=== PATIENT | male | born 1950 | race Caucasian/White ===

== ENCOUNTER 2017-02-11 23:33 | Inpatient (IN) ==
[2017-02-12] MEDS ORDERED: ACETAMINOPHEN 500 MG TABLET PO STA (00:12)
[2017-02-12] MEDS ORDERED: SODIUM CHLORIDE 0.9% 1,000 ML IV STA (00:12)
[2017-02-12] MEDS ORDERED: ACETAMINOPHEN 500 MG TABLET ONE (00:12)
[2017-02-12 00:38] LABS: Basophils % 0.1 % (0.0-0.8); Hematocrit 31.1 VOL% (42.0-52.0); Hemoglobin 10.6 GM/DL (14.0-18.0); Immature Granulocytes % 0.7 %; Immature Granulocytes Absolute 0.12 #; Mean Corpuscular HGB Conc 34.1 GM/DL (32-36); Mean Corpuscular Hemoglobin 30 PG (27-34); Mean Corpuscular Volume 88.4 FL (87-102); Mean Platelet Volume 11.1 FL (9.6-12.0); Monocytes % 12.1 % (1.7-12.7); Neutrophils # 13.3 10*3/uL (1.4-7.4); Neutrophils % 81.1 % (38.7-73.9); Platelet Count 202 T/CUMM (130-400); Red Blood Count 3.52 MC/CUMM (3.8-5.5); Red Cell Distribution Width 15.3 % (9.3-17.3); White Blood Count 16.4 T/CUMM (4-12)
[2017-02-12 01:05] LABS: Lactic Acid 1.4 MMOL/L (0.4-2.0)
[2017-02-12 01:07] LABS: Alanine Aminotransferase 26 U/L (16-61); Albumin 3.2 G/DL (3.4-5.0); Alkaline Phosphatase 102 U/L (45-117); Amylase 37 U/L (25-115); Aspartate Amino Transferase 23 U/L (0-37); Bilirubin,Total < 0.39 MG/DL (0.2-1.0); Blood Urea Nitrogen 24 MG/DL (7-18); Calcium 8.8 MG/DL (8.5-10.1); Glucose 137 MG/DL (74-106); Osmolality,Calculated 273.2 MOS/KG (273-304); Potassium 4.4 MMOL/L (3.5-5.1); Sodium 134 MMOL/L (136-145); Total Protein 6.7 G/DL (6.4-8.3)
[2017-02-12 01:13] LABS: Apearance,Urine CLOUDY (Clear); Bacteria,Urine Occasional /HPF (Few); Bilirubin,Urine Negative (Negative); Blood, Urine Small mg/dL (Negative); Glucose,Urine (UA) Negative (Negative); Ketones,Urine Negative (Negative); Mucus,Urine Occasional /LPF (Occasional); Nitrite,Urine Negative (Negative); Protein,Urine 100 MG/DL; RBC,Urine 14 /HPF (0-4); Urine Color Yellow (Yellow); Urine Urobilinogen < 2.0 EU/DL (0.2-1.0); WBC,Urine 126 /HPF (0-6)
--- NOTE | 2017-02-12 01:26 | Emergency Department Note ---
IAle Emily, am scribing for, and in the presence of, Mateus Burger MD 00: 36. Tao Reese Charles R, MD, personally performed the services described in this documentation, ascribed by Fernanda Aguilera in my presence, and it is both accurate and complete . Arrival - Arrival Chief Complaint: Altered Mental Status Stated Complaint: confusion ED Nursing Triage Note: Patient to room via ems. Patient to the room complaining of AMS and fever. At time of triage patients temp is 104.5. Patient has a history of UTI's. Patient is a quadriplegic and self caths every 4 hours. Mode of Arrival: Stretcher Limitations: No Limitations Source: Patient, Significant other Time Seen by Provider: 02/11/17 23:52 - History of Present Illness HPI Narrative: Pt is a 67 y/o male who came to ED by EMS for further evaluation of fever and AMS that worsened today. 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 Spouse notes he has been in hospital since 2015, and only home for 4 weeks just recently. Spouse states he was vomiting this morning, fever of 104, riggors and "talks out of his head," in which usually gets this way when sepsis starts. Pt was given one Tylenol that dropped his fever to 96 in 30 minutes. Pt's alex cath was taken out yesterday that has been in for one month (originally in [place] on January 04) and spouse reports she started cathing him every 4 hrs. Spouse states she has pressed on abdomen to help empty bladder fully. Pt's urine yesterday was clear until later last night was thick and creamy. Spouse reports pt's plan of action next is possible botex injection into bladder, with appointment on February 25. Spouse notes last round of abx given to pt was for 3 days and given at [facility]. Pt's PCP is Dr. Farfan, in which spouse notes calling him directly to inform of fever. Spouse also reports "spot" on buttocks since [place]'s visit, and is taking miralax during day and another laxative at night. Onset (ago): hour(s) Consistency: constant Severity: moderate, severe Severity scale (1-10): 9 Quality: other (altered) Allergies/Adverse Reactions: Allergies Allergy/AdvReac Type Severity Reaction Status Date / Time ciprofloxacin [From Cipro] Allergy Unknown/Unable Verified 02/11/17 23:39 to obtain rofecoxib [From Vioxx] Allergy Unknown/Unable Verified 02/11/17 23:39 to obtain zinc oxide AdvReac Redness of Verified 02/11/17 23:39 [From Boudreauxs Butt Paste] Skin Home Medications: Home Medications Medication Instructions Recorded Confirmed Type ALPRAZolam [Alprazolam] 0.5 mg PO BID PRN 10/05/16 12/18/16 History Baclofen 20 mg PO TID 10/05/16 12/18/16 History Gabapentin 300 mg PO TID 10/05/16 12/18/16 History Losartan [Cozaar] 50 mg PO BID 10/05/16 12/18/16 History Metoprolol Succinate Xl [Toprol Xl] 100 mg PO BEDTIME 10/05/16 12/18/16 History Multivitamin [Multivitamins] 1 tablet PO DAILY 10/05/16 12/18/16 History metFORMIN [Glucophage] 1,000 mg PO TID W/MEALS 10/05/16 12/18/16 History tiZANidine [Zanaflex] 4 mg PO BID PRN 10/05/16 12/18/16 History DULoxetine [Cymbalta] 20 mg PO BID 10/25/16 12/18/16 History Metoclopramide Tab [Reglan Tab] 10 mg PO ACHS 10/25/16 12/18/16 History Omeprazole 20 mg PO DAILY 10/25/16 12/18/16 History Rosuvastatin [Crestor] 20 mg PO BEDTIME 10/25/16 12/18/16 History Sennosides [Senna Laxative] 25 mg PO QID 10/25/16 12/18/16 History amLODIPine [Norvasc] 5 mg PO DAILY 10/25/16 12/18/16 History Aspirin EC Tab 81 mg PO DAILY tablet 11/03/16 12/18/16 Rx Nitrofurantoin Macro/[place] 100 mg PO BEDTIME 12/18/16 12/18/16 History [Macrobid] Polyethylene Glycol Powder 17 gm PO DAILY 12/18/16 12/18/16 History [Miralax] Piperacillin/Tazobactam [Zosyn] 3,375 mg IV Q8H #0 vial 12/23/16 Rx Review of System - Review of System ROS unobtainable: due to mental status Medical,Surgical,& Family Hx - Medical History Cardio: History of: Hypertension HEENT: History of: Eye Problem (dry eyes) Endocrine: History of: Diabetes Mellitus (IDDM), Diabetes Mellitus (NIDDM), Dyslipidemia Respiratory: History of: Asthma (childhood problem.) Genitourinary: History of: Bladder Problem (recent benign bladder biopsy), Kidney Stones, Recurring Urinary Tract Infections Musculoskeletal: History of: Musculoskeletal Problems (Paraplegic 07/2015) - Surgical History Cardiac Surgeries: Sugical HX of: Cardiac Catheterization (stents placed) Thoracic Surgeries: Patient denies;: Organ Transplant HEENT Surgeries: Patient denies: Thyroid Surgery, Tonsilectomy & Adenoidectomy Comment Only: Eye Surgery (cateract surgery on right eye) Orthopedic Surgeries: Surgical HX of;: Orthopedic Surgery - Family History Family History: Reports;: Family Diabetes - Social History Smoking Status: Never smoker Frequency of Alcohol Use: None Type of Drug Use: None Exam Vital Signs: Vital Signs Temperature 104.5 F H 02/11/17 23:33 Pulse Rate 111 H 02/12/17 00:18 Respiratory Rate 20 02/12/17 00:18 Blood Pressure 91/53 02/12/17 00:18 O2 Sat by Pulse Oximetry 96 02/12/17 00:18 - General General appearance: alert, in distress (mild), other (quadriplegic; ill appearance) - Head Head exam: Present: atraumatic, normocephalic - ENT ENT exam: Present: mucous membranes dry. Absent: mucous membranes moist - Chest Chest inspection: Present: symmetric chest wall rise - Respiratory Respiratory exam: Present: normal lung sounds bilaterally. Absent: respiratory distress - Cardiovascular Cardiovascular exam: Present: tachycardia, normal heart sounds - Neurological Exam Neurological exam: Present: other (slightly altered; sleepy). Absent: alert, oriented X3 - Skin Skin exam: Present: warm, diaphoresis, erythema (in the face), other ( emancipated) Course - Consultations Consultation #1: Hospitalist will admit patient Time: 01:23 Results - Labs CBC & BMP: 02/12/17 00:21 02/12/17 00:21 Disposition Clinical Impression: Fever, Leukocytosis, Altered mental status, Dysautonomia, UTI (urinary tract infection), Sepsis Case discussed with: patient, patient's family Condition: Critical Time of Disposition: 01:26
[2017-02-12] MEDS ORDERED: DEXTROSE 50% 25 GM/50 ML VIAL IV PRN ×3 (01:41→12:28)
[2017-02-12] MEDS ORDERED: GLUCAGON 1 MG VIAL IM PRN ×3 (01:41→12:28)
[2017-02-12] MEDS ORDERED: ALBUTEROL 2.5 MG/3 ML NEB RESP TX PRN (01:41)
[2017-02-12 01:52] LABS: Sedimentation Rate-Westergren 99 MM/HR (0-20)
--- NOTE | 2017-02-12 02:05 | Hospitalist History & Physical ---
Assessment and Plan (1) Altered mental status Problem details: likely 2/2 UTI. Improving Status: Acute Current Visit: Yes (2) UTI (urinary tract infection) Problem details: Pseudomonas UTI Status: Acute Current Visit: Yes Qualifiers: Urinary tract infection type: catheter-associated UTI (3) History of paraplegia Status: Chronic Current Visit: No (4) Infectious encephalopathy Status: Resolved Current Visit: No (5) Leukocytosis Problem details: trending down Status: Acute Current Visit: No (6) Sepsis Status: Acute Assessment and plan: Per review patient's vital signs physical exam patient is found to be septic from urinary tract infection. We reviewed his old cultures and he is always grown Pseudomonas out of his urine. It has been the same microorganism in all 3 cultures identified. Going to put him on Fortaz and Zosyn. Treat his nausea and vomiting. Provide him with hydration and observe him at least overnight in the unit. If he does okay with his blood pressure he might be able to be transferred. out later today. We need to get his home meds confirmed and continue those as needed. Current Visit: No History of Present Illness Chief complaint: Nausea and vomiting fever confusion History of present illness: Mr. Yo is a 67 year old male who is a quadriplegic secondary from minor spinal cord injury who presents to our hospital the year EMS tonight. Patient' s reports that he has not been able to keep anything down. She has been throwing up all day. He spiked a temperature and started talking out of his head. She called Dr. Farfan and he recommended that she be sent to the emergency room. Patient was found to have a elevated white count and urinary tract infection. I was consulted for admission to the ER Home Medications Medication Instructions Recorded Confirmed Type ALPRAZolam [Alprazolam] 0.5 mg PO BID PRN 10/05/16 12/18/16 History Baclofen 20 mg PO TID 10/05/16 12/18/16 History Gabapentin 300 mg PO TID 10/05/16 12/18/16 History Losartan [Cozaar] 50 mg PO BID 10/05/16 12/18/16 History Metoprolol Succinate Xl [Toprol Xl] 100 mg PO BEDTIME 10/05/16 12/18/16 History Multivitamin [Multivitamins] 1 tablet PO DAILY 10/05/16 12/18/16 History metFORMIN [Glucophage] 1,000 mg PO TID W/MEALS 10/05/16 12/18/16 History tiZANidine [Zanaflex] 4 mg PO BID PRN 10/05/16 12/18/16 History DULoxetine [Cymbalta] 20 mg PO BID 10/25/16 12/18/16 History Metoclopramide Tab [Reglan Tab] 10 mg PO ACHS 10/25/16 12/18/16 History Omeprazole 20 mg PO DAILY 10/25/16 12/18/16 History Rosuvastatin [Crestor] 20 mg PO BEDTIME 10/25/16 12/18/16 History Sennosides [Senna Laxative] 25 mg PO QID 10/25/16 12/18/16 History amLODIPine [Norvasc] 5 mg PO DAILY 10/25/16 12/18/16 History Aspirin EC Tab 81 mg PO DAILY tablet 11/03/16 12/18/16 Rx Nitrofurantoin Macro/[place] 100 mg PO BEDTIME 12/18/16 12/18/16 History [Macrobid] Polyethylene Glycol Powder 17 gm PO DAILY 12/18/16 12/18/16 History [Miralax] Piperacillin/Tazobactam [Zosyn] 3,375 mg IV Q8H #0 vial 12/23/16 Rx Allergies Allergy/AdvReac Type Severity Reaction Status Date / Time ciprofloxacin [From Cipro] Allergy Unknown/Unable Verified 02/11/17 23:39 to obtain rofecoxib [From Vioxx] Allergy Unknown/Unable Verified 02/11/17 23:39 to obtain zinc oxide AdvReac Redness of Verified 02/11/17 23:39 [From Boudreauxs Butt Paste] Skin Medical,Surgical,& Family Hx - Medical History Cardio: History of: Hypertension HEENT: History of: Eye Problem (dry eyes) Endocrine: History of: Diabetes Mellitus (IDDM), Diabetes Mellitus (NIDDM), Dyslipidemia Respiratory: History of: Asthma (childhood problem.) Genitourinary: History of: Bladder Problem (recent benign bladder biopsy), Kidney Stones, Recurring Urinary Tract Infections Musculoskeletal: History of: Musculoskeletal Problems (Paraplegic 07/2015) - Surgical History Cardiac Surgeries: Sugical HX of: Cardiac Catheterization (stents placed) Thoracic Surgeries: Patient denies;: Organ Transplant HEENT Surgeries: Patient denies: Thyroid Surgery, Tonsilectomy & Adenoidectomy Comment Only: Eye Surgery (cateract surgery on right eye) Orthopedic Surgeries: Surgical HX of;: Orthopedic Surgery - Family History Family History: Reports;: Family Diabetes - Social History Smoking Status: Never smoker Frequency of Alcohol Use: None Type of Drug Use: None ROS unobtainable: due to delirium Exam - Constitutional Vitals: Period Temp Pulse Resp BP Sys/Barr Pulse Ox Last 24 Hr 99.2 F-104.5 F 111-129 20-20 91-100/53-63 94-96 General appearance: normal weight - Head Head exam: Present: normal inspection - Eye Eye exam: Present: EOMI Pupils: Present: JLUIS - ENT ENT exam: Present: normal exam - Neck Neck exam: Present: normal inspection - Respiratory Respiratory exam: Present: clear to auscultation bilaterally - Cardiovascular Cardiovascular exam: Present: regular rate and rhythm - GI/Abdominal GI/Abdominal exam: Present: normal bowel sounds - Extremities Exam Extremities exam: Present: normal inspection - Back Exam Back exam: Present: normal inspection - Neurological Exam Neurological exam: Present: other (Patient is currently asleep) - Psychiatric Psychiatric exam: Present: other (Patient is currently asleep) - Skin Skin exam: Present: normal color Results - Labs CBC & BMP: 02/12/17 00:21 02/12/17 00:21
[2017-02-12] MEDS ORDERED: ONDANSETRON 4 MG/2 ML VIAL IV PRN (02:11)
[2017-02-12] MEDS ORDERED: PANTOPRAZOLE 40 MG VIAL IV SCH (03:00)
[2017-02-12] MEDS: SODIUM CHLORIDE 0.9% 1,000 ML IV SCH ×3 (03:24→17:01)
[2017-02-12] MEDS: PIPERACILLIN/TAZOBACTAM 3,375 MG in SODIUM CHLORIDE 0.9% 100 ML IV SCH ×3 (03:30→18:18)
[2017-02-12] MEDS ORDERED: SODIUM CHLORIDE 0.9% 500 ML IV ONE ×2 (04:00→04:45)
[2017-02-12] MEDS ORDERED: NOREPINEPHRINE 8 MG in SODIUM CHLORIDE 0.9% 242 ML IV SCH (06:30)
[2017-02-12 07:34] LABS: Basophils % 0.2 % (0.0-0.8); Eosinophils % 0.1 % (0.00-10.9); Hematocrit 27.7 VOL% (42.0-52.0); Hemoglobin 9.4 GM/DL (14.0-18.0); Immature Granulocytes % 1.5 %; Immature Granulocytes Absolute 0.22 #; Lymphocytes # 2.1 10*3/uL (1.4-4.0); Lymphocytes % 14.5 % (21.2-54.2); Mean Corpuscular HGB Conc 33.9 GM/DL (32-36); Mean Corpuscular Hemoglobin 30 PG (27-34); Mean Corpuscular Volume 89.6 FL (87-102); Mean Platelet Volume 11.1 FL (9.6-12.0); Monocytes # 1.4 10*3/uL (0.11-0.8); Monocytes % 10.1 % (1.7-12.7); Neutrophils # 10.5 10*3/uL (1.4-7.4); Neutrophils % 73.6 % (38.7-73.9); Platelet Count 168 T/CUMM (130-400); Red Blood Count 3.09 MC/CUMM (3.8-5.5); Red Cell Distribution Width 15.3 % (9.3-17.3); White Blood Count 14.3 T/CUMM (4-12)
--- NOTE | 2017-02-12 08:02 | XRay Report ---
XR chest 1V portable Indication: SOB/fever Comparison: Chest x-ray dated December 20, 2016 Technique: Single frontal view of the chest Findings: Cardiomediastinal silhouette is stable in configuration. Subtle bilateral infrahilar opacities may reflect atelectasis or early consolidative process such as pneumonia. Osseous and surrounding soft tissue structures appear grossly unchanged. IMPRESSION: As above. PROCEDURE INTERPRETED AT [facility] DEPARTMENT OF RADIOLOGY Final Report Signed by: Dr Zachary Jason
[2017-02-12 08:05] LABS: Band Neutrophils 4 % (0-10); Hypochromasia 1+; Lymphocytes 13 % (20-55); Platelet Estimate Adequate; Segmented Neutrophils 72 % (50-85); Total Cells Counted 100
[2017-02-12 08:06] LABS: Albumin 2.7 G/DL (3.4-5.0); Bilirubin,Total 0.6 MG/DL (0.2-1.0); Calcium 8.4 MG/DL (8.5-10.1); Osmolality,Calculated 280.5 MOS/KG (273-304); Total Protein 5.9 G/DL (6.4-8.3)
[2017-02-12] MEDS ORDERED: ALPRAZolam 0.5 MG TABLET PO PRN (08:27)
--- NOTE | 2017-02-12 08:38 | Event Note ---
Subjective Patient seen and examined. No acute events overnight. Case discussed with nursing staff. Labs reviewed. Patient's blood pressure has been stable. Tachycardia has resolved. He is making good urine output. His mental status has improved. His sitter is at the bedside. The patient will be transferred to the general medical floor for continued IV antibiotics. Urine cultures were reviewed. He has previously grown Pseudomonas R generosa sensitive to Fortaz and Zosyn. I agree with the current antibiotic selection and will continue it upon transfer. Physical exam: Constitutional System: No distress. No tremulousness. Head: Normocephalic, atraumatic. Ears, Nose and Throat System: No pain or tenderness. No epistaxis or discharge Eyes System: Pupils equal, round, and reactive. Extraocular muscles intact. Neck: Supple, without adenopathy, No jugular venous distention. Respiratory System: Chest clear to auscultation. Cardiovascular System: Heart with regular rate and rhythm. No murmur. GI System: Abdomen soft, nontender. Normo active bowel sounds present. Musculoskeletal System: limbs with no pedal edema. Full distal pulses. Contractures noted. Neurological System: Chronic quadriplegia secondary to spinal cord injury. Psychiatric System: Conversation is rational Diagnosis: Sepsis Urinary tract infection Previous Pseudomonas UTIs Acute metabolic encephalopathy related to infection secondary to UTI and sepsis. Chronic quadriplegia secondary to spinal cord injury Sacral decubitus wound Plan: Continue Fortaz and Zosyn Continue IV fluids Follow-up a.m. labs Lactic acid was 1.4 on admission Home medications reviewed and reconciled.
[2017-02-12] MEDS: INSULIN REGULAR 100 UNIT/ML SUBCUT SCH ×4 (09:01→19:46)
[2017-02-12] MEDS: BACLOFEN 10 MG TABLET PO SCH ×3 (09:08→22:02)
[2017-02-12] MEDS: ASPIRIN EC 81 MG TABLET PO SCH (09:08)
[2017-02-12] MEDS: GABAPENTIN 300 MG CAPSULE PO SCH ×2 (09:09→14:33)
[2017-02-12] MEDS: ENOXAPARIN 40 MG/0.4 ML SYRINGE SUBCUT SCH (09:09)
[2017-02-12] MEDS: DULoxetine 20 MG CAPSULE PO SCH ×2 (09:11→22:02)
--- NOTE | 2017-02-12 13:07 | Sleep Medicine Consult ---
Assessment and Plan (1) Obstructive sleep apnea Status: Acute Assessment and plan: This patient does have a history of obstructive sleep apnea. He has lost a significant amount of weight compared to his baseline in 2008. However he does remain symptomatic. We will try to reevaluate him with home sleep apnea testing while hospitalized and see if we can better equip him with therapy. Thank you for this consult and the opportunity to participate in his care. Current Visit: Yes (2) Insulin dependent diabetes mellitus Status: Acute Assessment and plan: The prevalence rate for obstructive sleep apnea in patients with type 2 diabetes can be as high as 86%. Those patients with moderate to severe obstructive sleep apnea are at a greater risk for diabetic nephropathy and neuropathy. Compliance with CPAP therapy for these patients can lead to improvement in glycemic control and improvement in insulin sensitivity. Current Visit: No (3) Hypertension Status: Acute Assessment and plan: The prevalence rate for obstructive sleep apnea patients with hypertension is 35 %. That rate can be as high as 80% in patients who require 4 or more medications for blood pressure control. Current Visit: No History of Present Illness Chief complaint: Obstructive sleep apnea History of present illness: Mr. Yo is a 67 year old male known to me from previous sleep evaluation in 2008. He had severe obstructive sleep apnea with a diagnostic AHI of 49. He returned for CPAP titration and had good results at 9 cm. He poorly tolerated CPAP and quit using it soon thereafter. He was lost to follow-up with me. 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 He lives at home and has [id number] caretakers. He has lost a significant amount of weight since his injury. In 2008, he weighed 250 pounds. He does continue to snore and his civil draftsman state that he sleeps all the time. He does awaken from sleep short of breath. He is admitted to the ICU for urosepsis and sleep medicine was consulted for reevaluation of his sleep apnea. Nurses and caretakers have noticed episodes of apneas during his sleep. Home Medications Medication Instructions Recorded Confirmed Type ALPRAZolam [Alprazolam] 0.5 mg PO BID PRN 10/05/16 02/12/17 History Baclofen 20 mg PO TID 10/05/16 02/12/17 History Gabapentin 100 mg PO TID 10/05/16 02/12/17 History Metoprolol Succinate Xl [Toprol Xl] 100 mg PO BID 10/05/16 02/12/17 History Multivitamin [Multivitamins] 1 tablet PO DAILY 10/05/16 02/12/17 History metFORMIN [Glucophage] 100 mg PO TID W/MEALS 10/05/16 02/12/17 History tiZANidine [Zanaflex] 4 mg PO DAILY PRN 10/05/16 02/12/17 History DULoxetine [Cymbalta] 20 mg PO DAILY 10/25/16 02/12/17 History Metoclopramide Tab [Reglan Tab] 10 mg PO TID 10/25/16 02/12/17 History Omeprazole 20 mg PO DAILY 10/25/16 02/12/17 History Rosuvastatin [Crestor] 20 mg PO BEDTIME 10/25/16 02/12/17 History Sennosides [Senna Laxative] 25 mg PO BEDTIME 10/25/16 02/12/17 History Aspirin EC Tab 81 mg PO DAILY tablet 11/03/16 02/12/17 Rx Polyethylene Glycol Powder 17 gm PO DAILY 12/18/16 02/12/17 History [Miralax] HYDROcodone/ACETAMIN 7.5-325 1 tablet PO Q6H PRN 02/12/17 02/12/17 History [[place] 7.5-325] Oxybutynin [Ditropan] 10 mg PO BID 02/12/17 02/12/17 History Trimethoprim [Proloprim] 100 mg PO DAILY 02/12/17 02/12/17 History Allergies Allergy/AdvReac Type Severity Reaction Status Date / Time ciprofloxacin [From Cipro] Allergy Unknown/Unable Verified 02/11/17 23:39 to obtain rofecoxib [From Vioxx] Allergy Unknown/Unable Verified 02/11/17 23:39 to obtain zinc oxide AdvReac Redness of Verified 02/11/17 23:39 [From Boudreauxs Butt Paste] Skin Review of systems: He states that he has had some difficulty swallowing recently. Otherwise review of systems unremarkable from a sleep standpoint. Exam (Pulmonay) H&P - Constitutional Vitals: Period Temp Pulse Resp BP Sys/Barr Pulse Ox Last 24 Hr 98.0 F-98.9 F 54-105 9-20 63-129/40-74 95-100 Exam: He is alert and responsive and answers questions appropriately. Pupils equal round reactive to light and accommodation. Extraocular movements intact. Oropharynx with a class III Mallampati exam. Neck supple without adenopathy or thyromegaly no supraclavicular adenopathy. Chest with symmetrical breath sounds without significant wheeze rhonchi. Cardiac exam reveals a regular rhythm without murmur or gallop. Abdomen soft nontender without palpable hepatosplenomegaly or mass. Extremities are without clubbing, cyanosis, or edema. Neurologically, he answers questions appropriately but he is quadriplegic. Medical,Surgical,& Family Hx - Medical History Cardio: History of: Hypertension, Cardiovascular Problems (stent placed around 2007) Neurology: No history of: Cerebral Hemorrhage, Cerebrovascular Accident, Cerebral Palsy HEENT: History of: Eye Problem (dry eyes) Endocrine: History of: Diabetes Mellitus (IDDM), Diabetes Mellitus (NIDDM), Dyslipidemia Respiratory: History of: Asthma (childhood problem.), Obstructive Sleep Apnea Genitourinary: History of: Bladder Problem (recent benign bladder biopsy), Kidney Stones, Recurring Urinary Tract Infections Gastrointestinal: History of: GERD Musculoskeletal: History of: Musculoskeletal Problems (Paraplegic 07/2015) - Surgical History Cardiac Surgeries: Sugical HX of: Cardiac Catheterization (stents placed) Thoracic Surgeries: Patient denies;: Organ Transplant Neurologic Surgeries: Patient denies: Cerebral Hemorrhage HEENT Surgeries: Patient denies: Thyroid Surgery, Tonsilectomy & Adenoidectomy Comment Only: Eye Surgery (cateract surgery on right eye) Orthopedic Surgeries: Surgical HX of;: Orthopedic Surgery - Family History Family History: Reports;: Family Diabetes - Social History Smoking Status: Never smoker Frequency of Alcohol Use: None Type of Drug Use: None Results - Labs CBC & BMP: 02/12/17 07:22 02/12/17 07:22 Lab Results: I have reviewed the past 24 hour labs
[2017-02-12] MEDS: DESITIN 4OZ/NYSTATIN 15 GRAM MIXTURE PASTE TOP SCH ×2 (14:18→21:00)
[2017-02-12] MEDS: METOCLOPRAMIDE 10 MG TABLET PO SCH ×3 (14:33→22:03)
[2017-02-12] MEDS: OXYBUTYNIN 5 MG TABLET PO SCH (22:02)
[2017-02-12] MEDS: ROSUVASTATIN 20 MG TABLET PO SCH (22:02)
[2017-02-12] MEDS: GABAPENTIN 100 MG CAPSULE PO SCH (22:03)
[2017-02-13] MEDS: SODIUM CHLORIDE 0.9% 1,000 ML IV SCH (03:37)
[2017-02-13] MEDS: PIPERACILLIN/TAZOBACTAM 3,375 MG in SODIUM CHLORIDE 0.9% 100 ML IV SCH ×3 (03:37→18:45)
[2017-02-13 06:22] LABS: Basophils % 0.4 % (0.0-0.8); Eosinophils # 0.3 10*3/uL (0.0-0.87); Hematocrit 27.3 VOL% (42.0-52.0); Hemoglobin 8.9 GM/DL (14.0-18.0); Immature Granulocytes % 0.5 %; Immature Granulocytes Absolute 0.05 #; Lymphocytes # 2.2 10*3/uL (1.4-4.0); Lymphocytes % 21.5 % (21.2-54.2); Mean Corpuscular HGB Conc 32.6 GM/DL (32-36); Mean Corpuscular Hemoglobin 30 PG (27-34); Mean Platelet Volume 11.3 FL (9.6-12.0); Monocytes # 1.1 10*3/uL (0.11-0.8); Monocytes % 10.4 % (1.7-12.7); Neutrophils # 6.6 10*3/uL (1.4-7.4); Neutrophils % 64.2 % (38.7-73.9); Platelet Count 162 T/CUMM (130-400); Red Cell Distribution Width 15.5 % (9.3-17.3); White Blood Count 10.3 T/CUMM (4-12)
[2017-02-13 06:51] LABS: Calcium 8.3 MG/DL (8.5-10.1); Magnesium 1.7 MG/DL (1.8-2.4); Osmolality,Calculated 282.1 MOS/KG (273-304); Potassium 4.1 MMOL/L (3.5-5.1)
[2017-02-13] MEDS: INSULIN REGULAR 100 UNIT/ML SUBCUT SCH ×4 (09:05→20:40)
[2017-02-13] MEDS: OXYBUTYNIN 5 MG TABLET PO SCH ×2 (09:07→20:25)
[2017-02-13] MEDS: ASPIRIN EC 81 MG TABLET PO SCH (09:07)
[2017-02-13] MEDS: DULoxetine 20 MG CAPSULE PO SCH ×2 (09:07→20:25)
[2017-02-13] MEDS: BACLOFEN 10 MG TABLET PO SCH ×3 (09:08→20:25)
[2017-02-13] MEDS: ENOXAPARIN 40 MG/0.4 ML SYRINGE SUBCUT SCH (09:08)
[2017-02-13] MEDS: GABAPENTIN 100 MG CAPSULE PO SCH ×3 (09:08→20:25)
[2017-02-13] MEDS: PANTOPRAZOLE 40 MG TABLET PO SCH (09:08)
[2017-02-13] MEDS: METOCLOPRAMIDE 10 MG TABLET PO SCH ×3 (09:09→20:25)
[2017-02-13] MEDS: DESITIN 4OZ/NYSTATIN 15 GRAM MIXTURE PASTE TOP SCH ×2 (09:09→20:41)
--- NOTE | 2017-02-13 11:56 | Sleep Medicine Progress Note ---
Assessment and Plan (1) Obstructive sleep apnea Status: Acute Assessment and plan: We are unable to technically get a good enough reading to reassess his obstructive sleep apnea by HST. We will go ahead and initiate auto titration BiPAP on him. He has had intolerance to CPAP in the past and has severe obstructive sleep apnea. Current Visit: Yes (2) Insulin dependent diabetes mellitus Status: Acute Current Visit: No (3) Hypertension Status: Acute Current Visit: No Sleep Medicine Subjective Interval history: Patient was moved to the floor. Overnight, we were unable to get a good technical assessment on HST evaluation. We will go ahead and place him on empiric auto titration BiPAP for sleep apnea given his combination of quadriplegia and history of severe obstructive sleep apnea and intolerance to CPAP. Family members note abnormal breathing during sleep With witnessed apneas. Exam (Progress Note) - Constitutional Vitals: Period Temp Pulse Resp BP Sys/Barr Pulse Ox Last 24 Hr 98.3 F-99.7 F 63-106 10-20 91-131/53-71 93-99 Exam: He is sleeping but easily arousable. Oropharynx with a class IV Mallampati exam. Neck supple without adenopathy or thyromegaly. Chest with symmetrical breath sounds without focal wheeze or rhonchi. Cardiac exam reveals a regular rhythm without murmur or gallop. Abdomen soft nontender extremities without increased edema. Results - Labs CBC & BMP: 02/13/17 05:56 02/13/17 05:56 Lab Results: I have reviewed the past 24 hour labs
--- NOTE | 2017-02-13 13:08 | Hospitalist Progress Note ---
Assessment and Plan - Time spent with patient Time spent with patient: Greater than 30 minutes (1) UTI (urinary tract infection) Status: Acute Assessment and plan: Patient is tolerating this well. Continue current management. Current Visit: Yes Qualifiers: Urinary tract infection type: catheter-associated UTI (2) History of paraplegia Status: Chronic Assessment and plan: Continue supportive care. Current Visit: No (3) Insulin dependent diabetes mellitus Status: Acute Assessment and plan: Continue current management. Current Visit: No Hospitalist: Subjective Interval history: No complaints, no overnight events. Exam - Constitutional Vitals: Period Temp Pulse Resp BP Sys/Barr Pulse Ox Last 24 Hr 97.5 F-99.7 F 63-106 18-20 91-131/53-71 93-99 General appearance: no acute distress - Head Head exam: Present: normocephalic, atraumatic - Eye Eye exam: Present: EOMI Pupils: Present: JLUIS - ENT ENT exam: Present: normal exam - Neck Neck exam: Present: normal inspection - Respiratory Respiratory exam: Present: clear to auscultation bilaterally. Absent: rhonchi, wheezes - Cardiovascular Cardiovascular exam: Present: regular rate and rhythm. Absent: gallop, rubs, systolic murmur - GI/Abdominal GI/Abdominal exam: Present: normal bowel sounds, soft. Absent: distended, firm , guarding, tenderness, rebound - Extremities Exam Extremities exam: Present: normal inspection. Absent: calf tenderness, edema Results - Labs CBC & BMP: 02/13/17 05:56 02/13/17 05:56 Lab Results: I have reviewed the past 24 hour labs
[2017-02-13] MEDS: ROSUVASTATIN 20 MG TABLET PO SCH (20:25)
[2017-02-14] MEDS: SODIUM CHLORIDE 0.9% 1,000 ML IV SCH ×4 (00:56→13:45)
[2017-02-14] MEDS: PIPERACILLIN/TAZOBACTAM 3,375 MG in SODIUM CHLORIDE 0.9% 100 ML IV SCH ×3 (04:01→18:46)
[2017-02-14] MEDS ORDERED: ENALAPRIL 5 MG TABLET PO SCH (09:00)
[2017-02-14] MEDS: ENOXAPARIN 40 MG/0.4 ML SYRINGE SUBCUT SCH (09:04)
[2017-02-14] MEDS: METOPROLOL TARTRATE 50 MG TABLET PO SCH ×2 (09:04→21:15)
[2017-02-14] MEDS: ASPIRIN EC 81 MG TABLET PO SCH (09:05)
[2017-02-14] MEDS: OXYBUTYNIN 5 MG TABLET PO SCH ×2 (09:05→21:14)
[2017-02-14] MEDS: GABAPENTIN 100 MG CAPSULE PO SCH ×3 (09:05→21:56)
[2017-02-14] MEDS: BACLOFEN 10 MG TABLET PO SCH ×3 (09:05→21:14)
[2017-02-14] MEDS: METOCLOPRAMIDE 10 MG TABLET PO SCH ×3 (09:05→21:15)
[2017-02-14] MEDS: PANTOPRAZOLE 40 MG TABLET PO SCH (09:06)
[2017-02-14] MEDS: DULoxetine 20 MG CAPSULE PO SCH ×2 (09:06→21:14)
[2017-02-14] MEDS: ENALAPRIL 2.5 MG TABLET PO SCH (10:24)
--- NOTE | 2017-02-14 10:45 | Hospitalist Progress Note ---
Assessment and Plan - Time spent with patient Time spent with patient: Greater than 30 minutes (1) UTI (urinary tract infection) Status: Acute Assessment and plan: Patient is tolerating this well. Continue current management. Current Visit: Yes Qualifiers: Urinary tract infection type: catheter-associated UTI (2) History of paraplegia Status: Chronic Assessment and plan: Continue supportive care. Current Visit: No (3) Insulin dependent diabetes mellitus Status: Acute Assessment and plan: Continue current management. Current Visit: No Hospitalist: Subjective Interval history: No overnight events. No complaints. Exam - Constitutional Vitals: Period Temp Pulse Resp BP Sys/Barr Pulse Ox Last 24 Hr 97.3 F-98.9 F 65-82 18-20 128-189/69-105 98-99 General appearance: normal weight, no acute distress - Head Head exam: Present: normocephalic, atraumatic - Eye Eye exam: Present: EOMI Pupils: Present: JLUIS - ENT ENT exam: Present: normal exam - Neck Neck exam: Present: normal inspection - Respiratory Respiratory exam: Present: clear to auscultation bilaterally. Absent: rhonchi, wheezes - Cardiovascular Cardiovascular exam: Present: regular rate and rhythm. Absent: gallop, rubs, systolic murmur - GI/Abdominal GI/Abdominal exam: Present: normal bowel sounds, soft. Absent: distended, firm , guarding, tenderness, rebound - Extremities Exam Extremities exam: Present: normal inspection. Absent: calf tenderness, edema Results - Labs CBC & BMP: 02/13/17 05:56 02/13/17 05:56 Lab Results: I have reviewed the past 24 hour labs
[2017-02-14] MEDS: DESITIN 4OZ/NYSTATIN 15 GRAM MIXTURE PASTE TOP SCH (12:43)
[2017-02-14] MEDS: INSULIN REGULAR 100 UNIT/ML SUBCUT SCH ×4 (12:43→21:56)
[2017-02-14] MEDS: ROSUVASTATIN 20 MG TABLET PO SCH (21:14)
[2017-02-15] MEDS: DESITIN 4OZ/NYSTATIN 15 GRAM MIXTURE PASTE TOP SCH ×3 (02:06→20:05)
[2017-02-15] MEDS: PIPERACILLIN/TAZOBACTAM 3,375 MG in SODIUM CHLORIDE 0.9% 100 ML IV SCH (03:45)
[2017-02-15 05:27] LABS: Basophils % 0.3 % (0.0-0.8); Eosinophils # 0.2 10*3/uL (0.0-0.87); Eosinophils % 2.9 % (0.00-10.9); Hematocrit 26.9 VOL% (42.0-52.0); Immature Granulocytes % 0.3 %; Immature Granulocytes Absolute 0.02 #; Lymphocytes # 1.5 10*3/uL (1.4-4.0); Lymphocytes % 22.8 % (21.2-54.2); Mean Corpuscular HGB Conc 33.5 GM/DL (32-36); Mean Corpuscular Hemoglobin 30 PG (27-34); Mean Corpuscular Volume 89.4 FL (87-102); Monocytes # 0.7 10*3/uL (0.11-0.8); Monocytes % 10.6 % (1.7-12.7); Neutrophils # 4.2 10*3/uL (1.4-7.4); Neutrophils % 63.1 % (38.7-73.9); Platelet Count 156 T/CUMM (130-400); Red Blood Count 3.01 MC/CUMM (3.8-5.5); Red Cell Distribution Width 15.4 % (9.3-17.3); White Blood Count 6.6 T/CUMM (4-12)
[2017-02-15 05:39] LABS: Calcium 7.9 MG/DL (8.5-10.1); Osmolality,Calculated 281.3 MOS/KG (273-304); Potassium 3.6 MMOL/L (3.5-5.1)
[2017-02-15] MEDS: INSULIN REGULAR 100 UNIT/ML SUBCUT SCH ×4 (07:33→20:05)
[2017-02-15] MEDS: ENOXAPARIN 40 MG/0.4 ML SYRINGE SUBCUT SCH (08:58)
[2017-02-15] MEDS: GABAPENTIN 100 MG CAPSULE PO SCH ×3 (08:59→20:01)
[2017-02-15] MEDS: DULoxetine 20 MG CAPSULE PO SCH ×2 (08:59→20:01)
[2017-02-15] MEDS: BACLOFEN 10 MG TABLET PO SCH ×3 (08:59→20:00)
[2017-02-15] MEDS: ASPIRIN EC 81 MG TABLET PO SCH (08:59)
[2017-02-15] MEDS: PANTOPRAZOLE 40 MG TABLET PO SCH (08:59)
[2017-02-15] MEDS: OXYBUTYNIN 5 MG TABLET PO SCH ×2 (08:59→20:01)
[2017-02-15] MEDS: METOCLOPRAMIDE 10 MG TABLET PO SCH ×3 (08:59→20:02)
[2017-02-15] MEDS: ENALAPRIL 2.5 MG TABLET PO SCH (09:36)
--- NOTE | 2017-02-15 10:50 | Hospitalist Progress Note ---
Assessment and Plan - Time spent with patient Time spent with patient: Greater than 30 minutes (1) UTI (urinary tract infection) Status: Acute Assessment and plan: Patient is tolerating this well. Continue current management. Consult social work for LTAC placement for IV antibiotics. Current Visit: Yes Qualifiers: Urinary tract infection type: catheter-associated UTI (2) History of paraplegia Status: Chronic Assessment and plan: Continue supportive care. Current Visit: No (3) Insulin dependent diabetes mellitus Status: Acute Assessment and plan: Continue current management. Current Visit: No Hospitalist: Subjective Interval history: No complaints or overnight events. Exam - Constitutional Vitals: Period Temp Pulse Resp BP Sys/Barr Pulse Ox Last 24 Hr 97.1 F-98.5 F 55-87 16-20 140-176/77-96 96-99 General appearance: no acute distress - Head Head exam: Present: normocephalic, atraumatic - Eye Eye exam: Present: EOMI Pupils: Present: JLUIS - ENT ENT exam: Present: normal exam - Neck Neck exam: Present: normal inspection - Respiratory Respiratory exam: Present: clear to auscultation bilaterally. Absent: rhonchi, wheezes - Cardiovascular Cardiovascular exam: Present: regular rate and rhythm. Absent: gallop, rubs, systolic murmur - GI/Abdominal GI/Abdominal exam: Present: normal bowel sounds, soft. Absent: distended, firm , guarding, tenderness, rebound - Extremities Exam Extremities exam: Present: normal inspection. Absent: calf tenderness, edema Results - Labs CBC & BMP: 02/15/17 04:47 02/15/17 04:47 Lab Results: I have reviewed the past 24 hour labs
[2017-02-15] MEDS: SODIUM CHLORIDE 0.9% 1,000 ML IV SCH ×2 (19:59→20:00)
[2017-02-15] MEDS: ROSUVASTATIN 20 MG TABLET PO SCH (20:01)
[2017-02-15] MEDS: METOPROLOL SUCCINATE XL 100 MG TABLET PO SCH (20:01)
[2017-02-16] MEDS: SODIUM CHLORIDE 0.9% 1,000 ML IV SCH ×4 (04:45→20:59)
[2017-02-16] MEDS: INSULIN REGULAR 100 UNIT/ML SUBCUT SCH ×4 (09:20→20:54)
[2017-02-16] MEDS: GABAPENTIN 100 MG CAPSULE PO SCH ×3 (09:21→20:54)
[2017-02-16] MEDS: ENOXAPARIN 40 MG/0.4 ML SYRINGE SUBCUT SCH (09:21)
[2017-02-16] MEDS: PANTOPRAZOLE 40 MG TABLET PO SCH (09:22)
[2017-02-16] MEDS: ENALAPRIL 2.5 MG TABLET PO SCH (09:22)
[2017-02-16] MEDS: OXYBUTYNIN 5 MG TABLET PO SCH ×2 (09:22→20:54)
[2017-02-16] MEDS: DESITIN 4OZ/NYSTATIN 15 GRAM MIXTURE PASTE TOP SCH ×2 (09:22→20:55)
[2017-02-16] MEDS: BACLOFEN 10 MG TABLET PO SCH ×3 (09:22→20:53)
[2017-02-16] MEDS: METOPROLOL SUCCINATE XL 100 MG TABLET PO SCH (09:22)
[2017-02-16] MEDS: ASPIRIN EC 81 MG TABLET PO SCH (09:22)
[2017-02-16] MEDS: DULoxetine 20 MG CAPSULE PO SCH ×2 (09:22→20:54)
[2017-02-16] MEDS: METOCLOPRAMIDE 10 MG TABLET PO SCH ×3 (09:22→20:55)
--- NOTE | 2017-02-16 12:42 | Sleep Medicine Progress Note ---
Assessment and Plan (1) Obstructive sleep apnea Status: Acute Assessment and plan: We will try to get a download from the device that he was own over the weekend and see if we can get him set up with a new machine. He needs help with acclamation to BiPAP and mask fit. Current Visit: Yes (2) Insulin dependent diabetes mellitus Status: Acute Current Visit: No (3) Hypertension Status: Acute Current Visit: No Sleep Medicine Subjective Interval history: Patient did use BiPAP over the weekend but had issues with the mask. He still not quite comfortable with the mask. He is looking at being discharged today. We need to work on acclamation for him and see if we can get him a loaner machine to go home with until we can bring him in and formally titrate him. Exam (Progress Note) - Constitutional Vitals: Period Temp Pulse Resp BP Sys/Barr Pulse Ox Last 24 Hr 97.2 F-98.8 F 52-102 16-20 118-186/72-95 95-98 Exam: He is alert and responsive. Looks much better. Chest with good air movement and no focal wheeze or rhonchi. Cardiac exam reveals a regular rhythm without murmur or gallop. Abdomen soft nontender extremities without increased edema. Neurologically, he is alert and oriented. He moves both upper extremities. Results - Labs CBC & BMP: 02/15/17 04:47 02/15/17 04:47 Lab Results: I have reviewed the past 24 hour labs
--- NOTE | 2017-02-16 14:41 | Discharge Summary ---
Hospital Course - Hospital Course Hospital Course: Mr. Yo was admitted for management of urinary tract infection. He was initiated on IV antibiotics. White blood cell count improved from 16.4-6.6 by discharge. Urine grew pseudomonas aeruginosa which was sensitive to the antibiotic that was initiated. The family requested that the patient be discharged to home as opposed to LTAC for IV antibiotics. Antibiotic choice was switched to cefepime every 12 hours for convenience. Of note he was noted to be hypertensive and this was adjusted accordingly. His beta-avery was halved given that his heart rate was low normal. By discharge patient met maximum benefit of hospitalization. I spent 38 minutes coordinating this discharge. - Time spent with patient Time with patient DS: Greater than 30 minutes Diagnosis - Discharge Diagnosis (1) UTI (urinary tract infection) Status: Acute (2) History of paraplegia Status: Chronic (3) Insulin dependent diabetes mellitus Status: Acute Specialty Discharge - Follow Up or Referrals Follow up with: Alysha Blue MD [Physician] - 02/26/17 7:15 pm (Sleep Study Check-In at Admissions ) Discharge Plan - Discharge Data Disposition: Disch To Home/Self Care Condition at Discharge: Stable Discharge Diet: advance to your usual diet Activity: resume usual activities as tolerated - Discharge Medications New Enalapril Tab [Vasotec Tab] 5 mg PO DAILY #30 tablet hydrALAZINE TAB [Apresoline Tab] 100 mg PO BID #60 tablet Cefepime [Maxipime] 2,000 mg IV Q12H #24 vial Metoprolol Succinate Xl [Toprol Xl] 100 mg PO DAILY #30 tablet Continue metFORMIN [Glucophage] 100 mg PO TID W/MEALS tiZANidine [Zanaflex] 4 mg PO DAILY PRN PRN Reason: Pain Baclofen 20 mg PO TID ALPRAZolam [Alprazolam] 0.5 mg PO BID PRN PRN Reason: Anxiety Omeprazole 20 mg PO DAILY Metoclopramide Tab [Reglan Tab] 10 mg PO TID Sennosides [Senna Laxative] 25 mg PO BEDTIME DULoxetine [Cymbalta] 20 mg PO DAILY Polyethylene Glycol Powder [Miralax] 17 gm PO DAILY HYDROcodone/ACETAMIN 7.5-325 [[place] 7.5-325] 1 tablet PO Q6H PRN PRN Reason: Pain Oxybutynin [Ditropan] 10 mg PO BID Trimethoprim [Proloprim] 100 mg PO DAILY Gabapentin 100 mg PO TID Multivitamin [Multivitamins] 1 tablet PO DAILY Rosuvastatin [Crestor] 20 mg PO BEDTIME Aspirin EC Tab 81 mg PO DAILY tablet Discontinued Metoprolol Succinate Xl [Toprol Xl] 100 mg PO BID - Follow Up or Referral Follow Up: Alysha Blue MD [Physician] - 02/26/17 7:15 pm (Sleep Study Check-In at Admissions ) - Forms/Instructions Exam - Constitutional Vitals: Period Temp Pulse Resp BP Sys/Barr Pulse Ox Last 24 Hr 97.2 F-98.8 F 52-102 16-20 118-186/72-95 95-98 General appearance: normal weight, no acute distress - Head Head exam: Present: normal inspection, normocephalic, atraumatic - Eye Eye exam: Present: EOMI Pupils: Present: JLUIS - ENT ENT exam: Present: normal exam - Neck Neck exam: Present: normal inspection - Respiratory Respiratory exam: Present: clear to auscultation bilaterally - Cardiovascular Cardiovascular exam: Present: regular rate and rhythm - GI/Abdominal GI/Abdominal exam: Present: normal bowel sounds - Extremities Exam Extremities exam: Present: normal inspection Discharge Results Procedures and tests throughout hospitalization: Pending Orders 02/16/17 14:07 IR PICC line insertion Stat Labs on day of discharge: Labs from last 24 hours 02/16/17 02/16/17 11:25 07:41 POC Glucose 116 H 110 H DS: Provider Date of admission: 02/12/17 01:42 Primary care physician: . No PCP Attending physician on admission: Andrea Leigh MD Consults: 02/12/17 02:56 Consult to Pastoral Services [CONS] Routine Comment: Pastoral Screen: Request Payroll Master Visit Pastoral Screen Source of Request: Friend 02/12/17 08:58 Consult to Physician [CONS] Routine Comment: Consulting Provider: Alysha Blue Consulting Provider Notified: Yes When should Consulting Provider be notified: Now Person Notified: franco Date Notified: 02/12/17 Time Notified: 08:30 02/15/17 10:48 Consult to Case Mgmt/Social Srvs [CONS] Routine Reason for Case Mgmt/Social Srvs: LTAC Consult Comment: Needs 2 weeks of IV antibiotics, q8hr 02/16/17 09:52 Consult to Case Mgmt/Social Srvs [CONS] Routine Reason for Case Mgmt/Social Srvs: Discharge Planning Consult Comment: cefepime 2 grams q 12 hours for 14 days 02/16/17 13:50 Consult to Case Mgmt/Social Srvs [CONS] Routine Reason for Case Mgmt/Social Srvs: Discharge Planning Consult Comment: home health for iv antibotics Discharging clinician: Carmen Garcia MD Expected date of discharge: 02/17/17
--- NOTE | 2017-02-16 15:27 | Hospitalist Progress Note ---
Assessment and Plan - Time spent with patient Time spent with patient: Greater than 30 minutes (1) UTI (urinary tract infection) Status: Acute Assessment and plan: Patient will require PICC placement and LTAC for 2 more weeks of antibiotics. Current Visit: Yes Qualifiers: Urinary tract infection type: catheter-associated UTI (2) History of paraplegia Status: Chronic Assessment and plan: Continue supportive care. Current Visit: No (3) Insulin dependent diabetes mellitus Status: Acute Assessment and plan: Continue current management. Current Visit: No Hospitalist: Subjective Interval history: Patient has had a elevation of blood pressure today otherwise no complaints. Exam - Constitutional Vitals: Period Temp Pulse Resp BP Sys/Barr Pulse Ox Last 24 Hr 97.2 F-98.8 F 52-102 16-20 118-187/72-97 95-98 General appearance: no acute distress - Head Head exam: Present: normocephalic, atraumatic - Eye Eye exam: Present: EOMI Pupils: Present: JLUIS - ENT ENT exam: Present: normal exam - Neck Neck exam: Present: normal inspection - Respiratory Respiratory exam: Present: clear to auscultation bilaterally. Absent: rhonchi, wheezes - Cardiovascular Cardiovascular exam: Present: regular rate and rhythm. Absent: gallop, rubs, systolic murmur - GI/Abdominal GI/Abdominal exam: Present: normal bowel sounds, soft. Absent: distended, firm , guarding, tenderness, rebound - Extremities Exam Extremities exam: Present: normal inspection. Absent: calf tenderness, edema Results - Labs CBC & BMP: 02/15/17 04:47 02/15/17 04:47 Lab Results: I have reviewed the past 24 hour labs Specialty Discharge - Follow Up or Referrals Follow up with: Alysha Blue MD [Physician] - 02/26/17 7:15 pm (Sleep Study Check-In at Admissions )
[2017-02-16] MEDS: CEFEPIME 2,000 MG in SODIUM CHLORIDE 0.9% 100 ML IV SCH (18:05)
[2017-02-16] MEDS: ROSUVASTATIN 20 MG TABLET PO SCH (20:54)
[2017-02-17] MEDS: CEFEPIME 2,000 MG in SODIUM CHLORIDE 0.9% 100 ML IV SCH (05:14)
[2017-02-17] MEDS: INSULIN REGULAR 100 UNIT/ML SUBCUT SCH ×2 (08:18→11:25)
[2017-02-17] MEDS: SODIUM CHLORIDE 0.9% 1,000 ML IV SCH (08:33)
[2017-02-17] MEDS: PANTOPRAZOLE 40 MG TABLET PO SCH (08:34)
[2017-02-17] MEDS: ENOXAPARIN 40 MG/0.4 ML SYRINGE SUBCUT SCH (08:34)
[2017-02-17] MEDS: OXYBUTYNIN 5 MG TABLET PO SCH (08:34)
[2017-02-17] MEDS: ASPIRIN EC 81 MG TABLET PO SCH (08:34)
[2017-02-17] MEDS: BACLOFEN 10 MG TABLET PO SCH (08:34)
[2017-02-17] MEDS: DESITIN 4OZ/NYSTATIN 15 GRAM MIXTURE PASTE TOP SCH (08:34)
[2017-02-17] MEDS: ENALAPRIL 2.5 MG TABLET PO SCH (08:35)
[2017-02-17] MEDS: GABAPENTIN 100 MG CAPSULE PO SCH (08:35)
[2017-02-17] MEDS: METOPROLOL SUCCINATE XL 100 MG TABLET PO SCH (08:35)
[2017-02-17] MEDS: DULoxetine 20 MG CAPSULE PO SCH (08:35)
[2017-02-17] MEDS: METOCLOPRAMIDE 10 MG TABLET PO SCH (08:35)
[2017-02-17 12:11] VITALS: BP 169/88
--- NOTE | 2017-02-17 12:28 | Post Interventional Procedure ---
Pre-op diagnosis: UTI, outpatient ABx Post-op diagnosis: same Procedure: PICC RUE Flouroscopy: 0.1 min Radiologist: Andrea Guillory Anesthesia: local Specimens: none sent Estimated blood loss: none Complications: none Condition: stable Assessment and Plan - Time spent with patient Time spent with patient: Less than 30 minutes
--- NOTE | 2017-02-17 13:41 | Interventional Radiology Rpt ---
IR PICC line insertion, US guide vascular access Indication: UTI. Outpatient IV antibiotics for 2 weeks. PICC LINE Description: A formal timeout was performed. Maximum sterile barrier technique was used. Sonographic evaluation of the right upper extremity demonstrates patent and compressible basilar vein. The upper arm was prepped and draped in sterile fashion. 3 cc 1% lidocaine was administered subcutaneously. Under sonographic guidance, a micropuncture needle was advanced into the vein. A captured sonographic image documents the position of the needle. Needle was exchanged over a wire for a peel-away sheath. A dual lumen power PICC, cut to 37 cm, was advanced over the wire until the tip was at the RA-SVC junction. The position of the catheter was confirmed with fluoroscopic guidance and an image stored in PACS. The wire and sheath were removed. Both ports of the PICC were aspirated and flushed with heparinized saline. The device was secured with a StatLock. Fluoroscopy: 0.1 minute. Impression: PICC line ready for immediate use. Routine catheter care. PROCEDURE INTERPRETED AT [facility] DEPARTMENT OF RADIOLOGY Final Report Signed by: Andrea Guillory M.D.
[2017-02-17] MEDS ORDERED: CEFEPIME 2,000 MG in SODIUM CHLORIDE 0.9% 100 ML IV SCH (18:00)
== END 2017-02-17 14:02 | disposition home health service (06) | DRG 698 ==
LOC: EDBD → EDUNIT# → N.ED 23:33 → N.EDINP 02-12 01:41 → SUATTDRO 02-12 01:41 → N.ICU 02-12 02:09 → N.2E 02-12 13:56
PROVIDERS: ADMIT Internal Medicine; ATTEND Internal Medicine

== ENCOUNTER 2017-02-21 11:45 | Inpatient (IN) ==
[2017-02-21] MEDS ORDERED: SODIUM CHLORIDE 0.9% 500 ML IV STA (12:03)
[2017-02-21 12:38] LABS: Apearance,Urine CLOUDY (Clear); Bacteria,Urine Occasional /HPF (Few); Bilirubin,Urine Negative (Negative); Blood, Urine Small mg/dL (Negative); Glucose,Urine (UA) Negative (Negative); Ketones,Urine 5 mg/dL (Negative); Mucus,Urine Occasional /LPF (Occasional); Nitrite,Urine Negative (Negative); Protein,Urine Negative; RBC,Urine 10 /HPF (0-4); Urine Color Yellow (Yellow); Urine Specific Gravity 1.005 (1.001-1.035); Urine Urobilinogen < 2.0 EU/DL (0.2-1.0); WBC,Urine 314 /HPF (0-6)
[2017-02-21 12:40] LABS: Basophils % 0.1 % (0.0-0.8); Eosinophils % 0.1 % (0.00-10.9); Hematocrit 44.3 VOL% (42.0-52.0); Hemoglobin 14.8 GM/DL (14.0-18.0); Immature Granulocytes % 0.3 %; Immature Granulocytes Absolute 0.03 #; Lymphocytes # 1.1 10*3/uL (1.4-4.0); Mean Corpuscular HGB Conc 33.4 GM/DL (32-36); Mean Corpuscular Hemoglobin 30 PG (27-34); Mean Corpuscular Volume 89.7 FL (87-102); Mean Platelet Volume 10.2 FL (9.6-12.0); Monocytes # 0.6 10*3/uL (0.11-0.8); Monocytes % 7.2 % (1.7-12.7); Neutrophils # 6.8 10*3/uL (1.4-7.4); Neutrophils % 79.3 % (38.7-73.9); Platelet Count 164 T/CUMM (130-400); Red Blood Count 4.94 MC/CUMM (3.8-5.5); Red Cell Distribution Width 16.2 % (9.3-17.3); White Blood Count 8.6 T/CUMM (4-12)
[2017-02-21 12:43] LABS: Barbiturates Screen,Urine Negative (Negative); Benzodiazepines Screen,Urine Negative (Negative); Cannabinoid Screen,Urine Negative (Negative); Opiate Screen,Urine Negative (Negative); Phencyclidine Screen,Urine Negative (Negative)
--- NOTE | 2017-02-21 12:51 | CT Report ---
CT head/brain wo con Indication: Altered mental status. Comparison: CT head 10/05/2016. Technique: CT of the brain was performed without administration of intravenous contrast. The CT examination was performed using one or more of the following dose reduction techniques: Automatic exposure control, adjustment of the mA and kV according to patient size, use of acute or iterative reconstruction techniques. Findings: There is no evidence of acute intracranial mass, hemorrhage, or infarction. Generalized cerebral atrophy is present. Areas of decreased attenuation within the periventricular white matter and cerebral white matter are present which could be compatible with microvascular ischemia. The basal cisterns are patent. No significant abnormality is demonstrated to involve the posterior fossa or cerebellum. Orbits and globes demonstrate no evidence of significant pathology. Overall amount fluid within the right frontal sinus has decreased since comparison study. Paranasal sinuses otherwise are grossly clear. No significant abnormality is demonstrated to involve the mastoid air cells. The calvarium and overlying soft tissues demonstrate no evidence of acute pathology. Impression: 1. No CT evidence of acute intracranial pathology. 2. Improved appearance of the right frontal sinus. 02/21/2017 12:47 PM PROCEDURE INTERPRETED AT [facility] DEPARTMENT OF RADIOLOGY Final Report Signed by: Dr. Del Wilkerson
[2017-02-21 12:52] LABS: PT Patient Result 10.9 SECS; Partial Thromboplastin Time 29.4 SECS (0-40)
--- NOTE | 2017-02-21 12:52 | XRay Report ---
XR chest 1V portable Indication: Altered mental status. Comparison: Chest x-ray 02/12/2017. Technique: Portable AP chest was performed. Findings: Right-sided PICC is in place. Nonconsolidating airspace opacities are suggested within the mid to lower right lung and additionally present mildly prominent interstitial markings are noted within the lower chest. The cardiomediastinal silhouette has changed little given the difference in technique. Bones and soft tissues are stable. Impression: 1. A component of chronic interstitial disease is not excluded. The appearance of the lung parenchyma likely reflect evidence of infection. 02/21/2017 12:48 PM PROCEDURE INTERPRETED AT [facility] DEPARTMENT OF RADIOLOGY Final Report Signed by: Dr. Del Wilkerson
[2017-02-21] MEDS ORDERED: MEROPENEM 1,000 MG in SODIUM CHLORIDE 0.9% 100 ML IV STA (12:56)
[2017-02-21 13:01] LABS: Alanine Aminotransferase 18 U/L (16-61); Albumin 2.7 G/DL (3.4-5.0); Alkaline Phosphatase 86 U/L (45-117); Aspartate Amino Transferase 14 U/L (0-37); Bilirubin,Total < 0.39 MG/DL (0.2-1.0); Blood Urea Nitrogen 29 MG/DL (7-18); Calcium 9.1 MG/DL (8.5-10.1); Glucose 97 MG/DL (74-106); Potassium 3.8 MMOL/L (3.5-5.1); Sodium 143 MMOL/L (136-145); Total Protein 6.6 G/DL (6.4-8.3); Troponin I Only < 0.015 NG/ML (0.00-0.045)
--- NOTE | 2017-02-21 13:53 | EKG Report ---
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
--- NOTE | 2017-02-21 13:55 | Emergency Department Note ---
Gabino Reese Manpreet, am scribing for, and in the presence of, Heladio Ulrich MD 12:06. Serg Reese Doug C, MD, personally performed the services described in this documentation, ascribed by Garrison Lloyd in my presence, and it is both accurate and complete [id number] . Arrival - Arrival Chief Complaint: Altered Mental Status Stated Complaint: altered mental status ED Nursing Triage Note: Patient with altered mental status with onset yesterday. He has inablity to eat or drink anything since yesterday which is different from his baseline. Mode of Arrival: Stretcher - History of Present Illness HPI Narrative: Patient 67-year-old white male brought in by family for decreased responsiveness. They state that this began yesterday and is not eaten or drank anything since yesterday. Patient has previous history of cervical spine fracture with quadriplegia and he has been having recurring urinary tract infections. According the family is not had any measured fever or diaphoresis. There is no history of any nausea, vomiting or any respiratory symptoms. Patient is unable to provide any history whatsoever. Onset (ago): day(s) Allergies/Adverse Reactions: Allergies Allergy/AdvReac Type Severity Reaction Status Date / Time ciprofloxacin [From Cipro] Allergy Unknown/Unable Verified 02/11/17 23:39 to obtain rofecoxib [From Vioxx] Allergy Unknown/Unable Verified 02/11/17 23:39 to obtain zinc oxide AdvReac Redness of Verified 02/11/17 23:39 [From Boudreauxs Butt Paste] Skin Home Medications: Home Medications Medication Instructions Recorded Confirmed Type ALPRAZolam [Alprazolam] 0.5 mg PO BID PRN 10/05/16 02/21/17 History Baclofen 20 mg PO TID 10/05/16 02/21/17 History Gabapentin 100 mg PO TID 10/05/16 02/21/17 History Multivitamin [Multivitamins] 1 tablet PO 0900 10/05/16 02/21/17 History metFORMIN [Glucophage] 100 mg PO TID W/MEALS 10/05/16 02/21/17 History tiZANidine [Zanaflex] 4 mg PO DAILY PRN 10/05/16 02/21/17 History DULoxetine [Cymbalta] 20 mg PO 0900 10/25/1602/21/17 History Metoclopramide Tab [Reglan Tab] 10 mg PO TID 10/25/16 02/21/17 History Omeprazole 20 mg PO 0900 10/25/16 02/21/17 History Rosuvastatin [Crestor] 20 mg PO 2100 10/25/16 02/21/17 History Sennosides [Senna Laxative] 25 mg PO 2100 10/25/16 02/21/17 History Polyethylene Glycol Powder 17 gm PO 0900 12/18/16 02/21/17 History [Miralax] HYDROcodone/ACETAMIN 7.5-325 1 tablet PO Q6H PRN 02/12/17 02/21/17 History [[place] 7.5-325] Oxybutynin [Ditropan] 10 mg PO BID 02/12/17 02/21/17 History Trimethoprim [Proloprim] 100 mg PO DAILY 02/12/17 02/21/17 History Cefepime [Maxipime] 2,000 mg IV Q12H #24 vial 02/17/17 02/21/17 Rx hydrALAZINE TAB [Apresoline Tab] 100 mg PO BID #60 tablet 02/17/17 02/21/17 Rx [place]irin EC Tab [place] [address]/21/17 02/21/17 History Enalapril Tab [Vasotec Tab] 5 mg PO 00 02/21/17 02/21/17 History Metoprolol Succinate Xl [Toprol Xl] [place] [address]/21/17 02/21/17 History Review of System - Review of System ROS unobtainable: due to mental status (Review of systems were obtained from family) 12 point system: reviewed and no additional remarkable complaints except as stated - Review of System Constitutional: Absent: chills, diaphoresis, fever, weakness Respiratory: Absent: cough, respiratory distress Cardiovascular: Absent: chest pain Gastrointestinal: Absent: abdominal pain, nausea Musculoskeletal: Absent: arm pain, back pain, lower back pain Neurological: Present: confusion. Absent: headache, weakness Medical,Surgical,& Family Hx - Medical History Cardio: History of: CAD, Hypertension, Cardiovascular Problems (stent placed around 2007) Neurology: History of: Neurological Problems (Quadriplegia) No history of: Cerebral Hemorrhage, Cerebrovascular Accident, Cerebral Palsy HEENT: History of: Eye Problem (dry eyes) Endocrine: History of: Diabetes Mellitus (NIDDM) Respiratory: History of: Asthma (childhood problem.), Obstructive Sleep Apnea Genitourinary: History of: Bladder Problem, Kidney Stones, Recurring Urinary Tract Infections Gastrointestinal: History of: GERD Musculoskeletal: History of: Musculoskeletal Problems (Paraplegic) - Surgical History Thoracic Surgeries: Patient denies;: Organ Transplant Neurologic Surgeries: Patient denies: Cerebral Hemorrhage HEENT Surgeries: Patient denies: Thyroid Surgery, Tonsilectomy & Adenoidectomy Comment Only: Eye Surgery (cateract surgery on right eye) - Family History Family History: Reports;: Family Cancer, Family Diabetes - Social History Smoking Status: Unknown if ever smoked Frequency of Alcohol Use: Unknown Type of Drug Use: Unknown Exam Vital Signs: Vital Signs Temperature 97.5 F L 02/21/17 11:46 Pulse Rate 94 H 02/21/17 11:46 Respiratory Rate 20 02/21/17 11:46 Blood Pressure 174/74 02/21/17 11:46 O2 Sat by Pulse Oximetry 96 02/21/17 11:46 - General Exam limited due to: ALOC General appearance: obtunded - Head Head exam: Present: atraumatic, normocephalic, normal inspection - Eye Eye exam: Present: normal appearance, PERRL, EOMI - ENT ENT exam: Present: normal exam, normal oropharynx, mucous membranes moist - Neck Neck exam: Present: normal inspection, full ROM, trachea midline. Absent: tenderness, thyromegaly - Chest Chest inspection: Present: normal inspection, symmetric chest wall rise. Absent : tenderness - Respiratory Respiratory exam: Present: normal lung sounds bilaterally. Absent: accessory muscle use, respiratory distress - Cardiovascular Cardiovascular exam: Present: regular rate, normal rhythm, normal heart sounds. Absent: murmur, rubs, gallop - Abdominal Exam Abdominal exam: Present: soft. Absent: distention, tenderness, guarding - Extremities Exam Extremities exam: Present: normal inspection, full ROM. Absent: tenderness - Back Exam Back exam: Present: normal inspection, full ROM. Absent: tenderness - Neurological Exam Neurological exam: Present: CN II-XII intact, motor sensory deficit ( Quadriplegia). Absent: alert, oriented X3 - Skin Skin exam: Present: warm, dry, intact, normal color. Absent: pallor Course Course Narrative: Patient's clinical presentation, laboratory and radiographic findings were discussed with Fern who is covering the hospitalist service. She will arrange for patient to be seen in the emergency room. Results - Labs CBC & BMP: 02/21/17 11:52 02/21/17 11:52 Lab Results: I have reviewed the patients labs Labs: Laboratory Tests 02/21/17 12:14 Urine pH 5.0 Ur Specific [place] 1.005 Urine Ketones 5 Urine Urobilinogen < 2.0 H Urine Leukocytes Large H Urine RBC 10 Urine WBC 314 Laboratory Tests 02/21/17 02/21/17 11:52 12:14 INR 1.0 PT Patient/Control Mix 10.9 Circ Anticoag PTT 29.4 Urine Opiates Screen Negative Ur Barbiturates Screen Negative Ur Phencyclidine Scrn Negative U Amphetamine/Methamph Negative U Benzodiazepines Scrn Negative U Cocaine Metab Screen Negative U Cannabinoids Screen Negative Laboratory Tests 02/21/17 11:52 Sodium 143 Potassium 3.8 Chloride 109 H Carbon Dioxide 20 L Anion Gap 17.8 H BUN 29 H Creatinine 1.90 H Albumin 2.7 L Globulin 3.9 H Albumin/Globulin Ratio 0.6 L - Diagnostic Findings Procedure: Chest x-ray: report reviewed by me (1. A component of chronic interstitial disease in not excluded. The appearance of lung parenchyma likely reflect evidence of infection.), CT: report reviewed by me (CT Head w/o IV Con: 1. No CT evidence of acute intracranial pathology. 2. Improved appearance of the right frontal sinus.) Disposition Clinical Impression: Mental status change, Acute UTI Case discussed with: patient's family Disposition: Still a Patient Condition: Guarded Time of Disposition: 13:55
[2017-02-21] MEDS ORDERED: ACETAMINOPHEN 325 MG TABLET PO PRN (13:59)
[2017-02-21] MEDS ORDERED: PROMETHAZINE 25 MG/1 ML VIAL IM PRN (13:59)
[2017-02-21] MEDS ORDERED: DOCUSATE SODIUM 100 MG CAPSULE PO PRN (13:59)
[2017-02-21] MEDS ORDERED: diphenhydrAMINE CAP 25 MG CAPSULE PO PRN (13:59)
[2017-02-21] MEDS ORDERED: guaiFENesin/DM ER 600-30 MG TABLET PO PRN (13:59)
[2017-02-21] MEDS ORDERED: MORPHINE 2 MG/1 ML SYRINGE IV PRN (13:59)
[2017-02-21] MEDS ORDERED: ONDANSETRON 4 MG/2 ML VIAL IV PRN (13:59)
[2017-02-21] MEDS ORDERED: ALPRAZolam 0.5 MG TABLET PO PRN (14:03)
[2017-02-21] MEDS ORDERED: tiZANidine 4 MG TABLET PO PRN (14:03)
[2017-02-21] MEDS ORDERED: MEROPENEM 1,000 MG VIAL IV ONE (14:10)
[2017-02-21] MEDS ORDERED: TRIMETHOPRIM 100 MG TABLET PO SCH (14:30)
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
[2017-02-21] MEDS ORDERED: cloNIDine 0.1 MG/24 HR PATCH TRANSDERM SCH (16:30)
[2017-02-21] MEDS: SODIUM CHLORIDE 0.9% 1,000 ML IV SCH (17:18)
[2017-02-21] MEDS: PANTOPRAZOLE 40 MG TABLET PO SCH (17:45)
[2017-02-21] MEDS: ENOXAPARIN 40 MG/0.4 ML SYRINGE SUBCUT SCH (17:45)
[2017-02-21] MEDS: OXYBUTYNIN 5 MG TABLET PO SCH ×2 (17:45→23:27)
[2017-02-21] MEDS: BACLOFEN 10 MG TABLET PO SCH ×2 (17:45→23:26)
[2017-02-21] MEDS: GABAPENTIN 300 MG CAPSULE PO SCH ×2 (17:46→23:26)
[2017-02-21] MEDS: METOCLOPRAMIDE 10 MG TABLET PO SCH ×2 (17:46→23:25)
[2017-02-21] MEDS: SENNA 8.6 MG TABLET PO SCH (23:25)
[2017-02-21] MEDS: ROSUVASTATIN 20 MG TABLET PO SCH (23:27)
[2017-02-22] MEDS: SODIUM CHLORIDE 0.9% 1,000 ML IV SCH ×5 (01:10→22:00)
[2017-02-22 06:20] LABS: Basophils % 0.2 % (0.0-0.8); Eosinophils % 0.3 % (0.00-10.9); Hematocrit 26.3 VOL% (42.0-52.0); Hemoglobin 8.4 GM/DL (14.0-18.0); Immature Granulocytes % 0.4 %; Immature Granulocytes Absolute 0.05 #; Lymphocytes # 2.1 10*3/uL (1.4-4.0); Lymphocytes % 15.7 % (21.2-54.2); Mean Corpuscular HGB Conc 31.9 GM/DL (32-36); Mean Corpuscular Hemoglobin 29 PG (27-34); Mean Corpuscular Volume 91.6 FL (87-102); Mean Platelet Volume 10.9 FL (9.6-12.0); Monocytes # 1.1 10*3/uL (0.11-0.8); Monocytes % 8.1 % (1.7-12.7); Neutrophils # 9.8 10*3/uL (1.4-7.4); Neutrophils % 75.3 % (38.7-73.9); Platelet Count 201 T/CUMM (130-400); Red Blood Count 2.87 MC/CUMM (3.8-5.5); Red Cell Distribution Width 16.3 % (9.3-17.3)
[2017-02-22 06:49] LABS: Calcium 8.7 MG/DL (8.5-10.1); Osmolality,Calculated 294.4 MOS/KG (273-304); Potassium 3.3 MMOL/L (3.5-5.1)
[2017-02-22] MEDS ORDERED: OMEPRAZOLE 20 MG CAPSULE PO SCH (09:00)
[2017-02-22] MEDS: ASPIRIN EC 81 MG TABLET PO SCH (10:04)
[2017-02-22] MEDS: MULTIVITAMIN (CENTRUM) TABLET PO SCH (10:04)
[2017-02-22] MEDS: OXYBUTYNIN 5 MG TABLET PO SCH ×2 (10:05→23:22)
[2017-02-22] MEDS: POLYETHYLENE GLYCOL POWDER 255 GM BOTTLE PO SCH (10:05)
[2017-02-22] MEDS: DULoxetine 20 MG CAPSULE PO SCH (10:05)
[2017-02-22] MEDS: GABAPENTIN 300 MG CAPSULE PO SCH ×3 (10:05→23:21)
[2017-02-22] MEDS: PANTOPRAZOLE 40 MG TABLET PO SCH (10:05)
[2017-02-22] MEDS: BACLOFEN 10 MG TABLET PO SCH ×3 (10:05→23:22)
[2017-02-22] MEDS: METOPROLOL SUCCINATE XL 100 MG TABLET PO SCH (10:06)
[2017-02-22] MEDS: METOCLOPRAMIDE 10 MG TABLET PO SCH ×3 (10:06→23:21)
[2017-02-22] MEDS: ENALAPRIL 2.5 MG TABLET PO SCH (10:06)
[2017-02-22] MEDS ORDERED: MAGNESIUM SULF RIDER 4 GM in PREMIX 1 EACH IV PRN (12:10)
[2017-02-22] MEDS ORDERED: MAGNESIUM SULF RIDER 2 GM in PREMIX 1 EACH IV PRN (12:10)
[2017-02-22] MEDS ORDERED: POTASSIUM CHLORIDE 20 MEQ/15 ML UDCUP PER TUBE PRN (12:10)
--- NOTE | 2017-02-22 12:15 | Hospitalist Progress Note ---
Assessment and Plan (1) Altered mental status Problem details: likely 2/2 UTI. Improving Status: Acute Current Visit: No (2) UTI (urinary tract infection) Status: Acute Assessment and plan: Recent discharge on cefepime for pseudomonas aeruginosa Urine culture this admission growing gram positive cocci On fortaz, will add vancomycin Will consult Infectious Disease Current Visit: No Qualifiers: Urinary tract infection type: catheter-associated UTI (3) History of paraplegia Status: Chronic Current Visit: No (4) Hypokalemia Problem details: check BMP, replace if needed, check Mg Status: Acute Current Visit: No (5) Anemia Status: Acute Current Visit: No (6) Leukocytosis Problem details: trending down Status: Acute Current Visit: No (7) Acute kidney injury Status: Acute Assessment and plan: Improving Current Visit: Yes Hospitalist: Subjective Interval history: No acute events overnight. Patient more awake today. Oriented to name only. Urine culture with gram positive cocci. Will add vancomycin. Creatinine trending down. Does have a leukocytosis seen now with drop in H/H. Will monitor closely. If obtain swallow evaluation tomorrow, if does not pass will have to place NGT. Exam - Constitutional Vitals: Period Temp Pulse Resp BP Sys/Barr Pulse Ox Last 24 Hr 98.2 F-99 F 65-75 18-20 159-174/72-91 96-98 General appearance: over weight - Head Head exam: Present: normocephalic, atraumatic - Eye Eye exam: Present: EOMI Pupils: Present: JLUIS - ENT ENT exam: Present: normal exam - Neck Neck exam: Present: normal inspection - Respiratory Respiratory exam: Present: clear to auscultation bilaterally. Absent: rhonchi, wheezes - Cardiovascular Cardiovascular exam: Present: regular rate and rhythm - GI/Abdominal GI/Abdominal exam: Present: normal bowel sounds, soft. Absent: tenderness, rebound - Extremities Exam Extremities exam: Present: normal inspection - Back Exam Back exam: Present: normal inspection - Neurological Exam Neurological exam: Present: altered - Psychiatric Psychiatric exam: Present: normal mood - Skin Skin exam: Present: warm, intact Results - Labs CBC & BMP: 02/22/17 05:39 02/22/17 05:39
[2017-02-22] MEDS: VANCOMYCIN INJ 1,000 MG in SODIUM CHLORIDE 0.9% 250 ML IV SCH (12:27)
[2017-02-22] MEDS: ENOXAPARIN 40 MG/0.4 ML SYRINGE SUBCUT SCH (14:41)
[2017-02-22] MEDS: SENNA 8.6 MG TABLET PO SCH (23:20)
[2017-02-22] MEDS: ROSUVASTATIN 20 MG TABLET PO SCH (23:22)
[2017-02-23] MEDS: VANCOMYCIN INJ 1,000 MG in SODIUM CHLORIDE 0.9% 250 ML IV SCH (00:58)
[2017-02-23 02:58] LABS: Basophils # 0.1 10*3/uL (0.0-0.2); Basophils % 0.4 % (0.0-0.8); Eosinophils # 0.1 10*3/uL (0.0-0.87); Hematocrit 26.1 VOL% (42.0-52.0); Hemoglobin 8.3 GM/DL (14.0-18.0); Immature Granulocytes % 0.5 %; Immature Granulocytes Absolute 0.07 #; Lymphocytes # 2.4 10*3/uL (1.4-4.0); Lymphocytes % 17.9 % (21.2-54.2); Mean Corpuscular HGB Conc 31.8 GM/DL (32-36); Mean Corpuscular Hemoglobin 29 PG (27-34); Mean Corpuscular Volume 92.6 FL (87-102); Mean Platelet Volume 11.1 FL (9.6-12.0); Monocytes # 1.3 10*3/uL (0.11-0.8); Monocytes % 9.7 % (1.7-12.7); Neutrophils # 9.6 10*3/uL (1.4-7.4); Neutrophils % 70.5 % (38.7-73.9); Platelet Count 175 T/CUMM (130-400); Red Blood Count 2.82 MC/CUMM (3.8-5.5); Red Cell Distribution Width 16.3 % (9.3-17.3); White Blood Count 13.6 T/CUMM (4-12)
[2017-02-23 03:28] LABS: Calcium 8.2 MG/DL (8.5-10.1); Magnesium 1.3 MG/DL (1.8-2.4); Osmolality,Calculated 293.4 MOS/KG (273-304); Potassium 2.9 MMOL/L (3.5-5.1)
[2017-02-23 03:40] LABS: Folate 21.6 NG/ML (5.4-24.0)
[2017-02-23 04:00] LABS: % Iron Saturation 13.4 % (18-50); Ferritin 357.8 ng/ml (26-388)
[2017-02-23] MEDS: LABETALOL 20 MG/4 ML SYRINGE IV PRN (06:19)
[2017-02-23] MEDS: SODIUM CHLORIDE 0.9% 1,000 ML IV SCH ×2 (06:26→20:00)
--- NOTE | 2017-02-23 08:46 | Hospitalist Progress Note ---
Assessment and Plan (1) Altered mental status Problem details: likely 2/2 UTI. Improving Status: Acute Current Visit: No (2) UTI (urinary tract infection) Status: Acute Assessment and plan: Recent discharge on cefepime for pseudomonas aeruginosa Urine culture this admission growing gram positive cocci On fortaz, will add vancomycin Will consult Infectious Disease Current Visit: No Qualifiers: Urinary tract infection type: catheter-associated UTI (3) History of paraplegia Status: Chronic Current Visit: No (4) Hypokalemia Problem details: check BMP, replace if needed, check Mg Status: Acute Current Visit: No (5) Anemia Status: Acute Current Visit: No (6) Leukocytosis Problem details: trending down Status: Acute Current Visit: No (7) Acute kidney injury Status: Acute Assessment and plan: Improving Current Visit: Yes Hospitalist: Subjective Interval history: No acute events overnight. Patient is much more awake today, oriented to person and says that he is at [place]. He is eating some food now. Currently on vancomycin and fortaz. Urine culture pending. ID consulted for assistance. Blood cultures negative to date. CBC is unchanged. Replacing K and mag today. Exam - Constitutional Vitals: Period Temp Pulse Resp BP Sys/Barr Pulse Ox Last 24 Hr 98.2 F-98.8 F 60-75 18-20 159-197/74-96 92-97 General appearance: over weight - Head Head exam: Present: normocephalic, atraumatic - Eye Eye exam: Present: EOMI Pupils: Present: JLUIS - ENT ENT exam: Present: normal exam - Neck Neck exam: Present: normal inspection - Respiratory Respiratory exam: Present: clear to auscultation bilaterally. Absent: rhonchi, wheezes - Cardiovascular Cardiovascular exam: Present: regular rate and rhythm - GI/Abdominal GI/Abdominal exam: Present: normal bowel sounds, soft. Absent: tenderness, rebound - Extremities Exam Extremities exam: Present: normal inspection - Back Exam Back exam: Present: normal inspection - Neurological Exam Neurological exam: Present: alert - Psychiatric Psychiatric exam: Present: normal affect, normal mood - Skin Skin exam: Present: warm, intact Results - Labs CBC & BMP: 02/23/17 01:37 02/23/17 01:37
[2017-02-23] MEDS: DULoxetine 20 MG CAPSULE PO SCH (08:58)
[2017-02-23] MEDS: OXYBUTYNIN 5 MG TABLET PO SCH ×2 (08:58→20:36)
[2017-02-23] MEDS: BACLOFEN 10 MG TABLET PO SCH ×3 (08:58→20:37)
[2017-02-23] MEDS: GABAPENTIN 300 MG CAPSULE PO SCH ×2 (08:59→14:51)
[2017-02-23] MEDS: METOPROLOL SUCCINATE XL 100 MG TABLET PO SCH (08:59)
[2017-02-23] MEDS: PANTOPRAZOLE 40 MG TABLET PO SCH (08:59)
[2017-02-23] MEDS: ENALAPRIL 2.5 MG TABLET PO SCH (08:59)
[2017-02-23] MEDS: MULTIVITAMIN (CENTRUM) TABLET PO SCH (08:59)
[2017-02-23] MEDS: METOCLOPRAMIDE 10 MG TABLET PO SCH ×3 (08:59→20:36)
[2017-02-23] MEDS: ASPIRIN EC 81 MG TABLET PO SCH (08:59)
[2017-02-23] MEDS: POLYETHYLENE GLYCOL POWDER 255 GM BOTTLE PO SCH (09:49)
[2017-02-23] MEDS: POTASSIUM CHLORIDE RIDER 10 MEQ in PREMIX 1 EACH IV PRN (09:49)
[2017-02-23] MEDS: ENOXAPARIN 40 MG/0.4 ML SYRINGE SUBCUT SCH (09:50)
--- NOTE | 2017-02-23 10:56 | Physician Query Form ---
CLICK EDIT DOCUMENT TO SELECT QUERY ANSWER --> OK --> SIGN Mei Wilkerson RN, CCDS Certified Clinical Director Of Testing W) [phone] (f) [phone] [email or web address] PROVIDERS: Make your selection(s) from the choices in EACH section by typing an "x" and enter comments in the comment section. Please use your independent medical judgment in providing your response. This request does not imply that any particular answer is desired or expected. CLINICAL INDICATORS: (Providers should not edit this section) The medical record indicates that the patient was admitted with an UTI, quadriplegia and paraplegia are both mentioned. As the attending MD can you please clarify if the patient is being treated for ? Based on the above, could you clarify the appropriate diagnosis, if significant , that supports the above abnormalities and additional evaluation, monitoring, and/or treatment rendered: ( ) UTI with Quadriplegia (x ) UTI with Paraplegia ( ) Other, please specify: ( ) Clinically unable to determine COMMENTS: PLEASE ALSO DOCUMENT RESPONSE IN PROGRESS NOTES AND/OR DISCHARGE SUMMARY Use of terms such as suspected, likely, or probable (associated with a specific diagnosis that is being evaluated, monitored, or treated as if it exists) are acceptable and can be restated in the discharge summary if not ruled out. MTDD
--- NOTE | 2017-02-23 12:54 | Infectious Disease Consult ---
Assessment and Plan (1) Acute UTI Status: Acute Assessment and plan: This is a recurring issue for this patient. It is a different organism this time VRE and possibly a streptococcal species. He is at increased risk for UTIs given his neurogenic bladder and need for instrumentation, that is in and out catheterizations. I am not sure if his bladder cancer is playing a role. His diabetes makes him relatively immunocompromised and again increases his risk for infections in general. Recommendations: 1. Discontinue vancomycin and ceftazidime 2. Start daptomycin 4 mg/kg IV daily; cannot use linezolid given the fact that he is on duloxetine and there would be increased risk for serotonin syndrome 3. Discontinue rosuvastatin while he is on daptomycin; continuing this would increase his chance from my myositis on daptomycin. Will check baseline CPK level and monitor while he is on daptomycin therapy. 4. Follow-up finalized urine culture and also blood culture results 5. Patient informs me that he has a urologist in [place]. They asked about an ileal conduit and this may be an option for the patient to decrease the UTI recurrences Thank you very much for the consult. Will follow. Current Visit: Yes (2) Mental status change Status: Acute Assessment and plan: Due to UTI now much improved. Current Visit: Yes (3) Hypertension Status: Acute Current Visit: No (4) Bladder cancer Status: Acute Assessment and plan: This is to be treated in [place]. Current Visit: No History of Present Illness Chief complaint: UTI History of present illness: Mr. Yo is a 67 year old male Who is quadriplegic and gets in and out bladder catheterizations. He has a history of recurrent urinary tract infections usually due to Pseudomonas. He was just here in the hospital with one such UTI and went home only 4 days ago on cefepime. He was doing relatively okay but the day before admission became confused and his urine was felt to be cloudy. He is brought back to the hospital and had significant pyuria. Urine is now growing gram-positive cocci. Patient and his family I exasperated by the frequent occurrences of UTI, per caregiver he gets a UTI about every 3 weeks. I am asked to assist with management. Patient's mental status is significantly improved since admission and is now tolerating p.o. intake. I reviewed his records and saw that he was diagnosed with bladder cancer this past October. The patient know his caregiver did not mention this to me. Home Medications Medication Instructions Recorded Confirmed Type ALPRAZolam [Alprazolam] 0.5 mg PO BID PRN 10/05/16 02/21/17 History Baclofen 20 mg PO TID 10/05/16 02/21/17 History Gabapentin 100 mg PO TID 10/05/16 02/21/17 History Multivitamin [Multivitamins] 1 tablet PO 0900 10/05/16 02/21/17 History metFORMIN [Glucophage] 100 mg PO TID W/MEALS 10/05/16 02/21/17 History tiZANidine [Zanaflex] 4 mg PO DAILY PRN 10/05/16 02/21/17 History DULoxetine [Cymbalta] 20 mg PO 0900 10/25/16 02/21/17 History Metoclopramide Tab [Reglan Tab] 10 mg PO TID 10/25/16 02/21/17 History Omeprazole 20 mg PO 0900 10/25/16 02/21/17 History Rosuvastatin [Crestor] 20 mg PO 2100 10/25/16 02/21/17 History Sennosides [Senna Laxative] 25 mg PO 2100 10/25/16 02/21/17 History Polyethylene Glycol Powder 17 gm PO 0900 12/18/16 02/21/17 History [Miralax] HYDROcodone/ACETAMIN 7.5-325 1 tablet PO Q6H PRN 02/12/17 02/21/17 History [[place] 7.5-325] Oxybutynin [Ditropan] 10 mg PO BID 02/12/17 02/21/17 History Trimethoprim [Proloprim] 100 mg PO DAILY 02/12/17 02/21/17 History Cefepime [Maxipime] 2,000 mg IV Q12H #24 vial 02/17/17 02/21/17 Rx hydrALAZINE TAB [Apresoline Tab] 100 mg PO BID #60 tablet 02/17/17 02/21/17 Rx Aspirin EC Tab 81 mg PO 0900 02/21/17 02/21/17 History Enalapril Tab [Vasotec Tab] 5 mg PO 0900 02/21/17 02/21/17 History Metoprolol Succinate Xl [Toprol Xl] 100 mg PO 0900 02/21/17 02/21/17 History Allergies Allergy/AdvReac Type Severity Reaction Status Date / Time ciprofloxacin [From Cipro] Allergy Unknown/Unable Verified 02/21/17 15:10 to obtain naproxen [From Naprosyn] Allergy Unknown/Unable Verified 02/21/17 15:11 to obtain rofecoxib [From Vioxx] Allergy Unknown/Unable Verified 02/21/17 15:10 to obtain zinc oxide AdvReac Redness of Verified 02/21/17 15:10 [From Boudreauxs Butt Paste] Skin 12 point system: reviewed and no additional remarkable complaints except as stated (Per HPI) Medical,Surgical,& Family Hx - Medical History Cardio: History of: CAD, Hypertension, Cardiovascular Problems (stent placed around 2007) Neurology: History of: Neurological Problems (Quadriplegia) No history of: Cerebral Hemorrhage, Cerebrovascular Accident, Cerebral Palsy HEENT: History of: Eye Problem (dry eyes) Endocrine: History of: Diabetes Mellitus (NIDDM) Respiratory: History of: Asthma (childhood problem.), Obstructive Sleep Apnea Genitourinary: History of: Bladder Problem, Kidney Stones, Recurring Urinary Tract Infections Gastrointestinal: History of: GERD Musculoskeletal: History of: Musculoskeletal Problems (Paraplegic) - Surgical History Thoracic Surgeries: Patient denies;: Organ Transplant Neurologic Surgeries: Patient denies: Cerebral Hemorrhage HEENT Surgeries: Patient denies: Thyroid Surgery, Tonsilectomy & Adenoidectomy Comment Only: Eye Surgery (cateract surgery on right eye) - Family History Family History: Reports;: Family Cancer, Family Diabetes - Social History Smoking Status: Unknown if ever smoked Frequency of Alcohol Use: None Type of Drug Use: None, Unknown Infectious Disease Exam H&P - Constitutional Vitals: Vital Signs Temp Pulse Resp BP Pulse Ox 98.7 F 64 20 178/77 95 02/23/17 07:15 02/23/17 07:15 02/23/17 07:15 02/23/17 07:15 02/23/17 07:15 Intake and Output 02/22/17 02/23/17 02/23/17 23:59 07:59 15:59 Intake Total 1350 / 1350 1350 / 1350 Output Total 1999 / 1999 1000 / 1000 Balance -650 / -650 350 / 350 Intake: IV 1350 / 1350 1350 / 1350 Ns 1,000 ml @ 125 mls/hr 1000 / 1000 1000 / 1000 IV .Q8H PRATIK Rx#: [id number] Vancomycin Inj 1,000 mg 250 / 250 250 / 250 In Ns 250 ml @ 250 mls/hr IV Q12H PRATIK Rx#: [id number] Fortaz 1,000 mg In Ns 100 100 / 100 100 / 100 ml @ 200 mls/hr IV Q12H PRATIK Rx#:[id number] Oral 0 / 0 0 / 0 Output: Urine 1999 / 1999 1000 / 1000 Other: Emesis 0 0 Voiding Method Indwelling Catheter Indwelling Catheter # Bowel Movements 0 0 Exam: General: Patient relatively comfortable, but chronically ill looking HEENT: Mucous membranes pink and moist, anicteric acyanotic, JLUIS, no oropharyngeal exudates Neck: Supple, no thyroid gland enlargement, no lymphadenopathy Respiratory system: Breath sounds vesicular, no crepitations or wheezes Cardiovascular: Normal S1 and S2, no murmurs appreciated Abdomen: Normal bowel sounds, soft nontender throughout, no organomegaly or mass Genitourinary: No suprapubic pain or bladder distention, clear urine from Pool catheter Extremities: no edema Skin: No rash Reports - Labs CBC & BMP: 02/23/17 01:37 02/23/17 01:37 Labs: Laboratory Results - last 24 hr 02/23/17 02/23/17 02/23/17 01:37 01:37 01:37 WBC 13.6 H RBC 2.82 L Hgb 8.3 L Hct 26.1 L MCV 92.6 MCH 29 MCHC 31.8 L RDW 16.3 Plt Count 175 MPV 11.1 Neut % (Auto) 70.5 Lymph % (Auto) 17.9 L [place] % (Auto) 9.7 Eos % (Auto) 1.0 Baso % (Auto) 0.4 Neut # (Auto) 9.6 H Lymph # (Auto) 2.4 [place] # (Auto) 1.3 H Eos # (Auto) 0.1 Baso # (Auto) 0.1 Immature Gran % 0.5 Nucleated RBC % 0.0 Immature Gran # 0.07 Nucleated RBCs # 0.00 Sodium Potassium Chloride Carbon Dioxide Anion Gap BUN Creatinine GFR Calculation BUN/Creatinine Ratio Glucose POC Glucose Calculated Osmolality Calcium Magnesium Iron 21 L TIBC 157 L % Saturation 13.4 L Ferritin 357.8 Vitamin B12 332 Folate 21.6 02/23/17 02/23/17 01:37 10:53 WBC RBC Hgb Hct MCV MCH MCHC RDW Plt Count MPV Neut % (Auto) Lymph % (Auto) [place] % (Auto) Eos % (Auto) Baso % (Auto) Neut # (Auto) Lymph # (Auto) [place] # (Auto) Eos # (Auto) Baso # (Auto) Immature Gran % Nucleated RBC % Immature Gran # Nucleated RBCs # Sodium 147 H Potassium 2.9 L Chloride 112 H Carbon Dioxide 24 Anion Gap 13.9 BUN 17 Creatinine 1.00 GFR Calculation 82 BUN/Creatinine Ratio 17.00 Glucose 94 POC Glucose 129 H Calculated Osmolality 293.4 Calcium 8.2 L Magnesium 1.3 L Iron TIBC % Saturation Ferritin Vitamin B12 Folate - Reports Microbiology: Microbiology 02/21/17 Unknown Urine Culture - Preliminary Urine,Voided Enterococcus faecium VRE Microstrep plus panel 1 02/21/17 17:06 Blood Culture - Preliminary Blood No growth at 1 day - Diagnostic Findings Procedure: Chest x-ray: report reviewed by me (No pneumonia)
[2017-02-23] MEDS: POTASSIUM CHLORIDE RIDER 20 MEQ in PREMIX 1 EACH IV PRN ×2 (13:29→15:37)
[2017-02-23] MEDS: DESITIN 4OZ/NYSTATIN 15 GRAM MIXTURE PASTE TOP SCH (17:38)
[2017-02-23] MEDS: SENNA 8.6 MG TABLET PO SCH (20:36)
[2017-02-23] MEDS: GABAPENTIN 100 MG CAPSULE PO SCH (20:54)
[2017-02-24] MEDS: SODIUM CHLORIDE 0.9% 1,000 ML IV SCH ×2 (04:30→14:20)
[2017-02-24] MEDS: DESITIN 4OZ/NYSTATIN 15 GRAM MIXTURE PASTE TOP SCH ×4 (06:55→20:35)
[2017-02-24 07:17] LABS: Basophils % 0.4 % (0.0-0.8); Eosinophils # 0.3 10*3/uL (0.0-0.87); Eosinophils % 2.8 % (0.00-10.9); Hematocrit 26.6 VOL% (42.0-52.0); Hemoglobin 8.8 GM/DL (14.0-18.0); Immature Granulocytes % 0.4 %; Immature Granulocytes Absolute 0.04 #; Lymphocytes # 2.7 10*3/uL (1.4-4.0); Lymphocytes % 23.5 % (21.2-54.2); Mean Corpuscular HGB Conc 33.1 GM/DL (32-36); Mean Corpuscular Hemoglobin 30 PG (27-34); Mean Corpuscular Volume 90.8 FL (87-102); Mean Platelet Volume 10.7 FL (9.6-12.0); Monocytes % 8.8 % (1.7-12.7); Neutrophils # 7.2 10*3/uL (1.4-7.4); Neutrophils % 64.1 % (38.7-73.9); Platelet Count 197 T/CUMM (130-400); Red Blood Count 2.93 MC/CUMM (3.8-5.5); Red Cell Distribution Width 15.9 % (9.3-17.3); White Blood Count 11.3 T/CUMM (4-12)
[2017-02-24 07:53] LABS: Calcium 7.8 MG/DL (8.5-10.1); Magnesium 1.8 MG/DL (1.8-2.4); Osmolality,Calculated 282.1 MOS/KG (273-304); Potassium 2.9 MMOL/L (3.5-5.1)
[2017-02-24] MEDS: BACLOFEN 10 MG TABLET PO SCH ×3 (09:24→20:36)
[2017-02-24] MEDS: ASPIRIN EC 81 MG TABLET PO SCH (09:25)
[2017-02-24] MEDS: METOCLOPRAMIDE 10 MG TABLET PO SCH ×3 (09:25→20:35)
[2017-02-24] MEDS: MULTIVITAMIN (CENTRUM) TABLET PO SCH (09:25)
[2017-02-24] MEDS: DULoxetine 20 MG CAPSULE PO SCH (09:25)
[2017-02-24] MEDS: ENALAPRIL 2.5 MG TABLET PO SCH (09:26)
[2017-02-24] MEDS: PANTOPRAZOLE 40 MG TABLET PO SCH (09:29)
[2017-02-24] MEDS: GABAPENTIN 100 MG CAPSULE PO SCH ×3 (09:31→20:35)
[2017-02-24] MEDS: METOPROLOL SUCCINATE XL 100 MG TABLET PO SCH (09:31)
[2017-02-24] MEDS: OXYBUTYNIN 5 MG TABLET PO SCH ×2 (09:32→20:35)
[2017-02-24] MEDS: ENOXAPARIN 40 MG/0.4 ML SYRINGE SUBCUT SCH (09:32)
[2017-02-24] MEDS: POTASSIUM CHLORIDE RIDER 20 MEQ in PREMIX 1 EACH IV PRN ×2 (09:38→11:19)
--- NOTE | 2017-02-24 09:45 | Infectious Disease Progress ---
Assessment and Plan (1) Acute UTI Status: Acute Assessment and plan: This is a recurring issue for this patient. It is a different organism this time, VRE, and possibly a streptococcal species. He is at increased risk for UTIs given his neurogenic bladder and need for instrumentation, that is in and out catheterizations. I biopsied this past October for bladder cancer however in speaking to patient and his caregiver, they said a physician in [place] told him that he does not have bladder cancer. His diabetes makes him relatively immunocompromised and again increases his risk for infections in general. Recommendations: 1. Continue daptomycin 4 mg/kg IV daily 2. Follow-up finalized urine culture and also blood culture results The patient's caregiver had numerous questions and they were all answered. Current Visit: Yes (2) Mental status change Status: Acute Assessment and plan: Due to UTI now much improved. Current Visit: Yes (3) Hypertension Status: Acute Current Visit: No (4) Bladder cancer Status: Acute Assessment and plan: Apparently this has been ruled out Current Visit: No (5) Positive blood culture Status: Acute Assessment and plan: Suspect possible contamination. Follow-up final result. Will repeat blood cultures. Current Visit: Yes Infectious Disease - PN: Subj Interval history: The patient feels better overall today, he has not had any fever. He has a good appetite no nausea vomiting or diarrhea. Tolerating antibiotics without difficulty no muscle soreness. Infectious Disease Exam (PN) - Constitutional Vitals: Temp Pulse Resp BP Pulse Ox 97.4 F L 76 20 172/81 94 L 02/24/17 04:00 02/24/17 04:00 02/24/17 06:00 02/24/17 04:00 02/24/17 04:00 General appearance: over weight Exam: General appearance: no acute distress, much more alert and interactive than yesterday - Eye Eye exam: Present: EOMI. no icterus Pupils: Present: JLUIS - ENT ENT exam: no oropharyhgeal exudates - Respiratory Respiratory exam: vesicular BS, no crepitations or wheezes - Cardiovascular Cardiovascular exam: regular rate and rhythm, no murmurs - GI/Abdominal GI/Abdominal exam: normal bowel sounds, soft, non-tender, no organomegaly or mass - Clear urine from Pool catheter - Extremities Exam Extremities exam: no edema - Skin Skin exam: no rash Results - Labs CBC & BMP: 02/24/17 06:56 02/24/17 06:56 Lab Results: I have reviewed the past 24 hour labs (Gram-positive cocci in 1 of 2 sets of blood cultures, not staph aureus)
[2017-02-24] MEDS: POLYETHYLENE GLYCOL POWDER 17 GM PACK PO SCH (11:16)
--- NOTE | 2017-02-24 13:39 | Hospitalist Progress Note ---
Hospitalist: Subjective Interval history: Pt more awake and alert. C/O nausea but no emesis. Mild diffuse abd pain + flatus. +BM x 2 but no diarrhea, melena or BRBPR. No fever. resident care supervisor requests rehab services. Exam - Constitutional Vitals: Period Temp Pulse Resp BP Sys/Barr Pulse Ox Last 24 Hr 97.4 F-99.8 F 64-92 16-20 142-184/63-90 94-99 Exam: A and O x 3 RRR no M CTAB nonlabored Soft, NT, slightly proturbanant, + BS. Warm no c/c/e +SCDs. Paraplegic Results - Labs CBC & BMP: 02/24/17 06:56 02/24/17 06:56 - Impressions (1) Sepsis due to VRE UTI with GPC bacteremia (POA) - cont antibiotics. F/U 02/21 blood cultures and repeat culture done 02/24 (2) Acute encephalopathy likely due to toxic/metabolic/infectious etiologies Problem details: likely 2/2 UTI. Improving Status: Acute Current Visit: No -Continue neuro checks and treatment of the infection (3) UTI (urinary tract infection)/cystitis in a patient with known neurogenic bladder Status: Acute Assessment and plan: - Recent discharge on cefepime for pseudomonas aeruginosa - Urine culture this admission growing VRE - Off Fortaz and Vancomycin - Started on daptomycin per infectious Disease. Recommendations reviewed. Current Visit: No Qualifiers: Urinary tract infection type: catheter-associated UTI (3) History of paraplegia Status: Chronic Current Visit: No (4) Hypokalemia Problem details: - replace. Mg ok. Check phosphorus Status: Acute Current Visit: No (5) Anemia Status: Acute Current Visit: No - H and H stable (6) Leukocytosis Problem details: trending down Status: Acute Current Visit: No (7) Acute kidney injury Status: Acute Assessment and plan: resolved with hydration Current Visit: Yes DVT prophylaxis SCDs D/W resident care supervisor. He is to have a botox procedure done tomorrow. I explained with his acute infection that this would have to be resolved before he could have any invasive procedure. She expressed understanding. Consult PT/OT
[2017-02-24] MEDS: SENNA 8.6 MG TABLET PO SCH (20:35)
[2017-02-24] MEDS: POTASSIUM CHLORIDE RIDER 10 MEQ in PREMIX 1 EACH IV PRN (21:38)
[2017-02-25] MEDS: SODIUM CHLORIDE 0.9% 1,000 ML IV SCH ×2 (03:53→17:11)
[2017-02-25 07:16] LABS: Basophils # 0.1 10*3/uL (0.0-0.2); Basophils % 0.4 % (0.0-0.8); Eosinophils # 0.3 10*3/uL (0.0-0.87); Eosinophils % 2.5 % (0.00-10.9); Hematocrit 28.8 VOL% (42.0-52.0); Hemoglobin 9.4 GM/DL (14.0-18.0); Immature Granulocytes % 0.4 %; Immature Granulocytes Absolute 0.05 #; Lymphocytes # 2.1 10*3/uL (1.4-4.0); Lymphocytes % 17.4 % (21.2-54.2); Mean Corpuscular HGB Conc 32.6 GM/DL (32-36); Mean Corpuscular Hemoglobin 30 PG (27-34); Mean Corpuscular Volume 91.4 FL (87-102); Mean Platelet Volume 11.6 FL (9.6-12.0); Monocytes # 1.1 10*3/uL (0.11-0.8); Monocytes % 9.5 % (1.7-12.7); Neutrophils # 8.3 10*3/uL (1.4-7.4); Neutrophils % 69.8 % (38.7-73.9); Platelet Count 220 T/CUMM (130-400); Red Blood Count 3.15 MC/CUMM (3.8-5.5); Red Cell Distribution Width 16.1 % (9.3-17.3); White Blood Count 11.9 T/CUMM (4-12)
[2017-02-25 07:43] LABS: Albumin 2.4 G/DL (3.4-5.0); Calcium 8.1 MG/DL (8.5-10.1); Magnesium 1.8 MG/DL (1.8-2.4); Phosphorous 1.8 MG/DL (2.5-4.9)
[2017-02-25 07:44] LABS: Osmolality,Calculated 284.8 MOS/KG (273-304); Potassium 3.2 MMOL/L (3.5-5.1)
[2017-02-25] MEDS: GABAPENTIN 100 MG CAPSULE PO SCH ×3 (09:17→21:28)
[2017-02-25] MEDS: METOPROLOL SUCCINATE XL 100 MG TABLET PO SCH (09:17)
[2017-02-25] MEDS: BACLOFEN 10 MG TABLET PO SCH ×3 (09:17→21:28)
[2017-02-25] MEDS: MULTIVITAMIN (CENTRUM) TABLET PO SCH (09:17)
[2017-02-25] MEDS: ENALAPRIL 2.5 MG TABLET PO SCH (09:17)
[2017-02-25] MEDS: ASPIRIN EC 81 MG TABLET PO SCH (09:17)
[2017-02-25] MEDS: DULoxetine 20 MG CAPSULE PO SCH (09:17)
[2017-02-25] MEDS: OXYBUTYNIN 5 MG TABLET PO SCH ×2 (09:18→21:28)
[2017-02-25] MEDS: PANTOPRAZOLE 40 MG TABLET PO SCH (09:18)
[2017-02-25] MEDS: METOCLOPRAMIDE 10 MG TABLET PO SCH ×3 (09:18→21:28)
[2017-02-25] MEDS: ENOXAPARIN 40 MG/0.4 ML SYRINGE SUBCUT SCH (09:18)
[2017-02-25] MEDS: DESITIN 4OZ/NYSTATIN 15 GRAM MIXTURE PASTE TOP SCH ×2 (09:19→21:32)
[2017-02-25] MEDS: POLYETHYLENE GLYCOL POWDER 17 GM PACK PO SCH (09:19)
--- NOTE | 2017-02-25 10:51 | Infectious Disease Progress ---
Assessment and Plan (1) Acute UTI Status: Acute Assessment and plan: This is a recurring issue for this patient. It is a different organism this time, VRE, and possibly a streptococcal species. He is at increased risk for UTIs given his neurogenic bladder and need for instrumentation, that is, in and out catheterizations. He was biopsied this past October for bladder cancer however in speaking to patient and his caregiver, they said a physician in [place] told him that he does not have bladder cancer. His diabetes makes him relatively immunocompromised and again increases his risk for infections in general. Recommendations: Continue daptomycin 4 mg/kg IV daily for a few more days Discussed with patient's caregiver at bedside Current Visit: Yes (2) Mental status change Status: Acute Assessment and plan: Due to UTI now much improved. Current Visit: Yes (3) Hypertension Status: Acute Current Visit: No (4) Bladder cancer Status: Acute Assessment and plan: Apparently this has been ruled out by a physician in [place]. Current Visit: No (5) Positive blood culture Status: Acute Assessment and plan: Suspect possible contamination. Follow-up final result. Follow-up results of repeat blood cultures. Current Visit: Yes Infectious Disease - PN: Subj Interval history: No complaints, patient seems to be in good spirits today. He has been afebrile. Eating well. Infectious Disease Exam (PN) - Constitutional Vitals: Temp Pulse Resp BP Pulse Ox 98.3 F 86 20 173/92 95 02/25/17 08:00 02/25/17 08:00 02/25/17 08:00 02/25/17 08:00 02/25/17 08:00 General appearance: over weight Exam: General appearance: no acute distress, looks relatively well - Eye Eye exam: Present: EOMI. no icterus Pupils: Present: JLUIS - ENT ENT exam: no oral exudates - Respiratory Respiratory exam: vesicular BS, no crepitations or wheezes - Cardiovascular Cardiovascular exam: regular rate and rhythm, no murmurs - GI/Abdominal GI/Abdominal exam: normal bowel sounds, soft, non-tender, no organomegaly or mass - Clear urine from Pool catheter except for a little sediment and small area of the tubing - Extremities Exam Extremities exam: no edema - Skin Skin exam: no rash Results - Labs CBC & BMP: 02/25/17 05:11 05/24/17 05:11 Lab Results: I have reviewed the past 24 hour labs
--- NOTE | 2017-02-25 12:08 | Hospitalist Progress Note ---
Hospitalist: Subjective Interval history: no fever. Tolerating po. No pain. No sob. +BM. Tolerating oral intake. Exam - Constitutional Vitals: Period Temp Pulse Resp BP Sys/Barr Pulse Ox Last 24 Hr 98.3 F-99 F 66-86 18-20 154-184/82-95 90-95 Exam: A and O x 3 RRR no M CTAB nonlabored Soft, NT, slightly proturbanant, + BS. Warm no c/c/e +SCDs. Paraplegic Results - Labs CBC & BMP: 02/25/17 05:11 02/25/17 05:11 - Impressions (1) Sepsis due to VRE UTI with GPC bacteremia (POA) - cont antibiotics. F/U 02/21 blood cultures and repeat culture done 02/24. I discussed with micro and unofficially she states it does not appear to be enterococcus. Still awaiting final results. (2) Acute encephalopathy likely due to toxic/metabolic/infectious etiologies Problem details: likely 2/2 UTI. Improving Status: Acute Current Visit: No -Continue neuro checks and treatment of the infection (3) UTI (urinary tract infection)/cystitis in a patient with known neurogenic bladder Status: Acute Assessment and plan: - Recent discharge on cefepime for pseudomonas aeruginosa - Urine culture this admission growing VRE - Off Fortaz and Vancomycin - Cont daptomycin per infectious Disease. Recommendations reviewed. Current Visit: No Qualifiers: Urinary tract infection type: catheter-associated UTI (3) History of paraplegia Status: Chronic Current Visit: No (4) Hypokalemia/ hypophosphatemia Problem details: - replace IV. Mg ok. Status: Acute Current Visit: No (5) Anemia Status: Acute Current Visit: No - H and H stable (6) Leukocytosis Problem details: trending down Status: Acute Current Visit: No (7) Acute kidney injury Status: Acute Assessment and plan: resolved with hydration Current Visit: Yes DVT prophylaxis SCDs D/W career development director. He is to have a botox procedure done today. I explained with his acute infection that this would have to be resolved before he could have any invasive procedure. She expressed understanding. She still wants to talk to Dr. Smith and requests a consult. I will order. PT/OT
[2017-02-25] MEDS ORDERED: POTASSIUM PHOSPHATE 30 MMOL in SODIUM CHLORIDE 0.9% 250 ML IV ONE (13:00)
--- NOTE | 2017-02-25 15:07 | Urology Consultation ---
History of Present Illness - Data of Consult Consult date: 02/25/17 - Consult Narrative History of present illness: Mr. Yo is a 67 year old male The patient is known to me. 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 The patient had bilateral hydronephrosis and he had an abnormal bladder mucosa that on a very small biopsy here was thought to be low-grade bladder cancer but the patient tells me that after he was evaluated in [place] at the [facility] no bladder cancer was found. The patient was scheduled to start Botox injections of his bladder and was supposed to have the first 1 today but this will have to be delayed since he is currently in the hospital. The patient has recurring infections because he is on intermittent self-catheterization and the issue of ileal conduit diversion has been raised but I am going to defer that to the [facility] who is now managing his urological care. The patient has a Pool catheter in now and that can be removed and he can go back to intermittent catheterization as needed. The patient will follow up with [facility] in [place] and I will see him again as needed CC: Meli Devine MD - Home Medications and Allergies Home Medications: Home Medications Medication Instructions Recorded Confirmed Type ALPRAZolam [Alprazolam] 0.5 mg PO BID PRN 10/05/16 02/21/17 History Baclofen 20 mg PO TID 10/05/16 02/21/17 History Gabapentin 100 mg PO TID 10/05/16 02/21/17 History Multivitamin [Multivitamins] 1 tablet PO 0900 10/05/16 02/21/17 History metFORMIN [Glucophage] 100 mg PO TID W/MEALS 10/05/16 02/21/17 History tiZANidine [Zanaflex] 4 mg PO DAILY PRN 10/05/16 02/21/17 History DULoxetine [Cymbalta] 20 mg PO 0900 10/25/16 02/21/17 History Metoclopramide Tab [Reglan Tab] 10 mg PO TID 10/25/16 02/21/17 History Omeprazole 20 mg PO 0900 10/25/16 02/21/17 History Rosuvastatin [Crestor] 20 mg PO 2100 10/25/16 02/21/17 History Sennosides [Senna Laxative] 25 mg PO 2100 10/25/16 02/21/17 History Polyethylene Glycol Powder 17 gm PO 0900 12/18/16 02/21/17 History [Miralax] HYDROcodone/ACETAMIN 7.5-325 1 tablet PO Q6H PRN 02/12/17 02/21/17 History [Battiest 7.5-325] Oxybutynin [Ditropan] 10 mg PO BID 02/12/17 02/21/17 History Trimethoprim [Proloprim] 100 mg PO DAILY 02/12/17 02/21/17 History Cefepime [Maxipime] 2,000 mg IV Q12H #24 vial 02/17/17 02/21/17 Rx hydrALAZINE TAB [Apresoline Tab] 100 mg PO BID #60 tablet 02/17/17 02/21/17 Rx Aspirin EC Tab 81 mg PO 0900 02/21/17 02/21/17 History Enalapril Tab [Vasotec Tab] 5 mg PO 0900 02/21/17 02/21/17 History Metoprolol Succinate Xl [Toprol Xl] 100 mg PO 0900 02/21/17 02/21/17 History Allergies/Adverse Reactions: Allergies Allergy/AdvReac Type Severity Reaction Status Date / Time ciprofloxacin [From Cipro] Allergy Unknown/Unable Verified 02/21/17 15:10 to obtain naproxen [From Naprosyn] Allergy Unknown/Unable Verified 02/21/17 15:11 to obtain rofecoxib [From Vioxx] Allergy Unknown/Unable Verified 02/21/17 15:10 to obtain zinc oxide AdvReac Redness of Verified 02/21/17 15:10 [From Boudreauxs Butt Paste] Skin Exam - Constitutional Vitals: Period Temp Pulse Resp BP Sys/Barr Pulse Ox Last 24 Hr 98.3 F-99 F 66-86 18-20 154-189/82-95 90-98 Results - Labs CBC & BMP: 02/25/17 05:11 02/25/17 05:11
[2017-02-25] MEDS ORDERED: cloNIDine 0.1 MG/24 HR PATCH TRANSDERM SCH (16:00)
[2017-02-25] MEDS: SENNA 8.6 MG TABLET PO SCH (21:28)
[2017-02-26] MEDS ORDERED: DEXTROSE 50% 25 GM/50 ML VIAL IV PRN (00:54)
[2017-02-26] MEDS ORDERED: GLUCAGON 1 MG VIAL IM PRN (00:54)
[2017-02-26] MEDS: SODIUM CHLORIDE 0.9% 1,000 ML IV SCH ×2 (06:36→19:30)
[2017-02-26] MEDS: INSULIN REGULAR 100 UNIT/ML SUBCUT SCH ×4 (08:10→21:03)
[2017-02-26] MEDS: ENOXAPARIN 40 MG/0.4 ML SYRINGE SUBCUT SCH (11:29)
[2017-02-26] MEDS: POLYETHYLENE GLYCOL POWDER 17 GM PACK PO SCH (11:29)
[2017-02-26] MEDS: ASPIRIN EC 81 MG TABLET PO SCH (11:30)
[2017-02-26] MEDS: ENALAPRIL 2.5 MG TABLET PO SCH (11:31)
[2017-02-26] MEDS: GABAPENTIN 100 MG CAPSULE PO SCH ×3 (11:32→20:51)
[2017-02-26] MEDS: METOCLOPRAMIDE 10 MG TABLET PO SCH ×3 (11:32→20:51)
[2017-02-26] MEDS: BACLOFEN 10 MG TABLET PO SCH ×3 (11:32→20:51)
[2017-02-26] MEDS: OXYBUTYNIN 5 MG TABLET PO SCH ×2 (11:33→20:51)
[2017-02-26] MEDS: MULTIVITAMIN (CENTRUM) TABLET PO SCH (11:33)
[2017-02-26] MEDS: PANTOPRAZOLE 40 MG TABLET PO SCH (11:33)
[2017-02-26] MEDS: DULoxetine 20 MG CAPSULE PO SCH (11:33)
[2017-02-26] MEDS: METOPROLOL SUCCINATE XL 100 MG TABLET PO SCH (11:33)
[2017-02-26] MEDS: DESITIN 4OZ/NYSTATIN 15 GRAM MIXTURE PASTE TOP SCH ×2 (11:58→21:04)
--- NOTE | 2017-02-26 12:19 | Infectious Disease Progress ---
Assessment and Plan (1) Acute UTI Status: Acute Assessment and plan: This is a recurring issue for this patient. It is a different organism this time, VRE, and possibly a streptococcal species. He is at increased risk for UTIs given his neurogenic bladder and need for instrumentation, that is, in and out catheterizations. He was biopsied this past October for bladder cancer however in speaking to patient and his caregiver, they said a physician in [place] told him that he does not have bladder cancer. His diabetes makes him relatively immunocompromised and again increases his risk for infections in general. Recommendations: Continue daptomycin 4 mg/kg IV daily for a few more days Discussed with patient's caregiver at bedside Current Visit: Yes (2) Mental status change Status: Acute Assessment and plan: Due to UTI now much improved, now back to baseline. Current Visit: Yes (3) Hypertension Status: Acute Current Visit: No (4) Bladder cancer Status: Acute Assessment and plan: Apparently this has been ruled out by a physician in [place]. Current Visit: No (5) Positive blood culture Status: Acute Assessment and plan: Suspect possible contamination. Follow-up final result. Follow-up results of repeat blood cultures, Which is so far negative. Current Visit: Yes Infectious Disease - PN: Subj Interval history: Uneventful night last night, no complaints today. Patient has been afebrile. Eating well. Infectious Disease Exam (PN) - Constitutional Vitals: Temp Pulse Resp BP Pulse Ox 98.6 F 95 H 20 149/92 94 L 02/26/17 07:28 02/26/17 07:28 02/26/17 07:28 02/26/17 07:28 02/26/17 07:28 General appearance: over weight Exam: General appearance: no acute distress, looks well - Eye Eye exam: Present: EOMI. no icterus Pupils: Present: JLUIS - ENT ENT exam: no oral exudates - Respiratory Respiratory exam: vesicular BS, no crepitations or wheezes - Cardiovascular Cardiovascular exam: regular rate and rhythm, no murmurs - GI/Abdominal GI/Abdominal exam: normal bowel sounds, soft, non-tender, no organomegaly or mass - Extremities Exam Extremities exam: no edema - Skin Skin exam: no rash Results - Labs CBC & BMP: 02/25/17 05:11 02/25/17 05:11 Lab Results: I have reviewed the past 24 hour labs (Id of GPC's and blood still pending)
--- NOTE | 2017-02-26 12:20 | Hospitalist Progress Note ---
Hospitalist: Subjective Interval history: No new complaints. No significant overnight events noted/ reported. Exam - Constitutional Vitals: Period Temp Pulse Resp BP Sys/Barr Pulse Ox Last 24 Hr 98.2 F-99.2 F 67-95 16-20 149-207/89-97 93-98 Exam: A and O x 3 RRR no M CTAB nonlabored Soft, NT, slightly proturbanant, + BS. Warm no c/c/e +SCDs. Paraplegic Results - Labs CBC & BMP: 02/25/17 05:11 02/25/17 05:11 - Impressions (1) Sepsis due to VRE UTI with GPC bacteremia (POA) - cont antibiotics. F/U 02/21 blood cultures and repeat culture done 02/24. I discussed with micro again today. No results yet. Still awaiting final results. (2) Acute encephalopathy likely due to toxic/metabolic/infectious etiologies Problem details: likely 2/2 UTI. Improving Status: Acute Current Visit: No -Continue neuro checks and treatment of the infection (3) UTI (urinary tract infection)/cystitis in a patient with known neurogenic bladder Status: Acute Assessment and plan: - Recent discharge on cefepime for pseudomonas aeruginosa - Urine culture this admission growing VRE - Off Fortaz and Vancomycin - Cont daptomycin per infectious Disease. Recommendations reviewed. - Dr. Smith has seen patient and has signed off. No new recommendations. F/U in [place] 04/03 as previously arranged. Current Visit: No Qualifiers: Urinary tract infection type: catheter-associated UTI (3) History of paraplegia Status: Chronic Current Visit: No (4) Hypokalemia/ hypophosphatemia Problem details: - replace IV. Mg ok. Status: Acute Current Visit: No (5) Anemia Status: Acute Current Visit: No - H and H stable (6) Leukocytosis Problem details: trending down Status: Acute Current Visit: No (7) Acute kidney injury Status: Acute Assessment and plan: resolved with hydration Current Visit: Yes DVT prophylaxis SCDs D/W special needs caregiver and pt PT/OT
--- NOTE | 2017-02-26 12:45 | Physician Query Form ---
CLICK EDIT DOCUMENT TO SELECT QUERY ANSWER --> OK --> SIGN Mei Wilkerson RN, CCDS Certified Clinical Unix Developer W) [phone] (f) [phone] [email or web address]: Make your selection(s) from the choices in EACH section by typing an "x" and enter comments in the comment section. Please use your independent medical judgment in providing your response. This request does not imply that any particular answer is desired or expected. CLINICAL INDICATORS: (Providers should not edit this section) The below diagnosis was documented in the record, but is not consistently noted in subsequent documentation. The medical record indicates that the patient was admitted with an UTI, One BC + for Staphylococcus Epidermidis, WBC of 8.6# on the , No Lactic Acid, ER vital signs Temp of 97.5, Pulse of 94, Respiration 20, then on the : " Sepsis due to VRE UTI with GPC bacteremia (POA)" and on the : "Positive blood culture---Suspect possible contamination". Diagnosis: Sepsis Please clarify the following: (x ) Sepsis is a confirmed diagnosis that was POA---- ( ) Please included supportive clinical indicators. ( ) Sepsis is a confirmed diagnosis that was NOT POA---- ( ) Please included supportive clinical indicators. ( ) Sepsis was ruled out ( ) Other, please specify: ( ) Clinically unable to determine COMMENTS: PLEASE ALSO DOCUMENT RESPONSE IN PROGRESS NOTES AND/OR DISCHARGE SUMMARY Use of terms such as suspected, likely, or probable (associated with a specific diagnosis that is being evaluated, monitored, or treated as if it exists) are acceptable and can be restated in the discharge summary if not ruled out. MTDD
[2017-02-26] MEDS: SENNA 8.6 MG TABLET PO SCH (20:51)
[2017-02-26] MEDS: LABETALOL 20 MG/4 ML SYRINGE IV PRN (20:57)
[2017-02-27] MEDS: LABETALOL 20 MG/4 ML SYRINGE IV PRN (05:01)
--- NOTE | 2017-02-27 10:22 | Infectious Disease Progress ---
Assessment and Plan (1) Acute UTI Status: Acute Assessment and plan: This is a recurring issue for this patient. It is a different organism this time, VRE. He is at increased risk for UTIs given his neurogenic bladder and need for instrumentation, that is, in and out catheterizations. He was biopsied this past October for bladder cancer however in speaking to patient and his caregiver, they said a physician in [place] told him that he does not have bladder cancer. His diabetes makes him relatively immunocompromised and again increases his risk for infections in general. Recommendations: Complete 7 days of daptomycin therapy Discussed with patient's caregiver at bedside Current Visit: Yes (2) Mental status change Status: Acute Assessment and plan: Due to UTI now much improved, now back to baseline. Current Visit: Yes (3) Hypertension Status: Acute Current Visit: No (4) Bladder cancer Status: Acute Assessment and plan: Apparently this has been ruled out by a physician in [place]. Current Visit: No (5) Positive blood culture Status: Acute Assessment and plan: MRCP isolated which should be a contaminant. Repeat blood cultures negative to date. No further intervention necessary. Current Visit: Yes Infectious Disease - PN: Subj Interval history: Patient doing well, no complaints, no fever. He is now getting in and out catheterizations and tolerating that okay. Infectious Disease Exam (PN) - Constitutional Vitals: Temp Pulse Resp BP Pulse Ox 99.3 F 71 20 182/89 92 L 02/27/17 04:20 02/27/17 04:20 02/27/17 04:20 02/27/17 04:20 02/27/17 04:20 General appearance: over weight Exam: General appearance: looks well - Eye Eye exam: Present: EOMI. no icterus Pupils: Present: JLUIS - ENT ENT exam: no oral exudates - Respiratory Respiratory exam: vesicular BS, no crepitations or wheezes - Cardiovascular Cardiovascular exam: regular rate and rhythm, no murmurs - GI/Abdominal GI/Abdominal exam: normal bowel sounds, soft, non-tender, no organomegaly or mass - Extremities Exam Extremities exam: no edema - Skin Skin exam: no rash Results - Labs CBC & BMP: 02/25/17 05:11 02/25/17 05:11 Lab Results: I have reviewed the past 24 hour labs (MRSE from 1 of 2 sets of blood cultures on admission, repeat blood cultures negative 2 so far)
[2017-02-27] MEDS: INSULIN REGULAR 100 UNIT/ML SUBCUT SCH (11:30)
[2017-02-27] MEDS: SODIUM CHLORIDE 0.9% 1,000 ML IV SCH (11:31)
[2017-02-27] MEDS: ENOXAPARIN 40 MG/0.4 ML SYRINGE SUBCUT SCH (11:32)
[2017-02-27] MEDS: BACLOFEN 10 MG TABLET PO SCH (11:36)
[2017-02-27] MEDS: POLYETHYLENE GLYCOL POWDER 17 GM PACK PO SCH (11:36)
[2017-02-27] MEDS: OXYBUTYNIN 5 MG TABLET PO SCH (11:37)
[2017-02-27] MEDS: ENALAPRIL 2.5 MG TABLET PO SCH (11:37)
[2017-02-27] MEDS: ASPIRIN EC 81 MG TABLET PO SCH (11:37)
[2017-02-27] MEDS: PANTOPRAZOLE 40 MG TABLET PO SCH (11:39)
[2017-02-27] MEDS: MULTIVITAMIN (CENTRUM) TABLET PO SCH (11:39)
[2017-02-27] MEDS: DULoxetine 20 MG CAPSULE PO SCH (11:39)
[2017-02-27] MEDS: METOCLOPRAMIDE 10 MG TABLET PO SCH (11:40)
[2017-02-27] MEDS: GABAPENTIN 100 MG CAPSULE PO SCH (11:40)
[2017-02-27] MEDS: METOPROLOL SUCCINATE XL 100 MG TABLET PO SCH (11:40)
[2017-02-27] MEDS: DESITIN 4OZ/NYSTATIN 15 GRAM MIXTURE PASTE TOP SCH (12:12)
--- NOTE | 2017-02-27 12:59 | Discharge Summary ---
Hospital Course - Hospital Course Hospital Course: Patient is a 67-year-old male with a history of paraplegia and neurogenic bladder and insulin-dependent diabetes mellitus who presented to the hospital with chief complaint of altered mental status and weakness. He was found to have sepsis due to vancomycin-resistant enterococcus urinary tract infection. Blood cultures on 02/21/2017 grew methicillin-resistant staph epidermidis and 1 out of 2 bottles and repeat blood cultures done 02/24 have revealed no growth. Infectious disease was consulted to assist with his management. He was started initially on Fortaz and vancomycin until urine cultures resulted. Patient was then changed to IV daptomycin per ID. Urology ( Dr. West) evaluated the patient and agreed with current management and recommended follow-up with urology outpatient as previously arranged. It was felt that altered mental status was likely due to acute encephalopathy due to infectious toxic and metabolic etiologies related to the urinary tract infection. Electrolytes were replaced as needed. He did receive IV fluids for acute renal failure on initial presentation which did resolve with hydration. For his diabetes he was treated with an insulin sliding scale and blood sugars remain well controlled. I discussed with infectious disease given patient want to go home and she agreed that since he completed 5 days of IV antibiotics that he could be changed to oral Zyvox for 2 days to complete his total 7 days of therapy. Patient was then discharged home with home health for ongoing care. - Time spent with patient Time with patient DS: Greater than 30 minutes (38 minutes) Diagnosis - Discharge Diagnosis (1) Acute UTI Status: Acute (2) Acute kidney injury Status: Resolved (3) Dehydration Status: Resolved (4) Bladder mass Status: Chronic (5) CAD (coronary artery disease) Status: Chronic (6) Dysautonomia Status: Chronic (7) Infectious encephalopathy Status: Resolved (8) Insulin dependent diabetes mellitus Status: Chronic (9) Neurogenic bladder Status: Chronic (10) Obstructive sleep apnea Status: Chronic (11) Sepsis Status: Resolved Specialty Discharge - Follow Up or Referrals Follow up with: md, PCP [Other] - 2 Weeks (F/U after dc) , urology [Other] - 1 Month (f/u as previously arranged in [facility]) Discharge Plan - Discharge Data Disposition: Home Health Service Condition at Discharge: Stable Discharge Diet: advance to your usual diet Activity: resume usual activities as tolerated Contact your physician if you experience:: fever over 101, Difficulty voiding, Redness or swelling, Nausea/Vomiting, Shortness of breath, Bleeding, pain uncontrolled by pain medications - Discharge Medications New Gabapentin Cap/Tab [Neurontin Cap/Tab] 100 mg PO TID capsule cloNIDine 0.1 MG/24 HR PATCH [Cyornvkp-BUW-8 Patch] 1 patch TRANSDERM Q7DAY # 4 patch Docusate Sodium Cap [Colace Cap] 100 mg PO BID PRN #60 capsule PRN Reason: Constipation Linezolid Tab [Zyvox Tab] 600 mg PO Q12HR #4 tablet Continue metFORMIN [Glucophage] 100 mg PO TID W/MEALS tiZANidine [Zanaflex] 4 mg PO DAILY PRN PRN Reason: Pain Baclofen 20 mg PO TID ALPRAZolam [Alprazolam] 0.5 mg PO BID PRN PRN Reason: Anxiety Omeprazole 20 mg PO 0900 Metoclopramide Tab [Reglan Tab] 10 mg PO TID Sennosides [Senna Laxative] 25 mg PO 2100 DULoxetine [Cymbalta] 20 mg PO 0900 Polyethylene Glycol Powder [Miralax] 17 gm PO 0900 HYDROcodone/ACETAMIN 7.5-325 [[place] 7.5-325] 1 tablet PO Q6H PRN PRN Reason: Pain Oxybutynin [Ditropan] 10 mg PO BID hydrALAZINE TAB [Apresoline Tab] 100 mg PO BID #60 tablet Metoprolol Succinate Xl [Toprol Xl] 100 mg PO 0900 Enalapril Tab [Vasotec Tab] 5 mg PO 0900 Multivitamin [Multivitamins] 1 tablet PO 0900 Rosuvastatin [Crestor] 20 mg PO 2100 Aspirin EC Tab 81 mg PO 0900 Discontinued Trimethoprim [Proloprim] 100 mg PO DAILY Gabapentin 100 mg PO TID Cefepime [Maxipime] 2,000 mg IV Q12H #24 vial - Follow Up or Referral - Forms/Instructions Exam - Constitutional Vitals: Period Temp Pulse Resp BP Sys/Barr Pulse Ox Last 24 Hr 98.5 F-99.3 F 71-81 18-20 150-186/85-99 81-99 Exam: see progress note from 02/26 for physical exam as exam is unchanged today. Discharge Results Procedures and tests throughout hospitalization: Pending Orders 02/24/17 10:12 Blood Culture Stat Labs on day of discharge: Labs from last 24 hours 02/26/17 02/26/17 02/26/17 20:02 15:29 11:04 POC Glucose 137 H 128 H 125 H 02/26/17 02/26/17 07:39 01:08 POC Glucose 95 104 Preliminary micro results at discharge 02/24/17 10:12 Blood Culture - Preliminary Blood No growth at 3 days 02/24/17 10:12 Blood Culture - Preliminary Blood No growth at 3 days DS: Provider Date of admission: 02/21/17 13:59 Primary care physician: . No PCP Attending physician on admission: García Cortez MD Consults: 02/21/17 16:49 Consult to Dietitian [CONS] Routine Reason for Dietitian: Other 02/22/17 12:03 Consult to Pharmacy [CONS] Routine Reason for Pharmacy Consult: Dose/Manage Vancomycin 02/22/17 12:23 Consult to Physician [CONS] Routine Comment: recurrent uti, recent d/c on iv abx Consulting Provider: Verito Viramontes When should Consulting Provider be notified: In am Person Notified: JOSE Date Notified: 02/23/17 Time Notified: 08:48 02/24/17 17:15 Consult to Occupational Therapy [CONS] Routine Reason for Occupational Therapy: Evaluate and Treat Consult to Physical Therapy [CONS] Routine Reason for Physical Therapy: Evaluate and Treat 02/25/17 13:23 Consult to Physician [CONS] Routine Comment: pt request. Hx of recurrent UTI/sitter wants botox Consulting Provider: Dustin Padilla Person Notified: LUCIANA Date Notified: 02/25/17 Time Notified: 13:52 Discharging clinician: Meli Devine MD
[2017-02-27 21:20] VITALS: BP 164/97
--- NOTE | 2017-03-04 10:39 | Physician Query Form ---
CLICK EDIT DOCUMENT TO SELECT QUERY ANSWER --> OK --> SIGN Mei Wilkerson RN, CCDS Certified Clinical Shoe Ironer W) [phone] (f) [phone] [email or web address] PROVIDERS: Make your selection(s) from the choices in EACH section by typing an "x" and enter comments in the comment section Please use your independent medical judgment in providing your response. This request does not imply that any particular answer is desired or expected. CLINICAL INDICATORS: (Providers should not edit this section) The medical record indicates that the patient was admitted with an UTI, "Sacrum " "Stage II"--- is mentioned on the wound care notes. As the attending MD can you please clarify if you agree with the wound care nurses assessment or can you please clarify any other needed documentation below? Based on the above, could you please provide further clarification regarding the ulcer/wound? LOCATION OF WOUND/ULCER: ( x) I agree with the wound nurses assessment of the sacrum ( ) I disagree with the wound nurses assessment of the sacrum ----please clarify below IF A PRESSURE ULCER, PLEASE ALSO INCLUDE THE STAGE* OF THE ULCER: ( ) Stage 1 - Skin intact, non-blanchable redness ( ) Stage 2 - Partial thickness loss of dermis, includes intact or open blister ( ) Stage 3 - Full thickness tissue not including bone, tendon, or muscle ( ) Stage 4 - Full thickness tissue loss, including exposed bone, tendon, or muscle ( ) Unstageable - Full thickness tissue loss in which the base is covered by slough (yellow, dickey, brown, green or brown) and/or eschar (dickey, brown or black) in the wound bed. ( ) Suspected Deep Tissue Injury - Purple or maroon localized area of discolored intact skin or blood-filled blister due to damage of underlying soft tissue from pressure and/or shear. The area may be preceded by tissue that is painful, firm, mushy, boggy, warmer or cooler as compared to adjacent tissue. ( ) Clinically unable to determine *Source: National Pressure Ulcer Advisory Panel (NPUAP) COMMENTS: PLEASE ALSO DOCUMENT RESPONSE IN PROGRESS NOTES AND/OR DISCHARGE SUMMARY Use of terms such as suspected, likely, or probable (associated with a specific diagnosis that is being evaluated, monitored, or treated as if it exists) are acceptable and can be restated in the discharge summary if not ruled out. MTDD
== END 2017-02-27 15:25 | disposition home health service (06) | DRG 698 ==
LOC: EDUNIT# → N.ED 11:45 → SUATTDRO 13:59 → N.EDINP 15:11 → N.2E 15:17
PROVIDERS: ADMIT Internal Medicine; ATTEND Pediatrics

== ENCOUNTER 2017-06-18 19:03 | Inpatient (IN) ==
[~2017-06-18 19:03] MED LIST: ENOXAPARIN 40 MG/0.4 ML SYRINGE SUBCUT SCH
[2017-06-18] MEDS ORDERED: ONDANSETRON 4 MG/2 ML VIAL IV STA (19:26)
[2017-06-18] MEDS ORDERED: AMPICILLIN/SULBACTAM 3,000 MG in SODIUM CHLORIDE 0.9% 100 ML IV STA (19:26)
[2017-06-18] MEDS ORDERED: SODIUM CHLORIDE 0.9% 1,000 ML IV STA (19:26)
--- NOTE | 2017-06-18 19:36 | Emergency Department Note ---
Arrival - Arrival Chief Complaint: Non-Specific Stated Complaint: AMS ED Nursing Triage Note: C/C "not feeling good", hurting all over started last night. According to transitional care liaison/EMS lethargic. Pt will respond quickly to verbal stimuli and answer questions appropriately. Pt has a alex catheter. Mode of Arrival: Stretcher Source: Patient Time Seen by Provider: 06/18/17 19:26 - History of Present Illness HPI Narrative: This 67-year-old white male paraplegic with neurogenic bladder presents with complaints of generalized myalgias and not feeling right. He does have an indwelling Alex catheter chronically and has had problems with repeated urinary tract infections from a variety of sources with urosepsis hospitalization in December from a vancomycin resistant enterococcus. The patient denies chest pain, shortness of breath, chills, or fever, just aching all over. He does complain of some mild suprapubic tenderness. Currently he is medically stable in no acute distress. Onset (ago): day(s) (Patient presents several days post onset of symptoms) Allergies/Adverse Reactions: Allergies Allergy/AdvReac Type Severity Reaction Status Date / Time ciprofloxacin [From Cipro] Allergy Unknown/Unable Verified 06/18/17 19:20 to obtain naproxen [From Naprosyn] Allergy Unknown/Unable Verified 06/18/17 19:20 to obtain rofecoxib [From Vioxx] Allergy Unknown/Unable Verified 06/18/17 19:20 to obtain zinc oxide AdvReac Redness of Verified 06/18/17 19:20 [From Boudreauxs Butt Paste] Skin Home Medications: Home Medications Medication Instructions Recorded Confirmed Type ALPRAZolam [Alprazolam] 0.5 mg PO BID PRN 10/05/16 06/18/17 History Baclofen 20 mg PO TID 10/05/16 06/18/17 History Multivitamin [Multivitamins] 1 tablet PO 0900 10/05/16 06/18/17 History tiZANidine [Zanaflex] 4 mg PO DAILY PRN 10/05/16 06/18/17 History DULoxetine [Cymbalta] 20 mg PO DAILY@0900 10/25/16 06/18/17 History Omeprazole 20 mg PO DAILY@1400 10/25/16 06/18/17 History Sennosides [Senna Laxative] 25 mg PO BEDTIME 10/25/16 06/18/17 History Polyethylene Glycol Powder 17 gm PO DAILY@0900 12/18/16 06/18/17 History [Miralax] HYDROcodone/ACETAMIN 7.5-325 1 tablet PO Q6H PRN 02/12/17 06/18/17 History [[place] 7.5-325] Oxybutynin [Ditropan] 10 mg PO DAILY@0902/12/17 06/18/17 History Aspirin EC Tab 81 mg PO DAILY@0902/21/17 06/18/17 History Metoprolol Succinate Xl [Toprol Xl] 100 mg PO BID 02/21/17 06/18/17 History Gabapentin Cap/Tab [Neurontin 100 mg PO TID capsule 02/27/17 06/18/17 Rx Cap/Tab] Trimethoprim [Proloprim] 100 mg PO SUTUTHSA 06/18/17 06/18/17 History Review of System - Review of System 12 point system: reviewed and no additional remarkable complaints except as stated - Review of System Constitutional: Present: as per HPI Gastrointestinal: Present: as per HPI Musculoskeletal: Present: as per HPI Neurological: Present: as per HPI Medical,Surgical,& Family Hx - Medical History Cardio: History of: CAD, Hypertension, Cardiovascular Problems (stent placed around 2007) Neurology: No history of: Cerebral Hemorrhage, Cerebrovascular Accident, Cerebral Palsy HEENT: History of: Eye Problem (dry eyes) Respiratory: History of: Asthma (childhood problem.), Obstructive Sleep Apnea Genitourinary: History of: Bladder Problem, Kidney Stones, Recurring Urinary Tract Infections, Problems (has alex cath 06/2017) Gastrointestinal: History of: GERD Musculoskeletal: History of: Musculoskeletal Problems (Paraplegic) - Surgical History Cardiac Surgeries: Sugical HX of: Cardiac Catheterization (stents placed) Thoracic Surgeries: Patient denies;: Organ Transplant Neurologic Surgeries: Patient denies: Cerebral Hemorrhage HEENT Surgeries: Patient denies: Thyroid Surgery, Tonsilectomy & Adenoidectomy Comment Only: Eye Surgery (cateract surgery on right eye) Orthopedic Surgeries: Surgical HX of;: Orthopedic Surgery - Family History Family History: Reports;: Family Cancer, Family Diabetes - Social History Smoking Status: Unknown if ever smoked Frequency of Alcohol Use: None Type of Drug Use: None Exam Physical Examination: GENERAL: Well developed, well nourished elderly white male in no acute distress. HEENT: Normocephalic. No trauma. Moist mucous membranes. EOMI. PERRLA. ENT NML NECK: Supple. No adenopathy. CARDIAC: Regular. No murmurs. Heart rate 57 CHEST: Clear to auscultation. No respiratory distress. O2 sat 100% ABDOMEN: Soft. Tender suprapubic area. Active bowel sounds. EXTREMITIES: No trauma. Normal ROM. No pedal edema. SKIN: No diaphoresis. No rash. NEURO: Alert. Oriented 3 with motor intact in upper extremities with lower extremity paralysis Vital Signs: Vital Signs Temperature 98 F 06/18/17 19:05 Pulse Rate 56 L 06/18/17 19:05 Respiratory Rate 14 06/18/17 19:05 Blood Pressure 148/78 06/18/17 19:05 O2 Sat by Pulse Oximetry 100 06/18/17 19:05 Course - Reevaluation(s) Reevaluation #1: Advised patient of need for hospitalization. - Consultations Consultation #1: Discussed with hospitalist service who will admit for further evaluation treatment Results - Labs CBC & BMP: 06/18/17 19:52 06/18/17 19:52 Labs: I reviewed the laboratory and noted the infected urine - Impressions EKG sinus rhythm at 59 with normal MD interval and QRS duration. Normal ST segments with no acute injury pattern noted - Diagnostic Findings Procedure: Chest x-ray: image reviewed by me, report reviewed by me (Normal chest) Disposition Clinical Impression: Recurrent cystitis, Paraplegia Case discussed with: patient, patient's family Disposition: Still a Patient Condition: Guarded Time of Disposition: 22:02
--- NOTE | 2017-06-18 20:02 | XRay Report ---
History: Shortness of breath Date: 06/18/2017 Study: Chest x-ray AP portable Comparison exam: June 12, 2017 The cardiomediastinal silhouette and pulmonary vasculature are unremarkable. The lungs and pleural spaces are generally clear. There is mild to moderate thoracic spondylosis. Impression: No evidence of an acute cardiopulmonary process. No significant interval change PROCEDURE INTERPRETED AT [facility] DEPARTMENT OF RADIOLOGY Final Report Signed by: Dr. Roz Saldana
[2017-06-18 20:27] LABS: Basophils # 0.1 10*3/uL (0.0-0.2); Basophils % 0.4 % (0.0-0.8); Eosinophils # 0.2 10*3/uL (0.0-0.87); Eosinophils % 1.8 % (0.00-10.9); Hematocrit 30.4 VOL% (42.0-52.0); Hemoglobin 9.8 GM/DL (14.0-18.0); Immature Granulocytes % 0.3 %; Immature Granulocytes Absolute 0.04 #; Lymphocytes # 2.5 10*3/uL (1.4-4.0); Lymphocytes % 21.5 % (21.2-54.2); Mean Corpuscular HGB Conc 32.2 GM/DL (32-36); Mean Corpuscular Hemoglobin 30 PG (27-34); Mean Corpuscular Volume 92.4 FL (87-102); Mean Platelet Volume 10.6 FL (9.6-12.0); Monocytes # 1.1 10*3/uL (0.11-0.8); Monocytes % 9.5 % (1.7-12.7); Neutrophils # 7.7 10*3/uL (1.4-7.4); Neutrophils % 66.5 % (38.7-73.9); Platelet Count 255 T/CUMM (130-400); Red Blood Count 3.29 MC/CUMM (3.8-5.5); Red Cell Distribution Width 13.9 % (9.3-17.3); White Blood Count 11.6 T/CUMM (4-12)
[2017-06-18 20:32] LABS: Apearance,Urine CLOUDY (Clear); Bacteria,Urine Moderate /HPF (Few); Bilirubin,Urine Negative (Negative); Blood, Urine Moderate mg/dL (Negative); Glucose,Urine (UA) Negative (Negative); Ketones,Urine Negative (Negative); Nitrite,Urine Negative (Negative); Protein,Urine 30 MG/DL; RBC,Urine 8 /HPF (0-4); Squamous Epithelial Cell,Urine Occasional /HPF (0-10); Urine Color Yellow (Yellow); Urine Specific Gravity 1.008 (1.001-1.035); Urine Urobilinogen < 2.0 EU/DL (0.2-1.0); WBC,Urine 1100 /HPF (0-6)
--- NOTE | 2017-06-18 20:42 | EKG Report ---
Stationary ECG Study [facility] ER Test Date: 06/18/2017 8:41:09 PM Pat Name: SHERITA LU Department: Room: Gender: M [employer]: : [id number] Requested by: Stanley Boland Order Number: [id number] Reading MD: TRISH LUNA Intervals [place] Rate: 59 P: 52 AK: 151 QRS: 52 QRSD: 101 T: 47 QT: 441 QTc: 441 Interpretive Statements SINUS RHYTHM Electronically Signed On 06-19-17 06:57:14 CDT by TRISH LUNA [email or web address]
[2017-06-18 20:47] LABS: Lactic Acid 0.9 MMOL/L (0.4-2.0)
[2017-06-18 21:07] LABS: Alanine Aminotransferase 16 U/L (16-61); Albumin 2.3 G/DL (3.4-5.0); Alkaline Phosphatase 80 U/L (45-117); Aspartate Amino Transferase 20 U/L (0-37); Bilirubin,Total < 0.39 MG/DL (0.2-1.0); Blood Urea Nitrogen 34 MG/DL (7-18); Calcium 8.4 MG/DL (8.5-10.1); Glucose 80 MG/DL (74-106); Osmolality,Calculated 292.8 MOS/KG (273-304); Potassium 3.7 MMOL/L (3.5-5.1); Sodium 144 MMOL/L (136-145); Total Protein 7.5 G/DL (6.4-8.3); Troponin I Only < 0.015 NG/ML (0.00-0.045)
[2017-06-18] MEDS ORDERED: AMPICILLIN/SULBACTAM 3,000 MG VIAL ONE (21:37)
[2017-06-18] MEDS ORDERED: ONDANSETRON 4 MG/2 ML VIAL ONE (21:37)
--- NOTE | 2017-06-18 23:29 | Hospitalist History & Physical ---
Assessment and Plan (1) Acute UTI Status: Acute Current Visit: No (2) Altered mental status Status: Acute Current Visit: No (3) Elevated serum creatinine Problem details: not clear if LUDWIG or CKD or LUDWIG on CKD. Check FeNa Status: Acute Current Visit: No (4) Anemia Status: Chronic Current Visit: No (5) Hypertension, essential Status: Acute Assessment and plan: Plan: 1. AMS most likely related to UTI. Improving after hydration. IV Fluids, Urinalysis positive for large amounts of Leuko estase, history of pseudomonas and VRE UTI's will add Zosyn for now and follow culture. animal care taker states he has been off of antibiotics for few weeks . Consult ID if resistance noted. 2. Mild hypertension noted,Patient states he hurts all over, will add prn pain medication and resume home dose antihypertensives and give prn hydralazine for SBP greater than 160. 3. Anemia stable. Reassess labs in am. 4. Elevated Creatinine, unclear if LUDWIG/Chronic. UOP adequate at this time. Continue IV hydration and reassess labs in am. Replace electrolytes as needed. If not improving assess FENA and renal ultrasound. Fifty three minutes was spent on this patient not including procedures. Current Visit: Yes History of Present Illness Chief complaint: malaise and confusion History of present illness: Mr. Yo is a 67 year old male with past medical history of neurogenic bladder and paraplegia, CAD with previous stents, HTN, GIANNI, NIDDM, GERD, and frequent VRE and Pseudomonas pseudomonal UTIs with indwelling chronic indwelling catheter that presented to the ED today with complaints of overall malaise and confusion. The patient was recently on p.o. Zyvox at home and finished this approximately a week ago. He has [id number] caregiver at home that states ever since his last UTI he has been slightly confused however today he quit eating and drinking. EKG reveals sinus rhythm with no ST elevation. Chest x-ray showed no acute cardiopulmonary pathology. Labs revealed mild elevation in leukocytosis with a creatinine of 1.6 and a lactic acid is 0.9. He presented with mild hypertension and mild bradycardia upon admission. He is oxygenating well with no tachypnea. Pancultures were obtained and pending he was given a dose of Unasyn in the ED. He will be admitted to the hospitalist service with cardiac monitoring for further work up and IV antibiotics. He does have a sacral wound on admission. Home Medications Medication Instructions Recorded Confirmed Type ALPRAZolam [Alprazolam] 0.5 mg PO BID PRN 10/05/16 06/18/17 History Baclofen 20 mg PO TID 10/05/16 06/18/17 History Multivitamin [Multivitamins] 1 tablet PO 0900 10/05/16 06/18/17 History tiZANidine [Zanaflex] 4 mg PO DAILY PRN 10/05/16 06/18/17 History DULoxetine [Cymbalta] 20 mg PO DAILY@0900 10/25/16 06/18/17 History Omeprazole 20 mg PO DAILY@1400 10/25/16 06/18/17 History Sennosides [Senna Laxative] 25 mg PO BEDTIME 10/25/16 06/18/17 History Polyethylene Glycol Powder 17 gm PO DAILY@0900 12/18/16 06/18/17 History [Miralax] HYDROcodone/ACETAMIN 7.5-325 1 tablet PO Q6H PRN 02/12/17 06/18/17 History [[place] 7.5-325] Oxybutynin [Ditropan] 10 mg PO DAILY@0900 02/12/17 06/18/17 History Aspirin EC Tab 81 mg PO DAILY@0900 02/21/17 06/18/17 History Metoprolol Succinate Xl [Toprol Xl] 100 mg PO BID 02/21/17 06/18/17 History Gabapentin Cap/Tab [Neurontin 100 mg PO TID capsule 02/27/17 06/18/17 Rx Cap/Tab] Trimethoprim [Proloprim] 100 mg PO SUTUTHSA 06/18/17 06/18/17 History Allergies Allergy/AdvReac Type Severity Reaction Status Date / Time ciprofloxacin [From Cipro] Allergy Unknown/Unable Verified 06/18/17 19:20 to obtain naproxen [From Naprosyn] Allergy Unknown/Unable Verified 06/18/17 19:20 to obtain rofecoxib [From Vioxx] Allergy Unknown/Unable Verified 06/18/17 19:20 to obtain zinc oxide AdvReac Redness of Verified 06/18/17 19:20 [From Boudreauxs Butt Paste] Skin Medical,Surgical,& Family Hx - Medical History Cardio: History of: CAD, Hypertension, Cardiovascular Problems (stent placed around 2007) Neurology: History of: Neurological Problems (Paraplegia) No history of: Cerebral Hemorrhage, Cerebrovascular Accident, Cerebral Palsy HEENT: History of: Eye Problem (dry eyes) Endocrine: History of: Diabetes Mellitus (IDDM) Respiratory: History of: Asthma (childhood problem.), Obstructive Sleep Apnea Genitourinary: History of: Bladder Problem, Kidney Stones, Recurring Urinary Tract Infections, Problems (has alex cath 06/2017) Gastrointestinal: History of: GERD Musculoskeletal: History of: Musculoskeletal Problems (Paraplegic) Hematology: History of: Anemia No history of: Blood Transfusion Reaction, Clotting Problems Other: History of: Skin Problems (Sacral Breakdown) - Surgical History Cardiac Surgeries: Sugical HX of: Cardiac Catheterization (stents placed) Thoracic Surgeries: Patient denies;: Organ Transplant Neurologic Surgeries: Patient denies: Cerebral Hemorrhage HEENT Surgeries: Patient denies: Thyroid Surgery, Tonsilectomy & Adenoidectomy Comment Only: Eye Surgery (cateract surgery on right eye) Orthopedic Surgeries: Surgical HX of;: Orthopedic Surgery - Family History Family History: Reports;: Family Cancer, Family Diabetes - Social History Smoking Status: Unknown if ever smoked Frequency of Alcohol Use: None Type of Drug Use: None 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 Absent: chest pain at rest, chest pain with activity - Respiratory Respiratory: Present: as per HPI. Absent: cough, dyspnea - Gastrointestinal Gastrointestinal: Absent: abdominal pain - Genitourinary Genitourinary: Present: as per HPI, other (indwelling catheter; frequent UTI's) - Musculoskeletal Musculoskeletal: Present: as per HPI, other (paraplegia) - Neurological Neurological: Present: confusion - Psychiatric Psychiatric: Present: memory loss - Endocrine Endocrine: Present: as per HPI - Hematologic/Lymphatic Hematologic/Lymphatic: Present: as per HPI. Absent: easy bleeding, easy bruising Exam - Constitutional Vitals: Period Temp Pulse Resp BP Sys/Barr Pulse Ox Last 24 Hr 98 F-98 F 56-56 14-14 148-148/78-78 100 General appearance: normal weight, no acute distress - Head Head exam: Present: normal inspection, normocephalic, atraumatic - Eye Eye exam: Present: EOMI Pupils: Present: JLUIS - ENT ENT exam: Present: normal exam, normal oropharynx - Neck Neck exam: Present: normal inspection - Respiratory Respiratory exam: Present: clear to auscultation bilaterally. Absent: accessory muscle use, decreased breath sounds, rhonchi, wheezes - Cardiovascular Cardiovascular exam: Present: bradycardia, regular rate and rhythm. Absent: diastolic murmur, systolic murmur - GI/Abdominal GI/Abdominal exam: Present: normal bowel sounds, tenderness (suprapubic area), soft, other - Extremities Exam Extremities exam: Present: normal capillary refill, other (wasting tone, ) - Back Exam Back exam: Present: normal inspection. Absent: CVA tenderness (L), CVA tenderness (R) - Neurological Exam Neurological exam: Present: alert, other (oriented to person and place only, lower extremity paralysis). Absent: normal gait (not assesssed, bedbound. ) - Skin Skin exam: Present: other (sacral breakdown small area red quarter size with 8mm dark nonblanchable area in the center. ) Results - Labs CBC & BMP: 06/18/17 19:52 06/18/17 19:52
[2017-06-18] MEDS ORDERED: GLUCAGON 1 MG VIAL IM PRN (23:30)
[2017-06-18] MEDS ORDERED: DEXTROSE 50% 25 GM/50 ML SYRINGE IV PRN (23:30)
[2017-06-18] MEDS ORDERED: ONDANSETRON 4 MG/2 ML VIAL IV PRN (23:36)
[2017-06-18] MEDS ORDERED: DOCUSATE SODIUM 100 MG CAPSULE PO PRN (23:36)
[2017-06-18] MEDS ORDERED: hydrALAZINE 20 MG/1 ML VIAL IV STA (23:52)
[2017-06-18] MEDS ORDERED: hydrALAZINE 20 MG/1 ML VIAL ONE (23:54)
[2017-06-18] MEDS ORDERED: hydrALAZINE 20 MG/1 ML VIAL IV PRN (23:57)
[2017-06-18] MEDS ORDERED: tiZANidine 4 MG TABLET PO PRN (23:57)
[2017-06-19] MEDS: SODIUM CHLORIDE 0.9% 1,000 ML IV SCH ×3 (02:00→12:14)
[2017-06-19] MEDS: METOPROLOL SUCCINATE XL 100 MG TABLET PO SCH ×4 (02:00→20:35)
[2017-06-19] MEDS: PIPERACILLIN/TAZOBACTAM 3,375 MG in SODIUM CHLORIDE 0.9% 100 ML IV SCH ×5 (02:01→23:25)
[2017-06-19 05:43] LABS: Basophils # 0.1 10*3/uL (0.0-0.2); Basophils % 0.4 % (0.0-0.8); Eosinophils # 0.3 10*3/uL (0.0-0.87); Eosinophils % 1.9 % (0.00-10.9); Hematocrit 28.3 VOL% (42.0-52.0); Hemoglobin 9.1 GM/DL (14.0-18.0); Immature Granulocytes % 0.4 %; Immature Granulocytes Absolute 0.06 #; Lymphocytes # 2.6 10*3/uL (1.4-4.0); Mean Corpuscular HGB Conc 32.2 GM/DL (32-36); Mean Corpuscular Hemoglobin 30 PG (27-34); Mean Corpuscular Volume 91.9 FL (87-102); Mean Platelet Volume 10.5 FL (9.6-12.0); Monocytes # 1.5 10*3/uL (0.11-0.8); Monocytes % 10.9 % (1.7-12.7); Neutrophils # 9.1 10*3/uL (1.4-7.4); Neutrophils % 67.4 % (38.7-73.9); Platelet Count 276 T/CUMM (130-400); Red Blood Count 3.08 MC/CUMM (3.8-5.5); White Blood Count 13.5 T/CUMM (4-12)
[2017-06-19 06:35] LABS: Magnesium 2.5 MG/DL (1.8-2.4); Osmolality,Calculated 290.1 MOS/KG (273-304); Thyroid Stimulating Hormone 1.31 uIU/ml (0.358-3.74)
[2017-06-19] MEDS: INSULIN REGULAR 100 UNIT/ML SUBCUT SCH ×4 (08:02→20:32)
[2017-06-19] MEDS: ENOXAPARIN 40 MG/0.4 ML SYRINGE SUBCUT SCH (08:41)
[2017-06-19] MEDS: BACLOFEN 10 MG TABLET PO SCH ×3 (08:41→20:35)
[2017-06-19] MEDS: OXYBUTYNIN 5 MG TABLET PO SCH (08:41)
[2017-06-19] MEDS: GABAPENTIN 100 MG CAPSULE PO SCH ×2 (08:42→20:35)
[2017-06-19] MEDS: MULTIVITAMIN (CENTRUM) TABLET PO SCH (08:42)
[2017-06-19] MEDS: ASPIRIN EC 81 MG TABLET PO SCH (08:42)
[2017-06-19] MEDS: DULoxetine 20 MG CAPSULE PO SCH (08:42)
[2017-06-19] MEDS: PANTOPRAZOLE 40 MG TABLET PO SCH (08:42)
[2017-06-19] MEDS ORDERED: SKIN HEALING OINT (AQUAPHOR) 50 GM TUBE TOP PRN (12:52)
--- NOTE | 2017-06-19 16:08 | Hospitalist Progress Note ---
Assessment and Plan (1) UTI (urinary tract infection) Status: Acute Assessment and plan: cont zosyn Current Visit: No Qualifiers: Urinary tract infection type: catheter-associated UTI (2) History of paraplegia Status: Chronic Current Visit: No (3) Anemia Status: Chronic Assessment and plan: cont protonix Current Visit: No (4) Hypertension Status: Acute Assessment and plan: cont metoprolol Current Visit: No (5) Acute renal failure Status: Acute Assessment and plan: cont hydration Current Visit: Yes Hospitalist: Subjective Interval history: Pool has not been changed for 3 weeks. We will change the Pool and we collect the urine. Exam - Constitutional Vitals: Period Temp Pulse Resp BP Sys/Barr Pulse Ox Last 24 Hr 98 F-99 F 56-70 14-20 135-157/67-89 94-100 Exam: Heart Rate-[RRR] Lungs-[CTAB] GI-[+bs soft, NT] Ext-[no edema] Neuro barely can speak, cannot walk psych [normal mood and flat affect] General [no acute distress] Results - Labs CBC & BMP: 06/19/17 05:19 06/19/17 05:19 Lab Results: I have reviewed the past 24 hour labs
[2017-06-19 17:34] LABS: Apearance,Urine CLOUDY (Clear); Bilirubin,Urine Negative (Negative); Blood, Urine Moderate mg/dL (Negative); Glucose,Urine (UA) Negative (Negative); Ketones,Urine Negative (Negative); Nitrite,Urine Negative (Negative); Protein,Urine 30 MG/DL; RBC,Urine 63 /HPF (0-4); Urine Color Yellow (Yellow); Urine Specific Gravity 1.005 (1.001-1.035); Urine Urobilinogen < 2.0 EU/DL (0.2-1.0); WBC,Urine 2662 /HPF (0-6)
[2017-06-19] MEDS: SENNA 8.6 MG TABLET PO SCH (20:35)
[2017-06-20 06:30] LABS: Basophils # 0.1 10*3/uL (0.0-0.2); Basophils % 0.6 % (0.0-0.8); Eosinophils # 0.2 10*3/uL (0.0-0.87); Hemoglobin 8.8 GM/DL (14.0-18.0); Immature Granulocytes % 0.4 %; Immature Granulocytes Absolute 0.04 #; Lymphocytes % 20.1 % (21.2-54.2); Mean Corpuscular HGB Conc 32.6 GM/DL (32-36); Mean Corpuscular Hemoglobin 30 PG (27-34); Mean Corpuscular Volume 92.2 FL (87-102); Mean Platelet Volume 10.7 FL (9.6-12.0); Monocytes % 10.2 % (1.7-12.7); Neutrophils # 6.6 10*3/uL (1.4-7.4); Neutrophils % 66.7 % (38.7-73.9); Platelet Count 291 T/CUMM (130-400); Red Blood Count 2.93 MC/CUMM (3.8-5.5); White Blood Count 9.8 T/CUMM (4-12)
[2017-06-20] MEDS: SODIUM CHLORIDE 0.9% 1,000 ML IV SCH ×2 (06:40→16:49)
[2017-06-20 06:54] LABS: Osmolality,Calculated 288.1 MOS/KG (273-304)
[2017-06-20] MEDS: PIPERACILLIN/TAZOBACTAM 3,375 MG in SODIUM CHLORIDE 0.9% 100 ML IV SCH ×3 (08:24→23:14)
[2017-06-20] MEDS: GABAPENTIN 100 MG CAPSULE PO SCH ×2 (08:48→21:21)
[2017-06-20] MEDS: DULoxetine 20 MG CAPSULE PO SCH (08:48)
[2017-06-20] MEDS: METOPROLOL SUCCINATE XL 100 MG TABLET PO SCH ×2 (08:48→21:21)
[2017-06-20] MEDS: BACLOFEN 10 MG TABLET PO SCH ×3 (08:48→21:20)
[2017-06-20] MEDS: PANTOPRAZOLE 40 MG TABLET PO SCH (08:48)
[2017-06-20] MEDS: OXYBUTYNIN 5 MG TABLET PO SCH (08:48)
[2017-06-20] MEDS: ASPIRIN EC 81 MG TABLET PO SCH (08:48)
[2017-06-20] MEDS: MULTIVITAMIN (CENTRUM) TABLET PO SCH (08:48)
[2017-06-20] MEDS: INSULIN REGULAR 100 UNIT/ML SUBCUT SCH (08:49)
[2017-06-20] MEDS: ENOXAPARIN 40 MG/0.4 ML SYRINGE SUBCUT SCH (08:49)
[2017-06-20] MEDS: BISACODYL 5 MG TABLET PO SCH (10:41)
[2017-06-20] MEDS: POLYETHYLENE GLYCOL POWDER 17 GM PACK PO SCH (10:41)
--- NOTE | 2017-06-20 14:27 | Hospitalist Progress Note ---
Assessment and Plan (1) UTI (urinary tract infection) Status: Acute Assessment and plan: cont zosyn to cover Pseudomonas. When culture growing gram-negative rods. Await final identity. Current Visit: No Qualifiers: Urinary tract infection type: catheter-associated UTI (2) History of paraplegia Status: Chronic Assessment and plan: Dulcolax as needed constipation Current Visit: No (3) Anemia Status: Chronic Assessment and plan: Stable, cont protonix Current Visit: No (4) Hypertension Status: Acute Assessment and plan: Controlled, cont metoprolol Current Visit: No (5) Acute renal failure Status: Acute Assessment and plan: cont hydration, stable creatinine Current Visit: Yes Hospitalist: Subjective Interval history: We have discontinued his surveillance monitor today. He is also constipated and we have prescribed Dulcolax. Patient is extremely homesick and wants to go home soon. His urine culture growing gram-negative rods from June 18, 2017. Urine culture from 06/19/2017 negative no growth. Told him he could not go home until we knew what he was growing in his urine. Exam - Constitutional Vitals: Period Temp Pulse Resp BP Sys/Barr Pulse Ox Last 24 Hr 98.3 F-99.6 F 63-83 18-20 114-157/61-89 96-100 Exam: Heart Rate-[RRR] Lungs-[CTAB] GI-[+bs soft, NT] Ext-[no edema] Neuro barely can speak, motor 2-3/5, alert and oriented times 2 psych [normal mood and flat affect] General [no acute distress] Results - Labs CBC & BMP: 06/20/17 05:51 06/20/17 05:51 Lab Results: I have reviewed the past 24 hour labs Labs: Blood cultures 2 negative no growth, 1 urine culture growing gram-negative rods and other urine culture negative no growth. Previous cultures grew out Pseudomonas and enterococcus.
[2017-06-20] MEDS: SENNA 8.6 MG TABLET PO SCH (21:21)
[2017-06-21 06:20] LABS: Basophils # 0.1 10*3/uL (0.0-0.2); Basophils % 0.6 % (0.0-0.8); Eosinophils # 0.3 10*3/uL (0.0-0.87); Eosinophils % 3.2 % (0.00-10.9); Hematocrit 26.4 VOL% (42.0-52.0); Hemoglobin 8.7 GM/DL (14.0-18.0); Immature Granulocytes % 0.2 %; Immature Granulocytes Absolute 0.02 #; Lymphocytes # 2.3 10*3/uL (1.4-4.0); Lymphocytes % 27.5 % (21.2-54.2); Mean Corpuscular Hemoglobin 30 PG (27-34); Mean Corpuscular Volume 90.4 FL (87-102); Mean Platelet Volume 10.5 FL (9.6-12.0); Monocytes # 0.8 10*3/uL (0.11-0.8); Neutrophils # 4.9 10*3/uL (1.4-7.4); Neutrophils % 58.5 % (38.7-73.9); Platelet Count 332 T/CUMM (130-400); Red Blood Count 2.92 MC/CUMM (3.8-5.5); Red Cell Distribution Width 13.7 % (9.3-17.3); White Blood Count 8.4 T/CUMM (4-12)
[2017-06-21] MEDS: SODIUM CHLORIDE 0.9% 1,000 ML IV SCH (08:10)
[2017-06-21] MEDS: PIPERACILLIN/TAZOBACTAM 3,375 MG in SODIUM CHLORIDE 0.9% 100 ML IV SCH (09:26)
[2017-06-21] MEDS: ASPIRIN EC 81 MG TABLET PO SCH (09:33)
[2017-06-21] MEDS: BACLOFEN 10 MG TABLET PO SCH ×2 (09:33→16:14)
[2017-06-21] MEDS: MULTIVITAMIN (CENTRUM) TABLET PO SCH (09:33)
[2017-06-21] MEDS: GABAPENTIN 100 MG CAPSULE PO SCH (09:34)
[2017-06-21] MEDS: DULoxetine 20 MG CAPSULE PO SCH (09:34)
[2017-06-21] MEDS: METOPROLOL SUCCINATE XL 100 MG TABLET PO SCH (09:34)
[2017-06-21] MEDS: PANTOPRAZOLE 40 MG TABLET PO SCH (09:34)
[2017-06-21] MEDS: OXYBUTYNIN 5 MG TABLET PO SCH (09:34)
[2017-06-21] MEDS: ENOXAPARIN 40 MG/0.4 ML SYRINGE SUBCUT SCH (09:35)
[2017-06-21] MEDS: POLYETHYLENE GLYCOL POWDER 17 GM PACK PO SCH (09:39)
[2017-06-21] MEDS: BISACODYL 5 MG TABLET PO SCH (09:39)
--- NOTE | 2017-06-21 14:30 | Hospitalist Progress Note ---
Assessment and Plan (1) UTI (urinary tract infection) Status: Acute Assessment and plan: Change to Fortaz to cover stenotrophomonas and Diflucan for Siena albicans. Will consult Dr. Pruett to see in am as patient is still running fevers despite adequate antibiotic Current Visit: No Qualifiers: Urinary tract infection type: catheter-associated UTI (2) History of paraplegia Status: Chronic Assessment and plan: Dulcolax as needed constipation Current Visit: No (3) Anemia Status: Chronic Assessment and plan: Stable, cont protonix Current Visit: No (4) Hypertension Status: Acute Assessment and plan: Not controlled will Hep-Lock normal saline and cont metoprolol Current Visit: No (5) Acute renal failure Status: Acute Assessment and plan: Stable stage III renal failure Current Visit: Yes Hospitalist: Subjective Interval history: His initial cultures were pending. They just came back. I would like Dr. Pruett to see him. Culture grew out yeast and the other one grew out stenotrophomonas. Patient says he gets nauseated and vomiting with Levaquin and will not take it Exam - Constitutional Vitals: Period Temp Pulse Resp BP Sys/Barr Pulse Ox Last 24 Hr 98.8 F-100.2 F 64-86 18-18 113-152/65-81 95-98 Exam: Heart Rate-[RRR] Lungs-[CTAB] GI-[+bs soft, NT] Ext-[no edema] Neuro alert and oriented 2, motor function poor quad psych [normal mood and flat affect] General [no acute distress] Results - Labs CBC & BMP: 06/21/17 05:45 06/20/17 05:51 Lab Results: I have reviewed the past 24 hour labs Labs: Urine culture growing yeast and stenotrophomonas,, blood cultures negative no growth
[2017-06-21] MEDS: FLUCONAZOLE INJ 200 MG in PREMIX 1 EACH IV SCH (17:08)
--- NOTE | 2017-06-21 21:30 | EKG Report ---
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
--- NOTE | 2017-06-21 21:50 | Event Note ---
Patient was noted to have decreased mental status earlier at which time a stroke alert was called. His caregiver in the room has noted this occurrence on one other occasion in the past. He has a baseline neurologic deficit and that he is only oriented to person and place and does have paraplegia. He stated he normally lives in bed with his upper extremities contracted and little movement as well. He normally converses on checking vital signs this evening he was nonverbal and would not respond to stimuli. Blood sugar at that time was 99. There is no noted seizure activity, bowel or bladder incontinence. His low-grade fever with a temperature of 100.7F and vital signs are otherwise stable. HEENT is normocephalic atraumatic his pupils are equal round and reactive. Cardiovascular regular rate and rhythm without murmur. Lungs are clear without rales rhonchi or wheeze. Abdomen soft nontender nondistended. Extremities without clubbing cyanosis or edema. Neurologic exam is paraplegic. Eyes are closed. He does not respond to verbal stimuli. He does grimace to noxious stimuli. CT head without contrast revealed no acute findings per radiology. There appears to be no new focal neurologic deficits. He does have an altered mental status which apparently waxes and wanes. At this time we will continue to follow closely with frequent neuro checks. I discussed with caregiver in the room.
[2017-06-21 22:42] LABS: Apearance,Urine CLOUDY (Clear); Bacteria,Urine Many /HPF (Few); Bilirubin,Urine Negative (Negative); Blood, Urine Large mg/dL (Negative); Glucose,Urine (UA) Negative (Negative); Ketones,Urine Negative (Negative); Nitrite,Urine Negative (Negative); Protein,Urine 100 MG/DL; RBC,Urine 168 /HPF (0-4); Urine Color Amber (Yellow); Urine Specific Gravity 1.008 (1.001-1.035); Urine Urobilinogen < 2.0 EU/DL (0.2-1.0); WBC,Urine 3283 /HPF (0-6)
[2017-06-21 22:44] LABS: Basophils # 0.1 10*3/uL (0.0-0.2); Basophils % 0.7 % (0.0-0.8); Eosinophils # 0.2 10*3/uL (0.0-0.87); Eosinophils % 3.1 % (0.00-10.9); Hematocrit 27.3 VOL% (42.0-52.0); Hemoglobin 8.8 GM/DL (14.0-18.0); Immature Granulocytes % 0.3 %; Immature Granulocytes Absolute 0.02 #; Lymphocytes # 2.8 10*3/uL (1.4-4.0); Lymphocytes % 38.3 % (21.2-54.2); Mean Corpuscular HGB Conc 32.2 GM/DL (32-36); Mean Corpuscular Hemoglobin 29 PG (27-34); Mean Corpuscular Volume 90.4 FL (87-102); Mean Platelet Volume 10.5 FL (9.6-12.0); Monocytes # 0.9 10*3/uL (0.11-0.8); Monocytes % 12.5 % (1.7-12.7); Neutrophils # 3.3 10*3/uL (1.4-7.4); Neutrophils % 45.1 % (38.7-73.9); Platelet Count 334 T/CUMM (130-400); Red Blood Count 3.02 MC/CUMM (3.8-5.5); Red Cell Distribution Width 13.7 % (9.3-17.3); White Blood Count 7.4 T/CUMM (4-12)
[2017-06-21 22:51] LABS: PT Patient Result 10.7 SECS; Partial Thromboplastin Time 30.6 SECS (0-40)
[2017-06-21 23:04] LABS: Alanine Aminotransferase 11 U/L (16-61); Albumin 2.4 G/DL (3.4-5.0); Alkaline Phosphatase 66 U/L (45-117); Aspartate Amino Transferase 14 U/L (0-37); Bilirubin,Total < 0.39 MG/DL (0.2-1.0); Blood Urea Nitrogen 26 MG/DL (7-18); Calcium 8.4 MG/DL (8.5-10.1); Glucose 97 MG/DL (74-106); Osmolality,Calculated 285.3 MOS/KG (273-304); Potassium 3.5 MMOL/L (3.5-5.1); Sodium 141 MMOL/L (136-145); Total Protein 6.9 G/DL (6.4-8.3)
[2017-06-22] MEDS: BACLOFEN 10 MG TABLET PO SCH (00:09)
[2017-06-22] MEDS: GABAPENTIN 100 MG CAPSULE PO SCH (00:09)
[2017-06-22] MEDS: SENNA 8.6 MG TABLET PO SCH ×2 (00:09→21:36)
[2017-06-22] MEDS: METOPROLOL SUCCINATE XL 100 MG TABLET PO SCH ×3 (00:09→21:37)
[2017-06-22] MEDS: SODIUM CHLORIDE 0.9% 1,000 ML IV SCH ×2 (00:10→21:46)
--- NOTE | 2017-06-22 06:22 | CT Report ---
CT head/brain wo con Indication: Stroke alert Comparison: CT brain February 21, 2017 Technique: Multiple axial tomographic images of the brain were obtained without the use of intravenous contrast. Findings: Midline structures are nondisplaced. There is no convincing evidence of acute intracranial hemorrhage . No convincing evidence of hydrocephalus. Atherosclerotic calcifications demonstrated. Moderate global volume loss present. Moderate periventricular and subcortical hypoattenuation noted which is nonspecific but consistent with chronic microvascular ischemic change. Demyelinating process and vasculitis less likely considerations. The visualized paranasal sinuses and bilateral mastoid air cells are predominantly clear. IMPRESSION: No acute intracranial abnormality demonstrated. Probable chronic microvascular ischemic change and volume loss. Preliminary report was issued by [facility]. Findings communicated with Dr. Magana at 9:48 PM on June 21, [address] The CT exam was performed using one or more of the following dose reduction techniques: Automated exposure control, adjustment of the mA and/or kV according to patient size, or use of iterative reconstruction technique. PROCEDURE INTERPRETED AT [facility] Final Report Signed by: Dr Zachary Jason
[2017-06-22 09:23] LABS: Allen Test Positive
[2017-06-22 09:24] LABS: ABG Base Excess -1.4 MMOL/L (-2.5-2.5); ABG HCO3 23.2 MMOL/L (20-26); ABG Oxygen Saturation 96.1 % (95-100); ABG PCO2 46.3 MM HG (35-48); ABG PH 7.333 (7.35-7.45); ABG PO2 84.6 MM HG (80-95); ABG TCO2 22.8 MMOL/L (23-27)
[2017-06-22 09:29] LABS: Basophils % 0.5 % (0.0-0.8); Eosinophils # 0.2 10*3/uL (0.0-0.87); Eosinophils % 2.7 % (0.00-10.9); Hematocrit 26.6 VOL% (42.0-52.0); Hemoglobin 8.6 GM/DL (14.0-18.0); Immature Granulocytes % 0.4 %; Immature Granulocytes Absolute 0.03 #; Lymphocytes # 2.3 10*3/uL (1.4-4.0); Lymphocytes % 28.1 % (21.2-54.2); Mean Corpuscular HGB Conc 32.3 GM/DL (32-36); Mean Corpuscular Hemoglobin 30 PG (27-34); Mean Corpuscular Volume 91.1 FL (87-102); Mean Platelet Volume 10.4 FL (9.6-12.0); Monocytes % 12.4 % (1.7-12.7); Neutrophils # 4.5 10*3/uL (1.4-7.4); Neutrophils % 55.9 % (38.7-73.9); Platelet Count 319 T/CUMM (130-400); Red Blood Count 2.92 MC/CUMM (3.8-5.5); Red Cell Distribution Width 13.8 % (9.3-17.3)
[2017-06-22 09:57] LABS: Alanine Aminotransferase 12 U/L (16-61); Albumin 2.4 G/DL (3.4-5.0); Alkaline Phosphatase 64 U/L (45-117); Aspartate Amino Transferase 16 U/L (0-37); Bilirubin,Total < 0.39 MG/DL (0.2-1.0); Blood Urea Nitrogen 23 MG/DL (7-18); Calcium 8.9 MG/DL (8.5-10.1); Glucose 92 MG/DL (74-106); Osmolality,Calculated 286.1 MOS/KG (273-304); Potassium 3.5 MMOL/L (3.5-5.1); Sodium 142 MMOL/L (136-145); Total Protein 7.2 G/DL (6.4-8.3)
[2017-06-22] MEDS: ENOXAPARIN 40 MG/0.4 ML SYRINGE SUBCUT SCH (09:58)
[2017-06-22] MEDS: PANTOPRAZOLE 40 MG TABLET PO SCH (10:03)
[2017-06-22] MEDS: POLYETHYLENE GLYCOL POWDER 17 GM PACK PO SCH (10:03)
[2017-06-22] MEDS: BISACODYL 5 MG TABLET PO SCH (10:03)
[2017-06-22] MEDS: MULTIVITAMIN (CENTRUM) TABLET PO SCH (10:04)
[2017-06-22] MEDS: ASPIRIN EC 325 MG TABLET PO SCH (10:04)
--- NOTE | 2017-06-22 11:46 | Hospitalist Progress Note ---
Assessment and Plan (1) Altered mental status Status: Acute Assessment and plan: 1)GIANNI- talked to sleep lab and they recommended consulting DR Blue to find out what his previous setting were. 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 COnsult to neuro. Head CT last night looked ok. Has a history of infectious encephalopatyh per his caregiver who reports that one time he was "out of it" for 22 days then woke up. 3)Stenotrophomonas UTI- on fortaz, continue to have fever. also on Diflucan to cover the yeast in his urine. has chronic indwelling alex. pursuing urostomy to decrease number of UTIs per caregiver history. Dr Viramontes and Dr Padilla to see. 4)LUDWIG- creatinine down to 1.5. Current Visit: No (2) UTI (urinary tract infection) Status: Acute Current Visit: No Qualifiers: Urinary tract infection type: catheter-associated UTI (3) History of paraplegia Status: Chronic Current Visit: No (4) Hypokalemia Problem details: check BMP, replace if needed, check Mg Status: Acute Current Visit: No (5) Elevated serum creatinine Problem details: not clear if LUDWIG or CKD or LUDWIG on CKD. Check FeNa Status: Acute Current Visit: No (6) Insulin dependent diabetes mellitus Status: Chronic Current Visit: No Hospitalist: Subjective Interval history: Mr Yo is unresponsive this morning. I have read Dr Magana's note from his assessment last night. His caregiver that sits with him during the week is here and her history matches the history the previous caregiver gave. She has seen him do this with UTI on more than one occassion. Dr Padilla had referred him for urostomy to [place] earlier this summer and he is to return there soon to see if the BOtox injections he received instead were working or if plans should be made for urostomy. His caregivers have POA and have his notarized living will that indicate he is DNR, so I will change that in the orders. I repeated ABG, CBC, BMP this morning and they all look ok though he has a mild acidosis with normal bicarb and pCO2. Dr Viramontes to see today re:persistent fever on fortaz for stenotrophomonas. Exam - Constitutional Vitals: Period Temp Pulse Resp BP Sys/Barr Pulse Ox Last 24 Hr 99.0 F-100.7 F 67-75 16-20 143-186/71-96 92-98 General appearance: normal weight, no acute distress - Head Head exam: Present: normocephalic, atraumatic - Eye Eye exam: Present: EOMI. Absent: scleral icterus - Respiratory Respiratory exam: Present: clear to auscultation bilaterally - Cardiovascular Cardiovascular exam: Present: regular rate and rhythm - GI/Abdominal GI/Abdominal exam: Present: normal bowel sounds, soft. Absent: tenderness - Extremities Exam Extremities exam: Absent: edema - Neurological Exam Neurological exam: Present: altered (does not respond to voice or touch or deep pain. ) - Skin Skin exam: Present: warm, dry Results - Labs CBC & BMP: 06/22/17 09:07 06/22/17 09:07 Lab Results: I have reviewed the past 24 hour labs
--- NOTE | 2017-06-22 12:04 | Urology Consultation ---
History of Present Illness - Data of Consult Consult date: 06/22/17 - Consult Narrative History of present illness: Mr. Yo is a 67 year old male The patient is known to me. This 67-year-old white male who is a paraplegic and when I originally saw him he had bilateral hydronephrosis down to the level of the bladder with a diffusely abnormal bladder mucosa. I was concerned about the possibility of gallbladder malignancy and he was referred to the [facility] in [place]. I did not receive a report back from them but I saw the patient later and he reported that no cancer had been found and he was on intermittent catheterization and reported that the plan was to do Botox injections on his bladder. The patient has a Alex catheter in now and the sitter with the patient says that he has recently had a Botox injection in [place] and was sent home on intermittent catheterization but he has had a Alex catheter for the last 2 weeks and has a Alex catheter now. He has a scheduled appointment at the [facility] the end of this month. He has hematuria and pyuria on urinalysis and he is on Ditropan 10 mg at homeand his urine culture is growing out Siena. His creatinine was slightly elevated on admission at 1.8 and is decreased to 1.5. Recommended we repeat the renal ultrasound to be sure that the hydronephrosis has resolved. I will plan on leaving the Alex catheter in until the patient has his next appointment in [place] and a let them make decision about returning to intermittent catheterization CC: Ni Camarena MD - Home Medications and Allergies Home Medications: Home Medications Medication Instructions Recorded Confirmed Type ALPRAZolam [Alprazolam] 0.5 mg PO BID PRN 10/05/16 06/18/17 History Baclofen 20 mg PO TID 10/05/16 06/18/17 History Multivitamin [Multivitamins] 1 tablet PO 0900 10/05/16 06/18/17 History tiZANidine [Zanaflex] 4 mg PO DAILY PRN 10/05/16 06/18/17 History DULoxetine [Cymbalta] 20 mg PO DAILY@0900 10/25/16 06/18/17 History Omeprazole 20 mg PO DAILY@1400 10/25/16 06/19/17 History Sennosides [Senna Laxative] 25 mg PO BEDTIME 10/25/16 06/19/17 History Polyethylene Glycol Powder 17 gm PO DAILY@0900 12/18/16 06/18/17 History [Miralax] HYDROcodone/ACETAMIN 7.5-325 1 tablet PO Q6H PRN 02/12/17 06/18/17 History [[place] 7.5-325] Oxybutynin [Ditropan] 10 mg PO DAILY@0900 02/12/17 06/18/17 History Aspirin EC Tab 81 mg PO DAILY@0902/21/17 06/18/17 History Metoprolol Succinate Xl [Toprol Xl] 100 mg PO BID 02/21/17 06/18/17 History Gabapentin Cap/Tab [Neurontin 100 mg PO TID capsule 02/27/17 06/18/17 Rx Cap/Tab] Trimethoprim [Proloprim] 100 mg PO SUTUTHSA 06/18/17 06/18/17 History Allergies/Adverse Reactions: Allergies Allergy/AdvReac Type Severity Reaction Status Date / Time ciprofloxacin [From Cipro] Allergy Unknown/Unable Verified 06/18/17 19:20 to obtain naproxen [From Naprosyn] Allergy Unknown/Unable Verified 06/18/17 19:20 to obtain rofecoxib [From Vioxx] Allergy Unknown/Unable Verified 06/18/17 19:20 to obtain zinc oxide AdvReac Redness of Verified 06/18/17 19:20 [From Boudreauxs Butt Paste] Skin Medical,Surgical,& Family Hx - Medical History Cardio: History of: CAD, Hypertension, Cardiovascular Problems (stent placed around 2007) Neurology: History of: Neurological Problems (Paraplegia) No history of: Cerebral Hemorrhage, Cerebrovascular Accident, Cerebral Palsy HEENT: History of: Eye Problem (dry eyes) Endocrine: History of: Diabetes Mellitus (IDDM), Diabetes Mellitus (NIDDM), Dyslipidemia Respiratory: History of: Asthma (childhood problem.), Obstructive Sleep Apnea Genitourinary: History of: Bladder Problem, Kidney Stones, Recurring Urinary Tract Infections, Problems (has alex cath 06/2017) Gastrointestinal: History of: GERD Musculoskeletal: History of: Musculoskeletal Problems (Paraplegic) Hematology: History of: Anemia No history of: Blood Transfusion Reaction, Clotting Problems Other: History of: Skin Problems (Sacral Breakdown) - Surgical History Cardiac Surgeries: Sugical HX of: Cardiac Catheterization (stents placed) Thoracic Surgeries: Patient denies;: Organ Transplant Neurologic Surgeries: Patient denies: Cerebral Hemorrhage HEENT Surgeries: Patient denies: Thyroid Surgery, Tonsilectomy & Adenoidectomy Comment Only: Eye Surgery (cateract surgery on right eye) Orthopedic Surgeries: Surgical HX of;: Orthopedic Surgery - Family History Family History: Reports;: Family Cancer, Family Diabetes - Social History Smoking Status: Unknown if ever smoked Frequency of Alcohol Use: None Type of Drug Use: None Exam - Constitutional Vitals: Period Temp Pulse Resp BP Sys/Barr Pulse Ox Last 24 Hr 99.0 F-100.7 F 67-75 16-20 143-186/71-96 92-98 Results - Labs CBC & BMP: 06/22/17 09:07 06/22/17 09:07
--- NOTE | 2017-06-22 13:27 | Infectious Disease Consult ---
Assessment and Plan (1) Acute renal failure Status: Acute Assessment and plan: Improved since admission. Current Visit: Yes (2) Hypertension, essential Status: Acute Current Visit: Yes (3) UTI (urinary tract infection) Status: Acute Assessment and plan: Patient with recurrent UTI of most likely related to his neurogenic bladder with need for catheterization. Different organisms isolated each time. Repeat urine culture actually negative even before patient got specific antibiotic for the stenotrophomonas some not sure if there is an element of contamination. Recommendations: We can continue with ceftazidime and see how patient does over the next 24-48 hours. Thank you very much for the consult. Will follow. Discussed with caregiver, who says she is the power of intelligence agent, at bedside Current Visit: No Qualifiers: Urinary tract infection type: catheter-associated UTI (4) Insulin dependent diabetes mellitus Status: Chronic Current Visit: No (5) Neurogenic bladder Status: Chronic Current Visit: No History of Present Illness Chief complaint: Assist with antibiotics for UTI History of present illness: Mr. Yo is a 67 year old male who is quadriplegic and gets in and out bladder catheterizations. He has a history of recurrent urinary tract infections with multiple hospitalizations. I saw him this past February. He was doing relatively okay since then until 2 weeks ago when he developed elevated blood pressure, fever, and confusion. His caregiver says that whenever this happens she knows he is having a urinary tract infection. He is being evaluated by home health and after few days he was given a prescription for linezolid to take for 5 days. However the caregiver says that this did not help and so she brought him to the hospital about a week ago. He was evaluated and sent home the same night from the emergency room. Caregiver says patient still not getting back to his normal self with episodes of fever and confusion and so she brought him back to the emergency room and he was admitted. That was 4 days ago. Urine cultures, positive for stenotrophomonas. He is currently on ceftazidime and I am asked to advise further. Last fever was 100.7 last night. Patient has been poorly responsive today. Home Medications Medication Instructions Recorded Confirmed Type ALPRAZolam [Alprazolam] 0.5 mg PO BID PRN 10/05/16 06/18/17 History Baclofen 20 mg PO TID 10/05/16 06/18/17 History Multivitamin [Multivitamins] 1 tablet PO 0900 10/05/16 06/18/17 History tiZANidine [Zanaflex] 4 mg PO DAILY PRN 10/05/16 06/18/17 History DULoxetine [Cymbalta] 20 mg PO DAILY@0900 10/25/16 06/18/17 History Omeprazole 20 mg PO DAILY@1400 10/25/16 06/19/17 History Sennosides [Senna Laxative] 25 mg PO BEDTIME 10/25/16 06/19/17 History Polyethylene Glycol Powder 17 gm PO DAILY@0900 12/18/16 06/18/17 History [Miralax] HYDROcodone/ACETAMIN 7.5-325 1 tablet PO Q6H PRN 02/12/17 06/18/17 History [[place] 7.5-325] Oxybutynin [Ditropan] 10 mg PO DAILY@0900 02/12/17 06/18/17 History Aspirin EC Tab 81 mg PO DAILY@0902/21/17 06/18/17 History Metoprolol Succinate Xl [Toprol Xl] 100 mg PO BID 02/21/17 06/18/17 History Gabapentin Cap/Tab [Neurontin 100 mg PO TID capsule 02/27/17 06/18/17 Rx Cap/Tab] Trimethoprim [Proloprim] 100 mg PO SUTUTHSA 06/18/17 06/18/17 History Allergies Allergy/AdvReac Type Severity Reaction Status Date / Time ciprofloxacin [From Cipro] Allergy Unknown/Unable Verified 06/18/17 19:20 to obtain naproxen [From Naprosyn] Allergy Unknown/Unable Verified 06/18/17 19:20 to obtain rofecoxib [From Vioxx] Allergy Unknown/Unable Verified 06/18/17 19:20 to obtain zinc oxide AdvReac Redness of Verified 06/18/17 19:20 [From Boudreauxs Butt Paste] Skin ROS unobtainable: due to mental status Medical,Surgical,& Family Hx - Medical History Cardio: History of: CAD, Hypertension, Cardiovascular Problems (stent placed around 2007) Neurology: History of: Neurological Problems (Paraplegia) No history of: Cerebral Hemorrhage, Cerebrovascular Accident, Cerebral Palsy HEENT: History of: Eye Problem (dry eyes) Endocrine: History of: Diabetes Mellitus (IDDM), Diabetes Mellitus (NIDDM), Dyslipidemia Respiratory: History of: Asthma (childhood problem.), Obstructive Sleep Apnea Genitourinary: History of: Bladder Problem, Kidney Stones, Recurring Urinary Tract Infections, Problems (has alex cath 06/2017) Gastrointestinal: History of: GERD Musculoskeletal: History of: Musculoskeletal Problems (Paraplegic) Hematology: History of: Anemia No history of: Blood Transfusion Reaction, Clotting Problems Other: History of: Skin Problems (Sacral Breakdown) - Surgical History Cardiac Surgeries: Sugical HX of: Cardiac Catheterization (stents placed) Thoracic Surgeries: Patient denies;: Organ Transplant Neurologic Surgeries: Patient denies: Cerebral Hemorrhage HEENT Surgeries: Patient denies: Thyroid Surgery, Tonsilectomy & Adenoidectomy Comment Only: Eye Surgery (cateract surgery on right eye) Orthopedic Surgeries: Surgical HX of;: Orthopedic Surgery - Family History Family History: Reports;: Family Cancer, Family Diabetes - Social History Smoking Status: Unknown if ever smoked Frequency of Alcohol Use: None Type of Drug Use: None Infectious Disease Exam H&P - Constitutional Vitals: Vital Signs Temp Pulse Resp BP Pulse Ox 99.5 F 80 18 154/80 96 06/22/17 12:00 06/22/17 12:00 06/22/17 12:00 06/22/17 12:00 06/22/17 12:00 Intake and Output 06/21/17 06/22/17 06/22/17 23:59 07:59 15:59 Intake Total 200 / 200 100 / 100 360 / 360 Output Total 850 / 850 850 / 850 300 / 300 Balance -650 / -650 -750 / -750 60 / 60 Intake: IV 100 / 100 100 / 100 Fortaz 1,000 mg In Ns 100 100 / 100 100 / 100 ml @ 200 mls/hr IV Q12H PRATIK Rx#:[id number] Oral 100 / 100 360 / 360 Output: Urine 850 / 850 850 / 850 300 / 300 Other: Voiding Method Indwelling Catheter Indwelling Catheter # Bowel Movements 0 1 Exam: General: Patient unresponsive HEENT: Mucous membranes pink and moist, anicteric acyanotic, JLUIS, unable to open mouth for examination Neck: Supple, no thyroid gland enlargement, no lymphadenopathy Respiratory system: Breath sounds vesicular, no crepitations or wheezes Cardiovascular: Normal S1 and S2, no murmurs appreciated Abdomen: Normal bowel sounds, soft nontender throughout, no organomegaly or mass Genitourinary: No suprapubic pain or bladder distention, clear urine from Alex catheter Extremities: no edema, upper extremities contracted Skin: No rash Reports - Labs CBC & BMP: 06/22/17 09:07 06/22/17 09:07 Labs: Laboratory Results - last 24 hr 06/21/17 06/21/17 06/21/17 20:45 21:48 21:48 WBC 7.4 RBC 3.02 L Hgb 8.8 L Hct 27.3 L MCV 90.4 MCH 29 MCHC 32.2 RDW 13.7 Plt Count 334 MPV 10.5 Neut % (Auto) 45.1 Lymph % (Auto) 38.3 Wilkinson % (Auto) 12.5 Eos % (Auto) 3.1 Baso % (Auto) 0.7 Neut # (Auto) 3.3 Lymph # (Auto) 2.8 Wilkinson # (Auto) 0.9 H Eos # (Auto) 0.2 Baso # (Auto) 0.1 Immature Gran % 0.3 Nucleated RBC % 0.0 Immature Gran # 0.02 Nucleated RBCs # 0.00 Immature Plt Fraction 0.0 INR 1.0 PT Patient/Control Mix 10.7 Circ Anticoag PTT 30.6 ABG pH ABG pCO2 ABG pO2 ABG HCO3 ABG Total CO2 ABG O2 Saturation ABG Base Excess FiO2 Sodium Potassium Chloride Carbon Dioxide Anion Gap BUN Creatinine GFR Calculation BUN/Creatinine Ratio Glucose POC Glucose 99 Calculated Osmolality Calcium Total Bilirubin AST ALT Alkaline Phosphatase Ammonia Total Protein Albumin Globulin Albumin/Globulin Ratio Urine Color Urine Appearance Urine pH Ur Specific [place] Urine Protein Urine Glucose (UA) Urine Ketones Urine Blood Urine Nitrate Urine Bilirubin Urine Urobilinogen Urine Leukocytes Urine RBC Urine WBC Urine Bacteria Ur Culture Indicated? 06/21/17 06/21/17 06/22/17 21:48 22:05 09:00 WBC RBC Hgb Hct MCV MCH MCHC RDW Plt Count MPV Neut % (Auto) Lymph % (Auto) Wilkinson % (Auto) Eos % (Auto) Baso % (Auto) Neut # (Auto) Lymph # (Auto) Wilkinson # (Auto) Eos # (Auto) Baso # (Auto) Immature Gran % Nucleated RBC % Immature Gran # Nucleated RBCs # Immature Plt Fraction INR PT Patient/Control Mix Circ Anticoag PTT ABG pH 7.333 L ABG pCO2 46.3 ABG pO2 84.6 ABG HCO3 23.2 ABG Total CO2 22.8 L ABG O2 Saturation 96.1 ABG Base Excess -1.4 FiO2 28.00 Sodium 141 Potassium 3.5 Chloride 107 Carbon Dioxide 24 Anion Gap 13.5 BUN 26 H Creatinine 1.60 H GFR Calculation 49 BUN/Creatinine Ratio 16.00 Glucose 97 POC Glucose Calculated Osmolality 285.3 Calcium 8.4 L Total Bilirubin < 0.39 AST 14 ALT 11 L Alkaline Phosphatase 66 Ammonia Total Protein 6.9 Albumin 2.4 L Globulin 4.5 H Albumin/Globulin Ratio 0.5 L Urine Color Ally Urine Appearance Cloudy Urine pH 5.0 Ur Specific [place] 1.008 Urine Protein 100 Urine Glucose (UA) Negative Urine Ketones Negative Urine Blood Large Urine Nitrate Negative Urine Bilirubin Negative Urine Urobilinogen < 2.0 H Urine Leukocytes Large H Urine RBC 168 Urine WBC 3283 Urine Bacteria Many Ur Culture Indicated? Results to follow 06/22/17 06/22/17 06/22/17 09:07 09:07 09:07 WBC 8.0 RBC 2.92 L Hgb 8.6 L Hct 26.6 L MCV 91.1 MCH 30 MCHC 32.3 RDW 13.8 Plt Count 319 MPV 10.4 Neut % (Auto) 55.9 Lymph % (Auto) 28.1 Wilkinson % (Auto) 12.4 Eos % (Auto) 2.7 Baso % (Auto) 0.5 Neut # (Auto) 4.5 Lymph # (Auto) 2.3 Wilkinson # (Auto) 1.0 H Eos # (Auto) 0.2 Baso # (Auto) 0.0 Immature Gran % 0.4 Nucleated RBC % 0.0 Immature Gran # 0.03 Nucleated RBCs # 0.00 Immature Plt Fraction 0.0 INR PT Patient/Control Mix Circ Anticoag PTT ABG pH ABG pCO2 ABG pO2 ABG HCO3 ABG Total CO2 ABG O2 Saturation ABG Base Excess FiO2 Sodium 142 Potassium 3.5 Chloride 107 Carbon Dioxide 25 Anion Gap 13.5 BUN 23 H Creatinine 1.50 H GFR Calculation 53 BUN/Creatinine Ratio 15.00 Glucose 92 POC Glucose Calculated Osmolality 286.1 Calcium 8.9 Total Bilirubin < 0.39 AST 16 ALT 12 L Alkaline Phosphatase 64 Ammonia 17 Total Protein 7.2 Albumin 2.4 L Globulin 4.8 H Albumin/Globulin Ratio 0.5 L Urine Color Urine Appearance Urine pH Ur Specific [place] Urine Protein Urine Glucose (UA) Urine Ketones Urine Blood Urine Nitrate Urine Bilirubin Urine Urobilinogen Urine Leukocytes Urine RBC Urine WBC Urine Bacteria Ur Culture Indicated? - Reports Microbiology: Microbiology 06/18/17 09:00 Blood Culture - Preliminary Blood No growth at 3 days 06/21/17 Unknown Urine Culture - Preliminary Urine,Catheterized No Growth at 12 hours. 06/18/17 19:52 Blood Culture - Preliminary Blood No growth at 3 days 06/19/17 Unknown Urine Culture - Final Urine,Voided [place] albicans 06/18/17 Unknown Urine Culture - Final Urine,Catheterized Stenotrophomonas maltophilia
--- NOTE | 2017-06-22 15:04 | Neurology Consult Note ---
History of Present Illness History of present illness: 67 years old right-handed white gentleman with past medical history significant for C4-C5 myelopathy causing quadriparesis/quadriplegia. Since past September 2016 he has been having frequent and recurrent UTIs. He is to the point that he require in and out cath and has had multiple hospitalizations for the same reason. 2 weeks ago he developed fever hypotension and confusion. He was evaluated at the hospital and started on antibiotic and discharged home. However he came back with the same reason and got admitted this time. He has been to [place] for the same reason. He has been given Botox in the bladder. Caregiver is also concerned about change in mental status. They reported that he was used to get him up and he was eating and taking his medications but he sleeps most of the day now. Caregiver reported that every time he gets UTI, he develops delirium too. A CT of the head is unremarkable. Home Medications Medication Instructions Recorded Confirmed Type ALPRAZolam [Alprazolam] 0.5 mg PO BID PRN 10/05/16 06/18/17 History Baclofen 20 mg PO TID 10/05/16 06/18/17 History Multivitamin [Multivitamins] 1 tablet PO 0900 10/05/16 06/18/17 History tiZANidine [Zanaflex] 4 mg PO DAILY PRN 10/05/16 06/18/17 History DULoxetine [Cymbalta] 20 mg PO DAILY@0900 10/25/16 06/18/17 History Omeprazole 20 mg PO DAILY@1400 10/25/16 06/19/17 History Sennosides [Senna Laxative] 25 mg PO BEDTIME 10/25/16 06/19/17 History Polyethylene Glycol Powder 17 gm PO DAILY@0900 12/18/16 06/18/17 History [Miralax] HYDROcodone/ACETAMIN 7.5-325 1 tablet PO Q6H PRN 02/12/17 06/18/17 History [[place] 7.5-325] Oxybutynin [Ditropan] 10 mg PO DAILY@0900 02/12/17 06/18/17 History Aspirin EC Tab 81 mg PO DAILY@0900 02/21/17 06/18/17 History Metoprolol Succinate Xl [Toprol Xl] 100 mg PO BID 02/21/17 06/18/17 History Gabapentin Cap/Tab [Neurontin 100 mg PO TID capsule 02/27/17 06/18/17 Rx Cap/Tab] Trimethoprim [Proloprim] 100 mg PO SUTUTHSA 06/18/17 06/18/17 History Allergies Allergy/AdvReac Type Severity Reaction Status Date / Time ciprofloxacin [From Cipro] Allergy Unknown/Unable Verified 06/18/17 19:20 to obtain naproxen [From Naprosyn] Allergy Unknown/Unable Verified 06/18/17 19:20 to obtain rofecoxib [From Vioxx] Allergy Unknown/Unable Verified 06/18/17 19:20 to obtain zinc oxide AdvReac Redness of Verified 06/18/17 19:20 [From Boudreauxs Butt Paste] Skin 12 point system: reviewed and no additional remarkable complaints except as stated Medical,Surgical,& Family Hx - Medical History Cardio: History of: CAD, Hypertension, Cardiovascular Problems (stent placed around 2007) Neurology: History of: Neurological Problems (Paraplegia) No history of: Cerebral Hemorrhage, Cerebrovascular Accident, Cerebral Palsy HEENT: History of: Eye Problem (dry eyes) Endocrine: History of: Diabetes Mellitus (IDDM), Diabetes Mellitus (NIDDM), Dyslipidemia Respiratory: History of: Asthma (childhood problem.), Obstructive Sleep Apnea Genitourinary: History of: Bladder Problem, Kidney Stones, Recurring Urinary Tract Infections, Problems (has alex cath 06/2017) Gastrointestinal: History of: GERD Musculoskeletal: History of: Musculoskeletal Problems (Paraplegic) Hematology: History of: Anemia No history of: Blood Transfusion Reaction, Clotting Problems Other: History of: Skin Problems (Sacral Breakdown) - Surgical History Cardiac Surgeries: Sugical HX of: Cardiac Catheterization (stents placed) Thoracic Surgeries: Patient denies;: Organ Transplant Neurologic Surgeries: Patient denies: Cerebral Hemorrhage HEENT Surgeries: Patient denies: Thyroid Surgery, Tonsilectomy & Adenoidectomy Comment Only: Eye Surgery (cateract surgery on right eye) Orthopedic Surgeries: Surgical HX of;: Orthopedic Surgery - Family History Family History: Reports;: Family Cancer, Family Diabetes - Social History Smoking Status: Unknown if ever smoked Frequency of Alcohol Use: None Type of Drug Use: None Exam - Constitutional Vitals: Period Temp Pulse Resp BP Sys/Barr Pulse Ox Last 24 Hr 99.0 F-100.7 F 67-80 16-20 143-186/71-96 92-98 Exam: GENERAL: Patient is in no acute distress. NECK: Neck is supple. There is no JVD. No carotid bruits present. No thyroid masses. CVS: First and second heart sounds are normal. There is no S3 present. Regular rate and rhythm. RESPIRATORY: Lungs are clear to auscultation without any rales or rhonchi. ABDOMEN: Soft and non-tender. Bowel sounds are present. There is no hepatosplenomegaly. EXT: There is no palpable edema. Peripheral pulses are present. Skin: No rashes Central Nervous system: General: Alert, awake Speech: Fluent Comprehension: Fair Facial expressions: Normal Cranial Nerves: Pupils are equally reactive to light. Extraocular movements are intact. No facial asymmetry is seen. Visual baldwin are equal. Tongue is midline. Motor: Hypertonia in the lower extremities Strength in the upper extremities 2/5 Strength in the lower extremities 1/5 Sensory: Decreased for all the modalities of PP, LT and temp sense to C4 level Reflexes: Brisk + and symmetrical Cerebellar function: Cannot be tested Toes: Equivocal Gait: Cannot be tested Results - Labs CBC & BMP: 06/22/17 09:07 06/22/17 09:07 Assessment and Plan (1) Delirium Status: Acute Assessment and plan: This is likely secondary to urosepsis. I do not see any clear evidence of primary [employer] involvement however family seems to think that this time this is totally different. Other differential would include [employer] involvement of infection such as meningitis. However patient does not look toxic at this point. Given family's concern, I have offered them to do a spinal tap and I have also discussed that it may or may not show anything. Family is going to discuss and get back with us. Thank you for the consult Current Visit: Yes
--- NOTE | 2017-06-22 15:09 | Ultrasound Report ---
Renal ultrasound. Indication: Elevated creatinine. Comparison: October 31, 2016. The kidneys are normal in size. The right lobe measures 11.5 x 4.7 x 5.2 cm in the left lobe measures 12.6 x 5.7 x 5.6 cm. There is cortical thinning. Relative to the previous study, there is increased parenchymal echogenicity as can be seen with medical renal disease. There is mild bilateral hydronephrosis, similar to the previous study. The left kidney contains 2 calcifications, the largest one measures 8 x 10 mm. There is urinary bladder wall thickening. The bladder is collapsed around a Pool catheter. Impression: There is bilateral hydronephrosis, stable to mildly improved compared to the previous study. There is cortical thinning, stable. There is increased parenchymal echogenicity of the kidneys, which is often seen with medical renal disease, which has worsened since the previous study. There is left nephrolithiasis. The urinary bladder is collapsed around a Pool catheter, but the wall does appear to be thickened. This could be due to scarring, neurogenic bladder, or cystitis. The Ultrasound images were captured and stored. PROCEDURE INTERPRETED AT [facility] DEPARTMENT OF RADIOLOGY Final Report Signed by: Dr. Kristen Lu
[2017-06-22] MEDS: FLUCONAZOLE INJ 200 MG in PREMIX 1 EACH IV SCH (15:15)
--- NOTE | 2017-06-22 17:51 | Sleep Medicine Consult ---
Assessment and Plan (1) Obstructive sleep apnea Status: Chronic Assessment and plan: This patient does have a history of severe obstructive sleep apnea and does continue to have significant abnormal breathing during sleep according to caretakers. He has lost a good bit of weight since his diagnosis and subsequent spinal cord injury. However, I do think he would benefit from treatment and we will have to work with him. I suspect with his spinal cord injury, his breathing is even worse now than what it was years ago. We will try him on auto titration BiPAP and follow up his response daily. Current Visit: No (2) Altered mental status Status: Acute Assessment and plan: I suspect this is most likely related to a combination of factors including encephalopathy from urosepsis and other metabolic factors with renal dysfunction.. Arterial blood gases do not show significant CO2 retention and he is not hypoxic. Current Visit: No (3) Hypertension, essential Status: Acute Assessment and plan: The prevalence rate for obstructive sleep apnea patients with hypertension is 35 %. That rate can be as high as 80% in patients who require 4 or more medications for blood pressure control. Current Visit: Yes History of Present Illness Chief complaint: Obstructive sleep apnea History of present illness: Mr. Yo is a 67 year old male known to me from previous sleep evaluation. He was diagnosed originally with obstructive sleep apnea in 2007 with a diagnostic AHI of 49, consistent with severe sleep apnea. He was titrated in October 2008 and placed on 9 cm. He had poor compliance and poorly tolerated CPAP and quit using it. He subsequently had a fall from a deer stand and became quadriplegic. He was seen by me in February of this year with decreased sensorium after presenting with urosepsis. We tried auto titration BiPAP at that time and he did use it but was still uncomfortable with BiPAP. Set him up for outpatient re-titration of CPAP but he did not keep that appointment. Initially when I saw him today, he again was against CPAP and not interested in doing it. Speaking with his can closing machine tender and family members, they noted the severity of his snoring and his abnormal breathing during sleep and his prior good response with CPAP in the past. I strongly encouraged him to reconsider and he agreed. Home Medications Medication Instructions Recorded Confirmed Type ALPRAZolam [Alprazolam] 0.5 mg PO BID PRN 10/05/16 06/18/17 History Baclofen 20 mg PO TID 10/05/16 06/18/17 History Multivitamin [Multivitamins] 1 tablet PO 0900 10/05/16 06/18/17 History tiZANidine [Zanaflex] 4 mg PO DAILY PRN 10/05/16 06/18/17 History DULoxetine [Cymbalta] 20 mg PO DAILY@0900 10/25/16 06/18/17 History Omeprazole 20 mg PO DAILY@1400 10/25/16 06/19/17 History Sennosides [Senna Laxative] 25 mg PO BEDTIME 10/25/16 06/19/17 History Polyethylene Glycol Powder 17 gm PO DAILY@0900 12/18/16 06/18/17 History [Miralax] HYDROcodone/ACETAMIN 7.5-325 1 tablet PO Q6H PRN 02/12/17 06/18/17 History [[place] 7.5-325] Oxybutynin [Ditropan] 10 mg PO DAILY@0900 02/12/17 06/18/17 History Aspirin EC Tab 81 mg PO DAILY@0900 02/21/17 06/18/17 History Metoprolol Succinate Xl [Toprol Xl] 100 mg PO BID 02/21/17 06/18/17 History Gabapentin Cap/Tab [Neurontin 100 mg PO TID capsule 02/27/17 06/18/17 Rx Cap/Tab] Trimethoprim [Proloprim] 100 mg PO SUTUTHSA 06/18/17 06/18/17 History Allergies Allergy/AdvReac Type Severity Reaction Status Date / Time ciprofloxacin [From Cipro] Allergy Unknown/Unable Verified 06/18/17 19:20 to obtain naproxen [From Naprosyn] Allergy Unknown/Unable Verified 06/18/17 19:20 to obtain rofecoxib [From Vioxx] Allergy Unknown/Unable Verified 06/18/17 19:20 to obtain zinc oxide AdvReac Redness of Verified 06/18/17 19:20 [From Boudreauxs Butt Paste] Skin Review of systems: Otherwise unremarkable from a sleep medicine standpoint Exam ([place]) H&P - Constitutional Vitals: Period Temp Pulse Resp BP Sys/Barr Pulse Ox Last 24 Hr 99.1 F-100.7 F 67-80 16-20 154-186/80-96 92-98 Exam: He is alert and responsive. Pupils equal round reactive to light and accommodation. Extraocular movements intact. Oropharynx with a class III Mallampati exam. Neck is supple without adenopathy or thyromegaly. No supraclavicular adenopathy. Chest with symmetrical breath sounds without significant wheeze or rhonchi. Cardiac exam reveals a regular rhythm without murmur or gallop. Abdomen soft nontender extremities without increased edema. Neurologically, he is quadriplegic but seems to respond appropriately to questions at this time. Medical,Surgical,& Family Hx - Medical History Cardio: History of: CAD, Hypertension, Cardiovascular Problems (stent placed around 2007) Neurology: History of: Neurological Problems (Paraplegia) No history of: Cerebral Hemorrhage, Cerebrovascular Accident, Cerebral Palsy HEENT: History of: Eye Problem (dry eyes) Endocrine: History of: Diabetes Mellitus (IDDM), Diabetes Mellitus (NIDDM), Dyslipidemia Respiratory: History of: Asthma (childhood problem.), Obstructive Sleep Apnea ( Severe with a diagnostic AHI of 49 in September 2008) Genitourinary: History of: Bladder Problem, Kidney Stones, Recurring Urinary Tract Infections, Problems (has alex cath 06/2017) Gastrointestinal: History of: GERD Musculoskeletal: History of: Musculoskeletal Problems (Paraplegic) Hematology: History of: Anemia No history of: Blood Transfusion Reaction, Clotting Problems Other: History of: Skin Problems (Sacral Breakdown) - Surgical History Cardiac Surgeries: Sugical HX of: Cardiac Catheterization (stents placed) Thoracic Surgeries: Patient denies;: Organ Transplant Neurologic Surgeries: Patient denies: Cerebral Hemorrhage HEENT Surgeries: Patient denies: Thyroid Surgery, Tonsilectomy & Adenoidectomy Comment Only: Eye Surgery (cateract surgery on right eye) Orthopedic Surgeries: Surgical HX of;: Orthopedic Surgery - Family History Family History: Reports;: Family Cancer, Family Diabetes - Social History Smoking Status: Unknown if ever smoked Frequency of Alcohol Use: None Type of Drug Use: None Results - Labs CBC & BMP: 06/22/17 09:07 06/22/17 09:07 Lab Results: I have reviewed the past 24 hour labs Labs: ABGs would go against respiratory difficulty contributing to his confusion and lethargy.
[2017-06-22] MEDS ORDERED: oxyCODONE/ACETAMINOPHEN 5-325 MG TABLET PO PRN (23:04)
--- NOTE | 2017-06-23 07:55 | Urology Progress Note ---
Urology - PN: Subj Interval history: Renal ultrasound shows mild bilateral hydronephrosis that is slightly improved from his previous study. Exam - Constitutional Vitals: Period Temp Pulse Resp BP Sys/Barr Pulse Ox Last 24 Hr 98.2 F-99.9 F 63-80 16-20 152-169/80-92 92-98 Results - Labs CBC & BMP: 06/22/17 09:07 06/22/17 09:07
[2017-06-23] MEDS: MULTIVITAMIN (CENTRUM) TABLET PO SCH (08:49)
[2017-06-23] MEDS: POLYETHYLENE GLYCOL POWDER 17 GM PACK PO SCH (08:49)
[2017-06-23] MEDS: ASPIRIN EC 325 MG TABLET PO SCH (08:49)
[2017-06-23] MEDS: ENOXAPARIN 40 MG/0.4 ML SYRINGE SUBCUT SCH (08:49)
[2017-06-23] MEDS: PANTOPRAZOLE 40 MG TABLET PO SCH (08:50)
[2017-06-23] MEDS: METOPROLOL SUCCINATE XL 100 MG TABLET PO SCH ×2 (08:50→21:31)
[2017-06-23] MEDS: BISACODYL 5 MG TABLET PO SCH (08:50)
--- NOTE | 2017-06-23 11:08 | Hospitalist Progress Note ---
Assessment and Plan (1) Altered mental status Status: Acute Assessment and plan: 1)GIANNI- Appreciate Dr Curry's help with his GIANNI. Patient agrees to use CPAP. ABG yesterday did not show CO2 retention. 2)coma- resolved. Most likely a combination of medicines and infectious encephalopathy. restart neurontin cautiously. 3)Stenotrophomonas UTI- on fortaz, continue to have fever. also on Diflucan to cover the yeast in his urine. has chronic indwelling alex. pursuing urostomy to decrease number of UTIs per caregiver history. Dr Viramontes and Dr Padilla are following. No fever in 2 days. 4)LUDWIG- creatinine down to 1.5. 5)dispo- will return home with his caregivers as before. 6)code status- he is DNR- I neglected to change the order yesterday and will today. Discussion with caregiver/POA was yesterday. Current Visit: No (2) UTI (urinary tract infection) Status: Acute Current Visit: No Qualifiers: Urinary tract infection type: catheter-associated UTI (3) History of paraplegia Status: Chronic Current Visit: No (4) Hypokalemia Problem details: check BMP, replace if needed, check Mg Status: Acute Current Visit: No (5) Elevated serum creatinine Problem details: not clear if LUDWIG or CKD or LUDWIG on CKD. Check FeNa Status: Acute Current Visit: No (6) Insulin dependent diabetes mellitus Status: Chronic Current Visit: No Hospitalist: Subjective Interval history: Mr Yo woke up yesterday and was able to talk with Dr Curry when he came around. He has remained appropriate since that time. He has some pain all over, but denies spasms at this time. He started Baclofen a long time ago, then neurontin- these have been held for the last couple of doses because of his unarousability yesterday morning. We discussed restarting the neurontin first at his suggestion to see if he might not need the muscle relaxers. Exam - Constitutional Vitals: Period Temp Pulse Resp BP Sys/Barr Pulse Ox Last 24 Hr 98.2 F-99.9 F 61-80 16-20 152-169/80-92 92-98 General appearance: normal weight, no acute distress - Head Head exam: Present: normocephalic, atraumatic - Eye Eye exam: Present: EOMI. Absent: scleral icterus Pupils: Present: JLUIS - ENT ENT exam: Present: normal oropharynx - Respiratory Respiratory exam: Present: clear to auscultation bilaterally - Cardiovascular Cardiovascular exam: Present: regular rate and rhythm - GI/Abdominal GI/Abdominal exam: Present: normal bowel sounds, soft. Absent: tenderness - Extremities Exam Extremities exam: Present: edema (trace) - Neurological Exam Neurological exam: Present: alert, oriented X3 - Skin Skin exam: Present: warm, dry Results - Labs CBC & BMP: 06/22/17 09:07 06/22/17 09:07 Lab Results: I have reviewed the past 24 hour labs Specialty Discharge - Follow Up or Referrals Follow up with: Verito Viramontes MD [Physician] - Chandler Hanson MD [Physician] - Dustin Padilla MD [Physician] -
[2017-06-23] MEDS: GABAPENTIN 100 MG CAPSULE PO SCH (12:16)
[2017-06-23] MEDS: FLUCONAZOLE INJ 200 MG in PREMIX 1 EACH IV SCH (14:32)
--- NOTE | 2017-06-23 14:43 | Sleep Medicine Progress Note ---
Assessment and Plan (1) Obstructive sleep apnea Status: Chronic Assessment and plan: We will schedule him for a Pap nap in the sleep clinic tomorrow while hospitalized to help him acclimate with CPAP or BiPAP. Current Visit: No (2) Altered mental status Status: Acute Current Visit: No (3) Hypertension, essential Status: Acute Current Visit: Yes Sleep Medicine Subjective Interval history: Patient was unable to tolerate CPAP or BiPAP. He is difficult to get a fix known. Our sleep techs spent significant time with him last night trying to help him acclimate to a mask but could not find one that was comfortable for him. I think the best option would be to getting down here in the sleep lab for a Pap nap with his assistant drafter. Exam (Progress Note) - Constitutional Vitals: Period Temp Pulse Resp BP Sys/Barr Pulse Ox Last 24 Hr 98.2 F-99.9 F 61-72 18-20 152-169/80-92 92-98 Exam: He seems more alert and responsive today. He answers questions appropriately. He was very polite. Chest with good air movement and no focal wheeze rhonchi. Cardiac exam reveals regular rhythm without murmur or gallop. Abdomen soft nontender extremities without increased edema. Results - Labs CBC & BMP: 06/22/17 09:07 06/22/17 09:07 Lab Results: I have reviewed the past 24 hour labs Specialty Discharge - Follow Up or Referrals Follow up with: Verito Viramontes MD [Physician] - Chandler Hanson MD [Physician] - Dustin Padilla MD [Physician] -
--- NOTE | 2017-06-23 15:25 | Neurology Progress Note ---
Neurology - PN : Subjective Interval history: Patient seems to be doing much better. No one hallucinations or delusions reported. seems to think that he is back to his baseline. Exam (Progress Note) - Constitutional Vitals: Period Temp Pulse Resp BP Sys/Barr Pulse Ox Last 24 Hr 98.2 F-99.9 F 61-72 18-20 152-169/80-92 92-98 Exam: GENERAL: Patient is in no acute distress. NECK: Neck is supple. There is no JVD. No carotid bruits present. No thyroid masses. CVS: First and second heart sounds are normal. There is no S3 present. Regular rate and rhythm. RESPIRATORY: Lungs are clear to auscultation without any rales or rhonchi. ABDOMEN: Soft and non-tender. Bowel sounds are present. There is no hepatosplenomegaly. EXT: There is no palpable edema. Peripheral pulses are present. Skin: No rashes Central Nervous system: General: Alert, awake Speech: Fluent Comprehension: Fair Facial expressions: Normal Cranial Nerves: Pupils are equally reactive to light. Extraocular movements are intact. No facial asymmetry is seen. Visual baldwin are equal. Tongue is midline. Motor: Hypertonia in the lower extremities Strength in the upper extremities 2/5 Strength in the lower extremities 1/5 Sensory: Decreased for all the modalities of PP, LT and temp sense to C4 level Reflexes: Brisk + and symmetrical Cerebellar function: Cannot be tested Toes: Equivocal Gait: Cannot be tested Results - Labs CBC & BMP: 06/22/17 09:07 06/22/17 09:07 Assessment and Plan (1) Delirium Status: Acute Assessment and plan: Patient seems to be doing better and back to his baseline No further intervention from neuro standpoint Sign off please call as needed Current Visit: Yes Specialty Discharge - Follow Up or Referrals Follow up with: Flynn-Verito Hooper MD [Physician] - Chandler Hanson MD [Physician] - Dustin Padilla MD [Physician] -
--- NOTE | 2017-06-23 15:34 | Infectious Disease Progress ---
Assessment and Plan (1) Acute renal failure Status: Acute Assessment and plan: Improved since admission. Current Visit: Yes (2) Hypertension, essential Status: Acute Current Visit: Yes (3) UTI (urinary tract infection) Status: Acute Assessment and plan: Patient with recurrent UTI of most likely related to his neurogenic bladder with need for catheterization. Different organisms isolated each time. Repeat urine culture actually negative even before patient got specific antibiotic for the stenotrophomonas so I am not sure if there is an element of contamination. The patient was obtunded but his mental status has normalized since yesterday. Recommendations: Continue with ceftazidime for a few more days Discussed with caregiver at bedside Current Visit: No Qualifiers: Urinary tract infection type: catheter-associated UTI (4) Insulin dependent diabetes mellitus Status: Chronic Current Visit: No (5) Neurogenic bladder Status: Chronic Current Visit: No Infectious Disease - PN: Subj Interval history: Patient started waking up last night and today his mental status is back to normal. He greeted me when I got into the room and reported no complaints. Caregiver only concerned that he is not eating enough. Infectious Disease Exam (PN) - Constitutional Vitals: Temp Pulse Resp BP Pulse Ox 98.2 F 64 18 158/92 98 06/23/17 15:27 06/23/17 15:27 06/23/17 15:27 06/23/17 15:27 06/23/17 15:27 General appearance: normal weight, no acute distress Exam: General appearance: no acute distress, completely nontoxic appearing - Eye Eye exam: Present: EOMI. no icterus Pupils: Present: JLUIS - ENT ENT exam: no oropharyhgeal exudates - Neck Neck exam: supple, no lymphadenopathy - Respiratory Respiratory exam: vesicular BS, no crepitations or wheezes - Cardiovascular Cardiovascular exam: regular rate and rhythm, no murmurs - GI/Abdominal GI/Abdominal exam: normal bowel sounds, soft, non-tender, no organomegaly or mass - Clear urine from Pool catheter - Extremities Exam Extremities exam: no edema - Skin Skin exam: no rash Results - Labs CBC & BMP: 06/22/17 09:07 06/22/17 09:07 Lab Results: I have reviewed the past 24 hour labs ([place] albicans from the 2 most recent urine cultures as well as from the sputum) Specialty Discharge - Follow Up or Referrals Follow up with: Verito Viramontes MD [Physician] - Chandler Hanson MD [Physician] - Dustin Padilla MD [Physician] -
[2017-06-23] MEDS: SENNA 8.6 MG TABLET PO SCH (21:31)
--- NOTE | 2017-06-24 07:42 | Urology Progress Note ---
Urology - PN: Subj Interval history: I am going to recommend that we leave the Pool catheter in until the patient's appointment with urology at the [facility] in [place] later this month. Exam - Constitutional Vitals: Period Temp Pulse Resp BP Sys/Barr Pulse Ox Last 24 Hr 98.2 F-99.7 F 60-84 16-20 153-181/89-110 95-98 Results - Labs CBC & BMP: 06/22/17 09:07 06/22/17 09:07 Specialty Discharge - Follow Up or Referrals Follow up with: Verito Viramontes MD [Physician] - Chandler Hanson MD [Physician] - Dustin Padilla MD [Physician] -
[2017-06-24] MEDS: POLYETHYLENE GLYCOL POWDER 17 GM PACK PO SCH (08:37)
[2017-06-24] MEDS: ENOXAPARIN 40 MG/0.4 ML SYRINGE SUBCUT SCH (08:39)
[2017-06-24] MEDS: BISACODYL 5 MG TABLET PO SCH (08:40)
[2017-06-24] MEDS: PANTOPRAZOLE 40 MG TABLET PO SCH (08:40)
[2017-06-24] MEDS: METOPROLOL SUCCINATE XL 100 MG TABLET PO SCH ×2 (08:40→20:46)
[2017-06-24] MEDS: ASPIRIN EC 325 MG TABLET PO SCH (08:40)
[2017-06-24] MEDS: MULTIVITAMIN (CENTRUM) TABLET PO SCH (08:40)
[2017-06-24] MEDS: GABAPENTIN 100 MG CAPSULE PO SCH (08:40)
--- NOTE | 2017-06-24 12:42 | Infectious Disease Progress ---
Assessment and Plan (1) Acute renal failure Status: Acute Assessment and plan: Improved since admission. Current Visit: Yes (2) Hypertension, essential Status: Acute Current Visit: Yes (3) UTI (urinary tract infection) Status: Acute Assessment and plan: Patient with recurrent UTI of most likely related to his neurogenic bladder with need for catheterization. Different organisms isolated each time. Repeat urine culture actually negative even before patient got specific antibiotic for the stenotrophomonas isolated on admission so I am not sure if there is an element of contamination. Recommendations: Continue with ceftazidime for a few more days Discussed with caregiver at bedside Current Visit: No Qualifiers: Urinary tract infection type: catheter-associated UTI (4) Insulin dependent diabetes mellitus Status: Chronic Current Visit: No (5) Neurogenic bladder Status: Chronic Current Visit: No Infectious Disease - PN: Subj Interval history: No fever for 3 days. Patient feels that he is back to his baseline. His caregiver is concerned because he is having generalized pains and she wants him back on the baclofen. That was held because of concerns it was contributing to his altered mental state. Infectious Disease Exam (PN) - Constitutional Vitals: Temp Pulse Resp BP Pulse Ox 98.4 F 82 18 163/94 96 06/24/17 10:57 06/24/17 10:57 06/24/17 10:57 06/24/17 10:57 06/24/17 10:57 General appearance: normal weight, no acute distress Exam: General appearance: no acute distress, completely nontoxic appearing, smiling - Eye Eye exam: Present: EOMI. no icterus Pupils: Present: JLUIS - ENT ENT exam: no oral exudates - Respiratory Respiratory exam: vesicular BS, no crepitations or wheezes - Cardiovascular Cardiovascular exam: regular rate and rhythm, no murmurs - GI/Abdominal GI/Abdominal exam: normal bowel sounds, soft, non-tender, no organomegaly or mass - Clear urine from Pool catheter - Extremities Exam Extremities exam: no edema - Skin Skin exam: no rash Results - Labs CBC & BMP: 06/22/17 09:07 06/22/17 09:07 Lab Results: I have reviewed the past 24 hour labs Specialty Discharge - Follow Up or Referrals Follow up with: Verito Viramontes MD [Physician] - Chandler Hanson MD [Physician] - Dustin Padilla MD [Physician] -
--- NOTE | 2017-06-24 13:28 | Hospitalist Progress Note ---
Assessment and Plan (1) Altered mental status Status: Acute Assessment and plan: 1)GIANNI- Appreciate Dr Curry's help with his GIANNI. Patient agrees to use CPAP. ABG did not show CO2 retention. 2)coma- resolved. Most likely a combination of medicines and infectious encephalopathy. restarted neurontin and will restart baclofen today and observe his level of alertness. 3)Stenotrophomonas UTI- on fortaz, continue to have fever. also on Diflucan to cover the yeast in his urine. has chronic indwelling alex. pursuing urostomy to decrease number of UTIs per caregiver history. Dr Viramontes and Dr Padilla are following. No fever in 2 days. 4)LUDWIG- creatinine down to 1.5. 5)dispo- will return home with his caregivers as before. 6)code status- he is DNR- I neglected to change the order yesterday and will today. Discussion with caregiver/POA was yesterday. Current Visit: No (2) UTI (urinary tract infection) Status: Acute Current Visit: No Qualifiers: Urinary tract infection type: catheter-associated UTI (3) History of paraplegia Status: Chronic Current Visit: No (4) Hypokalemia Problem details: check BMP, replace if needed, check Mg Status: Acute Current Visit: No (5) Elevated serum creatinine Problem details: not clear if LUDWIG or CKD or LUDWIG on CKD. Check FeNa Status: Acute Current Visit: No (6) Insulin dependent diabetes mellitus Status: Chronic Current Visit: No Hospitalist: Subjective Interval history: Mr Yo is doing ok today though he has pain and spasm he was not having yesterday and wants to restart his baclofen which seems reasonable. His appetite is poor because he does not like the smell of the food here but he wants some take out from [employer] Exam - Constitutional Vitals: Period Temp Pulse Resp BP Sys/Barr Pulse Ox Last 24 Hr 98.2 F-99.7 F 60-84 16-20 158-181/89-110 95-98 General appearance: normal weight, no acute distress - Eye Eye exam: Present: EOMI. Absent: scleral icterus - Respiratory Respiratory exam: Present: clear to auscultation bilaterally - Cardiovascular Cardiovascular exam: Present: regular rate and rhythm - GI/Abdominal GI/Abdominal exam: Present: normal bowel sounds, soft - Extremities Exam Extremities exam: Absent: edema - Neurological Exam Neurological exam: Present: alert, oriented X3, CN II-XII intact, other (muscle spasm in arms and legs) Results - Labs CBC & BMP: 06/22/17 09:07 06/22/17 09:07 Lab Results: I have reviewed the past 24 hour labs Specialty Discharge - Follow Up or Referrals Follow up with: Verito Viramontes MD [Physician] - Chandler Hanson MD [Physician] - Dustin Padilla MD [Physician] -
[2017-06-24] MEDS: BACLOFEN 20 MG TABLET PO SCH ×3 (13:52→20:46)
[2017-06-24] MEDS: FLUCONAZOLE INJ 200 MG in PREMIX 1 EACH IV SCH (14:40)
[2017-06-24] MEDS: ACETAMINOPHEN 325 MG TABLET PO PRN (20:46)
[2017-06-24] MEDS: SENNA 8.6 MG TABLET PO SCH (20:46)
[2017-06-24] MEDS: SODIUM CHLORIDE 0.9% 1,000 ML IV SCH (22:51)
--- NOTE | 2017-06-25 07:51 | Urology Progress Note ---
Urology - PN: Subj Interval history: Discussed situation with the patient and caregiver this morning. We will leave the Pool in until the patient sees Dr. Medina at the [facility] later this month. I will see again if needed Exam - Constitutional Vitals: Period Temp Pulse Resp BP Sys/Barr Pulse Ox Last 24 Hr 98.1 F-98.6 F 69-87 18-18 151-178/82-98 94-99 Results - Labs CBC & BMP: 06/22/17 09:07 06/22/17 09:07 Specialty Discharge - Follow Up or Referrals Follow up with: Verito Viramontes MD [Physician] - Chandler Hanson MD [Physician] - Dustin Padilla MD [Physician] -
[2017-06-25] MEDS: SODIUM CHLORIDE 0.9% 1,000 ML IV SCH ×2 (07:52→15:21)
[2017-06-25] MEDS: ENOXAPARIN 40 MG/0.4 ML SYRINGE SUBCUT SCH (10:20)
[2017-06-25] MEDS: MULTIVITAMIN (CENTRUM) TABLET PO SCH (10:21)
[2017-06-25] MEDS: PANTOPRAZOLE 40 MG TABLET PO SCH (10:21)
[2017-06-25] MEDS: ASPIRIN EC 325 MG TABLET PO SCH (10:21)
[2017-06-25] MEDS: BISACODYL 5 MG TABLET PO SCH (10:21)
[2017-06-25] MEDS: METOPROLOL SUCCINATE XL 100 MG TABLET PO SCH ×2 (10:21→20:34)
[2017-06-25] MEDS: POLYETHYLENE GLYCOL POWDER 17 GM PACK PO SCH (10:22)
[2017-06-25] MEDS: GABAPENTIN 100 MG CAPSULE PO SCH (10:23)
[2017-06-25] MEDS: BACLOFEN 20 MG TABLET PO SCH (10:23)
--- NOTE | 2017-06-25 12:56 | Sleep Medicine Progress Note ---
Assessment and Plan (1) Obstructive sleep apnea Status: Chronic Assessment and plan: Patient was unable to tolerate BiPAP despite effort in sleep lab with Pap nap. We will look into setting him up for home O2 therapy. Current Visit: No (2) Altered mental status Status: Acute Current Visit: No (3) Hypertension, essential Status: Acute Current Visit: Yes Sleep Medicine Subjective Interval history: Patient is failed all attempts at trying to help him acclimate and utilize CPAP or BiPAP. Given his failure, think that his best option would be nocturnal O2 therapy. This would at least minimize O2 desaturation during sleep though it will not correct his obstructive respiratory events. He is willing to consider this form of therapy. Exam (Progress Note) - Constitutional Vitals: Period Temp Pulse Resp BP Sys/Barr Pulse Ox Last 24 Hr 98.1 F-98.6 F 69-87 18-18 151-178/82-104 94-99 Exam: He seems more alert and responsive today. He answers questions appropriately. He was very polite. Chest with good air movement and no focal wheeze rhonchi. Cardiac exam reveals regular rhythm without murmur or gallop. Abdomen soft nontender extremities without increased edema. Results - Labs CBC & BMP: 06/22/17 09:07 06/22/17 09:07 Lab Results: I have reviewed the past 24 hour labs Specialty Discharge - Follow Up or Referrals Follow up with: Verito Viramontes MD [Physician] - Chandler Hanson MD [Physician] - Dustin Padilla MD [Physician] -
[2017-06-25] MEDS: ACETAMINOPHEN 325 MG TABLET PO PRN ×2 (13:34→20:34)
--- NOTE | 2017-06-25 14:46 | Hospitalist Progress Note ---
Assessment and Plan (1) Altered mental status Status: Acute Assessment and plan: will dc Neurontin, and reduce baclofen to 10mg tid.Follow response. Current Visit: No (2) UTI (urinary tract infection) Status: Acute Assessment and plan: urine grew Stenotrophomonas and chris. Plan continue with Fortaz and diflucan. Dr Viramontes and Dr Padilla are following. Current Visit: No Qualifiers: Urinary tract infection type: catheter-associated UTI (3) Insulin dependent diabetes mellitus Status: Chronic Assessment and plan: stable on current regime, will get HbA1c level. Current Visit: No (4) History of paraplegia Status: Chronic Assessment and plan: Continue current Nursing care Current Visit: No (5) Acute renal failure Status: Acute Assessment and plan: most likely on chronic underlying failure. Plan Continue IVF BMP in am Current Visit: Yes Hospitalist: Subjective Interval history: Patient was seen this am, still confused though awake since his neurontin and baclofen were re-started. Exam - Constitutional Vitals: Period Temp Pulse Resp BP Sys/Barr Pulse Ox Last 24 Hr 98.1 F-98.6 F 69-87 18-18 151-178/82-104 94-99 General appearance: no acute distress, other (quadriplegic) - Head Head exam: Present: normal inspection - Respiratory Respiratory exam: Present: clear to auscultation bilaterally - Cardiovascular Cardiovascular exam: Present: regular rate and rhythm - GI/Abdominal GI/Abdominal exam: Present: normal bowel sounds - Extremities Exam Extremities exam: Present: other (quadriplegic) Results - Labs CBC & BMP: 06/22/17 09:07 06/22/17 09:07 Lab Results: I have reviewed the past 24 hour labs Specialty Discharge - Follow Up or Referrals Follow up with: Verito Viramontes MD [Physician] - Chandler Hanson MD [Physician] - Dustin Padilla MD [Physician] -
[2017-06-25] MEDS: BACLOFEN 10 MG TABLET PO SCH ×2 (15:21→20:35)
[2017-06-25] MEDS: FLUCONAZOLE INJ 200 MG in PREMIX 1 EACH IV SCH (15:22)
--- NOTE | 2017-06-25 15:23 | Infectious Disease Progress ---
Assessment and Plan (1) Acute renal failure Status: Acute Assessment and plan: Improved since admission. Current Visit: Yes (2) Hypertension, essential Status: Acute Current Visit: Yes (3) UTI (urinary tract infection) Status: Acute Assessment and plan: Patient with recurrent UTI of most likely related to his neurogenic bladder with need for catheterization. Different organisms isolated each time. Repeat urine culture actually negative even before patient got specific antibiotic for the stenotrophomonas isolated on admission so I am not sure if there is an element of contamination. Recommendations: Can complete 7 days of cefazolin therapy Discussed with caregiver at bedside I will sign off now. Call again as needed. Current Visit: No Qualifiers: Urinary tract infection type: catheter-associated UTI (4) Insulin dependent diabetes mellitus Status: Chronic Current Visit: No (5) Neurogenic bladder Status: Chronic Current Visit: No Infectious Disease - PN: Subj Interval history: Patient had some more confusion today. Nurses, caregiver giving BCs from her bag. Is not clear if she is giving him anything else. He is eating well in general and did not have any specific complaints except that he wants to go home. Infectious Disease Exam (PN) - Constitutional Vitals: Temp Pulse Resp BP Pulse Ox 98.1 F 78 18 161/104 98 06/25/17 07:47 06/25/17 07:47 06/25/17 07:47 06/25/17 07:47 06/25/17 07:47 General appearance: no acute distress, other (quadriplegic) Exam: General appearance: no acute distress, completely nontoxic appearing, communicating but not appropriately at times, and does seem confused - Eye Eye exam: Present: EOMI. no icterus Pupils: Present: JLUIS - ENT ENT exam: no oral exudates - Respiratory Respiratory exam: vesicular BS, no crepitations or wheezes - Cardiovascular Cardiovascular exam: regular rate and rhythm, no murmurs - GI/Abdominal GI/Abdominal exam: normal bowel sounds, soft, non-tender, no organomegaly or mass - Clear urine from Pool catheter - Extremities Exam Extremities exam: no edema - Skin Skin exam: no rash Results - Labs CBC & BMP: 06/22/17 09:07 06/22/17 09:07 Lab Results: I have reviewed the past 24 hour labs Specialty Discharge - Follow Up or Referrals Follow up with: Verito Viramontes MD [Physician] - Chandler Hanson MD [Physician] - Dustin Padilla MD [Physician] -
[2017-06-25] MEDS: SENNA 8.6 MG TABLET PO SCH (20:35)
[2017-06-26 06:53] LABS: Basophils # 0.1 10*3/uL (0.0-0.2); Basophils % 0.6 % (0.0-0.8); Eosinophils # 0.2 10*3/uL (0.0-0.87); Eosinophils % 2.6 % (0.00-10.9); Hemoglobin 9.6 GM/DL (14.0-18.0); Immature Granulocytes % 0.2 %; Immature Granulocytes Absolute 0.02 #; Lymphocytes # 3.2 10*3/uL (1.4-4.0); Lymphocytes % 38.7 % (21.2-54.2); Mean Corpuscular HGB Conc 33.1 GM/DL (32-36); Mean Corpuscular Hemoglobin 30 PG (27-34); Mean Corpuscular Volume 89.2 FL (87-102); Mean Platelet Volume 10.7 FL (9.6-12.0); Monocytes # 0.9 10*3/uL (0.11-0.8); Monocytes % 10.2 % (1.7-12.7); Neutrophils % 47.7 % (38.7-73.9); Platelet Count 306 T/CUMM (130-400); Red Blood Count 3.25 MC/CUMM (3.8-5.5); Red Cell Distribution Width 14.2 % (9.3-17.3); White Blood Count 8.4 T/CUMM (4-12)
[2017-06-26 07:20] LABS: Calcium 9.2 MG/DL (8.5-10.1); Osmolality,Calculated 280.4 MOS/KG (273-304)
[2017-06-26] MEDS: MULTIVITAMIN (CENTRUM) TABLET PO SCH (09:55)
[2017-06-26] MEDS: PANTOPRAZOLE 40 MG TABLET PO SCH (09:56)
[2017-06-26] MEDS: METOPROLOL SUCCINATE XL 100 MG TABLET PO SCH ×2 (09:56→21:32)
[2017-06-26] MEDS: ASPIRIN EC 325 MG TABLET PO SCH (09:56)
[2017-06-26] MEDS: BACLOFEN 10 MG TABLET PO SCH ×3 (09:57→21:32)
[2017-06-26] MEDS: ENOXAPARIN 40 MG/0.4 ML SYRINGE SUBCUT SCH (09:57)
[2017-06-26] MEDS: POLYETHYLENE GLYCOL POWDER 17 GM PACK PO SCH (09:57)
[2017-06-26] MEDS: BISACODYL 5 MG TABLET PO SCH (09:58)
[2017-06-26] MEDS ORDERED: POTASSIUM CHLORIDE 20 MEQ TABLET PO PRN (13:55)
--- NOTE | 2017-06-26 13:58 | Hospitalist Progress Note ---
Assessment and Plan - Time spent with patient Time spent with patient: Less than 30 minutes (1) Altered mental status Status: Acute Assessment and plan: 67-year-old white male admitted by the hospitalist service on 06/18/2017 with altered mental status due to UTI. Patient is being followed by sleep medicine, infectious disease, and urology. Patient was unable to tolerate BiPAP and CPAP so Dr. Blue is setting him up with home oxygen therapy. Social workers have been consulted. Patient's altered mental status is improved but his sitter states he still has some confusion intermittently. His Neurontin and baclofen have been restarted and we are continuing to monitor his level of alertness. Patient has stenotrophomonas UTI and is on Fortaz for this. He has been afebrile and his white count is normal. Dr. Viramontes is following him. Because of his recurrent UTIs most likely related to his neurogenic bladder and need for catheterization she is recommending a complete 7 days of Fortaz therapy. Patient is on day 6 today. He is also on fluconazole. Patient's blood pressures have been mildly elevated and he currently takes metoprolol 100 mg p.o. twice daily. Will discuss this with Dr. Moise and see if he needs to be started on further medication. His potassium was also low at 3 and he is on potassium supplementation. Will go ahead and order additional potassium and recheck in the morning. Dr. Padilla from urology has also followed the patient and he is recommending patient keeps the Pool in until [facility]. will see and examine the patient and further recommendations to follow. Current Visit: No (2) UTI (urinary tract infection) Status: Acute Current Visit: No Qualifiers: Urinary tract infection type: catheter-associated UTI (3) History of paraplegia Status: Chronic Current Visit: No (4) Hypokalemia Problem details: check BMP, replace if needed, check Mg Status: Acute Current Visit: No (5) Obstructive sleep apnea Status: Chronic Current Visit: No (6) Acute kidney injury Status: Resolved Current Visit: No Hospitalist: Subjective Interval history: Patient is awake and alert and eating his lunch with help from his sitter. He really wants to go home. Exam - Constitutional Vitals: Period Temp Pulse Resp BP Sys/Barr Pulse Ox Last 24 Hr 98.0 F-99.4 F 64-86 16-20 145-160/81-97 94-100 Exam: 67-year-old white male, no acute distress, alert and oriented Chest clear CV regular rate and rhythm Abdomen soft and nontender Extremities with mild pedal edema Results - Labs CBC & BMP: 06/26/17 06:03 06/26/17 06:03 Lab Results: I have reviewed the past 24 hour labs Specialty Discharge - Follow Up or Referrals Follow up with: Verito Viramontes MD [Physician] - Chandler Hanson MD [Physician] - Dustin Padilla MD [Physician] -
[2017-06-26] MEDS: FLUCONAZOLE INJ 200 MG in PREMIX 1 EACH IV SCH (14:59)
[2017-06-26] MEDS ORDERED: POTASSIUM CHLORIDE 20 MEQ/15 ML UDCUP PO ONE (15:42)
[2017-06-26] MEDS: amLODIPine 5 MG TABLET PO SCH (16:39)
[2017-06-26] MEDS: SODIUM CHLORIDE 0.9% 1,000 ML IV SCH ×2 (19:38→21:33)
[2017-06-26] MEDS: SENNA 8.6 MG TABLET PO SCH (21:32)
[2017-06-27 05:59] LABS: Basophils # 0.1 10*3/uL (0.0-0.2); Eosinophils # 0.3 10*3/uL (0.0-0.87); Eosinophils % 3.3 % (0.00-10.9); Hematocrit 30.5 VOL% (42.0-52.0); Hemoglobin 9.8 GM/DL (14.0-18.0); Immature Granulocytes % 0.2 %; Immature Granulocytes Absolute 0.02 #; Lymphocytes # 3.6 10*3/uL (1.4-4.0); Lymphocytes % 44.3 % (21.2-54.2); Mean Corpuscular HGB Conc 32.1 GM/DL (32-36); Mean Corpuscular Hemoglobin 29 PG (27-34); Mean Corpuscular Volume 90.8 FL (87-102); Mean Platelet Volume 11.4 FL (9.6-12.0); Monocytes # 0.9 10*3/uL (0.11-0.8); Monocytes % 10.5 % (1.7-12.7); Neutrophils # 3.3 10*3/uL (1.4-7.4); Neutrophils % 40.7 % (38.7-73.9); Platelet Count 275 T/CUMM (130-400); Red Blood Count 3.36 MC/CUMM (3.8-5.5); Red Cell Distribution Width 14.6 % (9.3-17.3); White Blood Count 8.2 T/CUMM (4-12)
[2017-06-27 06:50] LABS: Calcium 9.2 MG/DL (8.5-10.1); Magnesium 2.2 MG/DL (1.8-2.4); Osmolality,Calculated 281.3 MOS/KG (273-304); Potassium 4.2 MMOL/L (3.5-5.1)
--- NOTE | 2017-06-27 08:30 | Hospitalist Progress Note ---
Assessment and Plan - Time spent with patient Time spent with patient: Less than 30 minutes (1) Altered mental status Status: Acute Assessment and plan: 67-year-old white male admitted by the hospitalist service on 06/18/2017 with altered mental status due to UTI. Patient is being followed by sleep medicine, infectious disease, and urology. Patient was unable to tolerate BiPAP and CPAP so Dr. Blue is setting him up with home oxygen therapy. Social workers have been consulted. Patient's altered mental status is improved but his sitter states he still has some confusion intermittently. His Neurontin and baclofen have been restarted and we are continuing to monitor his level of alertness. Patient has stenotrophomonas UTI and is on Fortaz for this. He has been afebrile and his white count is normal. Dr. Viramontes is following him. Because of his recurrent UTIs most likely related to his neurogenic bladder and need for catheterization she is recommending a complete 7 days of Fortaz therapy. Patient is on day 6 today. He is also on fluconazole. Patient's blood pressures have been mildly elevated and he currently takes metoprolol 100 mg p.o. twice daily. Will discuss this with Dr. Moise and see if he needs to be started on further medication. His potassium was also low at 3 and he is on potassium supplementation. Will go ahead and order additional potassium and recheck in the morning. Dr. Padilla from urology has also followed the patient and he is recommending patient keeps the Pool in until he sees his physician at [place] later this month. will see and examine the patient and further recommendations to follow. 06/27/2017 patient is doing better, his altered mental status is improved. His labs are okay. His blood pressure medicine that was added yesterday along with mag and potassium are all much improved today. He is on day 7 of Fortaz for his complicated UTI. If he does well today possibly home tomorrow. Dr. Moise seen and examined patient and further recommendations to follow. Current Visit: No (2) UTI (urinary tract infection) Status: Acute Current Visit: No Qualifiers: Urinary tract infection type: catheter-associated UTI (3) History of paraplegia Status: Chronic Current Visit: No (4) Hypokalemia Problem details: check BMP, replace if needed, check Mg Status: Acute Current Visit: No (5) Obstructive sleep apnea Status: Chronic Current Visit: No (6) Acute kidney injury Status: Resolved Current Visit: No Hospitalist: Subjective Interval history: Patient is feeling well. He wants to go home. Exam - Constitutional Vitals: Period Temp Pulse Resp BP Sys/Barr Pulse Ox Last 24 Hr 97.5 F-99.4 F 62-71 12-20 136-169/67-93 96-100 Exam: 67-year-old white male, no acute distress, alert and oriented Chest clear CV regular rate and rhythm Abdomen soft and nontender Extremities with mild pedal edema Results - Labs CBC & BMP: 06/27/17 04:30 06/27/17 04:30 Lab Results: I have reviewed the past 24 hour labs Specialty Discharge - Follow Up or Referrals Follow up with: Verito Viramontes MD [Physician] - Chandler Hanson MD [Physician] - Dustin Padilla MD [Physician] -
[2017-06-27] MEDS: METOPROLOL SUCCINATE XL 100 MG TABLET PO SCH ×2 (09:13→20:46)
[2017-06-27] MEDS: PANTOPRAZOLE 40 MG TABLET PO SCH (09:14)
[2017-06-27] MEDS: ASPIRIN EC 325 MG TABLET PO SCH (09:14)
[2017-06-27] MEDS: BISACODYL 5 MG TABLET PO SCH (09:16)
[2017-06-27] MEDS: MULTIVITAMIN (CENTRUM) TABLET PO SCH (09:17)
[2017-06-27] MEDS: amLODIPine 5 MG TABLET PO SCH (09:17)
[2017-06-27] MEDS: BACLOFEN 10 MG TABLET PO SCH ×3 (09:17→20:46)
[2017-06-27] MEDS: POLYETHYLENE GLYCOL POWDER 17 GM PACK PO SCH (09:19)
[2017-06-27] MEDS: ENOXAPARIN 40 MG/0.4 ML SYRINGE SUBCUT SCH (09:20)
[2017-06-27] MEDS: ACETAMINOPHEN 325 MG TABLET PO PRN (11:16)
[2017-06-27] MEDS: FLUCONAZOLE INJ 200 MG in PREMIX 1 EACH IV SCH (14:41)
[2017-06-27] MEDS: SENNA 8.6 MG TABLET PO SCH (20:47)
[2017-06-28] MEDS: POLYETHYLENE GLYCOL POWDER 17 GM PACK PO SCH (08:56)
[2017-06-28] MEDS: METOPROLOL SUCCINATE XL 100 MG TABLET PO SCH (08:57)
[2017-06-28] MEDS: PANTOPRAZOLE 40 MG TABLET PO SCH (08:58)
[2017-06-28] MEDS: MULTIVITAMIN (CENTRUM) TABLET PO SCH (08:58)
[2017-06-28] MEDS: ASPIRIN EC 325 MG TABLET PO SCH (08:59)
[2017-06-28] MEDS: BACLOFEN 10 MG TABLET PO SCH (08:59)
[2017-06-28] MEDS: BISACODYL 5 MG TABLET PO SCH (08:59)
[2017-06-28] MEDS: amLODIPine 5 MG TABLET PO SCH (08:59)
[2017-06-28] MEDS: ENOXAPARIN 40 MG/0.4 ML SYRINGE SUBCUT SCH (09:00)
--- NOTE | 2017-06-28 10:27 | Discharge Summary ---
<Fern Patterson - Last Filed: 06/28/17 10:19> Hospital Course - Hospital Course Hospital Course: 67-year-old white male with history of neurogenic bladder and paraplegia, CAD with stents, hypertension, obstructive sleep apnea, diabetes, GERD, frequent VRE and Pseudomonas UTIs with indwelling chronic catheter admitted by the hospitalist service on 06/18/2017 with altered mental status due to UTI. Dr. Padilla from urology was consulted. He had originally seen the patient and was concerned about gallbladder malignancy and he was referred to [facility] in [place]. Patient reported that he had no cancer but they have been doing Botox injections on his bladder and he has indwelling Pool catheter for now. His renal ultrasound showed mild bilateral hydronephrosis that was improved from his previous study. Dr. Padilla recommended continuing indwelling Pool until his follow-up in [place] later this week. Urine culture grew stenotrophomonas and chris.Dr. Viramontes was also consulted and recommended ceftazadime for a total of 7 days. Patient has received his full course and his altered mental status is back to baseline. Neurology was also consulted due to his altered mental status but he felt it was more secondary to urosepsis. 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 Dr. Blue from sleep medicine was also consulted. Patient was unable to tolerate CPAP or BiPAP. Dr. Blue wanted us to look into home oxygen therapy but it was taken several times during the night on room air and he was satting at 93%. Patient will not qualify for home O2. Will have patient call Dr. Blue's office in the morning to see if follow-up as needed. Patient had some elevated blood pressures and so he was started on amlodipine. Prescription was sent to his pharmacy. Patient is being discharged home with his sitter. Complete discharge instructions were given to the patient and the sitter. Care coordination, chart review, and completed discharge paperwork took approximately 45 minutes. - Time spent with patient Time with patient DS: Greater than 30 minutes Diagnosis - Discharge Diagnosis (1) Altered mental status Status: Resolved (2) UTI (urinary tract infection) Status: Resolved (3) History of paraplegia Status: Chronic (4) Hypokalemia Status: Resolved (5) Obstructive sleep apnea Status: Chronic (6) Acute kidney injury Status: Resolved Specialty Discharge - Follow Up or Referrals Follow up with: Verito Viramontes MD [Physician] - (Call Dr. Viramontes office in the a.m. to see if she needs to see him for follow-up) Chandler Hanson MD [Physician] - (No follow-up needed) Dustin Padilla MD [Physician] - (No follow-up needed. Keep current appointment with urologist in [place]) Discharge Plan - Discharge Data Disposition: Disch To Home/Self Care Condition at Discharge: Stable Discharge Diet: diabetic diet Activity: resume usual activities as tolerated Contact your physician if you experience:: fever over 101 - Discharge Medications New amLODIPine [Norvasc] 5 mg PO DAILY #30 tablet Continue tiZANidine [Zanaflex] 4 mg PO DAILY PRN PRN Reason: Pain Baclofen 20 mg PO TID ALPRAZolam [Alprazolam] 0.5 mg PO BID PRN PRN Reason: Anxiety Omeprazole 20 mg PO DAILY@1400 Sennosides [Senna Laxative] 25 mg PO BEDTIME DULoxetine [Cymbalta] 20 mg PO DAILY@0900 Polyethylene Glycol Powder [Miralax] 17 gm PO DAILY@0900 HYDROcodone/ACETAMIN 7.5-325 [[place] 7.5-325] 1 tablet PO Q6H PRN PRN Reason: Pain Oxybutynin [Ditropan] 10 mg PO DAILY@0900 Metoprolol Succinate Xl [Toprol Xl] 100 mg PO BID Gabapentin Cap/Tab [Neurontin Cap/Tab] 100 mg PO TID capsule Multivitamin [Multivitamins] 1 tablet PO 0900 Aspirin EC Tab 81 mg PO DAILY@0900 Trimethoprim [Proloprim] 100 mg PO SUTUTHSA - Follow Up or Referral Follow Up: Verito Viramontes MD [Physician] - (Call Dr. Viramontes office in the a.m. to see if she needs to see him for follow-up) Chandler Hanson MD [Physician] - (No follow-up needed) Dustin Padilla MD [Physician] - (No follow-up needed. Keep current appointment with urologist in [place]) - Forms/Instructions Instructions: Urinary Tract Infection in Men (DC), Acute Delirium (DC), Urinary Tract Infection in Men, Marine Architect (GEN) Exam - Constitutional Vitals: Period Temp Pulse Resp BP Sys/Barr Pulse Ox Last 24 Hr 97.8 F-99.8 F 56-78 16-18 130-157/77-95 93-99 Exam: 67-year-old white male, no acute distress, alert and oriented Chest clear CV regular rate and rhythm Abdomen soft and nontender Extremities no edema Discharge Results Labs on day of discharge: Labs from last 24 hours 06/27/17 06/27/17 15:44 11:35 POC Glucose 122 H 104 DS: Provider Date of admission: 06/19/17 01:12 Primary care physician: . No PCP Attending physician on admission: Thierry Leigh MD Consults: 06/18/17 23:40 Consult to Wound Care - [place] [CONS] Routine Reason for Wound Care: Wound Care Management 06/21/17 14:29 Consult to Physician [CONS] Routine Comment: abx, uti Consulting Provider: Verito Viramontes Consulting Provider Notified: Yes When should Consulting Provider be notified: In am Person Notified: gissel called Date Notified: 06/22/17 Time Notified: 08:58 06/22/17 08:44 Consult to Physician [CONS] Routine Comment: Consulting Provider: Chandler Hanson Consulting Provider Notified: Yes Person Notified: joseph called Date Notified: 06/22/17 Time Notified: 09:06 Consult to Physician [CONS] Routine Comment: Patient known to you Consulting Provider: Dustin Padilla Consulting Provider Notified: Yes When should Consulting Provider be notified: Now Person Notified: tiff called Date Notified: 06/22/17 Time Notified: 09:17 06/22/17 11:49 Consult to Physician [CONS] Routine Comment: needs CPAP Consulting Provider: Alysha Blue Consulting Provider Notified: Yes When should Consulting Provider be notified: Now Person Notified: thierry called Date Notified: 06/22/17 Time Notified: 12:11 06/26/17 11:11 Consult to Case Mgmt/Social Srvs [CONS] Routine Reason for Case Mgmt/Social Srvs: Equipment Consult Comment: needs home oxygen for night Discharging clinician: DORIE Johnson Expected date of discharge: 06/28/17 <Missy Moise - Last Filed: 06/28/17 10:52> Hospital Course - Time spent with patient Time with patient DS: Greater than 30 minutes Diagnosis - Discharge Diagnosis (1) Altered mental status Status: Resolved (2) UTI (urinary tract infection) Status: Resolved (3) Insulin dependent diabetes mellitus Status: Chronic (4) History of paraplegia Status: Chronic (5) Acute renal failure Status: Acute Exam - Constitutional General appearance: no acute distress, other (quadriplegic) - Respiratory Respiratory exam: Present: clear to auscultation bilaterally - Cardiovascular Cardiovascular exam: Present: regular rate and rhythm - GI/Abdominal GI/Abdominal exam: Present: normal bowel sounds
[2017-06-28 11:56] VITALS: BP 144/85
--- NOTE | 2017-07-03 12:39 | Physician Query Form ---
CLICK EDIT DOCUMENT TO SELECT QUERY ANSWER --> OK --> SIGN Sabina Henriquez RN Clinical Trust Mail Clerk W) [phone] (f) [phone] [email or web address]: Make your selection(s) from the choices in EACH section by typing an "x" and enter comments in the comment section. Please use your independent medical judgment in providing your response. This request does not imply that any particular answer is desired or expected. CLINICAL INDICATORS: (Providers should not edit this section) There is conflicting documentation in the record of "paraplegia" and "quadriplegia". Pt. has documented history of paraplegia. Dr. Hanson's consult note states "C4-C5 myelopathy causing quadriparesis/quadriplegia". Nurse notes states contractures to left forearm and right forearm. Pt. requires total care with hygiene and feeding. Which, if any, of the following is an etiology of the above abnormalities and treatment rendered: (x ) Quadriplegia due to a neurologic cause, please specify: ( ) Paraplegia due to a neurologic cause, please specify: ( ) Functional quadriplegia (complete immobility due to severe physical disability or frailty due to non-neurologic cause) ( ) Hemiplegia/hemiparesis due to a neurologic cause, please specify: ( ) Other cause, please specify: ( ) Clinically unable to determine COMMENTS: PLEASE ALSO DOCUMENT RESPONSE IN PROGRESS NOTES AND/OR DISCHARGE SUMMARY Use of terms such as suspected, likely, or probable (associated with a specific diagnosis that is being evaluated, monitored, or treated as if it exists) are acceptable and can be restated in the discharge summary if not ruled out. MTDD
== END 2017-06-28 13:25 | disposition home or self-care (01) | DRG 698 ==
LOC: EDUNIT# → EDBD → N.ED 19:03 → N.EDINP 19:03 → SUATTDRO 23:30 → N.TELEN 06-19 00:04 → SUATTDRO 06-19 01:12 → N.3E 06-19 09:37
PROVIDERS: ADMIT Internal Medicine; ATTEND Internal Medicine

== ENCOUNTER 2017-09-09 16:03 | Inpatient (IN) ==
[2017-09-09] MEDS ORDERED: SODIUM CHLORIDE 0.9% 2,200 ML IV ONE (17:07)
[2017-09-09] MEDS ORDERED: PIPERACILLIN/TAZOBACTAM 3,375 MG VIAL IV ONE (17:22)
[2017-09-09] MEDS ORDERED: SODIUM CHLORIDE 0.9% 100 ML IV ONE (17:22)
[2017-09-09 17:24] LABS: Basophils # 0.1 10*3/uL (0.0-0.2); Basophils % 0.3 % (0.0-0.8); Eosinophils % 0.1 % (0.00-10.9); Hematocrit 41.2 VOL% (42.0-52.0); Hemoglobin 13.7 GM/DL (14.0-18.0); Immature Granulocytes % 0.3 %; Immature Granulocytes Absolute 0.06 #; Lymphocytes # 2.6 10*3/uL (1.4-4.0); Lymphocytes % 15.2 % (21.2-54.2); Mean Corpuscular HGB Conc 33.3 GM/DL (32-36); Mean Corpuscular Hemoglobin 31 PG (27-34); Mean Platelet Volume 10.4 FL (9.6-12.0); Monocytes # 1.7 10*3/uL (0.11-0.8); Neutrophils # 12.8 10*3/uL (1.4-7.4); Neutrophils % 74.1 % (38.7-73.9); Platelet Count 324 T/CUMM (130-400); Red Blood Count 4.48 MC/CUMM (3.8-5.5); Red Cell Distribution Width 14.8 % (9.3-17.3); White Blood Count 17.3 T/CUMM (4-12)
[2017-09-09] MEDS: PIPERACILLIN/TAZOBACTAM 3,375 MG in SODIUM CHLORIDE 0.9% 100 ML IV SCH (17:30)
[2017-09-09 17:33] LABS: PT Patient Result 10.3 SECS; Partial Thromboplastin Time 31.5 SECS (0-40)
[2017-09-09 17:44] LABS: Lactic Acid 1.8 MMOL/L (0.4-2.0)
[2017-09-09 17:51] LABS: Alanine Aminotransferase 26 U/L (16-61); Albumin 3.1 G/DL (3.4-5.0); Alkaline Phosphatase 97 U/L (45-117); Aspartate Amino Transferase 24 U/L (0-37); Bilirubin,Total < 0.39 MG/DL (0.2-1.0); Blood Urea Nitrogen 47 MG/DL (7-18); Calcium 8.9 MG/DL (8.5-10.1); Glucose 135 MG/DL (74-106); Osmolality,Calculated 277.5 MOS/KG (273-304); Potassium 5.6 MMOL/L (3.5-5.1); Sodium 132 MMOL/L (136-145); Total Protein 7.6 G/DL (6.4-8.3)
[2017-09-09] MEDS ORDERED: DEXTROSE 50% 25 GM/50 ML VIAL IV PRN (19:05)
[2017-09-09] MEDS ORDERED: GLUCAGON 1 MG VIAL IM PRN (19:05)
[2017-09-09] MEDS ORDERED: NOREPINEPHRINE 4 MG/4 ML VIAL IV ONE (19:51)
[2017-09-09] MEDS: NOREPINEPHRINE 8 MG in SODIUM CHLORIDE 0.9% 242 ML IV SCH (20:02)
[2017-09-09] MEDS: SODIUM CHLORIDE 0.9% 1,000 ML IV SCH (20:03)
[2017-09-09] MEDS ORDERED: DOPamine 800 MG/250 ML PREMIX IV SCH (21:30)
[2017-09-09 21:54] LABS: Apearance,Urine CLOUDY (Clear); Bacteria,Urine Occasional /HPF (Few); Bilirubin,Urine Negative (Negative); Blood, Urine Large mg/dL (Negative); Glucose,Urine (UA) 50 mg/dL (Negative); Ketones,Urine 5 mg/dL (Negative); Nitrite,Urine Negative (Negative); Protein,Urine 100 MG/DL; RBC,Urine 77708 /HPF (0-4); Urine Specific Gravity 1.014 (1.001-1.035); Urine Urobilinogen < 2.0 EU/DL (0.2-1.0); WBC,Urine 292 /HPF (0-6)
[2017-09-09 21:55] LABS: Urine Color Red (Yellow)
[2017-09-09] MEDS: INSULIN LISPRO 100 UNIT/ML SUBCUT SCH (22:31)
[2017-09-10] MEDS: PIPERACILLIN/TAZOBACTAM 3,375 MG in SODIUM CHLORIDE 0.9% 100 ML IV SCH (03:27)
[2017-09-10 06:38] LABS: Basophils # 0.1 10*3/uL (0.0-0.2); Basophils % 0.2 % (0.0-0.8); Hematocrit 33.4 VOL% (42.0-52.0); Hemoglobin 11.2 GM/DL (14.0-18.0); Immature Granulocytes % 0.6 %; Immature Granulocytes Absolute 0.15 #; Lymphocytes # 2.7 10*3/uL (1.4-4.0); Lymphocytes % 11.1 % (21.2-54.2); Mean Corpuscular HGB Conc 33.5 GM/DL (32-36); Mean Corpuscular Hemoglobin 31 PG (27-34); Mean Corpuscular Volume 91.8 FL (87-102); Mean Platelet Volume 10.4 FL (9.6-12.0); Monocytes # 1.8 10*3/uL (0.11-0.8); Monocytes % 7.2 % (1.7-12.7); Neutrophils # 19.9 10*3/uL (1.4-7.4); Neutrophils % 80.9 % (38.7-73.9); Platelet Count 261 T/CUMM (130-400); Red Blood Count 3.64 MC/CUMM (3.8-5.5); Red Cell Distribution Width 14.9 % (9.3-17.3); White Blood Count 24.6 T/CUMM (4-12)
[2017-09-10 06:47] LABS: PT Patient Result 10.7 SECS; Partial Thromboplastin Time 31.7 SECS (0-40)
[2017-09-10 07:00] LABS: Band Neutrophils 3 % (0-10); Giant Platelets Few; Hypochromasia 1+; Lymphocytes 10 % (20-55); Platelet Estimate Adequate; Segmented Neutrophils 81 % (50-85); Total Cells Counted 100
[2017-09-10 07:02] LABS: Calcium 8.6 MG/DL (8.5-10.1)
[2017-09-10] MEDS: ACETAMINOPHEN 325 MG TABLET PO PRN (08:00)
[2017-09-10] MEDS: SODIUM CHLORIDE 0.9% 1,000 ML IV SCH ×3 (09:39→22:59)
[2017-09-10] MEDS: INSULIN LISPRO 100 UNIT/ML SUBCUT SCH ×4 (09:39→21:27)
[2017-09-10] MEDS ORDERED: ALPRAZolam 0.5 MG TABLET PO PRN (10:20)
[2017-09-10] MEDS ORDERED: AMIKACIN 500 MG in SODIUM CHLORIDE 0.9% 100 ML IV SCH (10:30)
[2017-09-10] MEDS ORDERED: SODIUM CHLORIDE 0.9% 1,000 ML IV ONE (10:34)
[2017-09-10] MEDS: GENTAMICIN INJ 120 MG in PREMIX 1 EACH IV SCH (12:07)
[2017-09-10] MEDS: cefTAZidime 1,000 MG in SYRINGE 1 EACH IV SCH ×2 (12:07→23:01)
[2017-09-10] MEDS: GABAPENTIN 100 MG CAPSULE PO SCH ×2 (15:38→21:31)
[2017-09-10] MEDS: BACLOFEN 10 MG TABLET PO SCH ×2 (15:39→21:28)
[2017-09-10] MEDS: SENNA 8.6 MG TABLET PO SCH (21:29)
[2017-09-11] MEDS: ACETAMINOPHEN 325 MG TABLET PO PRN ×2 (03:44→08:31)
[2017-09-11 05:20] LABS: Basophils % 0.2 % (0.0-0.8); Eosinophils # 0.2 10*3/uL (0.0-0.87); Eosinophils % 1.5 % (0.00-10.9); Hematocrit 24.4 VOL% (42.0-52.0); Immature Granulocytes % 0.4 %; Immature Granulocytes Absolute 0.05 #; Lymphocytes # 2.1 10*3/uL (1.4-4.0); Lymphocytes % 17.3 % (21.2-54.2); Mean Corpuscular HGB Conc 32.8 GM/DL (32-36); Mean Corpuscular Hemoglobin 31 PG (27-34); Mean Corpuscular Volume 93.1 FL (87-102); Mean Platelet Volume 10.4 FL (9.6-12.0); Monocytes # 1.1 10*3/uL (0.11-0.8); Monocytes % 8.9 % (1.7-12.7); Neutrophils # 8.6 10*3/uL (1.4-7.4); Neutrophils % 71.7 % (38.7-73.9); Red Cell Distribution Width 14.8 % (9.3-17.3)
[2017-09-11 05:37] LABS: Platelet Count 148 T/CUMM (130-400); Red Blood Count 2.62 MC/CUMM (3.8-5.5)
[2017-09-11 05:42] LABS: Calcium 7.9 MG/DL (8.5-10.1); Osmolality,Calculated 282.7 MOS/KG (273-304); Potassium 4.1 MMOL/L (3.5-5.1)
[2017-09-11] MEDS: SODIUM CHLORIDE 0.9% 1,000 ML IV SCH (07:11)
[2017-09-11] MEDS: GENTAMICIN INJ 120 MG in PREMIX 1 EACH IV SCH ×2 (07:17→07:23)
[2017-09-11] MEDS: NOREPINEPHRINE 8 MG in SODIUM CHLORIDE 0.9% 242 ML IV SCH ×2 (07:18→20:17)
[2017-09-11] MEDS: INSULIN LISPRO 100 UNIT/ML SUBCUT SCH ×4 (08:10→20:32)
[2017-09-11] MEDS: DULoxetine 20 MG CAPSULE PO SCH (08:31)
[2017-09-11] MEDS: OXYBUTYNIN 5 MG TABLET PO SCH (08:31)
[2017-09-11] MEDS: GABAPENTIN 100 MG CAPSULE PO SCH (08:31)
[2017-09-11] MEDS: ASPIRIN EC 81 MG TABLET PO SCH (08:32)
[2017-09-11] MEDS: MULTIVITAMIN (CENTRUM) TABLET PO SCH (08:32)
[2017-09-11] MEDS: BACLOFEN 10 MG TABLET PO SCH ×3 (08:32→20:32)
[2017-09-11] MEDS: VANCOMYCIN INJ 1,000 MG in SODIUM CHLORIDE 0.9% 250 ML IV SCH ×2 (08:58→20:32)
[2017-09-11] MEDS: cefTAZidime 1,000 MG in SYRINGE 1 EACH IV SCH (11:21)
[2017-09-11] MEDS: SENNA 8.6 MG TABLET PO SCH (20:32)
[2017-09-11] MEDS: cefTRIAXone 2,000 MG in SYRINGE 1 EACH IV SCH (20:32)
[2017-09-12] MEDS: GENTAMICIN INJ 120 MG in PREMIX 1 EACH IV SCH ×2 (00:03→17:42)
[2017-09-12] MEDS: SODIUM CHLORIDE 0.9% 1,000 ML IV SCH ×4 (01:15→17:46)
[2017-09-12 05:41] LABS: Basophils # 0.1 10*3/uL (0.0-0.2); Basophils % 0.6 % (0.0-0.8); Eosinophils # 0.3 10*3/uL (0.0-0.87); Hematocrit 26.8 VOL% (42.0-52.0); Hemoglobin 8.6 GM/DL (14.0-18.0); Immature Granulocytes % 0.2 %; Immature Granulocytes Absolute 0.02 #; Lymphocytes # 2.3 10*3/uL (1.4-4.0); Lymphocytes % 25.4 % (21.2-54.2); Mean Corpuscular HGB Conc 32.1 GM/DL (32-36); Mean Corpuscular Hemoglobin 31 PG (27-34); Mean Platelet Volume 10.4 FL (9.6-12.0); Monocytes # 0.8 10*3/uL (0.11-0.8); Monocytes % 9.2 % (1.7-12.7); Neutrophils # 5.5 10*3/uL (1.4-7.4); Neutrophils % 61.6 % (38.7-73.9); Platelet Count 140 T/CUMM (130-400); Red Blood Count 2.82 MC/CUMM (3.8-5.5); Red Cell Distribution Width 14.5 % (9.3-17.3); White Blood Count 8.9 T/CUMM (4-12)
[2017-09-12 06:11] LABS: Calcium 8.1 MG/DL (8.5-10.1); Osmolality,Calculated 275.8 MOS/KG (273-304)
[2017-09-12] MEDS: INSULIN LISPRO 100 UNIT/ML SUBCUT SCH ×4 (08:45→21:08)
[2017-09-12] MEDS: BACLOFEN 10 MG TABLET PO SCH ×3 (09:45→21:18)
[2017-09-12] MEDS: MULTIVITAMIN (CENTRUM) TABLET PO SCH (09:45)
[2017-09-12] MEDS: VANCOMYCIN INJ 1,000 MG in SODIUM CHLORIDE 0.9% 250 ML IV SCH ×2 (09:45→21:16)
[2017-09-12] MEDS: DULoxetine 20 MG CAPSULE PO SCH (09:45)
[2017-09-12] MEDS: ASPIRIN EC 81 MG TABLET PO SCH (09:46)
[2017-09-12] MEDS: OXYBUTYNIN 5 MG TABLET PO SCH (09:46)
[2017-09-12] MEDS: cefTRIAXone 2,000 MG in SYRINGE 1 EACH IV SCH (21:10)
[2017-09-12] MEDS: SENNA 8.6 MG TABLET PO SCH (21:18)
[2017-09-13] MEDS: NOREPINEPHRINE 8 MG in SODIUM CHLORIDE 0.9% 242 ML IV SCH ×2 (01:24→22:38)
[2017-09-13 03:20] LABS: Calcium 8.1 MG/DL (8.5-10.1); Osmolality,Calculated 276.7 MOS/KG (273-304)
[2017-09-13 03:53] LABS: Basophils % 0.6 % (0.0-0.8); Eosinophils # 0.3 10*3/uL (0.0-0.87); Hematocrit 26.5 VOL% (42.0-52.0); Hemoglobin 8.7 GM/DL (14.0-18.0); Immature Granulocytes % 0.3 %; Immature Granulocytes Absolute 0.02 #; Lymphocytes # 1.9 10*3/uL (1.4-4.0); Lymphocytes % 28.3 % (21.2-54.2); Mean Corpuscular HGB Conc 32.8 GM/DL (32-36); Mean Corpuscular Hemoglobin 30 PG (27-34); Monocytes # 0.7 10*3/uL (0.11-0.8); Monocytes % 9.5 % (1.7-12.7); Neutrophils # 3.9 10*3/uL (1.4-7.4); Neutrophils % 57.3 % (38.7-73.9); Platelet Count 158 T/CUMM (130-400); Red Blood Count 2.88 MC/CUMM (3.8-5.5); Red Cell Distribution Width 14.2 % (9.3-17.3); White Blood Count 6.8 T/CUMM (4-12)
[2017-09-13] MEDS: SODIUM CHLORIDE 0.9% 1,000 ML IV SCH ×3 (05:39→18:03)
[2017-09-13] MEDS: INSULIN LISPRO 100 UNIT/ML SUBCUT SCH ×4 (08:15→22:38)
[2017-09-13] MEDS: BACLOFEN 10 MG TABLET PO SCH ×3 (10:06→21:30)
[2017-09-13] MEDS: OXYBUTYNIN 5 MG TABLET PO SCH (10:07)
[2017-09-13] MEDS: ASPIRIN EC 81 MG TABLET PO SCH (10:07)
[2017-09-13] MEDS: DULoxetine 20 MG CAPSULE PO SCH (10:07)
[2017-09-13] MEDS: MULTIVITAMIN (CENTRUM) TABLET PO SCH (10:13)
[2017-09-13] MEDS: GENTAMICIN INJ 120 MG in PREMIX 1 EACH IV SCH (12:26)
[2017-09-13] MEDS ORDERED: VANCOMYCIN INJ 1,000 MG in SODIUM CHLORIDE 0.9% 250 ML IV SCH (15:00)
[2017-09-13] MEDS: cefTRIAXone 2,000 MG in SYRINGE 1 EACH IV SCH (21:29)
[2017-09-13] MEDS: ZALEPLON 5 MG CAPSULE PO SCH (21:30)
[2017-09-13] MEDS: SENNA 8.6 MG TABLET PO SCH (21:30)
[2017-09-13] MEDS: VANCOMYCIN INJ 1,000 MG in SODIUM CHLORIDE 0.45% 250 ML IV SCH (22:40)
[2017-09-14] MEDS: SODIUM CHLORIDE 0.9% 1,000 ML IV SCH ×3 (05:42→16:05)
[2017-09-14] MEDS: ONDANSETRON 4 MG/2 ML VIAL IV PRN (05:43)
[2017-09-14 07:01] LABS: Basophils % 0.4 % (0.0-0.8); Eosinophils # 0.2 10*3/uL (0.0-0.87); Eosinophils % 2.7 % (0.00-10.9); Hematocrit 29.9 VOL% (42.0-52.0); Hemoglobin 9.9 GM/DL (14.0-18.0); Immature Granulocytes % 0.4 %; Immature Granulocytes Absolute 0.03 #; Lymphocytes # 2.3 10*3/uL (1.4-4.0); Lymphocytes % 31.7 % (21.2-54.2); Mean Corpuscular HGB Conc 33.1 GM/DL (32-36); Mean Corpuscular Hemoglobin 30 PG (27-34); Mean Corpuscular Volume 91.2 FL (87-102); Monocytes # 0.6 10*3/uL (0.11-0.8); Monocytes % 8.7 % (1.7-12.7); Neutrophils % 56.1 % (38.7-73.9); Platelet Count 195 T/CUMM (130-400); Red Blood Count 3.28 MC/CUMM (3.8-5.5); Red Cell Distribution Width 13.9 % (9.3-17.3); White Blood Count 7.1 T/CUMM (4-12)
[2017-09-14 07:35] LABS: Calcium 8.6 MG/DL (8.5-10.1); Osmolality,Calculated 281.3 MOS/KG (273-304); Potassium 3.9 MMOL/L (3.5-5.1)
[2017-09-14] MEDS: INSULIN LISPRO 100 UNIT/ML SUBCUT SCH ×3 (07:54→17:08)
[2017-09-14] MEDS: OXYBUTYNIN 5 MG TABLET PO SCH (09:26)
[2017-09-14] MEDS: MULTIVITAMIN (CENTRUM) TABLET PO SCH (09:26)
[2017-09-14] MEDS: DULoxetine 20 MG CAPSULE PO SCH (09:26)
[2017-09-14] MEDS: BACLOFEN 10 MG TABLET PO SCH ×3 (09:26→22:11)
[2017-09-14] MEDS: ASPIRIN EC 81 MG TABLET PO SCH (09:26)
[2017-09-14] MEDS: VANCOMYCIN INJ 1,000 MG in SODIUM CHLORIDE 0.45% 250 ML IV SCH (12:35)
[2017-09-14] MEDS: CEFEPIME 1,000 MG in SYRINGE 1 EACH IV SCH (16:04)
[2017-09-14] MEDS: ZALEPLON 5 MG CAPSULE PO SCH (22:10)
[2017-09-14] MEDS: SENNA 8.6 MG TABLET PO SCH (22:11)
[2017-09-15] MEDS: INSULIN LISPRO 100 UNIT/ML SUBCUT SCH ×5 (00:52→21:43)
[2017-09-15] MEDS: SODIUM CHLORIDE 0.9% 1,000 ML IV SCH ×2 (01:05→12:19)
[2017-09-15] MEDS ORDERED: METOPROLOL SUCCINATE XL 100 MG TABLET PO ONE (01:11)
[2017-09-15] MEDS: ONDANSETRON 4 MG/2 ML VIAL IV PRN ×3 (01:43→16:38)
[2017-09-15] MEDS: CEFEPIME 1,000 MG in SYRINGE 1 EACH IV SCH ×2 (05:00→21:02)
[2017-09-15 05:23] LABS: Basophils # 0.1 10*3/uL (0.0-0.2); Basophils % 0.6 % (0.0-0.8); Eosinophils # 0.1 10*3/uL (0.0-0.87); Eosinophils % 1.5 % (0.00-10.9); Hematocrit 29.1 VOL% (42.0-52.0); Hemoglobin 9.7 GM/DL (14.0-18.0); Immature Granulocytes % 0.4 %; Immature Granulocytes Absolute 0.04 #; Lymphocytes # 1.6 10*3/uL (1.4-4.0); Lymphocytes % 16.6 % (21.2-54.2); Mean Corpuscular HGB Conc 33.3 GM/DL (32-36); Mean Corpuscular Hemoglobin 30 PG (27-34); Mean Corpuscular Volume 90.9 FL (87-102); Mean Platelet Volume 10.5 FL (9.6-12.0); Monocytes # 0.6 10*3/uL (0.11-0.8); Monocytes % 6.5 % (1.7-12.7); Neutrophils # 7.2 10*3/uL (1.4-7.4); Neutrophils % 74.4 % (38.7-73.9); Platelet Count 189 T/CUMM (130-400); Red Cell Distribution Width 14.1 % (9.3-17.3); White Blood Count 9.6 T/CUMM (4-12)
[2017-09-15] MEDS: VANCOMYCIN INJ 1,000 MG in SODIUM CHLORIDE 0.45% 250 ML IV SCH (05:24)
[2017-09-15 05:45] LABS: Calcium 8.7 MG/DL (8.5-10.1); Osmolality,Calculated 280.3 MOS/KG (273-304)
[2017-09-15] MEDS: OXYBUTYNIN 5 MG TABLET PO SCH (08:38)
[2017-09-15] MEDS: ASPIRIN EC 81 MG TABLET PO SCH (08:38)
[2017-09-15] MEDS: BACLOFEN 10 MG TABLET PO SCH ×3 (08:38→21:02)
[2017-09-15] MEDS: MULTIVITAMIN (CENTRUM) TABLET PO SCH (08:38)
[2017-09-15] MEDS: DULoxetine 20 MG CAPSULE PO SCH (08:38)
[2017-09-15] MEDS ORDERED: METOPROLOL SUCCINATE XL 100 MG TABLET PO SCH (12:00)
[2017-09-15] MEDS ORDERED: tiZANidine 4 MG TABLET PO PRN (16:01)
[2017-09-15] MEDS: PANTOPRAZOLE 40 MG TABLET PO SCH (16:40)
[2017-09-15] MEDS: GABAPENTIN 100 MG CAPSULE PO SCH ×2 (16:40→21:02)
[2017-09-15] MEDS: POLYETHYLENE GLYCOL POWDER 17 GM PACK PO SCH (16:45)
[2017-09-15] MEDS: prednisoLONE ACETATE 1% OPH SUSP 5 ML BOTTLE LEFT EYE SCH (21:01)
[2017-09-15] MEDS: KETOROLAC 0.5% OPH SOLN 3 ML BOTTLE LEFT EYE SCH (21:01)
[2017-09-15] MEDS: OFLOXACIN 0.3% OPH SOLN 10 ML BOTTLE LEFT EYE SCH (21:01)
[2017-09-15] MEDS: TEMAZEPAM 15 MG CAPSULE PO PRN (21:02)
[2017-09-15] MEDS: SENNA 8.6 MG TABLET PO SCH (21:02)
[2017-09-16] MEDS: VANCOMYCIN INJ 1,000 MG in SODIUM CHLORIDE 0.45% 250 ML IV SCH
[2017-09-16 06:53] LABS: Calcium 9.2 MG/DL (8.5-10.1); Osmolality,Calculated 286.7 MOS/KG (273-304); Potassium 3.8 MMOL/L (3.5-5.1)
[2017-09-16] MEDS: INSULIN LISPRO 100 UNIT/ML SUBCUT SCH ×4 (09:10→22:43)
[2017-09-16] MEDS: BACLOFEN 10 MG TABLET PO SCH ×3 (09:11→22:28)
[2017-09-16] MEDS: OXYBUTYNIN 5 MG TABLET PO SCH (09:11)
[2017-09-16] MEDS: POLYETHYLENE GLYCOL POWDER 17 GM PACK PO SCH (09:11)
[2017-09-16] MEDS: ASPIRIN EC 81 MG TABLET PO SCH (09:12)
[2017-09-16] MEDS: METOPROLOL SUCCINATE XL 100 MG TABLET PO SCH (09:12)
[2017-09-16] MEDS: GABAPENTIN 100 MG CAPSULE PO SCH ×3 (09:12→22:29)
[2017-09-16] MEDS: DULoxetine 20 MG CAPSULE PO SCH (09:12)
[2017-09-16] MEDS: MULTIVITAMIN (CENTRUM) TABLET PO SCH (09:13)
[2017-09-16] MEDS: prednisoLONE ACETATE 1% OPH SUSP 5 ML BOTTLE LEFT EYE SCH ×2 (09:13→22:43)
[2017-09-16] MEDS: OFLOXACIN 0.3% OPH SOLN 10 ML BOTTLE LEFT EYE SCH ×2 (09:13→22:44)
[2017-09-16] MEDS: KETOROLAC 0.5% OPH SOLN 3 ML BOTTLE LEFT EYE SCH ×2 (09:13→22:43)
[2017-09-16] MEDS: CEFEPIME 1,000 MG in SYRINGE 1 EACH IV SCH ×2 (09:14→22:28)
[2017-09-16] MEDS: PANTOPRAZOLE 40 MG TABLET PO SCH (12:27)
[2017-09-16] MEDS: SENNA 8.6 MG TABLET PO SCH (22:29)
[2017-09-16] MEDS: TEMAZEPAM 15 MG CAPSULE PO PRN (22:36)
[2017-09-17] MEDS ORDERED: hydrALAZINE 20 MG/1 ML VIAL IV ONE (00:37)
[2017-09-17] MEDS: INSULIN LISPRO 100 UNIT/ML SUBCUT SCH ×4 (07:46→21:16)
[2017-09-17 08:01] LABS: Basophils # 0.1 10*3/uL (0.0-0.2); Basophils % 0.6 % (0.0-0.8); Eosinophils # 0.2 10*3/uL (0.0-0.87); Eosinophils % 2.9 % (0.00-10.9); Hematocrit 30.9 VOL% (42.0-52.0); Hemoglobin 10.4 GM/DL (14.0-18.0); Immature Granulocytes % 0.2 %; Immature Granulocytes Absolute 0.02 #; Lymphocytes # 2.1 10*3/uL (1.4-4.0); Lymphocytes % 25.1 % (21.2-54.2); Mean Corpuscular HGB Conc 33.7 GM/DL (32-36); Mean Corpuscular Hemoglobin 31 PG (27-34); Mean Corpuscular Volume 91.4 FL (87-102); Mean Platelet Volume 10.2 FL (9.6-12.0); Monocytes # 0.7 10*3/uL (0.11-0.8); Monocytes % 8.7 % (1.7-12.7); Neutrophils # 5.1 10*3/uL (1.4-7.4); Neutrophils % 62.5 % (38.7-73.9); Platelet Count 231 T/CUMM (130-400); Red Blood Count 3.38 MC/CUMM (3.8-5.5); Red Cell Distribution Width 14.2 % (9.3-17.3); White Blood Count 8.2 T/CUMM (4-12)
[2017-09-17 08:29] LABS: Calcium 9.4 MG/DL (8.5-10.1); Osmolality,Calculated 284.8 MOS/KG (273-304); Potassium 3.7 MMOL/L (3.5-5.1)
[2017-09-17] MEDS: BACLOFEN 10 MG TABLET PO SCH ×3 (09:19→21:14)
[2017-09-17] MEDS: CEFEPIME 1,000 MG in SYRINGE 1 EACH IV SCH ×2 (09:20→21:13)
[2017-09-17] MEDS: KETOROLAC 0.5% OPH SOLN 3 ML BOTTLE LEFT EYE SCH ×2 (09:20→21:16)
[2017-09-17] MEDS: ASPIRIN EC 81 MG TABLET PO SCH (09:20)
[2017-09-17] MEDS: MULTIVITAMIN (CENTRUM) TABLET PO SCH (09:20)
[2017-09-17] MEDS: DULoxetine 20 MG CAPSULE PO SCH (09:20)
[2017-09-17] MEDS: OXYBUTYNIN 5 MG TABLET PO SCH (09:20)
[2017-09-17] MEDS: GABAPENTIN 100 MG CAPSULE PO SCH ×3 (09:20→21:14)
[2017-09-17] MEDS: prednisoLONE ACETATE 1% OPH SUSP 5 ML BOTTLE LEFT EYE SCH ×2 (09:21→21:15)
[2017-09-17] MEDS: METOPROLOL SUCCINATE XL 100 MG TABLET PO SCH (09:21)
[2017-09-17] MEDS: OFLOXACIN 0.3% OPH SOLN 10 ML BOTTLE LEFT EYE SCH ×2 (09:21→21:16)
[2017-09-17] MEDS: POLYETHYLENE GLYCOL POWDER 17 GM PACK PO SCH (09:21)
[2017-09-17] MEDS: amLODIPine 5 MG TABLET PO SCH (11:29)
[2017-09-17] MEDS: PANTOPRAZOLE 40 MG TABLET PO SCH (13:47)
[2017-09-17] MEDS ORDERED: TEMAZEPAM 15 MG CAPSULE PO SCH (21:00)
[2017-09-17] MEDS: SENNA 8.6 MG TABLET PO SCH (21:14)
[2017-09-18] MEDS ORDERED: VANCOMYCIN INJ 1,000 MG in SODIUM CHLORIDE 0.45% 250 ML IV PRN
[2017-09-18] MEDS ORDERED: METOPROLOL SUCCINATE XL 25 MG TABLET PO SCH (09:00)
[2017-09-18] MEDS: INSULIN LISPRO 100 UNIT/ML SUBCUT SCH ×2 (09:49→11:20)
[2017-09-18] MEDS: KETOROLAC 0.5% OPH SOLN 3 ML BOTTLE LEFT EYE SCH (09:53)
[2017-09-18] MEDS: MULTIVITAMIN (CENTRUM) TABLET PO SCH (09:53)
[2017-09-18] MEDS: ASPIRIN EC 81 MG TABLET PO SCH (09:53)
[2017-09-18] MEDS: BACLOFEN 10 MG TABLET PO SCH (09:54)
[2017-09-18] MEDS: OXYBUTYNIN 5 MG TABLET PO SCH (09:54)
[2017-09-18] MEDS: DULoxetine 20 MG CAPSULE PO SCH (09:54)
[2017-09-18] MEDS: GABAPENTIN 100 MG CAPSULE PO SCH (09:55)
[2017-09-18] MEDS: POLYETHYLENE GLYCOL POWDER 17 GM PACK PO SCH (09:55)
[2017-09-18] MEDS: OFLOXACIN 0.3% OPH SOLN 10 ML BOTTLE LEFT EYE SCH (09:56)
[2017-09-18] MEDS: prednisoLONE ACETATE 1% OPH SUSP 5 ML BOTTLE LEFT EYE SCH (09:56)
[2017-09-18] MEDS: amLODIPine 5 MG TABLET PO SCH (09:56)
[2017-09-18] MEDS: CEFEPIME 1,000 MG in SYRINGE 1 EACH IV SCH (09:58)
[2017-09-18 13:16] VITALS: BP 160/90
== END 2017-09-18 13:30 | disposition home or self-care (01) | DRG 871 ==
LOC: N.ED 16:03 → SUATTDRO 18:13 → N.EDINP 18:13 → N.CC 19:47 → N.2E 09-12 15:09
PROVIDERS: ADMIT Internal Medicine; ATTEND Internal Medicine

== ENCOUNTER 2018-03-31 13:29 | Inpatient (IN) ==
[2018-03-31] MEDS ORDERED: SODIUM CHLORIDE 0.9% 1,000 ML IV STA (13:50)
[2018-03-31] MEDS ORDERED: cefTRIAXone 250 MG VIAL IV STA (13:51)
[2018-03-31 14:29] LABS: Basophils # 0.1 10*3/uL (0.0-0.2); Basophils % 0.3 % (0.0-0.8); Eosinophils % 0.1 % (0.00-10.9); Hematocrit 31.7 VOL% (42.0-52.0); Hemoglobin 9.9 GM/DL (14.0-18.0); Immature Granulocytes % 0.4 %; Immature Granulocytes Absolute 0.06 #; Lymphocytes # 2.8 10*3/uL (1.4-4.0); Lymphocytes % 19.1 % (21.2-54.2); Mean Corpuscular HGB Conc 31.2 GM/DL (32-36); Mean Corpuscular Hemoglobin 30 PG (27-34); Mean Corpuscular Volume 96.9 FL (87-102); Mean Platelet Volume 10.6 FL (9.6-12.0); Monocytes # 1.7 10*3/uL (0.11-0.8); Monocytes % 11.4 % (1.7-12.7); Neutrophils # 10.2 10*3/uL (1.4-7.4); Neutrophils % 68.7 % (38.7-73.9); Platelet Count 260 T/CUMM (130-400); Red Blood Count 3.27 MC/CUMM (3.8-5.5); Red Cell Distribution Width 14.6 % (9.3-17.3); White Blood Count 14.8 T/CUMM (4-12)
[2018-03-31] MEDS ORDERED: SODIUM CHLORIDE 0.9% 2,050 ML IV ONE (14:31)
[2018-03-31 14:46] LABS: Lactic Acid 0.9 MMOL/L (0.4-2.0)
[2018-03-31 14:47] LABS: Alanine Aminotransferase 15 U/L (16-61); Albumin 2.5 G/DL (3.4-5.0); Alkaline Phosphatase 96 U/L (45-117); Apearance,Urine CLOUDY (Clear); Aspartate Amino Transferase 20 U/L (0-37); Bacteria,Urine Many /HPF (Few); Bilirubin,Total < 0.39 MG/DL (0.2-1.0); Bilirubin,Urine Negative (Negative); Blood Urea Nitrogen 34 MG/DL (7-18); Blood, Urine Small mg/dL (Negative); Calcium 8.3 MG/DL (8.5-10.1); Glucose 103 MG/DL (74-106); Glucose,Urine (UA) Negative (Negative); Ketones,Urine Negative (Negative); Nitrite,Urine Negative (Negative); Osmolality,Calculated 286.4 MOS/KG (273-304); Potassium 3.9 MMOL/L (3.5-5.1); Protein,Urine 30 MG/DL; RBC,Urine 19 /HPF (0-4); Sodium 140 MMOL/L (136-145); Total Protein 7.5 G/DL (6.4-8.3); Urine Color Yellow (Yellow); Urine Specific Gravity 1.012 (1.001-1.035); Urine Urobilinogen < 2.0 EU/DL (0.2-1.0); WBC,Urine 987 /HPF (0-6)
[2018-03-31] MEDS ORDERED: ONDANSETRON 4 MG/2 ML VIAL IV PRN (15:44)
[2018-03-31] MEDS ORDERED: ACETAMINOPHEN 325 MG TABLET PO PRN (15:44)
[2018-03-31] MEDS ORDERED: tiZANidine 4 MG TABLET PO PRN (15:49)
[2018-03-31] MEDS ORDERED: TEMAZEPAM 15 MG CAPSULE PO PRN (15:49)
[2018-03-31] MEDS ORDERED: VANCOMYCIN INJ 1,000 MG in SODIUM CHLORIDE 0.9% 250 ML IV STA (16:17)
[2018-03-31] MEDS: ENOXAPARIN 40 MG/0.4 ML SYRINGE SUBCUT SCH (16:57)
[2018-03-31] MEDS: SODIUM CHLORIDE 0.9% 1,000 ML IV SCH (17:19)
[2018-03-31] MEDS: MEROPENEM 500 MG in SYRINGE 1 EACH IV SCH (19:16)
[2018-03-31] MEDS: oxyCODONE/ACETAMINOPHEN 5-325 MG TABLET PO PRN (19:36)
[2018-03-31] MEDS: GABAPENTIN 300 MG CAPSULE PO SCH (20:46)
[2018-03-31] MEDS: BACLOFEN 10 MG TABLET PO SCH (20:46)
[2018-03-31] MEDS: SENNA 8.6 MG TABLET PO SCH (20:46)
[2018-04-01] MEDS: MEROPENEM 500 MG in SYRINGE 1 EACH IV SCH ×3 (01:20→16:29)
[2018-04-01] MEDS: SODIUM CHLORIDE 0.9% 1,000 ML IV SCH (01:24)
[2018-04-01 05:25] LABS: Calcium 7.9 MG/DL (8.5-10.1); Osmolality,Calculated 281.5 MOS/KG (273-304)
[2018-04-01 05:50] LABS: Basophils % 0.6 % (0.0-0.8); Eosinophils # 0.2 10*3/uL (0.0-0.87); Eosinophils % 2.9 % (0.00-10.9); Hematocrit 29.3 VOL% (42.0-52.0); Hemoglobin 8.8 GM/DL (14.0-18.0); Immature Granulocytes % 0.5 %; Immature Granulocytes Absolute 0.03 #; Lymphocytes # 1.8 10*3/uL (1.4-4.0); Lymphocytes % 27.8 % (21.2-54.2); Mean Corpuscular Hemoglobin 30 PG (27-34); Mean Corpuscular Volume 101.4 FL (87-102); Mean Platelet Volume 11.5 FL (9.6-12.0); Monocytes # 0.9 10*3/uL (0.11-0.8); Monocytes % 13.5 % (1.7-12.7); Neutrophils # 3.5 10*3/uL (1.4-7.4); Neutrophils % 54.7 % (38.7-73.9); Platelet Count 143 T/CUMM (130-400); Red Blood Count 2.89 MC/CUMM (3.8-5.5); Red Cell Distribution Width 14.6 % (9.3-17.3); White Blood Count 6.5 T/CUMM (4-12)
[2018-04-01] MEDS: ASPIRIN EC 81 MG TABLET PO SCH (08:08)
[2018-04-01] MEDS: MULTIVITAMIN (CENTRUM) TABLET PO SCH (08:08)
[2018-04-01] MEDS: DULoxetine 20 MG CAPSULE PO SCH (08:08)
[2018-04-01] MEDS: GABAPENTIN 300 MG CAPSULE PO SCH ×3 (08:09→21:03)
[2018-04-01] MEDS: BACLOFEN 10 MG TABLET PO SCH ×3 (08:09→21:03)
[2018-04-01] MEDS: PANTOPRAZOLE 40 MG TABLET PO SCH (08:09)
[2018-04-01 08:40] LABS: Alanine Aminotransferase 14 U/L (16-61); Albumin 1.9 G/DL (3.4-5.0); Alkaline Phosphatase 77 U/L (45-117); Aspartate Amino Transferase 17 U/L (0-37); Bilirubin,Total < 0.39 MG/DL (0.2-1.0); Blood Urea Nitrogen 28 MG/DL (7-18); Calcium 8.1 MG/DL (8.5-10.1); Glucose 84 MG/DL (74-106); Osmolality,Calculated 285.3 MOS/KG (273-304); Sodium 141 MMOL/L (136-145); Total Protein 6.3 G/DL (6.4-8.3)
[2018-04-01] MEDS ORDERED: LIDOCAINE 1%/EPI INJ 20 ML VIAL ONE (12:17)
[2018-04-01] MEDS ORDERED: fentaNYL 100 MCG/2 ML VIAL ONE (14:31)
[2018-04-01] MEDS ORDERED: SEVOFLURANE 1 UNIT/15 MINUTE INH ONE (14:31)
[2018-04-01] MEDS ORDERED: PROPOFOL 200 MG/20 ML VIAL IV ONE (14:31)
[2018-04-01] MEDS ORDERED: PHENYLEPHRINE 1 MG/10 ML SYRINGE IV ONE (14:32)
[2018-04-01] MEDS ORDERED: ONDANSETRON 4 MG/2 ML VIAL ONE (14:32)
[2018-04-01] MEDS ORDERED: ACETAMINOPHEN 1,000 MG/100 ML VIAL IV ONE (14:32)
[2018-04-01] MEDS ORDERED: ePHEDrine 50 MG/ML AMP ONE (14:32)
[2018-04-01] MEDS: ENOXAPARIN 40 MG/0.4 ML SYRINGE SUBCUT SCH (21:03)
[2018-04-01] MEDS: SENNA 8.6 MG TABLET PO SCH (21:46)
[2018-04-02] MEDS: SODIUM CHLORIDE 0.9% 1,000 ML IV SCH ×6 (00:34→17:02)
[2018-04-02] MEDS: MEROPENEM 500 MG in SYRINGE 1 EACH IV SCH ×2 (00:35→09:28)
[2018-04-02 06:39] LABS: Calcium 8.1 MG/DL (8.5-10.1); Osmolality,Calculated 281.4 MOS/KG (273-304); Potassium 4.5 MMOL/L (3.5-5.1)
[2018-04-02 06:47] LABS: Basophils % 0.2 % (0.0-0.8); Eosinophils % 0.1 % (0.00-10.9); Hematocrit 25.8 VOL% (42.0-52.0); Hemoglobin 8.1 GM/DL (14.0-18.0); Immature Granulocytes % 0.2 %; Immature Granulocytes Absolute 0.02 #; Lymphocytes # 2.2 10*3/uL (1.4-4.0); Lymphocytes % 25.6 % (21.2-54.2); Mean Corpuscular HGB Conc 31.4 GM/DL (32-36); Mean Corpuscular Hemoglobin 30 PG (27-34); Mean Corpuscular Volume 95.2 FL (87-102); Mean Platelet Volume 11.5 FL (9.6-12.0); Monocytes # 0.6 10*3/uL (0.11-0.8); Monocytes % 6.6 % (1.7-12.7); Neutrophils # 5.8 10*3/uL (1.4-7.4); Neutrophils % 67.3 % (38.7-73.9); Platelet Count 192 T/CUMM (130-400); Red Blood Count 2.71 MC/CUMM (3.8-5.5); Red Cell Distribution Width 14.6 % (9.3-17.3); White Blood Count 8.6 T/CUMM (4-12)
[2018-04-02] MEDS: GABAPENTIN 300 MG CAPSULE PO SCH ×3 (09:21→20:48)
[2018-04-02] MEDS: DULoxetine 20 MG CAPSULE PO SCH (09:21)
[2018-04-02] MEDS: PANTOPRAZOLE 40 MG TABLET PO SCH (09:21)
[2018-04-02] MEDS: ASPIRIN EC 81 MG TABLET PO SCH (09:21)
[2018-04-02] MEDS: BACLOFEN 10 MG TABLET PO SCH ×3 (09:21→20:48)
[2018-04-02] MEDS: MULTIVITAMIN (CENTRUM) TABLET PO SCH (09:21)
[2018-04-02] MEDS: oxyCODONE/ACETAMINOPHEN 5-325 MG TABLET PO PRN ×2 (09:26→14:32)
[2018-04-02] MEDS: CEFEPIME 2,000 MG in SYRINGE 1 EACH IV SCH (14:33)
[2018-04-02] MEDS ORDERED: SKIN HEALING OINT (AQUAPHOR) 50 GM TUBE TOP PRN (15:30)
[2018-04-02] MEDS: SENNA 8.6 MG TABLET PO SCH (20:48)
[2018-04-02] MEDS: ENOXAPARIN 40 MG/0.4 ML SYRINGE SUBCUT SCH (20:48)
[2018-04-02] MEDS: ALPRAZolam 0.5 MG TABLET PO PRN (20:54)
[2018-04-03] MEDS: CEFEPIME 2,000 MG in SYRINGE 1 EACH IV SCH ×3 (00:10→14:28)
[2018-04-03] MEDS: SODIUM CHLORIDE 0.9% 1,000 ML IV SCH (00:44)
[2018-04-03] MEDS: BACLOFEN 10 MG TABLET PO SCH ×3 (08:46→20:48)
[2018-04-03] MEDS: PANTOPRAZOLE 40 MG TABLET PO SCH (08:47)
[2018-04-03] MEDS: GABAPENTIN 300 MG CAPSULE PO SCH ×3 (08:47→20:48)
[2018-04-03] MEDS: MULTIVITAMIN (CENTRUM) TABLET PO SCH (08:47)
[2018-04-03] MEDS: DULoxetine 20 MG CAPSULE PO SCH (08:47)
[2018-04-03] MEDS: ASPIRIN EC 81 MG TABLET PO SCH (08:48)
[2018-04-03] MEDS: BACITRACIN OINT 0.9 GM PACK TOP SCH (11:06)
[2018-04-03] MEDS: oxyCODONE/ACETAMINOPHEN 5-325 MG TABLET PO PRN ×2 (11:20→18:07)
[2018-04-03] MEDS: ALPRAZolam 0.5 MG TABLET PO PRN (20:48)
[2018-04-03] MEDS: ENOXAPARIN 40 MG/0.4 ML SYRINGE SUBCUT SCH (20:48)
[2018-04-03] MEDS: SENNA 8.6 MG TABLET PO SCH (20:48)
[2018-04-04] MEDS: CEFEPIME 2,000 MG in SYRINGE 1 EACH IV SCH ×4 (00:13→23:35)
[2018-04-04 05:54] LABS: Basophils % 0.6 % (0.0-0.8); Eosinophils # 0.2 10*3/uL (0.0-0.87); Eosinophils % 3.7 % (0.00-10.9); Hematocrit 30.1 VOL% (42.0-52.0); Hemoglobin 8.8 GM/DL (14.0-18.0); Immature Granulocytes % 0.5 %; Immature Granulocytes Absolute 0.03 #; Lymphocytes # 2.2 10*3/uL (1.4-4.0); Lymphocytes % 34.1 % (21.2-54.2); Mean Corpuscular HGB Conc 29.2 GM/DL (32-36); Mean Corpuscular Hemoglobin 29 PG (27-34); Mean Corpuscular Volume 99.7 FL (87-102); Mean Platelet Volume 11.6 FL (9.6-12.0); Monocytes # 0.6 10*3/uL (0.11-0.8); Monocytes % 9.7 % (1.7-12.7); Neutrophils # 3.3 10*3/uL (1.4-7.4); Neutrophils % 51.4 % (38.7-73.9); Platelet Count 184 T/CUMM (130-400); Red Blood Count 3.02 MC/CUMM (3.8-5.5); Red Cell Distribution Width 14.5 % (9.3-17.3); White Blood Count 6.5 T/CUMM (4-12)
[2018-04-04 06:23] LABS: Calcium 8.6 MG/DL (8.5-10.1); Osmolality,Calculated 286.8 MOS/KG (273-304); Potassium 4.2 MMOL/L (3.5-5.1)
[2018-04-04] MEDS ORDERED: SODIUM CHLORIDE 23.4% CONC INJ 38.5 MEQ in STERILE WATER INJ 1,000 ML IV SCH (08:00)
[2018-04-04] MEDS: BACLOFEN 10 MG TABLET PO SCH ×3 (09:45→21:23)
[2018-04-04] MEDS: GABAPENTIN 300 MG CAPSULE PO SCH ×3 (09:45→21:23)
[2018-04-04] MEDS: BACITRACIN OINT 0.9 GM PACK TOP SCH (09:45)
[2018-04-04] MEDS: PANTOPRAZOLE 40 MG TABLET PO SCH (09:45)
[2018-04-04] MEDS: ASPIRIN EC 81 MG TABLET PO SCH (09:45)
[2018-04-04] MEDS: DULoxetine 20 MG CAPSULE PO SCH (09:45)
[2018-04-04] MEDS: MULTIVITAMIN (CENTRUM) TABLET PO SCH (09:45)
[2018-04-04] MEDS: ENOXAPARIN 40 MG/0.4 ML SYRINGE SUBCUT SCH (21:23)
[2018-04-04] MEDS: SENNA 8.6 MG TABLET PO SCH (21:23)
[2018-04-04] MEDS: ALPRAZolam 0.5 MG TABLET PO PRN (21:23)
[2018-04-05 06:28] LABS: Hematocrit 28.4 VOL% (42.0-52.0)
[2018-04-05 06:42] LABS: Calcium 8.6 MG/DL (8.5-10.1); Osmolality,Calculated 284.1 MOS/KG (273-304); Potassium 3.9 MMOL/L (3.5-5.1)
[2018-04-05] MEDS: BACLOFEN 10 MG TABLET PO SCH ×3 (08:59→20:42)
[2018-04-05] MEDS: CEFEPIME 2,000 MG in SYRINGE 1 EACH IV SCH ×2 (08:59→17:14)
[2018-04-05] MEDS: MULTIVITAMIN (CENTRUM) TABLET PO SCH (09:00)
[2018-04-05] MEDS: PANTOPRAZOLE 40 MG TABLET PO SCH (09:00)
[2018-04-05] MEDS: BACITRACIN OINT 0.9 GM PACK TOP SCH (09:00)
[2018-04-05] MEDS: ASPIRIN EC 81 MG TABLET PO SCH (09:00)
[2018-04-05] MEDS: DULoxetine 20 MG CAPSULE PO SCH (09:00)
[2018-04-05] MEDS: GABAPENTIN 300 MG CAPSULE PO SCH ×3 (09:00→20:42)
[2018-04-05] MEDS: VANCOMYCIN INJ 1,000 MG in SODIUM CHLORIDE 0.9% 250 ML IV SCH (15:34)
[2018-04-05] MEDS: SENNA 8.6 MG TABLET PO SCH (20:42)
[2018-04-05] MEDS: ENOXAPARIN 40 MG/0.4 ML SYRINGE SUBCUT SCH (20:42)
[2018-04-06] MEDS: CEFEPIME 2,000 MG in SYRINGE 1 EACH IV SCH ×2 (01:08→08:49)
[2018-04-06] MEDS ORDERED: SODIUM CHLORIDE 0.9% 250 ML IV ONE ×3 (02:45→02:46)
[2018-04-06] MEDS: VANCOMYCIN INJ 1,000 MG in SODIUM CHLORIDE 0.9% 250 ML IV SCH (03:28)
[2018-04-06] MEDS: PANTOPRAZOLE 40 MG TABLET PO SCH (08:48)
[2018-04-06] MEDS: DULoxetine 20 MG CAPSULE PO SCH (08:48)
[2018-04-06] MEDS: BACLOFEN 10 MG TABLET PO SCH (08:48)
[2018-04-06] MEDS: GABAPENTIN 300 MG CAPSULE PO SCH (08:48)
[2018-04-06] MEDS: MULTIVITAMIN (CENTRUM) TABLET PO SCH (08:48)
[2018-04-06] MEDS: ASPIRIN EC 81 MG TABLET PO SCH (08:48)
[2018-04-06] MEDS: BACITRACIN OINT 0.9 GM PACK TOP SCH (08:48)
[2018-04-06] MEDS: oxyCODONE/ACETAMINOPHEN 5-325 MG TABLET PO PRN (08:56)
[2018-04-06 12:06] VITALS: BP 130/63
== END 2018-04-06 13:36 | DRG 673 ==
LOC: EDBD → EDUNIT# → N.ED 13:29 → N.EDINP 15:15 → SUATTDRO 15:15 → N.EDINP 18:28 → N.2E 18:44
PROVIDERS: ADMIT Internal Medicine; ATTEND Internal Medicine

== ENCOUNTER 2018-06-17 19:02 | Inpatient (IN) ==
[2018-06-17] MEDS ORDERED: VANCOMYCIN INJ 1,000 MG in SODIUM CHLORIDE 0.9% 250 ML IV STA (20:05)
[2018-06-17] MEDS ORDERED: CEFEPIME 2,000 MG in SODIUM CHLORIDE 0.9% 100 ML IV STA (20:05)
[2018-06-17] MEDS ORDERED: SODIUM CHLORIDE 0.9% 1,000 ML IV STA ×2 (20:05→21:12)
[2018-06-17 20:29] LABS: Basophils # 0.1 10*3/uL (0.0-0.2); Basophils % 0.5 % (0.0-0.8); Eosinophils # 0.1 10*3/uL (0.0-0.87); Eosinophils % 0.8 % (0.00-10.9); Hemoglobin 10.6 GM/DL (14.0-18.0); Immature Granulocytes % 0.3 %; Immature Granulocytes Absolute 0.03 #; Lymphocytes # 2.4 10*3/uL (1.4-4.0); Lymphocytes % 23.1 % (21.2-54.2); Mean Corpuscular HGB Conc 31.2 GM/DL (32-36); Mean Corpuscular Hemoglobin 31 PG (27-34); Mean Corpuscular Volume 100.3 FL (87-102); Mean Platelet Volume 10.2 FL (9.6-12.0); Monocytes # 0.9 10*3/uL (0.11-0.8); Monocytes % 8.8 % (1.7-12.7); Neutrophils # 6.8 10*3/uL (1.4-7.4); Neutrophils % 66.5 % (38.7-73.9); Platelet Count 212 T/CUMM (130-400); Red Blood Count 3.39 MC/CUMM (3.8-5.5); Red Cell Distribution Width 13.6 % (9.3-17.3); White Blood Count 10.2 T/CUMM (4-12)
[2018-06-17 20:48] LABS: Apearance,Urine CLOUDY (Clear); Bilirubin,Urine Negative (Negative); Blood, Urine Large mg/dL (Negative); Glucose,Urine (UA) Negative (Negative); Ketones,Urine 20 mg/dL (Negative); Mucus,Urine Occasional /LPF (Occasional); Nitrite,Urine Negative (Negative); Protein,Urine Negative; RBC,Urine 8 /HPF (0-4); Urine Color Yellow (Yellow); Urine Specific Gravity 1.008 (1.001-1.035); Urine Urobilinogen < 2.0 EU/DL (0.2-1.0); WBC,Urine 298 /HPF (0-6)
[2018-06-17 20:53] LABS: Albumin 2.7 G/DL (3.4-5.0); Bilirubin,Total 0.9 MG/DL (0.2-1.0); Calcium 9.3 MG/DL (8.5-10.1); Osmolality,Calculated 286.4 MOS/KG (273-304); Total Protein 7.7 G/DL (6.4-8.3)
[2018-06-17 20:59] LABS: Lactic Acid 0.7 MMOL/L (0.4-2.0)
[2018-06-17] MEDS ORDERED: ONDANSETRON 4 MG/2 ML VIAL IV PRN (22:04)
[2018-06-17] MEDS ORDERED: DEXTROSE 50% 25 GM/50 ML VIAL IV PRN (22:14)
[2018-06-17] MEDS ORDERED: GLUCAGON 1 MG VIAL IM PRN (22:14)
[2018-06-18] MEDS ORDERED: VANCOMYCIN INJ 1,000 MG in SODIUM CHLORIDE 0.9% 250 ML IV STA (00:57)
[2018-06-18] MEDS: SODIUM BICARB INJ 50 MEQ in DEXTROSE 5% NACL 0.45% 1,000 ML IV SCH ×2 (01:08→15:10)
[2018-06-18] MEDS: ENOXAPARIN 40 MG/0.4 ML SYRINGE SUBCUT SCH ×2 (01:09→22:48)
[2018-06-18 07:21] LABS: Basophils % 0.3 % (0.0-0.8); Eosinophils % 0.3 % (0.00-10.9); Hematocrit 30.1 VOL% (42.0-52.0); Hemoglobin 9.5 GM/DL (14.0-18.0); Immature Granulocytes % 0.4 %; Immature Granulocytes Absolute 0.04 #; Lymphocytes # 2.2 10*3/uL (1.4-4.0); Mean Corpuscular HGB Conc 31.6 GM/DL (32-36); Mean Corpuscular Hemoglobin 31 PG (27-34); Mean Corpuscular Volume 97.4 FL (87-102); Mean Platelet Volume 10.2 FL (9.6-12.0); Monocytes # 0.7 10*3/uL (0.11-0.8); Monocytes % 7.6 % (1.7-12.7); Neutrophils # 6.2 10*3/uL (1.4-7.4); Neutrophils % 67.4 % (38.7-73.9); Platelet Count 202 T/CUMM (130-400); Red Blood Count 3.09 MC/CUMM (3.8-5.5); Red Cell Distribution Width 13.8 % (9.3-17.3); White Blood Count 9.2 T/CUMM (4-12)
[2018-06-18 08:04] LABS: Albumin 2.4 G/DL (3.4-5.0); Bilirubin,Total 0.5 MG/DL (0.2-1.0); Calcium 8.8 MG/DL (8.5-10.1); Total Protein 6.9 G/DL (6.4-8.3)
[2018-06-18] MEDS: CEFEPIME 1,000 MG in SODIUM CHLORIDE 0.9% 100 ML IV SCH (08:09)
[2018-06-18] MEDS ORDERED: ALPRAZolam 0.5 MG TABLET PO PRN (08:10)
[2018-06-18] MEDS ORDERED: tiZANidine 4 MG TABLET PO PRN (08:10)
[2018-06-18] MEDS ORDERED: TEMAZEPAM 15 MG CAPSULE PO PRN (08:10)
[2018-06-18] MEDS: GABAPENTIN 300 MG CAPSULE PO SCH ×3 (08:17→21:36)
[2018-06-18] MEDS: ASPIRIN EC 81 MG TABLET PO SCH (08:18)
[2018-06-18] MEDS: DULoxetine 20 MG CAPSULE PO SCH (08:18)
[2018-06-18] MEDS ORDERED: DEXTROSE 5% 1,000 ML IV SCH (08:30)
[2018-06-18] MEDS: BACLOFEN 10 MG TABLET PO SCH ×3 (08:35→21:35)
[2018-06-18] MEDS: MULTIVITAMIN (CENTRUM) TABLET PO SCH (08:35)
[2018-06-18] MEDS: amLODIPine 5 MG TABLET PO SCH (18:14)
[2018-06-18] MEDS: SENNA 8.6 MG TABLET PO SCH (21:36)
[2018-06-19 05:21] LABS: Basophils # 0.1 10*3/uL (0.0-0.2); Basophils % 0.6 % (0.0-0.8); Eosinophils # 0.1 10*3/uL (0.0-0.87); Eosinophils % 1.4 % (0.00-10.9); Hematocrit 28.4 VOL% (42.0-52.0); Immature Granulocytes % 0.3 %; Immature Granulocytes Absolute 0.03 #; Lymphocytes # 2.1 10*3/uL (1.4-4.0); Lymphocytes % 23.7 % (21.2-54.2); Mean Corpuscular HGB Conc 31.7 GM/DL (32-36); Mean Corpuscular Hemoglobin 31 PG (27-34); Mean Corpuscular Volume 97.3 FL (87-102); Mean Platelet Volume 10.1 FL (9.6-12.0); Monocytes # 1.1 10*3/uL (0.11-0.8); Monocytes % 12.3 % (1.7-12.7); Neutrophils # 5.5 10*3/uL (1.4-7.4); Neutrophils % 61.7 % (38.7-73.9); Platelet Count 180 T/CUMM (130-400); Red Blood Count 2.92 MC/CUMM (3.8-5.5); Red Cell Distribution Width 13.6 % (9.3-17.3); White Blood Count 8.9 T/CUMM (4-12)
[2018-06-19 05:45] LABS: Calcium 8.8 MG/DL (8.5-10.1); Osmolality,Calculated 298.4 MOS/KG (273-304); Potassium 3.8 MMOL/L (3.5-5.1)
[2018-06-19] MEDS: CEFEPIME 1,000 MG in SODIUM CHLORIDE 0.9% 100 ML IV SCH (09:00)
[2018-06-19] MEDS: BACLOFEN 10 MG TABLET PO SCH ×3 (10:35→21:06)
[2018-06-19] MEDS: ASPIRIN EC 81 MG TABLET PO SCH (10:36)
[2018-06-19] MEDS: MULTIVITAMIN (CENTRUM) TABLET PO SCH (10:36)
[2018-06-19] MEDS: GABAPENTIN 300 MG CAPSULE PO SCH ×3 (10:36→21:06)
[2018-06-19] MEDS: DULoxetine 20 MG CAPSULE PO SCH (10:37)
[2018-06-19] MEDS: DEXT 5% NACL 0.45% KCL 10 MEQ 10 MEQ/1,000 ML BAG IV SCH (12:30)
[2018-06-19] MEDS: FLUCONAZOLE INJ 200 MG in PREMIX 1 EACH IV SCH (16:54)
[2018-06-19] MEDS: amLODIPine 5 MG TABLET PO SCH (18:53)
[2018-06-19] MEDS ORDERED: POLYVINYL ALCOHOL 1.4% OPH SOLN 15 ML BOTTLE BOTH EYES PRN (19:44)
[2018-06-19] MEDS: SENNA 8.6 MG TABLET PO SCH (21:06)
[2018-06-20] MEDS: DEXT 5% NACL 0.45% KCL 10 MEQ 10 MEQ/1,000 ML BAG IV SCH ×2 (00:25→11:32)
[2018-06-20] MEDS: ENOXAPARIN 40 MG/0.4 ML SYRINGE SUBCUT SCH ×2 (00:46→23:53)
[2018-06-20 06:31] LABS: Basophils % 0.4 % (0.0-0.8); Eosinophils # 0.2 10*3/uL (0.0-0.87); Eosinophils % 2.5 % (0.00-10.9); Hematocrit 30.3 VOL% (42.0-52.0); Hemoglobin 9.7 GM/DL (14.0-18.0); Immature Granulocytes % 0.4 %; Immature Granulocytes Absolute 0.03 #; Lymphocytes # 1.9 10*3/uL (1.4-4.0); Lymphocytes % 25.2 % (21.2-54.2); Mean Corpuscular Hemoglobin 31 PG (27-34); Mean Corpuscular Volume 97.7 FL (87-102); Mean Platelet Volume 11.1 FL (9.6-12.0); Monocytes # 0.9 10*3/uL (0.11-0.8); Monocytes % 12.1 % (1.7-12.7); Neutrophils # 4.5 10*3/uL (1.4-7.4); Neutrophils % 59.4 % (38.7-73.9); Platelet Count 122 T/CUMM (130-400); Red Cell Distribution Width 13.6 % (9.3-17.3); White Blood Count 7.5 T/CUMM (4-12)
[2018-06-20] MEDS: SODIUM BICARB INJ 50 MEQ in DEXTROSE 5% NACL 0.45% 1,000 ML IV SCH (06:59)
[2018-06-20 07:09] LABS: Calcium 8.2 MG/DL (8.5-10.1); Osmolality,Calculated 287.3 MOS/KG (273-304); Potassium 3.9 MMOL/L (3.5-5.1)
[2018-06-20] MEDS ORDERED: MAGNESIUM SULF RIDER 4 GM in PREMIX 1 EACH IV PRN (08:11)
[2018-06-20] MEDS ORDERED: MAGNESIUM SULF RIDER 2 GM in PREMIX 1 EACH IV PRN (08:11)
[2018-06-20] MEDS: CEFEPIME 1,000 MG in SODIUM CHLORIDE 0.9% 100 ML IV SCH (08:47)
[2018-06-20] MEDS: ASPIRIN EC 81 MG TABLET PO SCH (08:47)
[2018-06-20] MEDS: GABAPENTIN 300 MG CAPSULE PO SCH ×3 (08:48→20:39)
[2018-06-20] MEDS: MULTIVITAMIN (CENTRUM) TABLET PO SCH (08:48)
[2018-06-20] MEDS: DULoxetine 20 MG CAPSULE PO SCH (08:48)
[2018-06-20] MEDS: BACLOFEN 10 MG TABLET PO SCH ×3 (08:48→20:39)
[2018-06-20] MEDS: INSULIN REGULAR 100 UNIT/ML SUBCUT SCH ×2 (16:03→20:39)
[2018-06-20] MEDS: amLODIPine 5 MG TABLET PO SCH ×2 (16:04→18:04)
[2018-06-20] MEDS: FLUCONAZOLE INJ 200 MG in PREMIX 1 EACH IV SCH (16:04)
[2018-06-20] MEDS: SENNA 8.6 MG TABLET PO SCH (20:39)
[2018-06-21 06:29] LABS: Basophils % 0.3 % (0.0-0.8); Eosinophils # 0.3 10*3/uL (0.0-0.87); Eosinophils % 3.3 % (0.00-10.9); Hematocrit 29.5 VOL% (42.0-52.0); Hemoglobin 9.6 GM/DL (14.0-18.0); Immature Granulocytes % 0.3 %; Immature Granulocytes Absolute 0.03 #; Lymphocytes # 1.6 10*3/uL (1.4-4.0); Mean Corpuscular HGB Conc 32.5 GM/DL (32-36); Mean Corpuscular Hemoglobin 30 PG (27-34); Mean Corpuscular Volume 92.8 FL (87-102); Mean Platelet Volume 10.8 FL (9.6-12.0); Monocytes # 0.8 10*3/uL (0.11-0.8); Neutrophils # 6.7 10*3/uL (1.4-7.4); Neutrophils % 71.1 % (38.7-73.9); Platelet Count 154 T/CUMM (130-400); Red Blood Count 3.18 MC/CUMM (3.8-5.5); Red Cell Distribution Width 13.2 % (9.3-17.3); White Blood Count 9.4 T/CUMM (4-12)
[2018-06-21 06:57] LABS: Calcium 8.7 MG/DL (8.5-10.1); Osmolality,Calculated 283.5 MOS/KG (273-304)
[2018-06-21] MEDS: INSULIN REGULAR 100 UNIT/ML SUBCUT SCH (08:16)
[2018-06-21] MEDS: MULTIVITAMIN (CENTRUM) TABLET PO SCH (09:47)
[2018-06-21] MEDS: ASPIRIN EC 81 MG TABLET PO SCH (09:47)
[2018-06-21] MEDS: GABAPENTIN 300 MG CAPSULE PO SCH (09:47)
[2018-06-21] MEDS: DULoxetine 20 MG CAPSULE PO SCH (09:47)
[2018-06-21] MEDS: BACLOFEN 10 MG TABLET PO SCH (09:47)
[2018-06-21 10:54] VITALS: BP 145/75
== END 2018-06-21 11:50 | disposition home health service (06) | DRG 698 ==
LOC: EDUNIT# → EDBD → N.ED 19:02 → N.EDINP 22:04 → SUATTDRO 22:04 → N.5E 22:48
PROVIDERS: ADMIT Internal Medicine; ATTEND Internal Medicine Geriatric Medicine

== ENCOUNTER 2020-05-12 21:24 | Inpatient (IN) ==
[2020-05-12] MEDS ORDERED: SODIUM CHLORIDE 0.9% 1,000 ML IV STA ×2 (22:01→23:37)
[2020-05-12 22:53] LABS: ABG Base Excess -2.1 MMOL/L (-2.5-2.5); ABG HCO3 22.6 MMOL/L (20-26); ABG Oxygen Saturation 95.2 % (95-100); ABG PH 7.343 (7.35-7.45); ABG PO2 77.5 MM HG (80-95); ABG TCO2 20.6 MMOL/L (23-27); Allen Test Positive
[2020-05-12 23:08] LABS: Basophils # 0.1 10*3/uL (0.0-0.2); Basophils % 0.2 % (0.0-0.8); Hematocrit 45.8 VOL% (42.0-52.0); Hemoglobin 14.6 GM/DL (14.0-18.0); Immature Granulocytes % 1.4 %; Immature Granulocytes Absolute 0.47 #; Lymphocytes # 1.3 10*3/uL (1.4-4.0); Mean Corpuscular HGB Conc 31.9 GM/DL (32-36); Mean Corpuscular Volume 97.7 FL (87-102); Mean Platelet Volume 10.4 FL (9.6-12.0); Monocytes % 9.1 % (1.7-12.7); Neutrophils % 85.3 % (38.7-73.9); Platelet Count 250 T/CUMM (130-400); Red Blood Count 4.69 MC/CUMM (3.8-5.5); Red Cell Distribution Width 14.8 % (9.3-17.3); White Blood Count 32.8 T/CUMM (4-12)
[2020-05-12 23:25] LABS: Apearance,Urine CLOUDY (Clear); Bacteria,Urine Many /HPF (Few); Bilirubin,Urine Small mg/dL (Negative); Blood, Urine Moderate mg/dL (Negative); Glucose,Urine (UA) Negative (Negative); Ketones,Urine 5 mg/dL (Negative); Nitrite,Urine Negative (Negative); Protein,Urine 100 MG/DL; RBC,Urine 118 /HPF (0-4); Squamous Epithelial Cell,Urine Occasional /HPF (0-10); Urine Color Amber (Yellow); Urine Specific Gravity 1.018 (1.001-1.035); WBC,Urine 985 /HPF (0-6)
[2020-05-12 23:36] LABS: Alanine Aminotransferase 28 U/L (16-61); Albumin 3.4 G/DL (3.4-5.0); Alkaline Phosphatase 91 U/L (45-117); Aspartate Amino Transferase 39 U/L (0-37); Blood Urea Nitrogen 35 MG/DL (7-18); Calcium 9.5 MG/DL (8.5-10.1); Estimated Glom Filtration Rate 37 ML/MIN; Ferritin 60.7 ng/ml (26-388); Glucose 220 MG/DL (74-106); Osmolality,Calculated 280.4 MOS/KG (273-304); Total Protein 8.7 G/DL (6.4-8.3)
[2020-05-12] MEDS ORDERED: PIPERACILLIN/TAZOBACTAM 3,375 MG in SODIUM CHLORIDE 0.9% 100 ML IV STA (23:37)
[2020-05-13] MEDS ORDERED: GLUCAGON 1 MG VIAL IM PRN ×2 (01:24→01:43)
[2020-05-13] MEDS ORDERED: ONDANSETRON 4 MG/2 ML VIAL IV PRN (01:24)
[2020-05-13] MEDS ORDERED: guaiFENesin/DM ER 600-30 MG TABLET PO PRN (01:24)
[2020-05-13] MEDS ORDERED: ACETAMINOPHEN 325 MG TABLET PO PRN (01:24)
[2020-05-13] MEDS ORDERED: hydrALAZINE 20 MG/1 ML VIAL IV PRN (01:24)
[2020-05-13] MEDS ORDERED: NICOTINE 21 MG/24 HR PATCH TRANSDERM PRN (01:24)
[2020-05-13] MEDS ORDERED: DOCUSATE SODIUM 100 MG CAPSULE PO PRN (01:24)
[2020-05-13] MEDS ORDERED: DEXTROSE 50% 25 GM/50 ML VIAL IV PRN ×2 (01:24→01:43)
[2020-05-13] MEDS ORDERED: AZITHROMYCIN INJ 500 MG in SODIUM CHLORIDE 0.9% 250 ML IV SCH (01:30)
[2020-05-13 03:08] LABS: Band Neutrophils 10 % (0-10); Lymphocytes 1 % (20-55); Segmented Neutrophils 81 % (50-85); Total Cells Counted 100
[2020-05-13 03:09] LABS: Anisocytosis 1+; Platelet Estimate Normal
[2020-05-13] MEDS: SODIUM CHLORIDE 0.9% 1,000 ML IV SCH ×2 (03:31→17:46)
[2020-05-13] MEDS ORDERED: VANCOMYCIN INJ 1,750 MG in SODIUM CHLORIDE 0.9% 500 ML IV ONE (04:00)
[2020-05-13 06:15] LABS: Basophils # 0.1 10*3/uL (0.0-0.2); Basophils % 0.2 % (0.0-0.8); Hematocrit 48.2 VOL% (42.0-52.0); Hemoglobin 15.1 GM/DL (14.0-18.0); Immature Granulocytes % 0.6 %; Immature Granulocytes Absolute 0.14 #; Lymphocytes # 2.4 10*3/uL (1.4-4.0); Lymphocytes % 9.8 % (21.2-54.2); Mean Corpuscular HGB Conc 31.3 GM/DL (32-36); Mean Corpuscular Volume 99.2 FL (87-102); Mean Platelet Volume 10.6 FL (9.6-12.0); Monocytes % 12.5 % (1.7-12.7); Neutrophils % 76.9 % (38.7-73.9); Platelet Count 224 T/CUMM (130-400); Red Blood Count 4.86 MC/CUMM (3.8-5.5); Red Cell Distribution Width 14.8 % (9.3-17.3); White Blood Count 24.1 T/CUMM (4-12)
[2020-05-13 06:52] LABS: Albumin 3.3 G/DL (3.4-5.0); Bilirubin,Total 0.5 MG/DL (0.2-1.0); Calcium 9.2 MG/DL (8.5-10.1); Total Protein 8.1 G/DL (6.4-8.3)
[2020-05-13 06:58] LABS: Atypical Lymphocytes Few; Band Neutrophils 9 % (0-10); Lymphocytes 14 % (20-55); Segmented Neutrophils 68 % (50-85); Total Cells Counted 100
[2020-05-13 06:59] LABS: Macrocytosis Slight; Platelet Estimate Normal
[2020-05-13] MEDS: ALBUTEROL 2.5 MG/3 ML NEB RESP TX SCH ×3 (08:10→20:12)
[2020-05-13] MEDS ORDERED: VANCOMYCIN INJ 1,750 MG in SODIUM CHLORIDE 0.9% 500 ML IV PRN (08:22)
[2020-05-13] MEDS: PANTOPRAZOLE 40 MG TABLET PO SCH ×2 (09:53→10:23)
[2020-05-13] MEDS: INSULIN LISPRO 100 UNIT/ML SUBCUT SCH ×4 (09:53→22:24)
[2020-05-13] MEDS: PIPERACILLIN/TAZOBACTAM 3,375 MG in SODIUM CHLORIDE 0.9% 100 ML IV SCH ×2 (10:14→17:18)
[2020-05-13] MEDS: HEPARIN 5,000 UNIT/1 ML VIAL SUBCUT SCH ×2 (10:14→23:10)
[2020-05-14] MEDS: ALBUTEROL 2.5 MG/3 ML NEB RESP TX SCH ×4 (00:49→20:25)
[2020-05-14] MEDS: PIPERACILLIN/TAZOBACTAM 3,375 MG in SODIUM CHLORIDE 0.9% 100 ML IV SCH ×3 (01:30→17:08)
[2020-05-14 06:30] LABS: Basophils % 0.2 % (0.0-0.8); Eosinophils % 0.1 % (0.00-10.9); Hematocrit 37.1 VOL% (42.0-52.0); Hemoglobin 11.6 GM/DL (14.0-18.0); Immature Granulocytes % 0.4 %; Immature Granulocytes Absolute 0.07 #; Lymphocytes # 2.8 10*3/uL (1.4-4.0); Lymphocytes % 17.3 % (21.2-54.2); Mean Corpuscular HGB Conc 31.3 GM/DL (32-36); Mean Corpuscular Volume 99.5 FL (87-102); Monocytes % 9.1 % (1.7-12.7); Neutrophils % 72.9 % (38.7-73.9); Platelet Count 176 T/CUMM (130-400); Red Blood Count 3.73 MC/CUMM (3.8-5.5); Red Cell Distribution Width 15.1 % (9.3-17.3); White Blood Count 16.3 T/CUMM (4-12)
[2020-05-14 06:49] LABS: Calcium 8.8 MG/DL (8.5-10.1); Osmolality,Calculated 280.8 MOS/KG (273-304)
[2020-05-14] MEDS: INSULIN LISPRO 100 UNIT/ML SUBCUT SCH ×4 (07:55→21:30)
[2020-05-14] MEDS: SODIUM CHLORIDE 0.9% 1,000 ML IV SCH ×3 (08:27→18:42)
[2020-05-14] MEDS: HEPARIN 5,000 UNIT/1 ML VIAL SUBCUT SCH ×2 (08:29→21:00)
[2020-05-14] MEDS: PANTOPRAZOLE 40 MG TABLET PO SCH (08:29)
[2020-05-14] MEDS: AZITHROMYCIN 250 MG TABLET PO SCH (08:29)
[2020-05-14] MEDS: VANCOMYCIN INJ 1,500 MG in SODIUM CHLORIDE 0.9% 500 ML IV SCH ×2 (13:40→21:02)
[2020-05-14] MEDS: MORPHINE 4 MG/1 ML VIAL IV PRN (18:20)
[2020-05-14] MEDS ORDERED: BACLOFEN 10 MG TABLET PO SCH ×2 (21:13→21:18)
[2020-05-14] MEDS: GABAPENTIN 300 MG CAPSULE PO SCH (21:33)
[2020-05-14] MEDS: BACLOFEN 10 MG TABLET PO SCH (21:42)
[2020-05-14] MEDS: diphenhydrAMINE CAP 25 MG CAPSULE PO PRN (22:03)
[2020-05-15] MEDS: ALBUTEROL 2.5 MG/3 ML NEB RESP TX SCH ×4 (00:40→19:41)
[2020-05-15] MEDS: PIPERACILLIN/TAZOBACTAM 3,375 MG in SODIUM CHLORIDE 0.9% 100 ML IV SCH ×2 (01:26→12:08)
[2020-05-15] MEDS: MORPHINE 4 MG/1 ML VIAL IV PRN ×2 (02:30→09:06)
[2020-05-15] MEDS: SODIUM CHLORIDE 0.9% 1,000 ML IV SCH ×2 (05:20→15:10)
[2020-05-15 06:12] LABS: Basophils # 0.1 10*3/uL (0.0-0.2); Basophils % 0.5 % (0.0-0.8); Eosinophils # 0.3 10*3/uL (0.0-0.87); Eosinophils % 2.9 % (0.00-10.9); Hematocrit 35.2 VOL% (42.0-52.0); Hemoglobin 11.3 GM/DL (14.0-18.0); Immature Granulocytes % 0.3 %; Immature Granulocytes Absolute 0.03 #; Lymphocytes # 2.4 10*3/uL (1.4-4.0); Lymphocytes % 26.1 % (21.2-54.2); Mean Corpuscular HGB Conc 32.1 GM/DL (32-36); Mean Corpuscular Volume 96.4 FL (87-102); Mean Platelet Volume 10.6 FL (9.6-12.0); Monocytes % 7.4 % (1.7-12.7); Neutrophils % 62.8 % (38.7-73.9); Platelet Count 155 T/CUMM (130-400); Red Blood Count 3.65 MC/CUMM (3.8-5.5); Red Cell Distribution Width 14.5 % (9.3-17.3); White Blood Count 9.2 T/CUMM (4-12)
[2020-05-15 06:28] LABS: Osmolality,Calculated 275.8 MOS/KG (273-304)
[2020-05-15] MEDS: INSULIN LISPRO 100 UNIT/ML SUBCUT SCH ×4 (08:59→20:32)
[2020-05-15] MEDS: AZITHROMYCIN 250 MG TABLET PO SCH (09:09)
[2020-05-15] MEDS: PANTOPRAZOLE 40 MG TABLET PO SCH (09:09)
[2020-05-15] MEDS: BACLOFEN 10 MG TABLET PO SCH ×3 (09:09→20:55)
[2020-05-15] MEDS: GABAPENTIN 300 MG CAPSULE PO SCH ×3 (09:09→20:55)
[2020-05-15] MEDS: HEPARIN 5,000 UNIT/1 ML VIAL SUBCUT SCH ×2 (09:10→20:43)
[2020-05-15] MEDS: VANCOMYCIN INJ 1,500 MG in SODIUM CHLORIDE 0.9% 500 ML IV SCH ×2 (09:17→20:55)
[2020-05-15] MEDS: diphenhydrAMINE CAP 25 MG CAPSULE PO PRN (09:35)
[2020-05-15] MEDS ORDERED: tiZANidine 4 MG TABLET PO PRN (09:54)
[2020-05-15] MEDS ORDERED: ERGOCALCIFEROL 50,000 UNIT CAPSULE PO SCH (10:00)
[2020-05-15] MEDS: MULTIVITAMIN (CENTRUM) TABLET PO SCH (12:07)
[2020-05-15] MEDS: DULoxetine 20 MG CAPSULE PO SCH (12:07)
[2020-05-15] MEDS: OXYBUTYNIN XL 10 MG TABLET PO SCH (12:07)
[2020-05-15] MEDS: ASPIRIN EC 81 MG TABLET PO SCH (12:08)
[2020-05-15] MEDS ORDERED: BACLOFEN 10 MG TABLET PO SCH (15:00)
[2020-05-15] MEDS ORDERED: GABAPENTIN 300 MG CAPSULE PO SCH (15:00)
[2020-05-15] MEDS: amLODIPine 10 MG TABLET PO SCH (18:18)
[2020-05-15] MEDS: ZALEPLON 5 MG CAPSULE PO PRN (22:44)
[2020-05-16] MEDS: PIPERACILLIN/TAZOBACTAM 3,375 MG in SODIUM CHLORIDE 0.9% 100 ML IV SCH ×2 (00:26→10:12)
[2020-05-16] MEDS: ALBUTEROL 2.5 MG/3 ML NEB RESP TX SCH ×4 (01:59→20:52)
[2020-05-16 06:58] LABS: Basophils % 0.6 % (0.0-0.8); Eosinophils # 0.3 10*3/uL (0.0-0.87); Hematocrit 41.9 VOL% (42.0-52.0); Hemoglobin 13.5 GM/DL (14.0-18.0); Immature Granulocytes % 0.4 %; Immature Granulocytes Absolute 0.03 #; Lymphocytes # 1.6 10*3/uL (1.4-4.0); Lymphocytes % 23.9 % (21.2-54.2); Mean Corpuscular HGB Conc 32.2 GM/DL (32-36); Mean Corpuscular Volume 95.7 FL (87-102); Mean Platelet Volume 10.2 FL (9.6-12.0); Neutrophils % 63.1 % (38.7-73.9); Platelet Count 157 T/CUMM (130-400); Red Blood Count 4.38 MC/CUMM (3.8-5.5); White Blood Count 6.8 T/CUMM (4-12)
[2020-05-16 07:14] LABS: Calcium 9.5 MG/DL (8.5-10.1); Osmolality,Calculated 281.3 MOS/KG (273-304)
[2020-05-16] MEDS: VANCOMYCIN INJ 1,500 MG in SODIUM CHLORIDE 0.9% 500 ML IV SCH (07:40)
[2020-05-16] MEDS ORDERED: ASPIRIN EC 81 MG TABLET PO SCH (09:00)
[2020-05-16] MEDS ORDERED: DULoxetine 20 MG CAPSULE PO SCH (09:00)
[2020-05-16] MEDS: INSULIN LISPRO 100 UNIT/ML SUBCUT SCH ×4 (09:28→20:50)
[2020-05-16] MEDS: HEPARIN 5,000 UNIT/1 ML VIAL SUBCUT SCH ×2 (09:29→20:49)
[2020-05-16] MEDS: MULTIVITAMIN (CENTRUM) TABLET PO SCH (09:30)
[2020-05-16] MEDS: PANTOPRAZOLE 40 MG TABLET PO SCH (09:30)
[2020-05-16] MEDS: GABAPENTIN 300 MG CAPSULE PO SCH ×3 (09:30→20:49)
[2020-05-16] MEDS: ASPIRIN EC 81 MG TABLET PO SCH (09:30)
[2020-05-16] MEDS: AZITHROMYCIN 250 MG TABLET PO SCH (09:30)
[2020-05-16] MEDS: OXYBUTYNIN XL 10 MG TABLET PO SCH (09:31)
[2020-05-16] MEDS: BACLOFEN 10 MG TABLET PO SCH ×3 (09:31→20:49)
[2020-05-16] MEDS: DULoxetine 20 MG CAPSULE PO SCH (09:31)
[2020-05-16] MEDS ORDERED: POLYVINYL ALCOHOL 1.4% OPH SOLN 15 ML BOTTLE BOTH EYES PRN (10:35)
[2020-05-16] MEDS: cefTRIAXone 1,000 MG in SYRINGE 1 EACH IV SCH (14:40)
[2020-05-16] MEDS: SODIUM CHLORIDE 0.9% 1,000 ML IV SCH ×2 (14:55→17:35)
[2020-05-16] MEDS: amLODIPine 10 MG TABLET PO SCH (18:35)
[2020-05-16] MEDS: ZALEPLON 5 MG CAPSULE PO PRN (20:48)
[2020-05-17] MEDS: ALBUTEROL 2.5 MG/3 ML NEB RESP TX SCH ×4 (01:22→19:04)
[2020-05-17] MEDS: SODIUM CHLORIDE 0.9% 1,000 ML IV SCH ×4 (02:41→22:38)
[2020-05-17 08:26] LABS: Basophils % 0.5 % (0.0-0.8); Eosinophils # 0.2 10*3/uL (0.0-0.87); Eosinophils % 3.1 % (0.00-10.9); Hematocrit 45.2 VOL% (42.0-52.0); Hemoglobin 13.9 GM/DL (14.0-18.0); Immature Granulocytes % 0.5 %; Immature Granulocytes Absolute 0.04 #; Lymphocytes # 2.5 10*3/uL (1.4-4.0); Lymphocytes % 33.6 % (21.2-54.2); Mean Corpuscular HGB Conc 30.8 GM/DL (32-36); Mean Corpuscular Volume 99.1 FL (87-102); Mean Platelet Volume 10.4 FL (9.6-12.0); Monocytes % 9.2 % (1.7-12.7); Neutrophils % 53.1 % (38.7-73.9); Platelet Count 147 T/CUMM (130-400); Red Blood Count 4.56 MC/CUMM (3.8-5.5); Red Cell Distribution Width 14.1 % (9.3-17.3); White Blood Count 7.5 T/CUMM (4-12)
[2020-05-17 08:39] LABS: Calcium 9.2 MG/DL (8.5-10.1); Osmolality,Calculated 270.1 MOS/KG (273-304)
[2020-05-17] MEDS: BACLOFEN 10 MG TABLET PO SCH ×3 (09:02→20:53)
[2020-05-17] MEDS: AZITHROMYCIN 250 MG TABLET PO SCH (09:02)
[2020-05-17] MEDS: GABAPENTIN 300 MG CAPSULE PO SCH ×3 (09:02→20:53)
[2020-05-17] MEDS: ASPIRIN EC 81 MG TABLET PO SCH (09:02)
[2020-05-17] MEDS: OXYBUTYNIN XL 10 MG TABLET PO SCH (09:02)
[2020-05-17] MEDS: DULoxetine 20 MG CAPSULE PO SCH (09:02)
[2020-05-17] MEDS: INSULIN LISPRO 100 UNIT/ML SUBCUT SCH ×4 (09:03→21:29)
[2020-05-17] MEDS: MULTIVITAMIN (CENTRUM) TABLET PO SCH (09:03)
[2020-05-17] MEDS: PANTOPRAZOLE 40 MG TABLET PO SCH (09:03)
[2020-05-17] MEDS: HEPARIN 5,000 UNIT/1 ML VIAL SUBCUT SCH ×2 (09:03→20:52)
[2020-05-17] MEDS: cefTRIAXone 1,000 MG in SYRINGE 1 EACH IV SCH (14:41)
[2020-05-17] MEDS: amLODIPine 10 MG TABLET PO SCH (18:40)
[2020-05-17] MEDS: ZALEPLON 5 MG CAPSULE PO PRN (20:52)
[2020-05-17] MEDS: MORPHINE 4 MG/1 ML VIAL IV PRN (22:04)
[2020-05-18 05:52] LABS: Basophils % 0.5 % (0.0-0.8); Eosinophils # 0.3 10*3/uL (0.0-0.87); Eosinophils % 3.6 % (0.00-10.9); Hematocrit 38.9 VOL% (42.0-52.0); Hemoglobin 12.7 GM/DL (14.0-18.0); Immature Granulocytes % 1.1 %; Immature Granulocytes Absolute 0.08 #; Lymphocytes # 2.4 10*3/uL (1.4-4.0); Lymphocytes % 31.7 % (21.2-54.2); Mean Corpuscular HGB Conc 32.6 GM/DL (32-36); Mean Corpuscular Volume 94.4 FL (87-102); Mean Platelet Volume 10.6 FL (9.6-12.0); Monocytes % 9.1 % (1.7-12.7); Platelet Count 179 T/CUMM (130-400); Red Blood Count 4.12 MC/CUMM (3.8-5.5); White Blood Count 7.6 T/CUMM (4-12)
[2020-05-18 06:20] LABS: Calcium 9.4 MG/DL (8.5-10.1); Osmolality,Calculated 274.8 MOS/KG (273-304)
[2020-05-18] MEDS: INSULIN LISPRO 100 UNIT/ML SUBCUT SCH ×2 (08:26→12:50)
[2020-05-18] MEDS: OXYBUTYNIN XL 10 MG TABLET PO SCH (09:24)
[2020-05-18] MEDS: MULTIVITAMIN (CENTRUM) TABLET PO SCH (09:24)
[2020-05-18] MEDS: BACLOFEN 10 MG TABLET PO SCH (09:25)
[2020-05-18] MEDS: GABAPENTIN 300 MG CAPSULE PO SCH (09:25)
[2020-05-18] MEDS: DULoxetine 20 MG CAPSULE PO SCH (09:25)
[2020-05-18] MEDS: PANTOPRAZOLE 40 MG TABLET PO SCH (09:26)
[2020-05-18] MEDS: HEPARIN 5,000 UNIT/1 ML VIAL SUBCUT SCH (09:26)
[2020-05-18] MEDS: ASPIRIN EC 81 MG TABLET PO SCH (09:26)
[2020-05-18 12:01] VITALS: BP 160/82
== END 2020-05-18 14:17 | disposition home health service (06) | DRG 871 ==
LOC: EDBD → EDUNIT# → N.ED 21:24 → SUATTDRO 05-13 01:24 → N.EDINP 05-13 01:24 → N.TELEN 05-13 04:58
PROVIDERS: ADMIT Internal Medicine Geriatric Medicine; ATTEND Internal Medicine

== ENCOUNTER 2020-05-31 21:12 | Inpatient (IN) ==
[2020-05-31 22:45] LABS: Basophils # 0.1 10*3/uL (0.0-0.2); Basophils % 0.7 % (0.0-0.8); Eosinophils # 0.3 10*3/uL (0.0-0.87); Eosinophils % 2.7 % (0.00-10.9); Hematocrit 42.8 VOL% (42.0-52.0); Hemoglobin 13.7 GM/DL (14.0-18.0); Immature Granulocytes % 0.4 %; Immature Granulocytes Absolute 0.04 #; Lymphocytes # 3.1 10*3/uL (1.4-4.0); Lymphocytes % 34.1 % (21.2-54.2); Mean Corpuscular Volume 97.5 FL (87-102); Mean Platelet Volume 10.4 FL (9.6-12.0); Monocytes % 11.8 % (1.7-12.7); Neutrophils % 50.3 % (38.7-73.9); Platelet Count 206 T/CUMM (130-400); Red Blood Count 4.39 MC/CUMM (3.8-5.5); Red Cell Distribution Width 14.5 % (9.3-17.3); White Blood Count 9.2 T/CUMM (4-12)
[2020-05-31 23:15] LABS: Albumin 3.5 G/DL (3.4-5.0); Bilirubin,Total 0.4 MG/DL (0.2-1.0); Calcium 9.5 MG/DL (8.5-10.1); Osmolality,Calculated 278.1 MOS/KG (273-304)
[2020-05-31 23:19] LABS: Apearance,Urine CLOUDY (Clear); Bacteria,Urine Many /HPF (Few); Bilirubin,Urine Negative (Negative); Blood, Urine Large mg/dL (Negative); Glucose,Urine (UA) Negative (Negative); Ketones,Urine Negative (Negative); Mucus,Urine Occasional /LPF (Occasional); Nitrite,Urine Negative (Negative); Protein,Urine 30 MG/DL; RBC,Urine 219 /HPF (0-4); Urine Color Yellow (Yellow); Urine Specific Gravity 1.011 (1.001-1.035); Urine Urobilinogen < 2.0 EU/DL (0.2-1.0); WBC,Urine 731 /HPF (0-6)
[2020-05-31] MEDS ORDERED: MEROPENEM 1,000 MG in SODIUM CHLORIDE 0.9% 100 ML IV ONE (23:39)
[2020-06-01] MEDS ORDERED: GLUCAGON 1 MG VIAL IM PRN (00:34)
[2020-06-01] MEDS ORDERED: ONDANSETRON 4 MG/2 ML VIAL IV PRN (00:34)
[2020-06-01] MEDS ORDERED: DEXTROSE 50% 25 GM/50 ML VIAL IV PRN (00:34)
[2020-06-01] MEDS ORDERED: BISACODYL 5 MG TABLET PO PRN (00:34)
[2020-06-01] MEDS ORDERED: ALPRAZolam 0.5 MG TABLET PO PRN (00:46)
[2020-06-01] MEDS ORDERED: tiZANidine 4 MG TABLET PO PRN (00:46)
[2020-06-01] MEDS ORDERED: MEROPENEM 500 MG in SODIUM CHLORIDE 0.9% 100 ML IV SCH (01:00)
[2020-06-01] MEDS: SODIUM CHLORIDE 0.9% 1,000 ML IV SCH ×3 (03:02→21:07)
[2020-06-01] MEDS: MEROPENEM 500 MG in SODIUM CHLORIDE 0.9% 100 ML IV SCH ×3 (05:42→18:42)
[2020-06-01] MEDS: ENOXAPARIN 40 MG/0.4 ML SYRINGE SUBCUT SCH (05:44)
[2020-06-01] MEDS ORDERED: INSULIN LISPRO 100 UNIT/ML SUBCUT SCH (07:30)
[2020-06-01 07:33] LABS: Basophils # 0.1 10*3/uL (0.0-0.2); Basophils % 0.7 % (0.0-0.8); Eosinophils # 0.3 10*3/uL (0.0-0.87); Eosinophils % 3.1 % (0.00-10.9); Hematocrit 41.9 VOL% (42.0-52.0); Hemoglobin 13.4 GM/DL (14.0-18.0); Immature Granulocytes % 0.2 %; Immature Granulocytes Absolute 0.02 #; Lymphocytes # 2.7 10*3/uL (1.4-4.0); Lymphocytes % 32.8 % (21.2-54.2); Mean Corpuscular Volume 97.4 FL (87-102); Mean Platelet Volume 10.5 FL (9.6-12.0); Monocytes % 13.3 % (1.7-12.7); Neutrophils % 49.9 % (38.7-73.9); Platelet Count 189 T/CUMM (130-400); Red Cell Distribution Width 14.5 % (9.3-17.3); White Blood Count 8.4 T/CUMM (4-12)
[2020-06-01 07:57] LABS: Calcium 9.5 MG/DL (8.5-10.1); Osmolality,Calculated 271.5 MOS/KG (273-304)
[2020-06-01] MEDS: GABAPENTIN 300 MG CAPSULE PO SCH ×3 (09:15→20:27)
[2020-06-01] MEDS: ASPIRIN EC 81 MG TABLET PO SCH (09:15)
[2020-06-01] MEDS: DULoxetine 20 MG CAPSULE PO SCH (09:15)
[2020-06-01] MEDS: BACLOFEN 10 MG TABLET PO SCH ×3 (09:15→20:27)
[2020-06-01] MEDS: OXYBUTYNIN XL 10 MG TABLET PO SCH (09:15)
[2020-06-01] MEDS: MULTIVITAMIN (CENTRUM) TABLET PO SCH (09:15)
[2020-06-01] MEDS: PANTOPRAZOLE 40 MG TABLET PO SCH (12:28)
[2020-06-01] MEDS ORDERED: MINERAL OIL ENEMA 133 ML BOTTLE RECTAL PRN (15:30)
[2020-06-01] MEDS: LACTULOSE 20 GM/30 ML UDCUP PO PRN (18:42)
[2020-06-01] MEDS: amLODIPine 5 MG TABLET PO SCH (18:42)
[2020-06-01] MEDS: ACETAMINOPHEN 325 MG TABLET PO PRN (20:27)
[2020-06-02] MEDS: MEROPENEM 500 MG in SODIUM CHLORIDE 0.9% 100 ML IV SCH ×4 (01:13→18:45)
[2020-06-02 04:34] LABS: Basophils % 0.5 % (0.0-0.8); Eosinophils # 0.2 10*3/uL (0.0-0.87); Eosinophils % 2.7 % (0.00-10.9); Hematocrit 41.4 VOL% (42.0-52.0); Hemoglobin 13.1 GM/DL (14.0-18.0); Immature Granulocytes % 0.3 %; Immature Granulocytes Absolute 0.02 #; Lymphocytes # 2.1 10*3/uL (1.4-4.0); Lymphocytes % 34.3 % (21.2-54.2); Mean Corpuscular HGB Conc 31.6 GM/DL (32-36); Mean Corpuscular Volume 96.5 FL (87-102); Mean Platelet Volume 10.6 FL (9.6-12.0); Monocytes % 11.9 % (1.7-12.7); Neutrophils % 50.3 % (38.7-73.9); Platelet Count 174 T/CUMM (130-400); Red Blood Count 4.29 MC/CUMM (3.8-5.5); Red Cell Distribution Width 14.5 % (9.3-17.3)
[2020-06-02 04:53] LABS: Calcium 9.1 MG/DL (8.5-10.1); Osmolality,Calculated 277.8 MOS/KG (273-304)
[2020-06-02] MEDS: SODIUM CHLORIDE 0.9% 1,000 ML IV SCH ×2 (05:48→15:08)
[2020-06-02] MEDS: ENOXAPARIN 40 MG/0.4 ML SYRINGE SUBCUT SCH (05:49)
[2020-06-02] MEDS: DULoxetine 20 MG CAPSULE PO SCH (09:43)
[2020-06-02] MEDS: MULTIVITAMIN (CENTRUM) TABLET PO SCH (09:43)
[2020-06-02] MEDS: BACLOFEN 10 MG TABLET PO SCH ×3 (09:44→21:53)
[2020-06-02] MEDS: ASPIRIN EC 81 MG TABLET PO SCH (09:44)
[2020-06-02] MEDS: OXYBUTYNIN XL 10 MG TABLET PO SCH (09:44)
[2020-06-02] MEDS: GABAPENTIN 300 MG CAPSULE PO SCH ×3 (10:46→21:53)
[2020-06-02] MEDS: PANTOPRAZOLE 40 MG TABLET PO SCH (11:19)
[2020-06-02] MEDS: hydrOXYzine HCL 25 MG TABLET PO PRN (14:30)
[2020-06-02] MEDS: LACTULOSE 20 GM/30 ML UDCUP PO PRN (18:45)
[2020-06-02] MEDS: amLODIPine 5 MG TABLET PO SCH (18:45)
[2020-06-03] MEDS: MEROPENEM 500 MG in SODIUM CHLORIDE 0.9% 100 ML IV SCH ×4 (01:00→19:10)
[2020-06-03] MEDS: SODIUM CHLORIDE 0.9% 1,000 ML IV SCH ×2 (01:01→14:38)
[2020-06-03] MEDS: ENOXAPARIN 40 MG/0.4 ML SYRINGE SUBCUT SCH (05:37)
[2020-06-03 05:44] LABS: Basophils # 0.1 10*3/uL (0.0-0.2); Basophils % 0.7 % (0.0-0.8); Eosinophils # 0.2 10*3/uL (0.0-0.87); Hematocrit 40.9 VOL% (42.0-52.0); Hemoglobin 13.1 GM/DL (14.0-18.0); Immature Granulocytes % 0.1 %; Immature Granulocytes Absolute 0.01 #; Lymphocytes # 2.5 10*3/uL (1.4-4.0); Lymphocytes % 36.2 % (21.2-54.2); Mean Corpuscular Volume 96.9 FL (87-102); Mean Platelet Volume 10.7 FL (9.6-12.0); Monocytes % 13.6 % (1.7-12.7); Neutrophils % 46.4 % (38.7-73.9); Platelet Count 183 T/CUMM (130-400); Red Blood Count 4.22 MC/CUMM (3.8-5.5); Red Cell Distribution Width 14.5 % (9.3-17.3)
[2020-06-03 07:01] LABS: Calcium 9.1 MG/DL (8.5-10.1); Osmolality,Calculated 280.4 MOS/KG (273-304)
[2020-06-03] MEDS: MULTIVITAMIN (CENTRUM) TABLET PO SCH (09:41)
[2020-06-03] MEDS: LACTULOSE 20 GM/30 ML UDCUP PO SCH ×2 (09:41→12:37)
[2020-06-03] MEDS: GABAPENTIN 300 MG CAPSULE PO SCH ×3 (09:41→21:50)
[2020-06-03] MEDS: DULoxetine 20 MG CAPSULE PO SCH (09:41)
[2020-06-03] MEDS: OXYBUTYNIN XL 10 MG TABLET PO SCH (09:42)
[2020-06-03] MEDS: ASPIRIN EC 81 MG TABLET PO SCH (09:42)
[2020-06-03] MEDS: BACLOFEN 10 MG TABLET PO SCH ×3 (09:42→21:50)
[2020-06-03] MEDS: hydrOXYzine HCL 25 MG TABLET PO PRN (10:29)
[2020-06-03] MEDS ORDERED: MAGNESIUM HYDROXIDE SUSP 30 ML UDCUP PO ONE (11:04)
[2020-06-03] MEDS ORDERED: LACTULOSE 20 GM/30 ML UDCUP PO PRN (11:07)
[2020-06-03] MEDS: LINACLOTIDE 145 MCG CAPSULE PO SCH (12:57)
[2020-06-03] MEDS: PANTOPRAZOLE 40 MG TABLET PO SCH (12:58)
[2020-06-03] MEDS: ACETAMINOPHEN 325 MG TABLET PO PRN (14:53)
[2020-06-03] MEDS ORDERED: MINERAL OIL ENEMA 133 ML BOTTLE RECTAL ONE (17:36)
[2020-06-03] MEDS: amLODIPine 5 MG TABLET PO SCH (19:10)
[2020-06-04] MEDS: MEROPENEM 500 MG in SODIUM CHLORIDE 0.9% 100 ML IV SCH ×2 (04:43→09:29)
[2020-06-04] MEDS: ENOXAPARIN 40 MG/0.4 ML SYRINGE SUBCUT SCH (06:33)
[2020-06-04 06:48] LABS: Calcium 8.7 MG/DL (8.5-10.1); Osmolality,Calculated 273.8 MOS/KG (273-304)
[2020-06-04 06:53] LABS: Alanine Aminotransferase 22 U/L (16-61); Albumin 3.1 G/DL (3.4-5.0); Alkaline Phosphatase 79 U/L (45-117); Aspartate Amino Transferase 22 U/L (0-37); Bilirubin,Direct < 0.100 MG/DL (0.0-0.20); Bilirubin,Indirect 0.3 MG/DL (0.0-1.0); Total Protein 7.5 G/DL (6.4-8.3)
[2020-06-04 08:47] LABS: Basophils # 0.1 10*3/uL (0.0-0.2); Basophils % 0.8 % (0.0-0.8); Eosinophils # 0.3 10*3/uL (0.0-0.87); Eosinophils % 4.6 % (0.00-10.9); Hematocrit 41.3 VOL% (42.0-52.0); Hemoglobin 13.2 GM/DL (14.0-18.0); Immature Granulocytes % 0.3 %; Immature Granulocytes Absolute 0.02 #; Lymphocytes # 2.8 10*3/uL (1.4-4.0); Lymphocytes % 42.7 % (21.2-54.2); Mean Corpuscular Volume 96.7 FL (87-102); Mean Platelet Volume 11.2 FL (9.6-12.0); Monocytes % 13.2 % (1.7-12.7); Neutrophils % 38.4 % (38.7-73.9); Platelet Count 157 T/CUMM (130-400); Red Blood Count 4.27 MC/CUMM (3.8-5.5); Red Cell Distribution Width 14.1 % (9.3-17.3); White Blood Count 6.6 T/CUMM (4-12)
[2020-06-04] MEDS ORDERED: FOSFOMYCIN 3 GM PACK PO ONE (08:56)
[2020-06-04 09:16] LABS: Atypical Lymphocytes Few; Eosinophils 3 % (0-10); Hypochromasia 1+; Lymphocytes 52 % (20-55); Microcytosis 1+; Platelet Estimate Adequate; Segmented Neutrophils 34 % (50-85); Total Cells Counted 100
[2020-06-04] MEDS: GABAPENTIN 300 MG CAPSULE PO SCH ×2 (09:29→14:56)
[2020-06-04] MEDS: BACLOFEN 10 MG TABLET PO SCH ×2 (09:29→14:56)
[2020-06-04] MEDS: DULoxetine 20 MG CAPSULE PO SCH (09:29)
[2020-06-04] MEDS: MULTIVITAMIN (CENTRUM) TABLET PO SCH (09:29)
[2020-06-04] MEDS: ASPIRIN EC 81 MG TABLET PO SCH (09:29)
[2020-06-04] MEDS: LINACLOTIDE 145 MCG CAPSULE PO SCH (09:29)
[2020-06-04] MEDS: OXYBUTYNIN XL 10 MG TABLET PO SCH (09:29)
[2020-06-04] MEDS ORDERED: POLYETHYLENE GLYCOL POWDER 17 GM PACK PO PRN (10:45)
[2020-06-04] MEDS: PANTOPRAZOLE 40 MG TABLET PO SCH (11:14)
[2020-06-04 11:49] VITALS: BP 144/67
[2020-06-04] MEDS ORDERED: DOCUSATE SODIUM 100 MG CAPSULE PO SCH (21:00)
[2020-06-08] MEDS ORDERED: ERGOCALCIFEROL 50,000 UNIT CAPSULE PO SCH (09:00)
== END 2020-06-04 14:40 | disposition home or self-care (01) | DRG 388 ==
LOC: N.EDINP 21:12 → N.ED 21:12 → SUATTDRO 06-01 00:18 → N.EDINP 06-01 01:45 → N.3E 06-01 02:20
PROVIDERS: ADMIT Internal Medicine; ATTEND Hospitalist

== ENCOUNTER 2021-07-15 10:23 | Inpatient (IN) ==
[2021-07-15] MEDS ORDERED: PHENYLEPHRINE 0.5% NASAL SPRAY 15 ML BOTTLE BOTH NARES STA (11:05)
[2021-07-15] MEDS ORDERED: cefTRIAXone 1,000 MG in SODIUM CHLORIDE 0.9% 100 ML IV STA (11:42)
[2021-07-15 12:01] LABS: Basophils # 0.1 10*3/uL (0.0-0.2); Basophils % 0.3 % (0.0-0.8); Eosinophils # 0.1 10*3/uL (0.0-0.87); Eosinophils % 0.3 % (0.00-10.9); Hematocrit 35.7 VOL% (42.0-52.0); Immature Granulocytes % 0.6 %; Immature Granulocytes Absolute 0.12 #; Lymphocytes # 1.7 10*3/uL (1.4-4.0); Lymphocytes % 8.8 % (21.2-54.2); Mean Corpuscular HGB Conc 30.8 GM/DL (32-36); Mean Corpuscular Volume 93.5 FL (87-102); Mean Platelet Volume 9.8 FL (9.6-12.0); Monocytes % 8.2 % (1.7-12.7); Neutrophils % 81.8 % (38.7-73.9); Platelet Count 300 T/CUMM (130-400); Red Blood Count 3.82 MC/CUMM (3.8-5.5); Red Cell Distribution Width 15.3 % (9.3-17.3); White Blood Count 19.8 T/CUMM (4-12)
[2021-07-15 12:23] LABS: Bacteria,Urine Occasional /HPF (Few); Bilirubin,Urine Negative (Negative); Blood, Urine Small mg/dL (Negative); Glucose,Urine (UA) Negative (Negative); Ketones,Urine 5 mg/dL (Negative); Mucus,Urine Occasional /LPF (Occasional); Nitrite,Urine Negative (Negative); Protein,Urine 100 MG/DL; RBC,Urine 9 /HPF (0-4); Squamous Epithelial Cell,Urine Occasional /HPF (0-10); Urine Appearance CLOUDY (Clear); Urine Color Yellow (Yellow); Urine Specific Gravity 1.011 (1.001-1.035); Urine Urobilinogen < 2.0 EU/DL (0.2-1.0)
[2021-07-15] MEDS ORDERED: DEXTROSE 50% 25 GM/50 ML VIAL IV PRN (14:12)
[2021-07-15] MEDS ORDERED: guaiFENesin/DM ER 600-30 MG TABLET PO PRN (14:12)
[2021-07-15] MEDS ORDERED: GLUCAGON 1 MG VIAL IM PRN (14:12)
[2021-07-15] MEDS ORDERED: ONDANSETRON 4 MG/2 ML VIAL IV PRN (14:12)
[2021-07-15 14:42] LABS: Albumin 2.7 G/DL (3.4-5.0); Bilirubin,Total 0.4 MG/DL (0.20-1.00); Calcium 9.1 MG/DL (8.5-10.1); Osmolality,Calculated 268.4 MOS/KG (273-304); Potassium 3.1 MMOL/L (3.5-5.1); Total Protein 8.7 G/DL (6.4-8.2)
[2021-07-15] MEDS: SODIUM CHLORIDE 0.9% 1,000 ML IV SCH (15:07)
[2021-07-15] MEDS: CEFEPIME 2,000 MG in SODIUM CHLORIDE 0.9% 100 ML IV SCH ×2 (15:55→23:54)
[2021-07-15] MEDS: ENOXAPARIN 30 MG/0.3 ML SYRINGE SUBCUT SCH (15:56)
[2021-07-15] MEDS: ACETAMINOPHEN 325 MG TABLET PO PRN (17:09)
[2021-07-15] MEDS: ALBUTEROL/IPRATROPIUM 3 ML NEB RESP TX SCH (19:20)
[2021-07-15] MEDS: TEMAZEPAM 15 MG CAPSULE PO SCH (22:17)
[2021-07-15] MEDS: PANTOPRAZOLE 40 MG TABLET PO SCH (22:17)
[2021-07-15] MEDS: GABAPENTIN 600 MG TABLET PO SCH (22:18)
[2021-07-15] MEDS: BACLOFEN 10 MG TABLET PO SCH (22:18)
[2021-07-16] MEDS: SODIUM CHLORIDE 0.9% 1,000 ML IV SCH ×2 (00:30→15:59)
[2021-07-16] MEDS: ALBUTEROL/IPRATROPIUM 3 ML NEB RESP TX SCH ×4 (01:12→20:00)
[2021-07-16] MEDS: CEFEPIME 1,000 MG in SODIUM CHLORIDE 0.9% 100 ML IV SCH ×5 (05:13→23:57)
[2021-07-16 05:55] LABS: Basophils # 0.1 10*3/uL (0.0-0.2); Basophils % 0.4 % (0.0-0.8); Eosinophils # 0.1 10*3/uL (0.0-0.87); Eosinophils % 0.7 % (0.00-10.9); Hematocrit 30.7 VOL% (42.0-52.0); Hemoglobin 9.3 GM/DL (14.0-18.0); Immature Granulocytes % 0.4 %; Immature Granulocytes Absolute 0.06 #; Lymphocytes # 2.4 10*3/uL (1.4-4.0); Lymphocytes % 17.7 % (21.2-54.2); Mean Corpuscular HGB Conc 30.3 GM/DL (32-36); Mean Corpuscular Volume 95.3 FL (87-102); Monocytes % 8.2 % (1.7-12.7); Neutrophils % 72.6 % (38.7-73.9); Platelet Count 264 T/CUMM (130-400); Red Blood Count 3.22 MC/CUMM (3.8-5.5); Red Cell Distribution Width 15.5 % (9.3-17.3); White Blood Count 13.6 T/CUMM (4-12)
[2021-07-16 06:39] LABS: Alanine Aminotransferase < 9 U/L (16-61); Albumin 2.3 G/DL (3.4-5.0); Alkaline Phosphatase 78 U/L (45-117); Aspartate Amino Transferase 13 U/L (0-37); Blood Urea Nitrogen 20 MG/DL (7-18); Calcium 8.7 MG/DL (8.5-10.1); Carbon Dioxide 26 MMOL/L (21-32); Estimated Glom Filtration Rate 85 ML/MIN; Glucose 95 MG/DL (74-106); Osmolality,Calculated 275.8 MOS/KG (273-304); Potassium 2.9 MMOL/L (3.5-5.1); Sodium 137 MMOL/L (136-145); Total Protein 7.6 G/DL (6.4-8.2)
[2021-07-16] MEDS ORDERED: POTASSIUM CHLORIDE 20 MEQ TABLET PO ONE (07:24)
[2021-07-16] MEDS: OXYBUTYNIN XL 5 MG TABLET PO SCH (10:55)
[2021-07-16] MEDS: CHOLECALCIFEROL 1,000 UNIT TABLET PO SCH (10:55)
[2021-07-16] MEDS: MULTIVITAMIN (CENTRUM) TABLET PO SCH (10:55)
[2021-07-16] MEDS: GABAPENTIN 600 MG TABLET PO SCH ×2 (10:55→20:27)
[2021-07-16] MEDS: SENNA 8.6 MG TABLET PO SCH (10:56)
[2021-07-16] MEDS: ASPIRIN EC 81 MG TABLET PO SCH (10:56)
[2021-07-16] MEDS: PANTOPRAZOLE 40 MG TABLET PO SCH ×2 (10:56→20:27)
[2021-07-16] MEDS: DULoxetine 20 MG CAPSULE PO SCH (10:57)
[2021-07-16] MEDS: BACLOFEN 10 MG TABLET PO SCH ×3 (10:57→20:27)
[2021-07-16] MEDS: amLODIPine 5 MG TABLET PO SCH (10:57)
[2021-07-16] MEDS ORDERED: INFLUENZA VIRUS VACCINE 0.5 ML SYRINGE IM ONE (15:35)
[2021-07-16] MEDS: LINACLOTIDE 145 MCG CAPSULE PO SCH (15:48)
[2021-07-16] MEDS: ENOXAPARIN 30 MG/0.3 ML SYRINGE SUBCUT SCH (15:49)
[2021-07-16] MEDS: TEMAZEPAM 15 MG CAPSULE PO SCH (20:27)
[2021-07-17] MEDS: ALBUTEROL/IPRATROPIUM 3 ML NEB RESP TX SCH ×4 (01:41→19:23)
[2021-07-17] MEDS: SODIUM CHLORIDE 0.9% 1,000 ML IV SCH (03:53)
[2021-07-17] MEDS: CEFEPIME 1,000 MG in SODIUM CHLORIDE 0.9% 100 ML IV SCH ×3 (06:10→17:59)
[2021-07-17] MEDS: LINACLOTIDE 145 MCG CAPSULE PO SCH (08:00)
[2021-07-17 08:34] LABS: Basophils % 0.3 % (0.0-0.8); Eosinophils # 0.2 10*3/uL (0.0-0.87); Eosinophils % 1.5 % (0.00-10.9); Hematocrit 30.2 VOL% (42.0-52.0); Immature Granulocytes % 0.4 %; Immature Granulocytes Absolute 0.05 #; Lymphocytes # 2.4 10*3/uL (1.4-4.0); Lymphocytes % 20.8 % (21.2-54.2); Mean Corpuscular HGB Conc 29.8 GM/DL (32-36); Mean Corpuscular Volume 96.5 FL (87-102); Mean Platelet Volume 10.1 FL (9.6-12.0); Monocytes % 11.4 % (1.7-12.7); Neutrophils % 65.6 % (38.7-73.9); Platelet Count 251 T/CUMM (130-400); Red Blood Count 3.13 MC/CUMM (3.8-5.5); Red Cell Distribution Width 15.9 % (9.3-17.3); White Blood Count 11.5 T/CUMM (4-12)
[2021-07-17 08:50] LABS: Calcium 8.4 MG/DL (8.5-10.1); Osmolality,Calculated 275.8 MOS/KG (273-304); Potassium 3.5 MMOL/L (3.5-5.1)
[2021-07-17] MEDS: OXYBUTYNIN XL 5 MG TABLET PO SCH (09:05)
[2021-07-17] MEDS: GABAPENTIN 600 MG TABLET PO SCH ×2 (09:05→21:05)
[2021-07-17] MEDS: MULTIVITAMIN (CENTRUM) TABLET PO SCH (09:05)
[2021-07-17] MEDS: ASPIRIN EC 81 MG TABLET PO SCH (09:05)
[2021-07-17] MEDS: BACLOFEN 10 MG TABLET PO SCH ×3 (09:05→21:04)
[2021-07-17] MEDS: CHOLECALCIFEROL 1,000 UNIT TABLET PO SCH (09:06)
[2021-07-17] MEDS: amLODIPine 5 MG TABLET PO SCH (09:06)
[2021-07-17] MEDS: DULoxetine 20 MG CAPSULE PO SCH (09:06)
[2021-07-17] MEDS: PANTOPRAZOLE 40 MG TABLET PO SCH ×2 (09:06→21:04)
[2021-07-17] MEDS: SENNA 8.6 MG TABLET PO SCH (09:06)
[2021-07-17] MEDS: ACETAMINOPHEN 325 MG TABLET PO PRN (09:07)
[2021-07-17] MEDS ORDERED: VANCOMYCIN INJ 1,000 MG in SODIUM CHLORIDE 0.9% 250 ML IV SCH (10:00)
[2021-07-17] MEDS: MICAFUNGIN 100 MG in SODIUM CHLORIDE 0.9% 100 ML IV SCH (12:42)
[2021-07-17] MEDS: POTASSIUM CHLORIDE 20 MEQ TABLET PO PRN (12:42)
[2021-07-17] MEDS: VANCOMYCIN INJ 1,250 MG in SODIUM CHLORIDE 0.9% 250 ML IV SCH (13:48)
[2021-07-17] MEDS: ENOXAPARIN 30 MG/0.3 ML SYRINGE SUBCUT SCH (15:31)
[2021-07-17] MEDS: TEMAZEPAM 15 MG CAPSULE PO SCH (21:04)
[2021-07-18] MEDS: SODIUM CHLORIDE 0.9% 1,000 ML IV SCH ×3 (00:19→14:55)
[2021-07-18] MEDS: CEFEPIME 1,000 MG in SODIUM CHLORIDE 0.9% 100 ML IV SCH ×3 (00:20→12:13)
[2021-07-18] MEDS: VANCOMYCIN INJ 1,250 MG in SODIUM CHLORIDE 0.9% 250 ML IV SCH (00:20)
[2021-07-18] MEDS: ALBUTEROL/IPRATROPIUM 3 ML NEB RESP TX SCH ×4 (00:39→19:10)
[2021-07-18 07:38] LABS: Basophils % 0.2 % (0.0-0.8); Eosinophils # 0.2 10*3/uL (0.0-0.87); Eosinophils % 2.7 % (0.00-10.9); Hematocrit 37.5 VOL% (42.0-52.0); Immature Granulocytes % 0.3 %; Immature Granulocytes Absolute 0.03 #; Lymphocytes # 0.9 10*3/uL (1.4-4.0); Mean Corpuscular HGB Conc 29.9 GM/DL (32-36); Mean Corpuscular Volume 98.2 FL (87-102); Mean Platelet Volume 10.8 FL (9.6-12.0); Neutrophils % 76.8 % (38.7-73.9); Red Cell Distribution Width 15.9 % (9.3-17.3)
[2021-07-18 07:39] LABS: Red Blood Count 3.82 MC/CUMM (3.8-5.5)
[2021-07-18 07:40] LABS: Hemoglobin 11.2 GM/DL (14.0-18.0); Platelet Count 199 T/CUMM (130-400)
[2021-07-18 07:47] LABS: Calcium 8.5 MG/DL (8.5-10.1); Osmolality,Calculated 274.8 MOS/KG (273-304); Potassium 3.5 MMOL/L (3.5-5.1)
[2021-07-18] MEDS: ACETAMINOPHEN 325 MG TABLET PO PRN (07:48)
[2021-07-18] MEDS: LINACLOTIDE 145 MCG CAPSULE PO SCH (07:48)
[2021-07-18] MEDS: SENNA 8.6 MG TABLET PO SCH (08:53)
[2021-07-18] MEDS: CHOLECALCIFEROL 1,000 UNIT TABLET PO SCH (08:53)
[2021-07-18] MEDS: MULTIVITAMIN (CENTRUM) TABLET PO SCH (08:54)
[2021-07-18] MEDS: PANTOPRAZOLE 40 MG TABLET PO SCH ×2 (08:54→21:04)
[2021-07-18] MEDS: OXYBUTYNIN XL 5 MG TABLET PO SCH (08:54)
[2021-07-18] MEDS: GABAPENTIN 600 MG TABLET PO SCH ×2 (08:54→21:04)
[2021-07-18] MEDS: DULoxetine 20 MG CAPSULE PO SCH (08:54)
[2021-07-18] MEDS: amLODIPine 5 MG TABLET PO SCH (08:54)
[2021-07-18] MEDS: BACLOFEN 10 MG TABLET PO SCH ×3 (08:54→21:04)
[2021-07-18] MEDS: ASPIRIN EC 81 MG TABLET PO SCH (08:54)
[2021-07-18] MEDS: ENOXAPARIN 30 MG/0.3 ML SYRINGE SUBCUT SCH (14:55)
[2021-07-18] MEDS: CEFEPIME 2,000 MG in SODIUM CHLORIDE 0.9% 100 ML IV SCH (17:12)
[2021-07-18] MEDS: MICAFUNGIN 100 MG in SODIUM CHLORIDE 0.9% 100 ML IV SCH (17:25)
[2021-07-18] MEDS ORDERED: VANCOMYCIN INJ 1,250 MG in SODIUM CHLORIDE 0.9% 250 ML IV SCH (18:00)
[2021-07-18] MEDS: TEMAZEPAM 15 MG CAPSULE PO SCH (21:04)
[2021-07-19] MEDS: ALBUTEROL/IPRATROPIUM 3 ML NEB RESP TX SCH ×4 (01:00→19:27)
[2021-07-19] MEDS: CEFEPIME 2,000 MG in SODIUM CHLORIDE 0.9% 100 ML IV SCH ×3 (01:16→18:24)
[2021-07-19 01:36] LABS: ABG Base Excess -2.7 MMOL/L (-2.5-2.5); ABG HCO3 22.2 MMOL/L (20-26); ABG Oxygen Saturation 99.3 % (95-100); ABG PH 7.264 (7.35-7.45); ABG TCO2 23.1 MMOL/L (23-27)
[2021-07-19 04:12] LABS: Calcium 8.6 MG/DL (8.5-10.1); Osmolality,Calculated 279.5 MOS/KG (273-304); Potassium 3.3 MMOL/L (3.5-5.1)
[2021-07-19 04:27] LABS: Basophils % 0.3 % (0.0-0.8); Eosinophils # 0.3 10*3/uL (0.0-0.87); Eosinophils % 3.3 % (0.00-10.9); Hematocrit 33.2 VOL% (42.0-52.0); Hemoglobin 9.5 GM/DL (14.0-18.0); Immature Granulocytes % 0.2 %; Immature Granulocytes Absolute 0.02 #; Lymphocytes # 1.3 10*3/uL (1.4-4.0); Lymphocytes % 13.7 % (21.2-54.2); Mean Corpuscular HGB Conc 28.6 GM/DL (32-36); Mean Corpuscular Volume 101.2 FL (87-102); Mean Platelet Volume 10.9 FL (9.6-12.0); Monocytes % 11.4 % (1.7-12.7); Neutrophils % 71.1 % (38.7-73.9); Platelet Count 241 T/CUMM (130-400); Red Blood Count 3.28 MC/CUMM (3.8-5.5); Red Cell Distribution Width 15.5 % (9.3-17.3); White Blood Count 9.1 T/CUMM (4-12)
[2021-07-19 04:41] LABS: Hypochromasia 2+; Microcytosis 1+; Platelet Estimate Adequate
[2021-07-19 09:37] LABS: ABG Base Excess -1.2 MMOL/L (-2.5-2.5); ABG HCO3 23.4 MMOL/L (20-26); ABG Oxygen Saturation 94.7 % (95-100); ABG PH 7.308 (7.35-7.45); ABG PO2 71.1 MM HG (80-95); ABG TCO2 23.6 MMOL/L (23-27)
[2021-07-19] MEDS: SENNA 8.6 MG TABLET PO SCH (10:00)
[2021-07-19] MEDS: GABAPENTIN 600 MG TABLET PO SCH ×2 (10:00→22:02)
[2021-07-19] MEDS: CHOLECALCIFEROL 1,000 UNIT TABLET PO SCH (10:00)
[2021-07-19] MEDS: DULoxetine 20 MG CAPSULE PO SCH (10:01)
[2021-07-19] MEDS: BACLOFEN 10 MG TABLET PO SCH ×3 (10:01→22:01)
[2021-07-19] MEDS: PANTOPRAZOLE 40 MG TABLET PO SCH ×2 (10:01→22:01)
[2021-07-19] MEDS: ASPIRIN EC 81 MG TABLET PO SCH (10:02)
[2021-07-19] MEDS: MULTIVITAMIN (CENTRUM) TABLET PO SCH (10:02)
[2021-07-19] MEDS: amLODIPine 5 MG TABLET PO SCH (10:02)
[2021-07-19] MEDS: LINACLOTIDE 145 MCG CAPSULE PO SCH (10:04)
[2021-07-19] MEDS: OXYBUTYNIN XL 5 MG TABLET PO SCH (10:04)
[2021-07-19] MEDS: MICAFUNGIN 100 MG in SODIUM CHLORIDE 0.9% 100 ML IV SCH (11:49)
[2021-07-19] MEDS: SODIUM CHLORIDE 0.9% 1,000 ML IV SCH (11:55)
[2021-07-19] MEDS: ENOXAPARIN 30 MG/0.3 ML SYRINGE SUBCUT SCH (16:41)
[2021-07-19] MEDS: POTASSIUM CHLORIDE RIDER 10 MEQ/100 ML PREMIX IV PRN (16:42)
[2021-07-19] MEDS: TEMAZEPAM 15 MG CAPSULE PO SCH (22:02)
[2021-07-20] MEDS: ALBUTEROL/IPRATROPIUM 3 ML NEB RESP TX SCH ×4 (01:00→20:00)
[2021-07-20] MEDS: CEFEPIME 2,000 MG in SODIUM CHLORIDE 0.9% 100 ML IV SCH ×3 (01:05→17:14)
[2021-07-20] MEDS: BACLOFEN 10 MG TABLET PO SCH ×4 (02:59→21:27)
[2021-07-20] MEDS: GABAPENTIN 600 MG TABLET PO SCH ×3 (02:59→21:28)
[2021-07-20] MEDS: TEMAZEPAM 15 MG CAPSULE PO SCH ×2 (02:59→21:27)
[2021-07-20] MEDS: PANTOPRAZOLE 40 MG TABLET PO SCH ×3 (02:59→21:27)
[2021-07-20 09:36] LABS: ABG Base Excess -2.4 MMOL/L (-2.5-2.5); ABG HCO3 22.4 MMOL/L (20-26); ABG Oxygen Saturation 99.4 % (95-100); ABG PCO2 48.1 MM HG (35-48); ABG TCO2 21.9 MMOL/L (23-27)
[2021-07-20] MEDS: MULTIVITAMIN (CENTRUM) TABLET PO SCH (11:33)
[2021-07-20] MEDS: ASPIRIN EC 81 MG TABLET PO SCH (11:33)
[2021-07-20] MEDS: LINACLOTIDE 145 MCG CAPSULE PO SCH (11:33)
[2021-07-20] MEDS: DULoxetine 20 MG CAPSULE PO SCH (11:34)
[2021-07-20] MEDS: OXYBUTYNIN XL 5 MG TABLET PO SCH (11:34)
[2021-07-20] MEDS: amLODIPine 5 MG TABLET PO SCH (11:36)
[2021-07-20] MEDS: CHOLECALCIFEROL 1,000 UNIT TABLET PO SCH (11:37)
[2021-07-20] MEDS: SENNA 8.6 MG TABLET PO SCH (11:37)
[2021-07-20] MEDS ORDERED: LIDOCAINE 1% 20 ML VIAL INFILTRAT ONE (16:12)
[2021-07-20] MEDS: ENOXAPARIN 30 MG/0.3 ML SYRINGE SUBCUT SCH (17:14)
[2021-07-20] MEDS: MICAFUNGIN 100 MG in SODIUM CHLORIDE 0.9% 100 ML IV SCH (17:15)
[2021-07-21 00:27] LABS: Calcium 8.5 MG/DL (8.5-10.1); Potassium 3.4 MMOL/L (3.5-5.1)
[2021-07-21] MEDS: ALBUTEROL/IPRATROPIUM 3 ML NEB RESP TX SCH ×4 (00:33→19:10)
[2021-07-21 00:41] LABS: Basophils % 0.4 % (0.0-0.8); Eosinophils % 0.5 % (0.00-10.9); Hematocrit 33.6 VOL% (42.0-52.0); Hemoglobin 10.2 GM/DL (14.0-18.0); Immature Granulocytes % 0.8 %; Immature Granulocytes Absolute 0.06 #; Lymphocytes # 1.4 10*3/uL (1.4-4.0); Lymphocytes % 19.2 % (21.2-54.2); Mean Corpuscular HGB Conc 30.4 GM/DL (32-36); Mean Corpuscular Volume 96.6 FL (87-102); Mean Platelet Volume 12.2 FL (9.6-12.0); Monocytes % 10.8 % (1.7-12.7); Neutrophils % 68.3 % (38.7-73.9); Platelet Count 226 T/CUMM (130-400); Red Blood Count 3.48 MC/CUMM (3.8-5.5); Red Cell Distribution Width 15.9 % (9.3-17.3); White Blood Count 7.4 T/CUMM (4-12)
[2021-07-21] MEDS: CEFEPIME 2,000 MG in SODIUM CHLORIDE 0.9% 100 ML IV SCH ×3 (01:24→16:37)
[2021-07-21] MEDS: POTASSIUM CHLORIDE RIDER 10 MEQ/100 ML PREMIX IV PRN ×2 (04:07→05:38)
[2021-07-21 06:42] LABS: Basophils % 0.4 % (0.0-0.8); Eosinophils # 0.1 10*3/uL (0.0-0.87); Eosinophils % 1.2 % (0.00-10.9); Hematocrit 32.4 VOL% (42.0-52.0); Hemoglobin 9.9 GM/DL (14.0-18.0); Immature Granulocytes % 0.5 %; Immature Granulocytes Absolute 0.04 #; Lymphocytes # 1.7 10*3/uL (1.4-4.0); Lymphocytes % 21.4 % (21.2-54.2); Mean Corpuscular HGB Conc 30.6 GM/DL (32-36); Mean Corpuscular Volume 95.9 FL (87-102); Mean Platelet Volume 10.4 FL (9.6-12.0); Monocytes % 10.8 % (1.7-12.7); Neutrophils % 65.7 % (38.7-73.9); Platelet Count 277 T/CUMM (130-400); Red Blood Count 3.38 MC/CUMM (3.8-5.5); Red Cell Distribution Width 15.9 % (9.3-17.3); White Blood Count 8.1 T/CUMM (4-12)
[2021-07-21 06:57] LABS: Calcium 8.8 MG/DL (8.5-10.1); Potassium 3.7 MMOL/L (3.5-5.1)
[2021-07-21] MEDS: PANTOPRAZOLE 40 MG TABLET PO SCH ×2 (10:58→21:28)
[2021-07-21] MEDS: BACLOFEN 10 MG TABLET PO SCH ×3 (10:58→21:28)
[2021-07-21] MEDS: CHOLECALCIFEROL 1,000 UNIT TABLET PO SCH (10:58)
[2021-07-21] MEDS: SENNA 8.6 MG TABLET PO SCH (10:58)
[2021-07-21] MEDS: DULoxetine 20 MG CAPSULE PO SCH (10:58)
[2021-07-21] MEDS: MULTIVITAMIN (CENTRUM) TABLET PO SCH (10:58)
[2021-07-21] MEDS: amLODIPine 5 MG TABLET PO SCH (10:59)
[2021-07-21] MEDS: GABAPENTIN 600 MG TABLET PO SCH ×2 (10:59→21:28)
[2021-07-21] MEDS: LINACLOTIDE 145 MCG CAPSULE PO SCH (11:01)
[2021-07-21] MEDS: FLUCONAZOLE 200 MG TABLET PO SCH (11:01)
[2021-07-21] MEDS: OXYBUTYNIN XL 5 MG TABLET PO SCH (11:01)
[2021-07-21] MEDS: ASPIRIN EC 81 MG TABLET PO SCH (11:01)
[2021-07-21] MEDS: ENOXAPARIN 30 MG/0.3 ML SYRINGE SUBCUT SCH (16:32)
[2021-07-21] MEDS: TEMAZEPAM 15 MG CAPSULE PO SCH (21:28)
[2021-07-21] MEDS: SODIUM CHLORIDE 0.9% 1,000 ML IV SCH (21:37)
[2021-07-22] MEDS: ALBUTEROL/IPRATROPIUM 3 ML NEB RESP TX SCH ×4 (00:29→19:30)
[2021-07-22] MEDS: CEFEPIME 2,000 MG in SODIUM CHLORIDE 0.9% 100 ML IV SCH ×3 (02:12→22:56)
[2021-07-22] MEDS: LINACLOTIDE 145 MCG CAPSULE PO SCH (08:01)
[2021-07-22 08:41] LABS: Calcium 8.8 MG/DL (8.5-10.1); Potassium 3.8 MMOL/L (3.5-5.1)
[2021-07-22 08:42] LABS: Basophils % 0.4 % (0.0-0.8); Eosinophils # 0.2 10*3/uL (0.0-0.87); Eosinophils % 2.6 % (0.00-10.9); Hematocrit 36.6 VOL% (42.0-52.0); Immature Granulocytes % 0.5 %; Immature Granulocytes Absolute 0.04 #; Lymphocytes # 2.3 10*3/uL (1.4-4.0); Lymphocytes % 29.8 % (21.2-54.2); Mean Corpuscular HGB Conc 29.2 GM/DL (32-36); Mean Corpuscular Volume 100.8 FL (87-102); Mean Platelet Volume 10.6 FL (9.6-12.0); Monocytes % 16.8 % (1.7-12.7); Neutrophils % 49.9 % (38.7-73.9); Platelet Count 219 T/CUMM (130-400); Red Blood Count 3.63 MC/CUMM (3.8-5.5); Red Cell Distribution Width 16.1 % (9.3-17.3); White Blood Count 7.7 T/CUMM (4-12)
[2021-07-22 08:44] LABS: Hemoglobin 10.7 GM/DL (14.0-18.0)
[2021-07-22] MEDS: PANTOPRAZOLE 40 MG TABLET PO SCH ×2 (09:25→21:45)
[2021-07-22] MEDS: OXYBUTYNIN XL 5 MG TABLET PO SCH (09:25)
[2021-07-22] MEDS: DULoxetine 20 MG CAPSULE PO SCH (09:25)
[2021-07-22] MEDS: GABAPENTIN 600 MG TABLET PO SCH ×2 (09:25→21:45)
[2021-07-22] MEDS: ASPIRIN EC 81 MG TABLET PO SCH (09:25)
[2021-07-22] MEDS: BACLOFEN 10 MG TABLET PO SCH ×3 (09:25→21:45)
[2021-07-22] MEDS: MULTIVITAMIN (CENTRUM) TABLET PO SCH (09:25)
[2021-07-22] MEDS: FLUCONAZOLE 200 MG TABLET PO SCH (09:25)
[2021-07-22] MEDS: amLODIPine 5 MG TABLET PO SCH (09:25)
[2021-07-22] MEDS: CHOLECALCIFEROL 1,000 UNIT TABLET PO SCH (09:25)
[2021-07-22] MEDS: SENNA 8.6 MG TABLET PO SCH (09:25)
[2021-07-22] MEDS: PIPERACILLIN/TAZOBACTAM 3,375 MG in SODIUM CHLORIDE 0.9% 100 ML IV SCH (12:19)
[2021-07-22] MEDS: SODIUM CHLORIDE 0.9% 1,000 ML IV SCH ×3 (16:29→19:47)
[2021-07-22] MEDS: ENOXAPARIN 30 MG/0.3 ML SYRINGE SUBCUT SCH (16:29)
[2021-07-22 16:34] LABS: % Iron Saturation 21.7 % (18-50)
[2021-07-22 17:32] LABS: Folate 7.04 NG/ML (5.38-24.0)
[2021-07-22] MEDS: TEMAZEPAM 15 MG CAPSULE PO SCH (21:45)
[2021-07-23] MEDS: ALBUTEROL/IPRATROPIUM 3 ML NEB RESP TX SCH ×4 (01:07→19:00)
[2021-07-23] MEDS: PIPERACILLIN/TAZOBACTAM 3,375 MG in SODIUM CHLORIDE 0.9% 100 ML IV SCH ×4 (01:50→21:18)
[2021-07-23 04:56] LABS: Basophils % 0.4 % (0.0-0.8); Eosinophils # 0.2 10*3/uL (0.0-0.87); Eosinophils % 1.9 % (0.00-10.9); Hematocrit 30.7 VOL% (42.0-52.0); Hemoglobin 9.1 GM/DL (14.0-18.0); Immature Granulocytes % 0.9 %; Immature Granulocytes Absolute 0.07 #; Lymphocytes # 1.7 10*3/uL (1.4-4.0); Lymphocytes % 21.2 % (21.2-54.2); Mean Corpuscular HGB Conc 29.6 GM/DL (32-36); Mean Corpuscular Volume 96.2 FL (87-102); Mean Platelet Volume 10.2 FL (9.6-12.0); Monocytes % 9.9 % (1.7-12.7); Neutrophils % 65.7 % (38.7-73.9); Platelet Count 248 T/CUMM (130-400); Red Blood Count 3.19 MC/CUMM (3.8-5.5)
[2021-07-23 05:17] LABS: Calcium 8.7 MG/DL (8.5-10.1); Osmolality,Calculated 273.8 MOS/KG (273-304); Potassium 3.3 MMOL/L (3.5-5.1)
[2021-07-23] MEDS: CEFEPIME 2,000 MG in SODIUM CHLORIDE 0.9% 100 ML IV SCH ×2 (06:29→11:31)
[2021-07-23] MEDS: LINACLOTIDE 145 MCG CAPSULE PO SCH (07:28)
[2021-07-23] MEDS: CHOLECALCIFEROL 1,000 UNIT TABLET PO SCH (08:26)
[2021-07-23] MEDS: FLUCONAZOLE 200 MG TABLET PO SCH (08:26)
[2021-07-23] MEDS: POTASSIUM CHLORIDE 20 MEQ TABLET PO PRN (08:26)
[2021-07-23] MEDS: MULTIVITAMIN (CENTRUM) TABLET PO SCH (08:26)
[2021-07-23] MEDS: GABAPENTIN 600 MG TABLET PO SCH ×2 (08:26→21:19)
[2021-07-23] MEDS: OXYBUTYNIN XL 5 MG TABLET PO SCH (08:26)
[2021-07-23] MEDS: PANTOPRAZOLE 40 MG TABLET PO SCH ×2 (08:26→21:19)
[2021-07-23] MEDS: amLODIPine 5 MG TABLET PO SCH (08:26)
[2021-07-23] MEDS: ASPIRIN EC 81 MG TABLET PO SCH (08:26)
[2021-07-23] MEDS: BACLOFEN 10 MG TABLET PO SCH ×3 (09:16→21:18)
[2021-07-23] MEDS: DULoxetine 20 MG CAPSULE PO SCH (09:16)
[2021-07-23] MEDS: SENNA 8.6 MG TABLET PO SCH (09:16)
[2021-07-23] MEDS: ACETAMINOPHEN 325 MG TABLET PO PRN (12:40)
[2021-07-23] MEDS: ENOXAPARIN 30 MG/0.3 ML SYRINGE SUBCUT SCH (14:46)
[2021-07-24] MEDS: ALBUTEROL/IPRATROPIUM 3 ML NEB RESP TX SCH ×4 (01:15→19:15)
[2021-07-24] MEDS: SODIUM CHLORIDE 0.9% 1,000 ML IV SCH ×3 (05:01→22:30)
[2021-07-24] MEDS: PIPERACILLIN/TAZOBACTAM 3,375 MG in SODIUM CHLORIDE 0.9% 100 ML IV SCH ×2 (05:04→11:32)
[2021-07-24 05:19] LABS: Basophils % 0.7 % (0.0-0.8); Eosinophils # 0.3 10*3/uL (0.0-0.87); Eosinophils % 4.6 % (0.00-10.9); Hematocrit 31.5 VOL% (42.0-52.0); Hemoglobin 9.4 GM/DL (14.0-18.0); Immature Granulocytes % 0.8 %; Immature Granulocytes Absolute 0.05 #; Lymphocytes % 33.8 % (21.2-54.2); Mean Corpuscular HGB Conc 29.8 GM/DL (32-36); Mean Corpuscular Volume 95.7 FL (87-102); Mean Platelet Volume 10.3 FL (9.6-12.0); Monocytes % 13.9 % (1.7-12.7); Neutrophils % 46.2 % (38.7-73.9); Platelet Count 278 T/CUMM (130-400); Red Blood Count 3.29 MC/CUMM (3.8-5.5); Red Cell Distribution Width 16.1 % (9.3-17.3); White Blood Count 5.9 T/CUMM (4-12)
[2021-07-24 05:38] LABS: Calcium 8.7 MG/DL (8.5-10.1); Osmolality,Calculated 275.7 MOS/KG (273-304); Potassium 3.4 MMOL/L (3.5-5.1)
[2021-07-24] MEDS ORDERED: POTASSIUM CHLORIDE 20 MEQ TABLET PO ONE (07:48)
[2021-07-24] MEDS: PANTOPRAZOLE 40 MG TABLET PO SCH ×2 (09:20→20:48)
[2021-07-24] MEDS: GABAPENTIN 600 MG TABLET PO SCH ×2 (09:20→20:48)
[2021-07-24] MEDS: OXYBUTYNIN XL 5 MG TABLET PO SCH (09:20)
[2021-07-24] MEDS: LINACLOTIDE 145 MCG CAPSULE PO SCH (09:20)
[2021-07-24] MEDS: DULoxetine 20 MG CAPSULE PO SCH (09:20)
[2021-07-24] MEDS: CHOLECALCIFEROL 1,000 UNIT TABLET PO SCH (09:20)
[2021-07-24] MEDS: amLODIPine 5 MG TABLET PO SCH (09:21)
[2021-07-24] MEDS: ASPIRIN EC 81 MG TABLET PO SCH (09:21)
[2021-07-24] MEDS: FLUCONAZOLE 200 MG TABLET PO SCH (09:21)
[2021-07-24] MEDS: BACLOFEN 10 MG TABLET PO SCH ×3 (09:21→20:48)
[2021-07-24] MEDS: MULTIVITAMIN (CENTRUM) TABLET PO SCH (09:21)
[2021-07-24] MEDS: SENNA 8.6 MG TABLET PO SCH (09:21)
[2021-07-24 13:58] LABS: Free T4 (Free Thyroxine) 0.88 NG/DL (0.76-1.46); Thyroid Stimulating Hormone 4.26 uIU/ml (0.358-3.74)
[2021-07-24] MEDS: ENOXAPARIN 30 MG/0.3 ML SYRINGE SUBCUT SCH (15:07)
[2021-07-24] MEDS ORDERED: TOBRAMYCIN INJ 480 MG in SODIUM CHLORIDE 0.9% 100 ML IV SCH (18:00)
[2021-07-24] MEDS: ACETAMINOPHEN 325 MG TABLET PO PRN (18:39)
[2021-07-25] MEDS: ALBUTEROL/IPRATROPIUM 3 ML NEB RESP TX SCH ×4 (01:06→19:20)
[2021-07-25 05:37] LABS: Basophils % 0.6 % (0.0-0.8); Eosinophils # 0.2 10*3/uL (0.0-0.87); Hematocrit 35.6 VOL% (42.0-52.0); Hemoglobin 10.7 GM/DL (14.0-18.0); Immature Granulocytes % 0.8 %; Immature Granulocytes Absolute 0.06 #; Lymphocytes # 2.1 10*3/uL (1.4-4.0); Mean Corpuscular HGB Conc 30.1 GM/DL (32-36); Mean Corpuscular Volume 94.7 FL (87-102); Monocytes % 10.4 % (1.7-12.7); Neutrophils % 56.2 % (38.7-73.9); Platelet Count 256 T/CUMM (130-400); Red Blood Count 3.76 MC/CUMM (3.8-5.5); Red Cell Distribution Width 16.8 % (9.3-17.3); White Blood Count 7.1 T/CUMM (4-12)
[2021-07-25 06:01] LABS: Calcium 8.7 MG/DL (8.5-10.1); Potassium 3.8 MMOL/L (3.5-5.1)
[2021-07-25] MEDS: FLUCONAZOLE 200 MG TABLET PO SCH (09:57)
[2021-07-25] MEDS: BACLOFEN 10 MG TABLET PO SCH ×2 (09:57→15:45)
[2021-07-25] MEDS: OXYBUTYNIN XL 5 MG TABLET PO SCH (09:57)
[2021-07-25] MEDS: PANTOPRAZOLE 40 MG TABLET PO SCH (09:57)
[2021-07-25] MEDS: GABAPENTIN 600 MG TABLET PO SCH (09:57)
[2021-07-25] MEDS: DULoxetine 20 MG CAPSULE PO SCH (09:58)
[2021-07-25] MEDS: CHOLECALCIFEROL 1,000 UNIT TABLET PO SCH (09:58)
[2021-07-25] MEDS: ASPIRIN EC 81 MG TABLET PO SCH (09:58)
[2021-07-25] MEDS: LINACLOTIDE 145 MCG CAPSULE PO SCH (09:58)
[2021-07-25] MEDS: MULTIVITAMIN (CENTRUM) TABLET PO SCH (09:58)
[2021-07-25] MEDS: SENNA 8.6 MG TABLET PO SCH (09:58)
[2021-07-25] MEDS: amLODIPine 5 MG TABLET PO SCH (09:58)
[2021-07-25] MEDS: SODIUM CHLORIDE 0.9% 1,000 ML IV SCH (11:00)
[2021-07-25] MEDS: ACETAMINOPHEN 325 MG TABLET PO PRN (13:41)
[2021-07-25] MEDS: ENOXAPARIN 30 MG/0.3 ML SYRINGE SUBCUT SCH (15:45)
[2021-07-25 17:03] VITALS: BP 133/78
[2021-07-25] MEDS ORDERED: SODIUM CHLORIDE 0.9% IV SCH (18:00)
[2021-07-25] MEDS ORDERED: TOBRAMYCIN IV SCH (18:00)
== END 2021-07-25 20:00 | disposition home health service (06) | DRG 177 ==
LOC: EDBD → EDUNIT# → N.EDINP 10:23 → N.ED 10:23 → SUATTDRO 14:12 → N.TELES 17:52 → SUATTDRO 07-16 07:37
PROVIDERS: ADMIT Emergency Medicine; ATTEND Internal Medicine

== ENCOUNTER 2021-09-03 10:56 | Inpatient (IN) ==
[2021-09-03] MEDS ORDERED: VANCOMYCIN INJ 1,500 MG in SODIUM CHLORIDE 0.9% 500 ML IV STA (11:06)
[2021-09-03] MEDS ORDERED: SODIUM CHLORIDE 0.9% 1,000 ML IV STA (11:07)
[2021-09-03] MEDS ORDERED: PIPERACILLIN/TAZOBACTAM 3,375 MG in SODIUM CHLORIDE 0.9% 100 ML IV STA (11:08)
[2021-09-03] MEDS ORDERED: HYDROCORTISONE 100 MG VIAL IV STA (11:09)
[2021-09-03] MEDS ORDERED: SODIUM CHLORIDE 0.9% 2,000 ML IV STA (11:10)
[2021-09-03] MEDS ORDERED: ACETAMINOPHEN 650 MG SUPP RECTAL STA (11:15)
[2021-09-03 11:38] LABS: ABG Base Excess -0.2 MMOL/L (-2.5-2.5); ABG HCO3 24.2 MMOL/L (20-26); ABG Oxygen Saturation 94.8 % (95-100); ABG PCO2 43.4 MM HG (35-48); ABG PH 7.372 (7.35-7.45); ABG TCO2 22.9 MMOL/L (23-27)
[2021-09-03 12:04] LABS: Basophils # 0.1 10*3/uL (0.0-0.2); Basophils % 0.3 % (0.0-0.8); Eosinophils % 0.2 % (0.00-10.9); Immature Granulocytes % 0.7 %; Immature Granulocytes Absolute 0.13 #; Lymphocytes # 1.6 10*3/uL (1.4-4.0); Lymphocytes % 8.5 % (21.2-54.2); Mean Corpuscular HGB Conc 30.3 GM/DL (32-36); Mean Corpuscular Volume 94.3 FL (87-102); Mean Platelet Volume 9.7 FL (9.6-12.0); Monocytes % 7.7 % (1.7-12.7); Neutrophils % 82.6 % (38.7-73.9); Platelet Count 356 T/CUMM (130-400); Red Cell Distribution Width 15.9 % (9.3-17.3); White Blood Count 18.7 T/CUMM (4-12)
[2021-09-03 12:05] LABS: Bacteria,Urine Occasional /HPF (Few); Bilirubin,Urine Negative (Negative); Blood, Urine Small mg/dL (Negative); Glucose,Urine (UA) Negative (Negative); Ketones,Urine 5 mg/dL (Negative); Mucus,Urine Occasional /LPF (Occasional); Nitrite,Urine Negative (Negative); Protein,Urine 100 MG/DL; RBC,Urine 19 /HPF (0-4); Squamous Epithelial Cell,Urine Occasional /HPF (0-10); Urine Appearance CLOUDY (Clear); Urine Color Yellow (Yellow); Urine Specific Gravity 1.015 (1.001-1.035); Urine Urobilinogen < 2.0 EU/DL (0.2-1.0)
[2021-09-03 12:23] LABS: Albumin 2.8 G/DL (3.4-5.0); Bilirubin,Total 0.5 MG/DL (0.20-1.00); Calcium 8.7 MG/DL (8.5-10.1); Osmolality,Calculated 272.4 MOS/KG (273-304)
[2021-09-03] MEDS ORDERED: ONDANSETRON 4 MG/2 ML VIAL IV PRN (12:39)
[2021-09-03] MEDS ORDERED: ALBUTEROL 2.5 MG/3 ML NEB RESP TX PRN (12:39)
[2021-09-03] MEDS ORDERED: ALPRAZolam 0.5 MG TABLET PO PRN (12:42)
[2021-09-03] MEDS ORDERED: tiZANidine 4 MG TABLET PO PRN (12:42)
[2021-09-03] MEDS: ALBUTEROL/IPRATROPIUM 3 ML NEB RESP TX SCH ×2 (13:20→19:20)
[2021-09-03] MEDS: GABAPENTIN 300 MG CAPSULE PO SCH ×2 (17:19→20:30)
[2021-09-03] MEDS: PANTOPRAZOLE 40 MG VIAL IV SCH (17:20)
[2021-09-03] MEDS: ENOXAPARIN 40 MG/0.4 ML SYRINGE SUBCUT SCH (17:24)
[2021-09-03] MEDS: SODIUM CHLORIDE 0.9% 1,000 ML IV SCH (18:20)
[2021-09-03] MEDS ORDERED: PIPERACILLIN/TAZOBACTAM 3,375 MG in SODIUM CHLORIDE 0.9% 100 ML IV SCH (20:00)
[2021-09-03] MEDS: SENNA 8.6 MG TABLET PO SCH (20:30)
[2021-09-03] MEDS: TEMAZEPAM 15 MG CAPSULE PO SCH (20:30)
[2021-09-03] MEDS: BACLOFEN 20 MG TABLET PO SCH (20:30)
[2021-09-03] MEDS: cefTRIAXone 1,000 MG in SODIUM CHLORIDE 0.9% 100 ML IV SCH (23:00)
[2021-09-04] MEDS: ALBUTEROL/IPRATROPIUM 3 ML NEB RESP TX SCH ×4 (01:31→19:23)
[2021-09-04] MEDS: SODIUM CHLORIDE 0.9% 1,000 ML IV SCH ×4 (02:30→23:44)
[2021-09-04 06:16] LABS: Basophils % 0.3 % (0.0-0.8); Eosinophils % 0.2 % (0.00-10.9); Hemoglobin 10.8 GM/DL (14.0-18.0); Immature Granulocytes % 0.3 %; Immature Granulocytes Absolute 0.03 #; Lymphocytes # 1.4 10*3/uL (1.4-4.0); Lymphocytes % 14.9 % (21.2-54.2); Mean Corpuscular Volume 95.2 FL (87-102); Monocytes % 7.7 % (1.7-12.7); Neutrophils % 76.6 % (38.7-73.9); Platelet Count 183 T/CUMM (130-400); Red Blood Count 3.78 MC/CUMM (3.8-5.5); Red Cell Distribution Width 15.7 % (9.3-17.3); White Blood Count 9.6 T/CUMM (4-12)
[2021-09-04 06:33] LABS: Alanine Aminotransferase 9 U/L (16-61); Albumin 1.9 G/DL (3.4-5.0); Alkaline Phosphatase 62 U/L (45-117); Aspartate Amino Transferase 8 U/L (0-37); Bilirubin,Total < 0.39 MG/DL (0.20-1.00); Blood Urea Nitrogen 19 MG/DL (7-18); Calcium 7.5 MG/DL (8.5-10.1); Carbon Dioxide 23 MMOL/L (21-32); Estimated Glom Filtration Rate 101 ML/MIN; Glucose 71 MG/DL (74-106); Osmolality,Calculated 282.1 MOS/KG (273-304); Potassium 2.6 MMOL/L (3.5-5.1); Sodium 142 MMOL/L (136-145); Total Protein 6.1 G/DL (6.4-8.2)
[2021-09-04] MEDS ORDERED: MAGNESIUM SULF RIDER 4 GM/100 ML PREMIX IV PRN (08:40)
[2021-09-04] MEDS ORDERED: MAGNESIUM SULF RIDER 2 GM/50 ML PREMIX IV PRN (08:40)
[2021-09-04] MEDS: VANCOMYCIN INJ 1,250 MG in SODIUM CHLORIDE 0.9% 250 ML IV SCH ×2 (10:06→21:40)
[2021-09-04] MEDS: GABAPENTIN 300 MG CAPSULE PO SCH ×3 (10:08→21:40)
[2021-09-04] MEDS: DULoxetine 20 MG CAPSULE PO SCH (10:08)
[2021-09-04] MEDS: OXYBUTYNIN XL 5 MG TABLET PO SCH (10:08)
[2021-09-04] MEDS: BACLOFEN 20 MG TABLET PO SCH ×3 (10:08→21:40)
[2021-09-04] MEDS: MULTIVITAMIN (CENTRUM) TABLET PO SCH (10:08)
[2021-09-04] MEDS: CHOLECALCIFEROL 1,000 UNIT TABLET PO SCH (10:08)
[2021-09-04] MEDS: ASPIRIN EC 81 MG TABLET PO SCH (10:08)
[2021-09-04] MEDS: POTASSIUM CHLORIDE RIDER 10 MEQ/100 ML PREMIX IV PRN ×2 (15:02→18:21)
[2021-09-04] MEDS: PANTOPRAZOLE 40 MG VIAL IV SCH (15:02)
[2021-09-04] MEDS: ENOXAPARIN 40 MG/0.4 ML SYRINGE SUBCUT SCH (15:05)
[2021-09-04] MEDS ORDERED: SODIUM CHLORIDE 0.9% 250 ML IV ONE (16:21)
[2021-09-04] MEDS: TEMAZEPAM 15 MG CAPSULE PO SCH (21:40)
[2021-09-04] MEDS: SENNA 8.6 MG TABLET PO SCH (21:40)
[2021-09-04] MEDS: POLYVINYL ALCOHOL 1.4% OPH SOLN 15 ML BOTTLE BOTH EYES PRN (21:53)
[2021-09-04] MEDS: cefTRIAXone 1,000 MG in SODIUM CHLORIDE 0.9% 100 ML IV SCH (22:52)
[2021-09-04] MEDS: ACETAMINOPHEN 325 MG TABLET PO PRN (23:43)
[2021-09-05] MEDS: ALBUTEROL/IPRATROPIUM 3 ML NEB RESP TX SCH ×4 (00:45→20:19)
[2021-09-05] MEDS ORDERED: ACETAMINOPHEN 325 MG TABLET PO ONE (02:33)
[2021-09-05] MEDS ORDERED: SODIUM CHLORIDE 0.9% 250 ML IV ONE ×2 (02:35→04:13)
[2021-09-05] MEDS: SODIUM CHLORIDE 0.9% 1,000 ML IV SCH ×2 (05:35→14:13)
[2021-09-05 07:17] LABS: Alanine Aminotransferase 9 U/L (16-61); Albumin 1.5 G/DL (3.4-5.0); Alkaline Phosphatase 54 U/L (45-117); Aspartate Amino Transferase 10 U/L (0-37); Bilirubin,Total < 0.39 MG/DL (0.20-1.00); Blood Urea Nitrogen 11 MG/DL (7-18); Calcium 5.9 MG/DL (8.5-10.1); Carbon Dioxide 19 MMOL/L (21-32); Estimated Glom Filtration Rate 111 ML/MIN; Glucose 82 MG/DL (74-106); Osmolality,Calculated 283.8 MOS/KG (273-304); Potassium 2.7 MMOL/L (3.5-5.1); Sodium 144 MMOL/L (136-145); Total Protein 4.8 G/DL (6.4-8.2)
[2021-09-05 08:27] LABS: Basophils % 0.4 % (0.0-0.8); Eosinophils # 0.1 10*3/uL (0.0-0.87); Eosinophils % 1.3 % (0.00-10.9); Hematocrit 24.8 VOL% (42.0-52.0); Immature Granulocytes % 0.5 %; Immature Granulocytes Absolute 0.05 #; Lymphocytes % 18.7 % (21.2-54.2); Mean Corpuscular HGB Conc 29.8 GM/DL (32-36); Mean Corpuscular Volume 96.9 FL (87-102); Mean Platelet Volume 9.6 FL (9.6-12.0); Monocytes % 13.2 % (1.7-12.7); Neutrophils % 65.9 % (38.7-73.9); Platelet Count 210 T/CUMM (130-400); Red Cell Distribution Width 15.7 % (9.3-17.3); White Blood Count 10.8 T/CUMM (4-12)
[2021-09-05 08:28] LABS: Hemoglobin 7.4 GM/DL (14.0-18.0); Red Blood Count 2.56 MC/CUMM (3.8-5.5)
[2021-09-05] MEDS ORDERED: MAGNESIUM SULF RIDER 4 GM/100 ML PREMIX IV ONE (08:45)
[2021-09-05 08:49] LABS: Eosinophils 1 % (0-10); Hypochromasia 1+; Lymphocytes 18 % (20-55); Microcytosis 1+; Platelet Estimate Adequate; Segmented Neutrophils 73 % (50-85); Total Cells Counted 100
[2021-09-05] MEDS: DULoxetine 20 MG CAPSULE PO SCH (09:27)
[2021-09-05] MEDS: CHOLECALCIFEROL 1,000 UNIT TABLET PO SCH (09:27)
[2021-09-05] MEDS: MULTIVITAMIN (CENTRUM) TABLET PO SCH (09:27)
[2021-09-05] MEDS: GABAPENTIN 300 MG CAPSULE PO SCH ×3 (09:27→20:09)
[2021-09-05] MEDS: OXYBUTYNIN XL 5 MG TABLET PO SCH (09:28)
[2021-09-05] MEDS: ASPIRIN EC 81 MG TABLET PO SCH (09:28)
[2021-09-05] MEDS: BACLOFEN 20 MG TABLET PO SCH ×3 (09:28→20:09)
[2021-09-05] MEDS: POTASSIUM CHLORIDE 20 MEQ TABLET PO SCH ×3 (09:28→14:46)
[2021-09-05] MEDS: ENOXAPARIN 40 MG/0.4 ML SYRINGE SUBCUT SCH (13:07)
[2021-09-05] MEDS: PANTOPRAZOLE 40 MG VIAL IV SCH (13:11)
[2021-09-05] MEDS: CEFEPIME 1,000 MG in SODIUM CHLORIDE 0.9% 100 ML IV SCH ×2 (13:12→20:14)
[2021-09-05] MEDS: VANCOMYCIN INJ 1,250 MG in SODIUM CHLORIDE 0.9% 250 ML IV SCH ×3 (13:51→23:27)
[2021-09-05] MEDS: ACETAMINOPHEN 325 MG TABLET PO PRN ×2 (13:53→20:10)
[2021-09-05] MEDS: POTASSIUM CHLORIDE RIDER 10 MEQ/100 ML PREMIX IV SCH ×4 (15:02→21:08)
[2021-09-05] MEDS: POTASSIUM CHLORIDE RIDER 10 MEQ/100 ML PREMIX IV PRN (17:03)
[2021-09-05 19:19] LABS: Calcium 7.6 MG/DL (8.5-10.1); Osmolality,Calculated 262.5 MOS/KG (273-304); Potassium 4.2 MMOL/L (3.5-5.1)
[2021-09-05] MEDS: SENNA 8.6 MG TABLET PO SCH (20:09)
[2021-09-05] MEDS: TEMAZEPAM 15 MG CAPSULE PO SCH (20:09)
[2021-09-05] MEDS ORDERED: IBUPROFEN 400 MG TABLET PO PRN (22:38)
[2021-09-06] MEDS: ALBUTEROL/IPRATROPIUM 3 ML NEB RESP TX SCH ×4 (00:30→19:50)
[2021-09-06] MEDS: SODIUM CHLORIDE 0.9% 1,000 ML IV SCH ×2 (02:15→22:55)
[2021-09-06] MEDS: CEFEPIME 1,000 MG in SODIUM CHLORIDE 0.9% 100 ML IV SCH ×2 (03:05→10:20)
[2021-09-06 07:14] LABS: Basophils % 0.2 % (0.0-0.8); Eosinophils # 0.2 10*3/uL (0.0-0.87); Eosinophils % 2.2 % (0.00-10.9); Hematocrit 21.1 VOL% (42.0-52.0); Immature Granulocytes % 0.5 %; Immature Granulocytes Absolute 0.04 #; Lymphocytes # 1.8 10*3/uL (1.4-4.0); Lymphocytes % 21.4 % (21.2-54.2); Mean Corpuscular HGB Conc 28.9 GM/DL (32-36); Mean Corpuscular Volume 98.1 FL (87-102); Monocytes % 12.9 % (1.7-12.7); Neutrophils % 62.8 % (38.7-73.9); Platelet Count 182 T/CUMM (130-400); Red Blood Count 2.15 MC/CUMM (3.8-5.5); Red Cell Distribution Width 15.6 % (9.3-17.3); White Blood Count 8.2 T/CUMM (4-12)
[2021-09-06 07:16] LABS: Hemoglobin 6.1 GM/DL (14.0-18.0)
[2021-09-06] MEDS ORDERED: SODIUM CHLORIDE 0.9% 1,000 ML IV PRN (07:39)
[2021-09-06 08:03] LABS: % Iron Saturation 10.3 % (18-50); Ferritin 162.1 ng/mL (26-388)
[2021-09-06 08:07] LABS: Folate 9.92 NG/ML (5.38-24.0)
[2021-09-06] MEDS: CHOLECALCIFEROL 1,000 UNIT TABLET PO SCH (08:43)
[2021-09-06] MEDS: MULTIVITAMIN (CENTRUM) TABLET PO SCH (08:44)
[2021-09-06] MEDS: BACLOFEN 20 MG TABLET PO SCH ×3 (08:44→20:08)
[2021-09-06] MEDS: GABAPENTIN 300 MG CAPSULE PO SCH ×3 (08:45→20:08)
[2021-09-06] MEDS: DULoxetine 20 MG CAPSULE PO SCH (08:45)
[2021-09-06] MEDS: ASPIRIN EC 81 MG TABLET PO SCH (08:45)
[2021-09-06] MEDS: OXYBUTYNIN XL 5 MG TABLET PO SCH (08:45)
[2021-09-06] MEDS: POLYVINYL ALCOHOL 1.4% OPH SOLN 15 ML BOTTLE BOTH EYES PRN (08:46)
[2021-09-06 12:43] LABS: Basophils % 0.4 % (0.0-0.8); Eosinophils # 0.3 10*3/uL (0.0-0.87); Eosinophils % 2.7 % (0.00-10.9); Hematocrit 26.1 VOL% (42.0-52.0); Hemoglobin 7.9 GM/DL (14.0-18.0); Immature Granulocytes % 0.6 %; Immature Granulocytes Absolute 0.06 #; Lymphocytes # 2.2 10*3/uL (1.4-4.0); Lymphocytes % 21.8 % (21.2-54.2); Mean Corpuscular HGB Conc 30.3 GM/DL (32-36); Mean Corpuscular Volume 95.3 FL (87-102); Mean Platelet Volume 10.3 FL (9.6-12.0); Monocytes % 11.8 % (1.7-12.7); Neutrophils % 62.7 % (38.7-73.9); Platelet Count 220 T/CUMM (130-400); Red Blood Count 2.74 MC/CUMM (3.8-5.5); Red Cell Distribution Width 15.9 % (9.3-17.3); White Blood Count 10.3 T/CUMM (4-12)
[2021-09-06] MEDS: VANCOMYCIN INJ 1,250 MG in SODIUM CHLORIDE 0.9% 250 ML IV SCH (13:42)
[2021-09-06] MEDS: PANTOPRAZOLE 40 MG VIAL IV SCH (15:07)
[2021-09-06] MEDS: ENOXAPARIN 40 MG/0.4 ML SYRINGE SUBCUT SCH (15:10)
[2021-09-06] MEDS: ACETAMINOPHEN 325 MG TABLET PO PRN (20:08)
[2021-09-06] MEDS: TEMAZEPAM 15 MG CAPSULE PO SCH (20:08)
[2021-09-06] MEDS: SENNA 8.6 MG TABLET PO SCH (20:09)
[2021-09-07] MEDS: ALBUTEROL/IPRATROPIUM 3 ML NEB RESP TX SCH ×4 (00:06→19:15)
[2021-09-07 06:07] LABS: Basophils # 0.1 10*3/uL (0.0-0.2); Basophils % 0.6 % (0.0-0.8); Eosinophils # 0.4 10*3/uL (0.0-0.87); Eosinophils % 5.1 % (0.00-10.9); Hematocrit 24.9 VOL% (42.0-52.0); Hemoglobin 7.2 GM/DL (14.0-18.0); Immature Granulocytes % 0.4 %; Immature Granulocytes Absolute 0.03 #; Lymphocytes # 2.1 10*3/uL (1.4-4.0); Lymphocytes % 24.7 % (21.2-54.2); Mean Corpuscular HGB Conc 28.9 GM/DL (32-36); Mean Corpuscular Volume 98.4 FL (87-102); Neutrophils % 58.2 % (38.7-73.9); Platelet Count 219 T/CUMM (130-400); Red Blood Count 2.53 MC/CUMM (3.8-5.5); Red Cell Distribution Width 15.8 % (9.3-17.3); White Blood Count 8.5 T/CUMM (4-12)
[2021-09-07 07:04] LABS: Eosinophils 4 % (0-10); Lymphocytes 19 % (20-55); Segmented Neutrophils 63 % (50-85); Total Cells Counted 100
[2021-09-07 07:05] LABS: Platelet Estimate Adequate
[2021-09-07 07:06] LABS: Hypochromasia 1+; Smudge Cells Few
[2021-09-07] MEDS: BACLOFEN 20 MG TABLET PO SCH ×3 (08:48→20:45)
[2021-09-07] MEDS: CHOLECALCIFEROL 1,000 UNIT TABLET PO SCH (08:48)
[2021-09-07] MEDS: DULoxetine 20 MG CAPSULE PO SCH (08:48)
[2021-09-07] MEDS: OXYBUTYNIN XL 5 MG TABLET PO SCH (08:48)
[2021-09-07] MEDS: ASPIRIN EC 81 MG TABLET PO SCH (08:48)
[2021-09-07] MEDS: GABAPENTIN 300 MG CAPSULE PO SCH ×3 (08:49→20:45)
[2021-09-07] MEDS: MULTIVITAMIN (CENTRUM) TABLET PO SCH (08:49)
[2021-09-07] MEDS: ENOXAPARIN 40 MG/0.4 ML SYRINGE SUBCUT SCH (15:46)
[2021-09-07] MEDS: PANTOPRAZOLE 40 MG VIAL IV SCH (15:46)
[2021-09-07] MEDS: SODIUM CHLORIDE 0.9% 1,000 ML IV SCH (18:35)
[2021-09-07] MEDS: VANCOMYCIN INJ 1,000 MG in SODIUM CHLORIDE 0.9% 250 ML IV SCH (18:35)
[2021-09-07] MEDS: SENNA 8.6 MG TABLET PO SCH (20:45)
[2021-09-07] MEDS: TEMAZEPAM 15 MG CAPSULE PO SCH (20:45)
[2021-09-07] MEDS: ACETAMINOPHEN 325 MG TABLET PO PRN (23:25)
[2021-09-08] MEDS: ALBUTEROL/IPRATROPIUM 3 ML NEB RESP TX SCH ×4 (00:13→19:37)
[2021-09-08] MEDS: PANTOPRAZOLE 40 MG VIAL IV SCH (13:52)
[2021-09-08] MEDS: ENOXAPARIN 40 MG/0.4 ML SYRINGE SUBCUT SCH (13:53)
[2021-09-08] MEDS: GABAPENTIN 300 MG CAPSULE PO SCH ×3 (15:43→21:06)
[2021-09-08] MEDS: BACLOFEN 20 MG TABLET PO SCH ×3 (15:43→21:06)
[2021-09-08] MEDS: ASPIRIN EC 81 MG TABLET PO SCH (17:01)
[2021-09-08] MEDS: DULoxetine 20 MG CAPSULE PO SCH (17:02)
[2021-09-08] MEDS: OXYBUTYNIN XL 5 MG TABLET PO SCH (17:02)
[2021-09-08] MEDS: MULTIVITAMIN (CENTRUM) TABLET PO SCH (17:02)
[2021-09-08] MEDS: CHOLECALCIFEROL 1,000 UNIT TABLET PO SCH (17:02)
[2021-09-08] MEDS: VANCOMYCIN INJ 1,000 MG in SODIUM CHLORIDE 0.9% 250 ML IV SCH (17:45)
[2021-09-08] MEDS: TEMAZEPAM 15 MG CAPSULE PO SCH (21:06)
[2021-09-08] MEDS: SENNA 8.6 MG TABLET PO SCH (21:06)
[2021-09-09] MEDS: ALBUTEROL/IPRATROPIUM 3 ML NEB RESP TX SCH ×4 (00:03→19:55)
[2021-09-09] MEDS: SODIUM CHLORIDE 0.9% 1,000 ML IV SCH ×3 (01:02→14:51)
[2021-09-09 06:36] LABS: Basophils # 0.1 10*3/uL (0.0-0.2); Basophils % 0.5 % (0.0-0.8); Eosinophils # 0.3 10*3/uL (0.0-0.87); Eosinophils % 3.2 % (0.00-10.9); Hematocrit 26.3 VOL% (42.0-52.0); Hemoglobin 7.8 GM/DL (14.0-18.0); Immature Granulocytes % 0.5 %; Immature Granulocytes Absolute 0.05 #; Lymphocytes # 2.6 10*3/uL (1.4-4.0); Lymphocytes % 24.1 % (21.2-54.2); Mean Corpuscular HGB Conc 29.7 GM/DL (32-36); Mean Corpuscular Volume 94.6 FL (87-102); Mean Platelet Volume 10.2 FL (9.6-12.0); Monocytes % 11.5 % (1.7-12.7); Neutrophils % 60.2 % (38.7-73.9); Platelet Count 305 T/CUMM (130-400); Red Blood Count 2.78 MC/CUMM (3.8-5.5); Red Cell Distribution Width 15.9 % (9.3-17.3); White Blood Count 10.8 T/CUMM (4-12)
[2021-09-09 07:06] LABS: Calcium 8.9 MG/DL (8.5-10.1); Osmolality,Calculated 272.8 MOS/KG (273-304)
[2021-09-09] MEDS: CHOLECALCIFEROL 1,000 UNIT TABLET PO SCH (08:53)
[2021-09-09] MEDS: OXYBUTYNIN XL 5 MG TABLET PO SCH (08:53)
[2021-09-09] MEDS: MULTIVITAMIN (CENTRUM) TABLET PO SCH (08:53)
[2021-09-09] MEDS: GABAPENTIN 300 MG CAPSULE PO SCH ×3 (08:53→22:11)
[2021-09-09] MEDS: BACLOFEN 20 MG TABLET PO SCH ×3 (08:53→22:12)
[2021-09-09] MEDS: ASPIRIN EC 81 MG TABLET PO SCH (08:53)
[2021-09-09] MEDS: DULoxetine 20 MG CAPSULE PO SCH (08:53)
[2021-09-09] MEDS: PANTOPRAZOLE 40 MG VIAL IV SCH (14:51)
[2021-09-09] MEDS: ENOXAPARIN 40 MG/0.4 ML SYRINGE SUBCUT SCH (14:51)
[2021-09-09] MEDS: VANCOMYCIN INJ 1,000 MG in SODIUM CHLORIDE 0.9% 250 ML IV SCH (16:32)
[2021-09-09] MEDS: ACETAMINOPHEN 325 MG TABLET PO PRN (18:08)
[2021-09-09] MEDS: SENNA 8.6 MG TABLET PO SCH (22:11)
[2021-09-09] MEDS: TEMAZEPAM 15 MG CAPSULE PO SCH (22:11)
[2021-09-10] MEDS: ALBUTEROL/IPRATROPIUM 3 ML NEB RESP TX SCH ×5 (01:13→20:05)
[2021-09-10] MEDS: SODIUM CHLORIDE 0.9% 1,000 ML IV SCH ×4 (01:52→20:26)
[2021-09-10 06:47] LABS: Calcium 8.8 MG/DL (8.5-10.1); Osmolality,Calculated 274.7 MOS/KG (273-304); Potassium 4.2 MMOL/L (3.5-5.1)
[2021-09-10 06:50] LABS: Basophils # 0.1 10*3/uL (0.0-0.2); Basophils % 0.8 % (0.0-0.8); Eosinophils # 0.4 10*3/uL (0.0-0.87); Eosinophils % 5.8 % (0.00-10.9); Hematocrit 32.1 VOL% (42.0-52.0); Hemoglobin 9.5 GM/DL (14.0-18.0); Immature Granulocytes % 0.8 %; Immature Granulocytes Absolute 0.05 #; Lymphocytes # 2.3 10*3/uL (1.4-4.0); Lymphocytes % 34.6 % (21.2-54.2); Mean Corpuscular HGB Conc 29.6 GM/DL (32-36); Mean Corpuscular Volume 96.1 FL (87-102); Mean Platelet Volume 10.9 FL (9.6-12.0); Monocytes % 15.2 % (1.7-12.7); Neutrophils % 42.8 % (38.7-73.9); Platelet Count 244 T/CUMM (130-400); Red Blood Count 3.34 MC/CUMM (3.8-5.5); Red Cell Distribution Width 16.2 % (9.3-17.3); White Blood Count 6.6 T/CUMM (4-12)
[2021-09-10] MEDS: OXYBUTYNIN XL 5 MG TABLET PO SCH (08:53)
[2021-09-10] MEDS: GABAPENTIN 300 MG CAPSULE PO SCH ×3 (08:53→21:19)
[2021-09-10] MEDS: ASPIRIN EC 81 MG TABLET PO SCH (08:54)
[2021-09-10] MEDS: MULTIVITAMIN (CENTRUM) TABLET PO SCH (08:54)
[2021-09-10] MEDS: BACLOFEN 20 MG TABLET PO SCH ×3 (08:54→21:19)
[2021-09-10] MEDS: DULoxetine 20 MG CAPSULE PO SCH (08:54)
[2021-09-10] MEDS: CHOLECALCIFEROL 1,000 UNIT TABLET PO SCH (10:01)
[2021-09-10] MEDS: PANTOPRAZOLE 40 MG VIAL IV SCH (15:56)
[2021-09-10] MEDS: ENOXAPARIN 40 MG/0.4 ML SYRINGE SUBCUT SCH (15:56)
[2021-09-10] MEDS: VANCOMYCIN INJ 1,000 MG in SODIUM CHLORIDE 0.9% 250 ML IV SCH (17:34)
[2021-09-10] MEDS: TEMAZEPAM 15 MG CAPSULE PO SCH (21:18)
[2021-09-10] MEDS: SENNA 8.6 MG TABLET PO SCH (21:19)
[2021-09-11] MEDS: ACETAMINOPHEN 325 MG TABLET PO PRN (00:37)
[2021-09-11] MEDS: ALBUTEROL/IPRATROPIUM 3 ML NEB RESP TX SCH ×3 (01:00→12:00)
[2021-09-11] MEDS: SODIUM CHLORIDE 0.9% 1,000 ML IV SCH ×2 (04:37→11:55)
[2021-09-11 04:44] LABS: Basophils # 0.1 10*3/uL (0.0-0.2); Basophils % 0.7 % (0.0-0.8); Eosinophils # 0.5 10*3/uL (0.0-0.87); Eosinophils % 5.3 % (0.00-10.9); Hematocrit 27.3 VOL% (42.0-52.0); Hemoglobin 8.2 GM/DL (14.0-18.0); Immature Granulocytes % 0.6 %; Immature Granulocytes Absolute 0.05 #; Lymphocytes % 35.6 % (21.2-54.2); Mean Corpuscular Volume 94.8 FL (87-102); Mean Platelet Volume 10.7 FL (9.6-12.0); Monocytes % 13.9 % (1.7-12.7); Neutrophils % 43.9 % (38.7-73.9); Platelet Count 325 T/CUMM (130-400); Red Blood Count 2.88 MC/CUMM (3.8-5.5); Red Cell Distribution Width 16.2 % (9.3-17.3); White Blood Count 8.6 T/CUMM (4-12)
[2021-09-11 05:36] LABS: Calcium 8.9 MG/DL (8.5-10.1); Osmolality,Calculated 275.5 MOS/KG (273-304)
[2021-09-11] MEDS: MULTIVITAMIN (CENTRUM) TABLET PO SCH (09:11)
[2021-09-11] MEDS: CHOLECALCIFEROL 1,000 UNIT TABLET PO SCH (09:11)
[2021-09-11] MEDS: DULoxetine 20 MG CAPSULE PO SCH (09:11)
[2021-09-11] MEDS: BACLOFEN 20 MG TABLET PO SCH ×2 (09:12→15:16)
[2021-09-11] MEDS: ASPIRIN EC 81 MG TABLET PO SCH (09:12)
[2021-09-11] MEDS: GABAPENTIN 300 MG CAPSULE PO SCH ×2 (09:12→15:16)
[2021-09-11] MEDS: OXYBUTYNIN XL 5 MG TABLET PO SCH (09:12)
[2021-09-11] MEDS ORDERED: VANCOMYCIN INJ 1,000 MG in SODIUM CHLORIDE 0.9% 250 ML IV SCH (09:30)
[2021-09-11 11:58] LABS: Folate 13.12 NG/ML (5.38-24.0)
[2021-09-11] MEDS: ENOXAPARIN 40 MG/0.4 ML SYRINGE SUBCUT SCH (15:15)
[2021-09-11] MEDS: PANTOPRAZOLE 40 MG VIAL IV SCH (15:16)
[2021-09-11 16:02] VITALS: BP 146/64
== END 2021-09-11 18:15 | disposition home health service (06) | DRG 698 ==
LOC: EDBD → EDUNIT# → N.ED 10:56 → N.EDINP 12:39 → SUATTDRO 12:39 → N.3E 18:39
PROVIDERS: ADMIT Family Medicine; ATTEND Internal Medicine

== ENCOUNTER 2022-06-17 18:13 | Observation (INO) ==
[2022-06-17 23:39] LABS: Alanine Aminotransferase 10 U/L (16-61); Albumin 2.4 G/DL (3.4-5.0); Alkaline Phosphatase 92 U/L (45-117); Aspartate Amino Transferase 29 U/L (0-37); Bilirubin,Total < 0.39 MG/DL (0.20-1.00); Blood Urea Nitrogen 18 MG/DL (7-18); Calcium 9.8 MG/DL (8.5-10.1); Carbon Dioxide 27 MMOL/L (21-32); Chloride 97 MMOL/L (98-107); Glucose 126 MG/DL (74-106); Osmolality,Calculated 269.4 MOS/KG (273-304); Potassium 4.9 MMOL/L (3.5-5.1); Sodium 133 MMOL/L (136-145); Total Protein 8.8 G/DL (6.4-8.2)
[2022-06-18 01:45] LABS: PT Patient Result 11.4 SECS (10.1-12.1)
[2022-06-18] MEDS ORDERED: GLUCAGON 1 MG VIAL IM PRN (02:09)
[2022-06-18] MEDS ORDERED: CEFTAROLINE 600 MG in SODIUM CHLORIDE 0.9% 100 ML IV SCH (02:09)
[2022-06-18] MEDS ORDERED: HYDROmorphone 1 MG/1 ML SYRINGE IV PRN (02:09)
[2022-06-18] MEDS ORDERED: ACETAMINOPHEN 325 MG TABLET PO PRN ×2 (02:09)
[2022-06-18] MEDS ORDERED: ALPRAZolam 0.5 MG TABLET PO PRN (02:09)
[2022-06-18] MEDS ORDERED: ONDANSETRON 4 MG/2 ML VIAL IV PRN (02:09)
[2022-06-18] MEDS ORDERED: tiZANidine 4 MG TABLET PO PRN (02:09)
[2022-06-18 02:27] LABS: Basophils # 0.1 10*3/uL (0.0-0.2); Basophils % 0.3 % (0.0-0.8); Eosinophils % 0.2 % (0.00-10.9); Hemoglobin 10.2 GM/DL (14.0-18.0); Immature Granulocytes % 0.6 %; Immature Granulocytes Absolute 0.09 #; Lymphocytes # 2.6 10*3/uL (1.4-4.0); Mean Corpuscular Volume 89.6 FL (87-102); Mean Platelet Volume 10.7 FL (9.6-12.0); Monocytes # 1.7 10*3/uL (0.11-0.8); Monocytes % 11.2 % (1.7-12.7); Neutrophils % 70.7 % (38.7-73.9); Platelet Count 354 T/CUMM (130-400); Red Blood Count 3.93 MC/CUMM (3.8-5.5); Red Cell Distribution Width 17.6 % (9.3-17.3); White Blood Count 15.4 T/CUMM (4-12)
[2022-06-18 02:29] LABS: Hematocrit 35.2 VOL% (42.0-52.0)
[2022-06-18] MEDS: INSULIN REGULAR 100 UNIT/ML SUBCUT SCH ×4 (02:53→17:29)
[2022-06-18] MEDS ORDERED: DEXTROSE 10% 250 ML BAG IV PRN (03:34)
[2022-06-18] MEDS ORDERED: SODIUM CHLORIDE 0.9% 1,000 ML IV SCH (04:00)
[2022-06-18] MEDS: PANTOPRAZOLE 40 MG TABLET PO SCH (05:51)
[2022-06-18] MEDS: VANCOMYCIN INJ 1,250 MG in SODIUM CHLORIDE 0.9% 250 ML IV SCH (06:13)
[2022-06-18 07:09] LABS: Basophils % 0.4 % (0.0-0.8); Eosinophils % 0.2 % (0.00-10.9); Hematocrit 39.3 VOL% (42.0-52.0); Immature Granulocytes % 0.4 %; Immature Granulocytes Absolute 0.04 #; Lymphocytes # 2.6 10*3/uL (1.4-4.0); Lymphocytes % 27.8 % (21.2-54.2); Mean Corpuscular HGB Conc 29.5 GM/DL (32-36); Mean Corpuscular Volume 86.8 FL (87-102); Mean Platelet Volume 10.1 FL (9.6-12.0); Monocytes # 1.3 10*3/uL (0.11-0.8); Monocytes % 14.2 % (1.7-12.7); Platelet Count 318 T/CUMM (130-400); Red Blood Count 4.53 MC/CUMM (3.8-5.5); Red Cell Distribution Width 17.8 % (9.3-17.3); White Blood Count 9.5 T/CUMM (4-12)
[2022-06-18 07:11] LABS: Alanine Aminotransferase 9 U/L (16-61); Albumin 2.2 G/DL (3.4-5.0); Alkaline Phosphatase 90 U/L (45-117); Aspartate Amino Transferase 14 U/L (0-37); Bilirubin,Total < 0.39 MG/DL (0.20-1.00); Blood Urea Nitrogen 17 MG/DL (7-18); Calcium 8.8 MG/DL (8.5-10.1); Carbon Dioxide 24 MMOL/L (21-32); Chloride 101 MMOL/L (98-107); Glucose 109 MG/DL (74-106); Osmolality,Calculated 266.5 MOS/KG (273-304); Potassium 4.5 MMOL/L (3.5-5.1); Sodium 132 MMOL/L (136-145); Total Protein 8.2 G/DL (6.4-8.2)
[2022-06-18 07:12] LABS: Hemoglobin 11.6 GM/DL (14.0-18.0)
[2022-06-18] MEDS ORDERED: LIDOCAINE 2%/EPI 20 ML VIAL ONE (08:51)
[2022-06-18] MEDS ORDERED: MIDAZOLAM 2 MG/2 ML VIAL ONE (08:58)
[2022-06-18] MEDS ORDERED: fentaNYL 100 MCG/2 ML VIAL ONE (08:59)
[2022-06-18] MEDS ORDERED: OMEPRAZOLE PO SCH (09:00)
[2022-06-18] MEDS: GABAPENTIN 600 MG TABLET PO SCH ×3 (09:03→20:32)
[2022-06-18] MEDS: BACLOFEN 10 MG TABLET PO SCH ×3 (09:03→20:31)
[2022-06-18] MEDS: CHOLECALCIFEROL 1,000 UNIT TABLET PO SCH (09:05)
[2022-06-18] MEDS: DULoxetine 20 MG CAPSULE PO SCH (09:06)
[2022-06-18] MEDS: MULTIVITAMIN (CENTRUM) TABLET PO SCH (09:06)
[2022-06-18] MEDS: OXYBUTYNIN XL 5 MG TABLET PO SCH (09:06)
[2022-06-18] MEDS: ASPIRIN EC 81 MG TABLET PO SCH (09:06)
[2022-06-18] MEDS ORDERED: PHENYLEPHRINE 1 MG/10 ML SYRINGE IV ONE ×2 (10:34)
[2022-06-18] MEDS ORDERED: LIDOCAINE 2% 5 ML VIAL ONE (10:34)
[2022-06-18] MEDS ORDERED: propofoL 200 MG/20 ML VIAL IV ONE (10:34)
[2022-06-18] MEDS: SODIUM CHLORIDE 0.9% 1,000 ML IV SCH ×2 (12:27→20:50)
[2022-06-18] MEDS: CEFEPIME 1,000 MG in SODIUM CHLORIDE 0.9% 100 ML IV SCH ×2 (14:21→20:33)
[2022-06-18] MEDS ORDERED: SENNA 8.6 MG TABLET PO SCH (21:00)
[2022-06-18] MEDS ORDERED: amLODIPine 5 MG TABLET PO SCH (21:00)
[2022-06-18] MEDS ORDERED: TEMAZEPAM 15 MG CAPSULE PO SCH (21:00)
[2022-06-19] MEDS: INSULIN REGULAR 100 UNIT/ML SUBCUT SCH ×2 (00:04→07:00)
[2022-06-19] MEDS: VANCOMYCIN INJ 1,250 MG in SODIUM CHLORIDE 0.9% 250 ML IV SCH (00:50)
[2022-06-19] MEDS: CEFEPIME 1,000 MG in SODIUM CHLORIDE 0.9% 100 ML IV SCH ×2 (03:48→08:29)
[2022-06-19 06:21] LABS: Osmolality,Calculated 278.5 MOS/KG (273-304); Potassium 3.5 MMOL/L (3.5-5.1)
[2022-06-19] MEDS: SODIUM CHLORIDE 0.9% 1,000 ML IV SCH (06:26)
[2022-06-19 06:39] LABS: Basophils # 0.1 10*3/uL (0.0-0.2); Basophils % 0.6 % (0.0-0.8); Eosinophils # 0.2 10*3/uL (0.0-0.87); Eosinophils % 1.5 % (0.00-10.9); Hematocrit 31.3 VOL% (42.0-52.0); Immature Granulocytes % 0.7 %; Immature Granulocytes Absolute 0.07 #; Lymphocytes % 30.4 % (21.2-54.2); Mean Corpuscular HGB Conc 29.4 GM/DL (32-36); Mean Corpuscular Volume 87.7 FL (87-102); Mean Platelet Volume 10.1 FL (9.6-12.0); Monocytes # 1.6 10*3/uL (0.11-0.8); Monocytes % 15.6 % (1.7-12.7); Neutrophils % 51.2 % (38.7-73.9); Platelet Count 263 T/CUMM (130-400); Red Cell Distribution Width 17.8 % (9.3-17.3)
[2022-06-19 06:41] LABS: Hemoglobin 9.2 GM/DL (14.0-18.0); Red Blood Count 3.57 MC/CUMM (3.8-5.5)
[2022-06-19 06:53] LABS: Eosinophils 2 % (0-10); Lymphocytes 39 % (20-55); Total Cells Counted 100
[2022-06-19 06:54] LABS: Hypochromia Slight; Microcytosis Slight; Platelet Estimate Adequate
[2022-06-19 07:54] VITALS: BP 143/61
[2022-06-19] MEDS: ASPIRIN EC 81 MG TABLET PO SCH (08:29)
[2022-06-19] MEDS: BACLOFEN 10 MG TABLET PO SCH (08:29)
[2022-06-19] MEDS: PANTOPRAZOLE 40 MG TABLET PO SCH (08:29)
[2022-06-19] MEDS: MULTIVITAMIN (CENTRUM) TABLET PO SCH (08:30)
[2022-06-19] MEDS: OXYBUTYNIN XL 5 MG TABLET PO SCH (08:30)
[2022-06-19] MEDS: DULoxetine 20 MG CAPSULE PO SCH (08:30)
[2022-06-19] MEDS: CHOLECALCIFEROL 1,000 UNIT TABLET PO SCH (08:30)
[2022-06-19] MEDS: GABAPENTIN 600 MG TABLET PO SCH (08:30)
[2022-06-19] MEDS ORDERED: ENOXAPARIN 40 MG/0.4 ML SYRINGE SUBCUT SCH (09:00)
== END 2022-06-19 11:30 | disposition home or self-care (01) ==
LOC: N.ED 18:13 → N.5E 18:13
PROVIDERS: ADMIT Surgery; ATTEND Surgery